=== PATIENT | female | born 1965 | race Caucasian/White ===

== ENCOUNTER → 2022-02-25 | Outpatient (CLI) | payer BC, SELFPAY ==
[2022-02-25 18:02] LABS: Absolute Lymphocyte Count 2.15 X10^3/uL (0.83-4.51); Basophil# 0.04 X10^3/uL; Basophil% 0.6 % (0-1); Eosinophil# 0.18 X10^3/uL; Eosinophils% 2.7 % (0-5); Hematocrit 40.6 % (37-47); Hemoglobin 13.4 g/dL (12.0-15.0); Lymphocyte # 2.15 X10^3/ul (0.83-4.51); Lymphocyte % 31.9 % (19-41); Mean Corpuscular Hgb 32.6 pg (27.0-32.0); Mean Corpuscular Volume 98.8 fL (81-99); Mean Platelet Vol. 9.6 fl (6.2-12.0); Monocyte# 0.36 X10^3/uL; Monocyte% 5.3 % (0-10); NRBC Flagged by Analyzer 0 % (0-5); Neutrophil # 4.01 X10^3/uL (2.7-7.7); Neutrophil % 59.4 % (47-70); Platelet Count 301 K/mm3 (150-450); RBC Distribution Width CV 12.7 % (11.6-14.6); RBC Distribution Width SD 46.3 fl (35.1-43.9); Red Blood Count 4.11 M/mm3 (4.2-5.4); White Blood Count 6.8 K/mm3 (4.4-11.0)
[2022-02-25 18:03] LABS: Erythrocyte Sedimentation Rate 15 mm/hr (0-30)
[2022-02-25 19:37] LABS: ALB/GLOB Ratio 1.1 RATIO (0.9-2.4); AST(SGOT) 22 U/L (15-37); Alanine Aminotransfer ALT/SGPT 37 U/L (13-56); Albumin, Serum 3.9 g/dL (3.2-5.0); Alkaline Phosphatase 90 U/L (45-117); Anion Gap 7 (5-15); BUN 12 mg/dL (7-18); BUN/Creat Ratio 20.1 RATIO (10-20); Calcium,Total 9.1 mg/dL (8.5-10.1); Chloride 105 mmol/L (98-107); Cholesterol 248 mg/dL (200); EST Glomerular Filtration Rate 110 mL/min (>60); Est Glom Filt Rate - Afr Amer 133 mL/min (>60); Globulin 3.4 g/dL (2.2-4.2); Glucose 112 mg/dL (74-106); High Density Lipoprotein 65 mg/dL; Potassium 3.5 mmol/L (3.5-5.1); Protein, Total 7.3 g/dL (6.4-8.2); Sodium Level 137 mmol/L (136-145); Thyroid Stim Hormone (TSH) 3.15 uIU/mL (0.358-3.74); Triglycerides 192 mg/dL; Very Low Density Lipoprotein 38 mg/dL (5-40)
== END | disposition home or self-care (01) ==
LOC: MFPLAB 09:46
PROVIDERS: PCP Family Medicine; Referring Provider Family Medicine; Visit Provider Family Medicine
DX: K76.0 Fatty (change of) liver, not elsewhere classified (principal); R10.9 Unspecified abdominal pain
CPT/HCPCS: 36415; 80053; 80061; 84443; 85025; 85652; 87086

== ENCOUNTER → 2022-02-27 | Outpatient (CLI) | payer BC, SELFPAY ==
--- NOTE | 2022-02-27 15:54 | RAD_ITS ---
STUDY: X-RAY - ABDOMEN/PELVIS REASON FOR EXAM: Female, 57 years old. Right lower quadrant abdominal pain. TECHNIQUE: AP supine and upright views of the abdomen and pelvis. COMPARISON: None. FINDINGS: Normal visualized lung bases. There is an unremarkable bowel gas pattern. There is no demonstrated free abdominal air. The visualized liver, spleen and kidneys are grossly normal in size and morphology. Normal soft tissue structures. There are diffuse degenerative changes of the visualized lumbar spine. RAD/Abd Inc Decub and/or Erect IMPRESSION: No evidence of acute intra-abdominal or pelvic process Electronically Signed: Pete Law DO at 16:09 EDT ,
== END | disposition home or self-care (01) ==
LOC: MTRAD 15:53
PROVIDERS: PCP Family Medicine; Referring Provider Family Medicine; Visit Provider Family Medicine
DX: R10.31 Right lower quadrant pain (principal)
CPT/HCPCS: 74019

== ENCOUNTER → 2022-07-19 | Outpatient (CLI) | payer BC, SELFPAY ==
--- NOTE | 2022-07-19 09:00 | US_ITS ---
STUDY: ABDOMINAL ULTRASOUND - RIGHT UPPER QUADRANT REASON FOR VISIT: Female, 57 years old FATTY LIVER W/ ELASTOGRAPHY TECHNIQUE: Ultrasound evaluation of the right upper quadrant was performed with real-time and static bee-scale imaging. TECHNICAL QUALITY: Adequate. COMPARISON: None. FINDINGS: Liver: The liver is enlarged and measures 19.2 cm. There is increased echogenicity consistent with fatty infiltration. The bile ducts are within normal limits. There is hepatic color flow. The direction of portal flow is hepatopetal. There is no demonstrated mass lesion. Gallbladder: Normal distended gallbladder. The gallbladder wall measures 1.1 mm. There is a negative sonographic Navas''s sign. There is no pericholecystic fluid. There are no gallstones. 3 small gallbladder polyps are seen adherent to the gallbladder wall. The largest polyp measures 5 mm x 5 mm x 20 mm. Common Bile Duct (C.B.D.): The common bile duct measures 6.1 mm. Pancreas: Normal size of the head, body and tail of the pancreas. There is normal echogenicity of the pancreas. There is no demonstrated pancreatic mass or cyst. Right Kidney: Normal size of the right kidney. The right kidney measures 10.3 cm x 6.3 cm x 4.8 cm. Normal renal cortex. The right cortex measures 1.1 cm. There is no demonstrated renal mass or cyst. There is no right hydronephrosis. US/Abdomen Limited IMPRESSION: Hepatomegaly and fatty attrition of the liver. 3. Small gallbladder polyps adherent to the gallbladder wall. Electronically Signed: Babar Cintron MD at 9:00 EDT ,
--- NOTE | 2022-07-19 09:00 | US_ITS ---
STUDY: ABDOMINAL ULTRASOUND - ELASTOGRAPHY REASON FOR VISIT: Female, 57 years old. Fatty infiltration of the liver. TECHNIQUE: Liver stiffness measurements were obtained on a [employer] RS 85 ultrasound machine using a CA 1-7 probe following the SRU guidelines. 3 measurements were obtained using a 2-D-SWE method. TheIQR/M was 22% suggesting a quality data set. TECHNICAL QUALITY: Adequate. COMPARISON: Comparison is made with prior study done earlier in the day. FINDINGS: Liver: There is evidence of fatty infiltration of the liver. Hepatomegaly. Median liver stiffness measured 12.2 kPa. US/Elastography Parenchyma/Organ IMPRESSION: Liver stiffness measures 12.2 kPa compatible with F2-F3 (Mild to moderate liver fibrosis) Metavir score. Electronically Signed: Babar Cintron MD at 9:31 EDT ,
== END | disposition home or self-care (01) ==
PROVIDERS: PCP Family Medicine; Referring Provider Family Medicine; Visit Provider Family Medicine
DX: K76.0 Fatty (change of) liver, not elsewhere classified (principal)
CPT/HCPCS: 76705; 76981

== ENCOUNTER → 2022-07-31 | Outpatient (CLI) | payer BC, SELFPAY ==
[2022-07-31 18:38] LABS: Absolute Lymphocyte Count 1.78 X10^3/uL (0.83-4.51); Absolute Neutrophil Count 3.8 X10^3/uL (2.0-7.7); Basophil# 0.04 X10^3/uL; Basophil% 0.6 % (0-1); Eosinophils% 3.2 % (0-5); Hematocrit 39.7 % (37-47); Hemoglobin 13.2 g/dL (12.0-15.0); Lymphocyte # 1.78 X10^3/ul (0.83-4.51); Lymphocyte % 28.5 % (19-41); Mean Corp Hgb Conc 33.2 g/dL (32-36); Mean Corpuscular Hgb 32.8 pg (27.0-32.0); Mean Corpuscular Volume 98.8 fL (81-99); Mean Platelet Vol. 9.1 fl (6.2-12.0); Monocyte# 0.38 X10^3/uL; Monocyte% 6.1 % (0-10); NRBC Flagged by Analyzer 0 % (0-5); Neutrophil # 3.83 X10^3/uL (2.7-7.7); Neutrophil % 61.4 % (47-70); Platelet Count 280 K/mm3 (150-450); RBC Distribution Width CV 12.5 % (11.6-14.6); RBC Distribution Width SD 45.5 fl (35.1-43.9); Red Blood Count 4.02 M/mm3 (4.2-5.4); White Blood Count 6.2 K/mm3 (4.4-11.0)
[2022-07-31 19:14] LABS: ALB/GLOB Ratio 1.1 RATIO (0.9-2.4); AST(SGOT) 24 U/L (15-37); Alanine Aminotransfer ALT/SGPT 39 U/L (13-56); Albumin, Serum 3.8 g/dL (3.2-5.0); Alkaline Phosphatase 73 U/L (45-117); Anion Gap 6 (5-15); BUN 18 mg/dL (7-18); BUN/Creat Ratio 29.7 RATIO (10-20); Calcium,Total 9.2 mg/dL (8.5-10.1); Chloride 107 mmol/L (98-107); Creatinine, Serum 0.61 mg/dL (0.55-1.02); EST Glomerular Filtration Rate 108 mL/min (>60); Est Glom Filt Rate - Afr Amer 130 mL/min (>60); Ferritin 89 ng/mL (8-252); GGTP 41 U/L (5-55); Globulin 3.5 g/dL (2.2-4.2); Glucose 102 mg/dL (74-106); Iron 62 ug/dL (50-170); Potassium 3.8 mmol/L (3.5-5.1); Protein, Total 7.3 g/dL (6.4-8.2); Sodium Level 138 mmol/L (136-145); Thyroid Stim Hormone (TSH) 2.19 uIU/mL (0.358-3.74)
[2022-08-02 08:10] LABS: HEPATITIS B SURFACE AG Negative (Negative); Hep C Antibodies Non Reactive (Non Reactive); Hepatitis A IgM Antibody Negative (Negative); Hepatitis B Core AB IgM Negative (Negative)
[2022-08-02 09:01] LABS: Thyroid Peroxidase AB 13 IU/mL (0-34)
[2022-08-04 15:08] LABS: ANTINUCLEAR ANTIBODIES DIRECT Positive (Negative); Anti-Centromere B Ab <0.2 AI (0.0-0.9); Anti-Chromatin <0.2 AI (0.0-0.9); Anti-Jo <0.2 AI (0.0-0.9); Anti-Scleroderma-70 AB <0.2 AI (0.0-0.9); RNP Ab 1.3 AI (0.0-0.9); SJOGREN'S Anti-SS-A test < 0.2 AI (0.0-0.9); SJOGREN'S Anti-SS-B test < 0.2 AI (0.0-0.9); Smith Ab <0.2 AI (0.0-0.9)
[2022-08-04 17:43] LABS: Anti-dsDNA Ab 1 IU/mL (0-9)
== END | disposition home or self-care (01) ==
LOC: MFPLAB 16:31
PROVIDERS: PCP Family Medicine; Referring Provider Family Medicine; Visit Provider Family Medicine
DX: K76.0 Fatty (change of) liver, not elsewhere classified (principal)
CPT/HCPCS: 36415; 80053; 80074; 82728; 82977; 83540; 84443; 85025; 86038; 86225; 86235; 86376

== ENCOUNTER → 2022-10-30 | Outpatient (CLI) | payer BC, SELFPAY ==
[2022-10-30 11:58] LABS: Absolute Lymphocyte Count 1.72 X10^3/uL (0.83-4.51); Absolute Neutrophil Count 4.6 X10^3/uL (2.0-7.7); Basophil# 0.03 X10^3/uL; Basophil% 0.4 % (0-1); Eosinophil# 0.16 X10^3/uL; Eosinophils% 2.3 % (0-5); Hematocrit 41.6 % (37-47); Lymphocyte # 1.72 X10^3/ul (0.83-4.51); Lymphocyte % 24.8 % (19-41); Mean Corp Hgb Conc 33.7 g/dL (32-36); Mean Corpuscular Hgb 32.8 pg (27.0-32.0); Mean Corpuscular Volume 97.4 fL (81-99); Mean Platelet Vol. 9.2 fl (6.2-12.0); Monocyte# 0.41 X10^3/uL; Monocyte% 5.9 % (0-10); NRBC Flagged by Analyzer 0 % (0-5); Neutrophil # 4.58 X10^3/uL (2.7-7.7); Neutrophil % 66.2 % (47-70); Platelet Count 287 K/mm3 (150-450); RBC Distribution Width CV 12.8 % (11.6-14.6); RBC Distribution Width SD 45.5 fl (35.1-43.9); Red Blood Count 4.27 M/mm3 (4.2-5.4); White Blood Count 6.9 K/mm3 (4.4-11.0)
[2022-10-30 12:08] LABS: International Normalized Ratio 0.9; Prothrombin Time (Protime)PT. 12.1 SECONDS (11.7-14.9)
[2022-10-30 12:36] LABS: Erythrocyte Sedimentation Rate 26 mm/hr (0-30)
[2022-10-30 12:38] LABS: Hemoglobin A1c 5.4 % (3.8-5.6)
[2022-10-30 12:58] LABS: HIV - WCH Non-Reactive (Nonreactive)
[2022-10-30 19:32] LABS: ALB/GLOB Ratio 1.2 RATIO (0.9-2.4); AST(SGOT) 25 U/L (15-37); Alanine Aminotransfer ALT/SGPT 38 U/L (13-56); Alkaline Phosphatase 85 U/L (45-117); Anion Gap 10 (5-15); BUN 15 mg/dL (7-18); CRP 5.82 mg/L (0.0-3.0); Calcium,Total 9.5 mg/dL (8.5-10.1); Chloride 104 mmol/L (98-107); Creatinine, Serum 0.56 mg/dL (0.55-1.02); EST Glomerular Filtration Rate 119 mL/min (>60); Est Glom Filt Rate - Afr Amer 144 mL/min (>60); Ferritin 110 ng/mL (8-252); Globulin 3.3 g/dL (2.2-4.2); Glucose 110 mg/dL (74-106); LDH 182 U/L (84-246); Potassium 3.9 mmol/L (3.5-5.1); Protein, Total 7.3 g/dL (6.4-8.2); Sodium Level 137 mmol/L (136-145)
[2022-10-31 15:08] LABS: Anti-Centromere B Ab <0.2 AI (0.0-0.9); Anti-Chromatin <0.2 AI (0.0-0.9); Anti-Jo <0.2 AI (0.0-0.9); Anti-Mitochondrial AB <20.0 Units (0.0-20.0); Anti-Scleroderma-70 AB <0.2 AI (0.0-0.9); Anti-dsDNA Ab 2 IU/mL (0-9); RNP Ab 1.5 AI (0.0-0.9); SJOGREN'S Anti-SS-A test < 0.2 AI (0.0-0.9); SJOGREN'S Anti-SS-B test < 0.2 AI (0.0-0.9); Smith Ab <0.2 AI (0.0-0.9)
[2022-11-01 07:08] LABS: AFP, Tumor Marker 2.6 ng/mL (0.0-9.2); Angiotensin Convert Enzyme 35 U/L (14-82); Anti-Smooth Muscle ABS 5 Units (0-19); Ceruloplasmin 28.9 mg/dL (19.0-39.0); Copper, Serum or Plasma 120 ug/dL (80-158); Cytoplasmic Ab (C-ANCA) <1:20 titer (Neg:<1:20); HEPATITIS B SURFACE AG Negative (Negative); Haptoglobin 264 mg/dL (33-346); Hep C Antibodies Non Reactive (Non Reactive); Hepatitis A IgM Antibody Negative (Negative); Hepatitis B Core AB IgM Negative (Negative); Perinuclear Ab (P-ANCA) <1:20 titer (Neg:<1:20)
== END | disposition home or self-care (01) ==
LOC: LAB 11:29
PROVIDERS: PCP Family Medicine; Referring Provider Internal Medicine Gastroenterology; Visit Provider Internal Medicine Gastroenterology
DX: K76.0 Fatty (change of) liver, not elsewhere classified (principal); K83.8 Other specified diseases of biliary tract
CPT/HCPCS: 36415; 80053; 80074; 82105; 82140; 82164; 82390; 82525; 82728; 83010; 83036; 83516; 83615; 85025; 85610; 85652; 86140; 86225; 86235; 86256; 86703

== ENCOUNTER → 2022-11-20 | Outpatient (CLI) | payer BC, SELFPAY ==
--- NOTE | 2022-11-20 15:50 | MRI_ITS ---
INDICATION: cbd dilation, abd pain EXAMINATION: MRI - MR MRCP and Abdomen W/O Contrast TECHNIQUE: Multiplanar and multisequence MR images of the abdomen were obtained with MRCP sequence. Three-dimensional post-processing reconstructions were performed. IV Contrast Dosage and Agent: None. COMPARISON: Abdominal radiograph February 27, 2022 abdominal ultrasound July 19, 2022. FINDINGS: LIVER: Homogeneous parenchyma with hepatomegaly. No evidence of intrahepatic mass. Normal morphology. GALLBLADDER AND BILIARY TREE: Gallbladder well filled. Small dependent stones within the gallbladder without wall thickening or surrounding inflammation. The CBD measures up to 8 mm with distal tapering, abruptly truncated within the pancreatic segment prior to the ampulla on MRCP though appearing to taper all way to the duodenum on axial T2 without suspicious filling defect. No intra- or extrahepatic biliary dilation. No choledochal filling defect. PANCREAS: No mass. No pancreatic duct dilation. Pancreatic duct continues to the ampulla. SPLEEN: Non-enlarged. ADRENAL GLANDS: Ill-defined 8mm left medial adrenal nodule, axial T2 image 8. KIDNEYS: Partially duplicated left renal collecting system, joining low within the abdomen, with mild pelviectasis in the left renal lower pole. Normal right renal collecting system. Normal renal size and position. No hydronephrosis. No mass. LYMPH NODES: No enlarged periportal or retroperitoneal lymph nodes. PERITONEUM: No ascites or fluid collection. VESSELS: Aorta is non-dilated. LOWER CHEST: No pleural effusion. MRI/MRCP Abdomen without Contrast IMPRESSION: Cholelithiasis without surrounding inflammation to suggest cholecystitis. Mild dilatation of the common bile duct at 8 mm with distal tapering. The distal common bile duct appears to taper to the ampulla on axial T2 though appears abruptly truncated on MRCP. Correlate with biliary labs. If there is clinical evidence of biliary obstruction would not exclude distal most common bile duct stone and ERCP may be beneficial. Partially duplicated left renal collecting system 8mm well-defined left adrenal nodule. Follow-up dedicated adrenal protocol CT recommended to further characterize when clinically able. Mild hepatomegaly Electronically Signed: Armaan Mcclain MD at 5:53 EDT ,
[2022-11-26 00:06] LABS: Albumin 4.1 g/dL (2.9-4.4); Alpha-1-Globulins 0.2 g/dL (0.0-0.4); Alpha-2-Globulins 0.9 g/dL (0.4-1.0); Ceruloplasmin 26.5 mg/dL (19.0-39.0); Copper, Serum or Plasma 106 ug/dL (80-158); Gamma Globulin 0.8 g/dL (0.4-1.8); IgG, Quant 825 mg/dL (586-1602); Immunoglobulin A 108 mg/dL (87-352); Immunoglobulin G, Subclass 1 376 mg/dL (248-810); Immunoglobulin G, Subclass 2 346 mg/dL (130-555); Immunoglobulin G, Subclass 3 26 mg/dL (15-102); Immunoglobulin G, Subclass 4 23 mg/dL (2-96); Immunoglobulin M 140 mg/dL (26-217)
== END | disposition home or self-care (01) ==
PROVIDERS: PCP Family Medicine; Referring Provider Internal Medicine Gastroenterology; Visit Provider Internal Medicine Gastroenterology
DX: K76.0 Fatty (change of) liver, not elsewhere classified (principal); K83.8 Other specified diseases of biliary tract
CPT/HCPCS: 36415; 74181; 82390; 82525; 82784; 82787; 84165; 86334

== ENCOUNTER → 2022-12-02 | Outpatient (CLI) | payer BC, SELFPAY ==
[2022-12-04 05:04] LABS: Carbohydrate AG 19-9 6 U/mL (0-35); Carcinoembryonic Antigen 1.5 ng/mL (0.0-4.7)
== END | disposition home or self-care (01) ==
LOC: LAB 15:43
PROVIDERS: PCP Family Medicine; Referring Provider Internal Medicine Gastroenterology; Visit Provider Internal Medicine Gastroenterology
DX: K83.8 Other specified diseases of biliary tract (principal)
CPT/HCPCS: 36415; 82378; 86301

== ENCOUNTER → 2023-01-05 | Outpatient (CLI) | payer BC, SELFPAY ==
--- NOTE | 2023-01-05 07:51 | US_ITS ---
STUDY: ABDOMINAL ULTRASOUND - RIGHT UPPER QUADRANT; ELASTOGRAPHY REASON FOR VISIT: Female, 57 years old. Fatty infiltration of the liver. TECHNIQUE: Ultrasound evaluation of the right upper quadrant was performed with real-time and static bee-scale imaging. Point quantification shear wave elastography was performed ([employer]). TECHNICAL QUALITY: Adequate. COMPARISON: Comparison is made with prior study of July 19, 2022. FINDINGS: Liver: The liver is enlarged and measures 18.5 cm. There is increased echogenicity consistent with fatty infiltration. The bile ducts are within normal limits. There is hepatic color flow. The direction of portal flow is hepatopetal. There is no demonstrated mass lesion. Median liver stiffness measured 7.6 kPa. Gallbladder: Normal distended gallbladder. The gallbladder wall measures 2.1 mm. There is a negative sonographic Navas''s sign. There is no pericholecystic fluid. There are multiple echogenic structures within the gallbladder, consistent with multiple small gallstones. Sludge is seen within the gallbladder lumen. Common Bile Duct (C.B.D.): The common bile duct measures 5.4 mm. Pancreas: There is increased echogenicity of the pancreas. There is no demonstrated pancreatic mass or cyst. Right Kidney: Normal size of the right kidney. The right kidney measures 10.1 cm x 5.5 cm x 4.8 cm. Normal renal cortex. The right cortex measures 1.2 cm. There is no demonstrated renal mass or cyst. There is no right hydronephrosis. US/Abdomen Limited IMPRESSION: 1. Liver stiffness measures 7.6 kPa compatible with F2-F3 (Mild to moderate liver fibrosis) Metavir score. Electronically Signed: Babar Cintron MD at 16:39 EDT ,
== END | disposition home or self-care (01) ==
LOC: US 07:51
PROVIDERS: PCP Family Medicine; Referring Provider Internal Medicine Gastroenterology; Visit Provider Internal Medicine Gastroenterology
DX: K76.0 Fatty (change of) liver, not elsewhere classified (principal); K83.8 Other specified diseases of biliary tract
CPT/HCPCS: 76705; 76981

== ENCOUNTER 2023-01-08 10:41 | Day surgery (SDC) | payer BC, SELFPAY ==
[2023-01-08 11:12] VITALS: BP 140/96; PULSE 82; RESP 16; TEMP 36.2; O2SAT 98; BMI 28.6
[2023-01-08] MEDS: Lactated Ringers 1,000 ML 15 ML IV (11:16)
--- NOTE | 2023-01-08 11:27 | HP.PCM_ITS ---
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 Takes 800mg ibuprofen/day. HLD noted ? Biochemical 07.31.22 CBC, CMP, LFT, GGT, TSH, hepatitis screen without pertinent abnormality. ? 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 ? FIB4 0.8 ? US RUQ and elastography 07.19.22 hepatic measurement 19.2cm with fatty infiltration, stiffness 12.2kPa; 3 small gallbladder polyps, largest [id number]; CBD 6.1mm *BGI established 10.30.22 ibuprofen 800mg is taken once a daily and is not every day but frequently. ROS Const Constitutional: No anorexia, fatigue, fever(s), weight change or sleep problems Eyes Eyes: No change in vision ENT ENT: No abnormal hearing, difficulty swallowing, mouth lesions, tongue swelling or throat swelling Resp Respiratory: No cough or shortness of breath Cardio Cardiology: No chest pain at rest, chest pain with exertion, shortness of breath or dyspnea on exertion Gastro GI: No difficulty swallowing Genitourinary-Female: No difficulty urinating or burning urination Musc Musculoskeletal: No joint pain, joint swelling, muscle weakness or decreased muscle mass Skin Skin: No hair loss in leg, yellowing of the eye, itchy eyes, rash, skin ulcer or skin swelling Neuro Neurology: No abnormal hearing, abnormal movements, confusion, unsteady gait/balance or memory loss Psych Psychiatric: No anxiety, No confusion and No memory loss Endo Endocrine: No fatigue or weight change Aller/Imm Allergy/Immunologic: No itchy eyes, throat swelling or tongue swelling Trevor/Lymp Hematologic/Lymphatic: No easy bleeding, easy bruising or enlarged lymph nodes Quality Reporting Tobacco Screening ([facility] 138) Smoking Status: Current every day smoker Assessment and Plan Assessment and Plan (1) Common bile duct dilatation: Status: Chronic Plan: She is not having any problems regarding pain with eating or right upper quadrant pain. She does have some, duct dilation of the extrahepatic duct in the differential diagnosis from that would be papillary stenosis, ampullary stenosis, chronic choledocholithiasis, type I choledochal cyst. We will get an MRCP for evaluation of her hepatobiliary system (2) Fatty liver: Status: Chronic Plan: She at this time is classified as having stage III managed by a fibrosis score of 12.2 kPa. She is also been identified as having hypercholesterolemia and mild obesity. She is on rosuvastatin. I would like to add Actos I will recheck her hemoglobin A1c at a 50 mg dose per day. She is on 1000 mg of vitamin D a day and I think that should be taken down to 400 international units. There is no benefit to high-dose vitamin E in her patient population with [place]. After she gets biochemical testing and MRI we will have her follow-up for further work-up. Orders: Orders HIV - [facility] Today K76.0 - Fatty (change of) liver, not elsewhere classified, K83.8 - Other specified diseases of biliary tract Comprehensive Metabolic Profil Today K76.0 - Fatty (change of) liver, not elsewhere classified, K83.8 - Other specified diseases of biliary tract CRP Today K76.0 - Fatty (change of) liver, not elsewhere classified, K83.8 - Other specified diseases of biliary tract Ferritin Today K76.0 - Fatty (change of) liver, not elsewhere classified, K83.8 - Other specified diseases of biliary tract LDH Today K76.0 - Fatty (change of) liver, not elsewhere classified, K83.8 - Other specified diseases of biliary tract Hemoglobin A1c Today K76.0 - Fatty (change of) liver, not elsewhere classified, K83.8 - Other specified diseases of biliary tract Prothrombin Time w/INR Today K76.0 - Fatty (change of) liver, not elsewhere classified, K83.8 - Other specified diseases of biliary tract CBC W/Diff, Automated Today K76.0 - Fatty (change of) liver, not elsewhere classified, K83.8 - Other specified diseases of biliary tract Erythrocyte Sed Rate Today K76.0 - Fatty (change of) liver, not elsewhere classified, K83.8 - Other specified diseases of biliary tract Anti-Mitochondrial AB Today K76.0 - Fatty (change of) liver, not elsewhere classified, K83.8 - Other specified diseases of biliary tract AYLA Comprehensive Panel Today K76.0 - Fatty (change of) liver, not elsewhere classified, K83.8 - Other specified diseases of biliary tract MRCP Abdomen without Contrast Today K76.0 - Fatty (change of) liver, not elsewhere classified, K83.8 - Other specified diseases of biliary tract Hepatitis Panel Acute Today K76.0 - Fatty (change of) liver, not elsewhere classified, K83.8 - Other specified diseases of biliary tract Angiotensin Convert Enzyme Today K76.0 - Fatty (change of) liver, not elsewhere classified, K83.8 - Other specified diseases of biliary tract AFP, Tumor Marker Today K76.0 - Fatty (change of) liver, not elsewhere classified, K83.8 - Other specified diseases of biliary tract ANCA Today K76.0 - Fatty (change of) liver, not elsewhere classified, K83.8 - Other specified diseases of biliary tract Anti-Smooth Muscle ABS Today K76.0 - Fatty (change of) liver, not elsewhere classified, K83.8 - Other specified diseases of biliary tract Ceruloplasmin Today K76.0 - Fatty (change of) liver, not elsewhere classified, K83.8 - Other specified diseases of biliary tract Copper, Serum or Plasma Today K76.0 - Fatty (change of) liver, not elsewhere c lassified, K83.8 - Other specified diseases of biliary tract Haptoglobin Today K76.0 - Fatty (change of) liver, not elsewhere classified, K83.8 - Other specified diseases of biliary tract Ammonia Today K76.0 - Fatty (change of) liver, not elsewhere classified, K83.8 - Other specified diseases of biliary tract Abdomen Limited 01/05/23 K76.0 - Fatty (change of) liver, not elsewhere classified, K83.8 - Other specified diseases of biliary tract Elastography Parenchyma/Organ 01/05/23 K76.0 - Fatty (change of) liver, not elsewhere classified, K83.8 - Other specified diseases of biliary tract Medications: New pioglitazone 15 mg PO DAILY 30 tabs 2RF I have examined the patient and the H&P has been reviewed. There are no clinical changes since date of exam.
--- NOTE | 2023-01-08 11:45 | ASPS_PTH ---
PATIENT: MARTINA DANIELS LOC: EN U#:[id number] AGE/SX: 57/F ROOM: RE01/08/[address]: Dr. Jose L Montana DO : 1965 BED: DIS: 01/08/2023 SPEC #: [id number] RECD: 01/08/23 17:13 STATUS: [facility] #: [id number] KARY: 01/08/23 11:[address]: Jose L Montana DEPT: CYTOLOGY RECD BY: Treasure Garcia ENTERED: 01/09/23 08:22 SP TYPE: ASPIRATION OTHR DR: Dr. Nestor Santiago MD Tissues: Bile duct, NOS Procedures: Special Stain Group II Surgery Specimen Level III Cytology Other HEADER OPERATION: ERCP brushings, placement of stents PRE-OP DIAGNOSIS: Fatty liver, common bile duct dilatation TISSUE SUBMITTED: Common bile duct brushings x4 smears DIAGNOSIS CYTOLOGY Common bile duct brushings (smears): Negative for malignant cells. AM:briseida 01/09/2023 CYTOLOGY STUDY Slides are reviewed. CYTOLOGY GROSS Received are four smears labeled with the patient's name and designated per the requisition as common bile duct brushings. Submitted for staining. / briseida 01/08/2023 TC:5 CPT: 62826
[2023-01-08 11:47] LABS: Bedside Glucose 101 mg/dL (74-106)
--- NOTE | 2023-01-08 12:50 | RAD_ITS ---
STUDY: ERCP. REASON FOR EXAM: Female, 57 years old. PAIN FLUOROSCOPY TIME (if supplied): ( 140 seconds. ) minutes/seconds. 26.23 mGy TECHNIQUE: An ERCP was performed by the banquet server on call. Fluoroscopic services was provided. COMPARISON: None. FINDINGS: A biliary stent was placed. RAD/ERCP Biliary Only IMPRESSION: Biliary stent was placed. Electronically Signed: Babar Cintron MD at 14:41 EDT ,
[2023-01-08 14:00] VITALS: BP 137/87; BP 140/96; PULSE 79; RESP 16; TEMP 36.1; O2SAT 98
[2023-01-08 14:15] VITALS: BP 140/96; BP 159/92; PULSE 76; RESP 16; O2SAT 95
[2023-01-08 14:18] VITALS: BP 140/96; BP 158/93; PULSE 74; RESP 16; TEMP 36.3; O2SAT 97
[2023-01-08 14:40] LABS: Bedside Glucose 92 mg/dL (74-106)
--- NOTE | 2023-01-08 14:52 | OP.CCLET_ITS ---
01/08/2023 Dada Santiago [address] [place] [address] Re : ERCP procedure for Elsie Saenzai Dear Dr. Santiago This procedure was performed on December. My impressions and recommendations are as follows: Impressions : - A biliary tract obstruction was found. - A single segmental biliary stricture was found in the lower third of the main bile duct. The stricture was benign appearing. - The entire main bile duct was moderately dilated, acquired. - Choledocholithiasis with a partial obstruction was found. Complete removal was accomplished by biliary sphincterotomy and balloon extraction. - A biliary sphincterotomy was performed. - The biliary tree was swept. - Cells for cytology obtained in the lower third of the main duct. - One temporary stent was placed into the common bile duct. - One stent was placed into the ventral pancreatic duct. Recommendations : My findings are described in the full procedure note, which is enclosed. If I can be of further assistance, please feel free to contact me at . Sincerely, Jose L Montana, 01/08/2023 2:51:55 PM This report has been signed electronically.
--- NOTE | 2023-01-08 14:52 | OP.ERCP_ITS ---
Patient Name: Elsie Patterson Procedure Date: 01/08/2023 12:44 PM Date of : 1965 Age: 57 Procedure: ERCP Indications: Bile duct stone(s), Abnormal abdominal CT, Abnormal MRCP, Elevated liver enzymes Providers: Jose L Montana DO Medicines: Monitored Anesthesia Care Patient Profile: This is a 57 year old female. Refer to note in patient chart for documentation of history and physical. Patient has symptoms of chronic right upper quadrant abdominal pain. This patient has no history of previous ERCP. Complications: No immediate complications. Procedure: Pre-Anesthesia Assessment: - Prior to the procedure, a History and Physical was performed, and patient medications and allergies were reviewed. The patient is competent. The risks and benefits of the procedure and the sedation options and risks were discussed with the patient. All questions were answered and informed consent was obtained. Patient identification and proposed procedure were verified by the physician in the pre-procedure area. Mental Status Examination: alert and oriented. Airway Examination: normal oropharyngeal airway and neck mobility. Respiratory Examination: clear to auscultation. CV Examination: normal. Prophylactic Antibiotics: The patient does not require prophylactic antibiotics. Prior Anticoagulants: The patient has taken no anticoagulant or antiplatelet agents. ASA Grade Assessment: II - A patient with mild systemic disease. After reviewing the risks and benefits, the patient was deemed in satisfactory condition to undergo the procedure. The anesthesia plan was to use general anesthesia. Immediately prior to administration of medications, the patient was re-assessed for adequacy to receive sedatives. The heart rate, respiratory rate, oxygen saturations, blood pressure, adequacy of pulmonary ventilation, and response to care were monitored throughout the procedure. The physical status of the patient was re-assessed after the procedure. After obtaining informed consent, the scope was passed under direct vision. Throughout the procedure, the patient's blood pressure, pulse, and oxygen saturations were monitored continuously. The Duodenoscope was introduced through the mouth, and advanced to the duodenum and used to inject contrast into the bile duct. The ERCP was accomplished with ease. The patient tolerated the procedure well. Scope In: 1:17:22 PM Scope Out: 1:39:07 PM Total Procedure Duration Time 0 hours 21 minutes 45 seconds Findings: The lpta film was normal. The esophagus was successfully intubated under direct vision. The scope was advanced to a normal major papilla in the descending duodenum without detailed examination of the pharynx, larynx and associated structures, and upper GI tract. The upper GI tract was grossly normal. The bile duct was deeply cannulated. Contrast was injected. I personally interpreted the bile duct and pancreatic duct images. There was brisk flow of contrast through the ducts. Image quality was excellent. Contrast extended to the entire biliary tree. The entire biliary tree except for the cystic duct and gallbladder were partially obstructed by a narrowing that did not appear to be a stone or a mass. Opacification of the entire biliary tree except for the cystic duct and gallbladder was successful. The maximum diameter of the ducts was 7 mm. The lower third of the main bile duct contained a single segmental stenosis 6 mm in length. The main bile duct was moderately dilated, acquired. The largest diameter was 9 mm. Placement of a long 0.025 inch Jagwire into the biliary tree was attempted. This passed successfully. A 5 mm biliary sphincterotomy was made with a monofilament traction (standard) sphincterotome using ERBE electrocautery. There was no post-sphincterotomy bleeding. To discover objects, the biliary tree was swept with a 12 mm balloon starting at the bifurcation. Sludge was swept from the duct. All stones were removed. Cells for cytology were obtained by brushing in the lower third of the main bile duct. One 7 Fr by 5 cm temporary stent was placed 5 cm into the common bile duct. Bile flowed through the stent. The stent was in good position. One 4 Fr by 5 cm stent was placed 5 cm into the ventral pancreatic duct. Bile flowed through the stent. The stent was in good position. Impression: - A biliary tract obstruction was found. - A single segmental biliary stricture was found in the lower third of the main bile duct. The stricture was benign appearing. - The entire main bile duct was moderately dilated, acquired. - Choledocholithiasis with a partial obstruction was found. Complete removal was accomplished by biliary sphincterotomy and balloon extraction. - A biliary sphincterotomy was performed. - The biliary tree was swept. - Cells for cytology obtained in the lower third of the main duct. - One temporary stent was placed into the common bile duct. - One stent was placed into the ventral pancreatic duct. Procedure Code(s): --- Professional --- 80451, Endoscopic retrograde cholangiopancreatography (ERCP); with placement of endoscopic stent into biliary or pancreatic duct, including pre- and post-dilation and guide wire passage, when performed, including sphincterotomy, when performed, each stent [id number], 59, Endoscopic retrograde cholangiopancreatography (ERCP); with placement of endoscopic stent into biliary or pancreatic duct, including pre- and post-dilation and guide wire passage, when performed, including sphincterotomy, when performed, each stent [id number], Endoscopic retrograde cholangiopancreatography (ERCP); with removal of calculi/debris from biliary/pancreatic duct(s) 67908, 26, Combined endoscopic catheterization of the biliary and pancreatic ductal systems, radiological supervision and interpretation CPT copyright 2021 [employer]. All rights reserved. The codes documented in this report are preliminary and upon professional fee coder review may be revised to meet current compliance requirements. Jose L Montana DO 01/08/2023 2:51:55 PM This report has been signed electronically. Number of Addenda: 0 Note Initiated On: 01/08/2023 12:44 PM
[2023-01-08 15:39] VITALS: BP 140/96; BP 169/90; PULSE 77; RESP 17; TEMP 36.4; O2SAT 93
== END 2023-01-08 15:54 | disposition home or self-care (01) ==
LOC: EN 10:46 → AC 10:49
PROVIDERS: PCP Family Medicine; Referring Provider Family Medicine; Visit Provider Internal Medicine Gastroenterology
PROC: (CPT 43260; principal; 2023-01-08 11:25)
DX: K80.51 Calculus of bile duct without cholangitis or cholecystitis with obstruction (principal); E11.9 Type 2 diabetes mellitus without complications; F17.200 Nicotine dependence, unspecified, uncomplicated; K83.8 Other specified diseases of biliary tract; Z79.899 Other long term (current) drug therapy
CPT/HCPCS: 43274 ×2; 43264; 74328; 76000; 76705; 76981; 82962; 88161; 88304; 88313; J7120; J2405

== ENCOUNTER 2023-04-28 11:56 | Day surgery (SDC) | payer BC, SELFPAY ==
[2023-04-28] VITALS (7 sets, daily range): BP systolic 90–135; BP diastolic 71–90; PULSE 76–85; RESP 16; TEMP 36–36.7; O2SAT 98–100; BMI 27.9
--- NOTE | 2023-04-28 12:00 | RAD_ITS ---
STUDY: ERCP. REASON FOR EXAM: Female, 58 years old. ERCP FLUOROSCOPY TIME (if supplied): ( 66 seconds ) minutes/seconds. 13.32 mGy TECHNIQUE: An ERCP was performed by the director of employee development. Fluoroscopic services were provided. COMPARISON: None. FINDINGS: Fluoroscopic services provided for ERCP. RAD/ERCP Biliary/Pancreas IMPRESSION: Fluoroscopic services provided for ERCP. Electronically Signed: Babar Cintron MD at 15:08 EST ,
[2023-04-28] MEDS: Lactated Ringers 1,000 ML 15 ML IV (12:29)
--- NOTE | 2023-04-28 13:00 | FLU_PTH ---
PATIENT: MARTINA DANIELS LOC: EN U#:[id number] AGE/SX: 58/F ROOM: RE04/28/[address]: Dr. Jose L Montana DO : 1965 BED: DIS: 04/28/2023 SPEC #: [id number] RECD: 04/29/23 09:29 STATUS: [facility] #: [id number] KARY: 04/28/23 13:[address]: Jose L Montana DEPT: CYTOLOGY RECD BY: Jossy Rivas ENTERED: 04/29/23 09:31 SP TYPE: Fluid OTHR DR: Dr. Nestor Santiago MD Tissues: A - Bile duct, NOS B - Bile duct, NOS C - Bile duct, NOS Procedures: Special Stain Group II Surgery Specimen Level IV Cytospin Fluid Cytology Other HEADER OPERATION: ERCP with stent removal with brushings and balloon sweep PRE-OP DIAGNOSIS: Fatty liver, common bile duct dilation TISSUE SUBMITTED: A - Biliary stent and pancreatic stent fluid, B - Distal common bile duct stricture brushings, C - Common bile duct stricture brush tip DIAGNOSIS CYTOLOGY A. Biliary stent fluid for cytology (cytospin and cell block): Negative for malignant cells. B. Common bile duct brushings (cytospin and cell block): Negative for malignant cells. C. Common bile duct brushings (smears): Negative for malignant cells. AM:briseida 04/30/2023 CYTOLOGY STUDY Slides are reviewed. CYTOLOGY GROSS A - Received is <0.5 ml of yellow thick pasty material labeled with the patient's name and and designated per the requisition as biliary and pancreatic stent. Submitted for cytology preparation including cell block. B - Received is a metallic endoscopic cytobrush with adherent minute fragments of reyez-red tissue brush in 0.5 ml of yellow cloudy fluid and labeled with the patient's name and and designated per the requisition as brushings distal common bile duct stricture. The material is dislodged from the brush and submitted for cytology preparation including cell block. C - Received are four smears labeled with the patient's name and designated per the requisition as brush tip distal common bile duct stricture. Submitted for staining. / briseida 04/29/2023 TC:3 CPT: 52433 x2, 52355 x2, 80819
--- NOTE | 2023-04-28 13:06 | HP.PCM_ITS ---
History and Physical Date of Admission: 04/28/23 58 F who presents to the office today for follow up. 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 Takes 800mg ibuprofen/day. HLD noted Biochemical 07.31.22 CBC, CMP, LFT, GGT, TSH, hepatitis screen without pertinent abnormality. [employer] ab H1.3. FIB4 0.8 US RUQ and elastography 07.19.22 hepatic measurement 19.2cm with fatty infiltration, stiffness 12.2kPa; 3 small gallbladder polyps, largest [id number]; CBD 6.1mm *BGI established 10.30.22 ibuprofen 800mg is taken once a daily and is not every day but frequently. Biochemical CBC, ESR, coag, CMP, LFT, LDH, ceruloplasmin, haptoglobin, ferritin, A1c, PAMELA, copper, AFP GAME, IgG subclasses, LONNIE, ASM, AMA, ANCA, HIV, hepatitis without pertinent abnormality. Ammonia H44, CRP H5.82, [employer] H1.5 FIB4 0.82 MRCP 7 cholelithiasis without inflammation; CBD 8mm with distal tapering without evidence of obstruction; adrenal nodule. Contact 12.03.22 would like to wait on urology referral US and elastography 01.05.23 hepatic measurement 18.5 with fatty infiltration, stiffness 7.6kPa; multiple gallstones ERCP 01.08.23 biliary stricture; entire main bile duct dilated; choledocholithiasis, biliary sphincterotomy/balloon extraction; two temporary stents placed, CBD and ventral pancreatic duct. Pathology WNL. Contact, 01.28.23 with US/elastography and ERCP results. OV 11 Pt reports intermittent abdominal pain. Feels its mostly diet related. BM are normal and consistent. Appeite is okay. No swelling in the arms or legs. There is no significant weight gain for last few years. No leg swelling, abdominal pain, fever, jaundice or Dysuria. She decreased amount and frequency of alcohol intake currently, 1-2 glass of red wine on weekends. 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 ROS Const Constitutional: Positive for fatigue and weight change ENT ENT: No difficulty swallowing Gastro GI: No abdominal pain, belching, bloating, change in bowel habits, change in stool character, coffee ground emesis, constipation, cramping, diarrhea, heartburn, difficulty swallowing, feeling full early, excessive flatus, incontinent of stools, Vomiting blood/hematemesis, Blood in stool, loose stools, Black,tarry stools, nausea/dyspepsia, pain with swallowing, vomiting or other Musc Musculoskeletal: Positive for restless legs; No joint pain Skin Skin: No yellowing of the eye or itchy eyes Neuro Neurology: Positive for restless legs Psych Psychiatric: No anxiety and No depression Endo Endocrine: Positive for fatigue and weight change Aller/Imm Allergy/Immunologic: No itchy eyes Trevor/Lymp Hematologic/Lymphatic: No easy bleeding or easy bruising Exam Const General: cooperative, no acute distress and well developed Nutritional Appearance: average body habitus Orientation: alert, awake and oriented x3 [facility] Head: normocephalic and atraumatic Nose: external nose normal Face and sinus: normal facial exam Mouth: moist mucous membranes Eyes Pupils: PERRL EOM: EOM intact bilaterally Neck Neck: normal visual inspection, no meningeal signs and trachea midline Carotids: no bruits Chest Chest palpation & inspection: normal inspection of the chest Resp Effort & Inspection: normal respiratory effort and symmetric chest movement Auscultation: Bilateral: Clear to Auscultation Cardio Palpation: normal PMI Rate: regular rate Rhythm: regular rhythm Heart Sounds: S1 normal and S2 normal GI Auscultation: normal bowel sounds Percussion: normal to percussion Palpation: soft, no hepatosplenomegaly and no guarding Other: Clinically no palpable ascites with fluid thrill and shifting dullness. General: bimanual renal exam normal bilaterally, bladder normal to inspection and bladder normal to palpation Bimanual Exam- Vagina & Uterus: bladder normal to palpation Musc Musculoskeletal: No joint tenderness, joint redness, joint warmth or decreased range of motion Thoracic/Lumbar Spine: thor and lumb spine abnorm to inspection Skin General: rashes and/or lesions noted, turgor normal and no erythema Wounds: wound noted Neuro General: patient alert, patient awake, patient oriented x3 and no focal motor deficits Speech: speech normal Motor: muscle tone normal throughout Extrem General: normal exam except as noted Psych Appearance: grossly normal Mood: congruent mood Affect: normal affect Attitude: cooperative Quality Reporting Tobacco Screening (CMS 138) Smoking Status: Current every day smoker Assessment and Plan Assessment and Plan (1) Fatty liver: Status: Chronic Plan: NAFLD score -2.49 suggestive of severity F0 to F2 fibrosis. Fib 4 score 0.03, advanced fibrosis noted. Approximate fibrosis stage Cristy 0-1.Most recent liver ultrasound with elastography 01/05/2023 shows median liver stiffness 7.6, decreased from 12.2 kPa from July 2022. Liver enlarged 18.5 cm with fatty infiltration. Bile duct within normal limit. No demonstrated mass lesion. CBD 5.4 mm. No demonstrated pancreatic mass or cyst with increased pancreatic echogenicity. Last fasting profile was from February 2022 which showed increased LDL and total cholesterol therefore increased to 10 mg daily. We will repeat l ab work before next visit. Last A1c 5.4% in October 2022. Blood pressure is controlled. Patient is already on pioglitazone which has beneficial effect on the liver fibrosis. Check vitamin D3. (2) Common bile duct dilatation: Status: Chronic Plan: Currently she does not have abdominal pain. She had ERCP on January 08, 2023 she is not having abdominal pain. She had 1 temporary stent in the CBD and another stent in the ventral pancreatic duct. Cytology is negative for malignant cells. We will schedule ERCP with Dr. Montana in first week of April. I have examined the patient and the H&P has been reviewed. There are no clinical changes since date of exam.
--- NOTE | 2023-04-28 13:22 | EKG12_ITS ---
Test Reason : PRE OP Blood Pressure : / mmHG Vent. Rate : 063 BPM Atrial Rate : 063 BPM P-R Int : 172 ms QRS Dur : 070 ms QT Int : 458 ms P-R-T Axes : 047 016 053 degrees QTc Int : 468 ms Normal sinus rhythm Normal ECG No previous ECGs available Confirmed by LURDES LEONE, SCOTTIE ([id number]), assistant editor DOMINIK NICHOLS ([id number]) on 05/01/2023 5:52:05 AM Referred By: Dada Santiago Confirmed By:SCOTTIE CHATMAN MD
--- NOTE | 2023-04-28 14:23 | OP.CCLET_ITS ---
04/28/2023 Dada Santiago [address] [place] [address] Re : ERCP procedure for Elsie Patterson Dear Dr. Santiago This procedure was performed on Friday, April 28, 2023. My impressions and recommendations are as follows: Impressions : - Erythematous duodenopathy. - The lower third of the main bile duct was dilated, acquired. - Choledocholithiasis was found. Complete removal was accomplished by biliary sphincterotomy and balloon extraction. - A biliary sphincterotomy was performed. - The biliary tree was swept. - One stent was removed from the biliary tree. - The left main hepatic duct was successfully dilated. Recommendations : My findings are described in the full procedure note, which is enclosed. If I can be of further assistance, please feel free to contact me at . Sincerely, Jose L Montana, 04/28/2023 2:23:06 PM This report has been signed electronically.
--- NOTE | 2023-04-28 14:23 | OP.ERCP_ITS ---
Patient Name: Elsie Patterson Procedure Date: 04/28/2023 1:13 PM Date of : 1965 Age: 58 Procedure: ERCP Indications: Bile duct stone(s), Stent removal Providers: Jose L Montana DO Referring MD: Dada Santiago Medicines: Monitored Anesthesia Care Patient Profile: This is a 58 year old female. Refer to note in patient chart for documentation of history and physical. Patient has symptoms of chronic right upper quadrant abdominal pain. Her most recent ERCP for stent and ERCP for stone removal was within the past six months. Complications: No immediate complications. Procedure: Pre-Anesthesia Assessment: - Prior to the procedure, a History and Physical was performed, and patient medications and allergies were reviewed. The patient is competent. The risks and benefits of the procedure and the sedation options and risks were discussed with the patient. All questions were answered and informed consent was obtained. Patient identification and proposed procedure were verified by the physician in the pre-procedure area. Mental Status Examination: alert and oriented. Airway Examination: normal oropharyngeal airway and neck mobility. Respiratory Examination: clear to auscultation. CV Examination: normal. Prophylactic Antibiotics: The patient does not require prophylactic antibiotics. Prior Anticoagulants: The patient has taken no anticoagulant or antiplatelet agents. ASA Grade Assessment: II - A patient with mild systemic disease. After reviewing the risks and benefits, the patient was deemed in satisfactory condition to undergo the procedure. The anesthesia plan was to use monitored anesthesia care (MAC). Immediately prior to administration of medications, the patient was re-assessed for adequacy to receive sedatives. The heart rate, respiratory rate, oxygen saturations, blood pressure, adequacy of pulmonary ventilation, and response to care were monitored throughout the procedure. The physical status of the patient was re-assessed after the procedure. After obtaining informed consent, the scope was passed under direct vision. Throughout the procedure, the patient's blood pressure, pulse, and oxygen saturations were monitored continuously. The Duodenoscope was introduced through the mouth, and advanced to the duodenum and used to inject contrast into the bile duct and ventral pancreatic duct. The ERCP was accomplished without difficulty. The patient tolerated the procedure well. Scope In: 1:57:51 PM Scope Out: 2:11:31 PM Total Procedure Duration Time 0 hours 13 minutes 40 seconds Findings: The automatic edger film was normal. The esophagus was successfully intubated under direct vision. The scope was advanced to a normal major papilla in the descending duodenum without detailed examination of the pharynx, larynx and associated structures, and upper GI tract. The upper GI tract was grossly normal. A straight Roadrunner wire was passed into the biliary tree. The bile duct was then deeply cannulated over the guidewire. Contrast was injected. Opacification of the lower third of the main bile duct was successful. The maximum diameter of the ducts was 7 mm. The entire opacified area and lower third of the main bile duct contained one stone, which was 4 mm in diameter. The lower third of the main bile duct was diffusely dilated, acquired. The largest diameter was 9 mm. A 5 mm biliary sphincterotomy was made with a traction (standard) sphincterotome using ERBE electrocautery. There was no post-sphincterotomy bleeding. The biliary tree was swept with a 15 mm balloon starting at the bifurcation. Sludge was swept from the duct. All stones were removed. One stent was removed from the biliary tree using a snare and sent for cytology. The stent was found to be partially occluded via the water column test. Dilation of the left main hepatic duct with 5-7-8.5 Fr catheter dilator was successful. A standard esophagogastroduodenoscopy scope was used for the examination of the upper gastrointestinal tract. The scope was passed under direct vision through the upper GI tract. Patchy mildly erythematous mucosa without active bleeding and with no stigmata of bleeding was found in the duodenal bulb. Impression: - Erythematous duodenopathy. - The lower third of the main bile duct was dilated, acquired. - Choledocholithiasis was found. Complete removal was accomplished by biliary sphincterotomy and balloon extraction. - A biliary sphincterotomy was performed. - The biliary tree was swept. - One stent was removed from the biliary tree. - The left main hepatic duct was successfully dilated. Procedure Code(s): --- Professional --- 84921, Endoscopic retrograde cholangiopancreatography (ERCP); with removal of foreign body(s) or stent(s) from biliary/pancreatic duct(s) 56266, Endoscopic retrograde cholangiopancreatography (ERCP); with removal of calculi/debris from biliary/pancreatic duct(s) 56490, Endoscopic retrograde cholangiopancreatography (ERCP); with sphincterotomy/papillotomy 11603, Unlisted procedure, biliary tract CPT copyright 2021 [employer]. All rights reserved. The codes documented in this report are preliminary and upon duty engineer review may be revised to meet current compliance requirements. Jose L Montana DO 04/28/2023 2:23:06 PM This report has been signed electronically. Number of Addenda: 0 Note Initiated On: 04/28/2023 1:13 PM
== END 2023-04-28 15:09 | disposition home or self-care (01) ==
LOC: EN 11:58 → AC 11:58
PROVIDERS: PCP Family Medicine; Referring Provider Family Medicine; Visit Provider Internal Medicine Gastroenterology
PROC: (CPT 43260; principal; 2023-04-28 12:40)
DX: K80.50 Calculus of bile duct without cholangitis or cholecystitis without obstruction (principal); E11.9 Type 2 diabetes mellitus without complications; K83.8 Other specified diseases of biliary tract; K76.0 Fatty (change of) liver, not elsewhere classified; K21.9 Gastro-esophageal reflux disease without esophagitis; F41.9 Anxiety disorder, unspecified; F32.A Depression, unspecified; F17.210 Nicotine dependence, cigarettes, uncomplicated; E66.9 Obesity, unspecified; Z78.0 Asymptomatic menopausal state; Z79.899 Other long term (current) drug therapy; Z79.84 Long term (current) use of oral hypoglycemic drugs; Z68.27 Body mass index [BMI] 27.0-27.9, adult
CPT/HCPCS: 43262; 43264; 43275; 74330; 76000; 88108; 88161; 88305; 88313; 93005; J7120

== ENCOUNTER → 2023-06-23 | Outpatient (CLI) | payer BC, SELFPAY ==
[2023-06-23 18:28] LABS: HIV - WCH Non-Reactive (Nonreactive); Hepatitis B Surface Antibody Reactive
--- OUTSIDE RECORDS SUMMARY | 2023-06-23 19:59 | XMS RPT_ITS | CCD ---
Author Name Unknown Address [address] [place] [address] Organization [facility] Care Team Providers Care Application Spec Name Role Phone Unavailable Primary Care Provider UnavailLYN Arroyo Referring Unavailable LYN MEDINA Referring Unavailable BREANNA NG Attending Unavailable LYN MEDINA Referring Unavailable LYN MEDINA Referring Unavailable Medications Current Medications Medication Drug Class(es) Dates Sig (Normalized) Sig (Original) metroNIDAZOLE 500 mg oral tablet (1 source) Nitroimidazole Antimicrobial Start: 06-11-2023 End: 06-18-2023 take 1 tablet by mouth twice daily metroNIDAZOLE (FLAGYL) 500 mg tablet Take 1 tablet by mouth two times a day for 7 days. 14 tablet 0 06/11/2023 06/18/2023 Active Completed/Discontinued Medications Medication Drug Class(es) Dates Sig (Normalized) Sig (Original) Calcium Carbonate (1 source) CALCIUM CARBONAT E ORAL Take 10 mg by mouth. 0 Active Problems Active Problems Problem Classification Problem Date Documented Da te Episodic/Chronic Immunizations and screening for infectious disease (4 sources) Patient encounter status; Translations: [Encounter for screening for human papillomavirus (HPV)] Episodic Past or Other Problems Problem Classification Problem Date Documented Da te Episodic/Chronic Nonmalignant breast conditions (4 sources) Lump in left breast; Translations: [Unspecified lump in the left breast, unspecified quadrant] Onset: 07-09-2022 Episodic Results Test Name Value Interpretation Reference Range Facil ity Vital Signs Date Time Vital Sign Value Performing Clinician Faci lity 06-06-2022 15:16-0500 Body height 170.2 cm Lyn Medina MD Work Phone: [facility] 06-06-2022 15:16-0500 Body weight 86.91 kg Lyn Medina MD Work Phone: [facility] 06-06-2022 15:16-0500 Diastolic blood pressure 82 mm[Hg] Lyn Medina MD Work Phone: [facility] 06-06-2022 15:16-0500 Systolic blood pressure 122 mm[Hg] Lyn Medina MD Work Phone: [facility] Encounters Encounter Date Encounter Type Care Provider Facility Start: 06-12-2023 Telephone encounter Demi amaya LEARN TO SWIM INSTRUCTOR.DONOR RELATIONS OFFICER Work Phone: OB/Gynecology Start: 06-10-2023 End: 06-10-2023 ambulatory [facility] Facility:[facility] Start: 06-06-2023 End: 06-06-2023 ambulatory [facility] Facility:[facility] Start: 08-26-2022 End: 08-26-2022 ambulatory [facility] Facility:[facility] Start: 08-26-2022 End: 08-26-2022 Subsequent hospital visit by physician [facility] Work Phone: Radiology Procedures Date Procedure Procedure Detail Performing Clinician Start: 08-26-2022 Us breast uni real t merari with image limited Lyn Medina MD Work Phone: Start: 08-26-2022 Digital breast tomosynthesis bilateral Lyn Medina MD Work Phone: Plan of Treatment Date Care Activity Detail Author Start: 06-10-2024 Covid-19 Vaccine (2022-24 season) Covid-19 Vaccine ( season) [facility] Immunizations Immunization Date Immunization Notes Care Provider Ion stroud 10-20-2022 hepatitis B vaccine, adult dosage Demi Grantham LEARN TO SWIM INSTRUCTOR.DONOR RELATIONS OFFICER Work Phone: [facility] Work Phone: 08-06-2022 hepatitis A vaccine, pediatric/adolescent dosage, 2 dose schedule Demi Grantham LEARN TO SWIM INSTRUCTOR.DONOR RELATIONS OFFICER Work Phone: [facility] Work Phone: 08-06-2022 hepatitis B vaccine, adult dosage Demi Grantham LEARN TO SWIM INSTRUCTOR.DONOR RELATIONS OFFICER Work Phone: [facility] Work Phone: Payers Date Payer Category Payer Unknown NIRAJ HUGHES PPO [id number] 2021-Present [phone] [address] [place] [address] PPO [id number] 2021 Unknown [id number] Social History Date Type Detail Facility Start: [facility]-06-[facility]22 [facility] Start: 06-06-2022 Tobacco use and exposure Smoke less tobacco non-user [facility] Start: 06-06-2022 End: 06-10-2023 Alcohol intake Current drinker of alcohol (finding) [facility] Start: 06-06-2022 Alcohol Comment [facility] Start: 1965 Sex Assigned At Not on file [facility] Start: 06-06-2022 End: 06-09-2023 History of Social function [facility] Start: 06-06-2022 End: 06-09-2023 Tobacco use panel [facility] National Score (1-10 0), lower number is lower risk 52 [facility] Start: 1965 Sex Assigned At Female C [facility] Clinical Notes 06-06-2022 to 06-12-2023 Telephone Encounter - Demi Lebron APRN.CNP - 06/12/2023 6:48 AM ESTTelephone Encounter - Demi Lebron APRN.CNP - 06/12/2023 6:47 AM Yaneth Le RDMS - 08/26/2022 4:00 PM EDT Note Date & Type Note Facility 06-12-2023 Miscellaneous Notes Formattin g of this note might be different from the original. RX was sent yesterday to [facility] by [facility]. Demi Lebron APRN.DONOR RELATIONS OFFICER ----- Message from Rebecca Lee LPN sent at 06/11/2023 3:43 PM EST ----- Pt given results and would like rx for BV sent to her pharmacy, [facility] . Call only if problems. Rebecca Lee LPN.; documented in this encounter [facility] 06-10-2023 Note HNO ID: [id number] Author: BREANNA NG MD Service: ? Author Type: Physician Type: Progress Notes Filed: 06/10/2023 14:55 Note Text: Print Line Operator offered: Patient declinesKori Zimmerman is a 58 year old who presents for an annual gynecologic exam without complaints. Postmenopausal: yes, has h/o hyst in 2011 HRT use: No. Last Pap: normal HPV: negative History of abnormal pap: No Last mammogram: 2022 diagnostic History of abnormal mammogram: diagnostic Sexually active: Yes OB History T0 L0 SAB0 IAB0 Ectopic0 Multiple0 Live Births0 [employer] History LMP: Hysterectomy Age at Menarche: Age at First : Age at Menopause: [employer] History Comments: Sexual Activity: Yes; No partner data on record Contraception: Surgical PAST MEDICAL HISTORY Diagnosis Date Skin cancer PAST SURGICAL HISTORY Procedure Laterality Date ERCP 01/08/2023 stent taken out 04/28/2023 TOTAL ABDOM HYSTERECTOMY 2011 for fibroids FAMILY HISTORY Problem Relation Age of Onset No Known Problems Mother No Known Problems Father Thyroid Sister No Known Problems Sister No Known Problems Sister No Known Problems Maternal Grandmother No Known Problems Maternal Grandfather No Known Problems Paternal Grandmother No Known Problems Paternal Grandfather SOCIAL HISTORY Social History Tobacco Use Smoking status: Every Day Smokeless tobacco: Never Vaping Use Vaping Use: Former Substance Use Topics Alcohol use: Yes Comment: nightly Drug use: Never REVIEW OF SYSTEMS Abdomen: No abdominal pain, nausea, vomiting, diarrhea, or constipation. No bloating, early satiety, indigestion, or increased flatulence. Bladder: No dysuria, gross hematuria, urinary frequency, urinary urgency, or incontinence Breast: No breast lumps, nipple d/c, overlying skin changes, redness or skin retraction Allergies and current medication updated:Yes EXAM: BP 128/72 Ht 5' 7 (1.70m) Wt 183 lb (83.0kg) BMI 28.66 kg/(m2). GENERAL: pleasant, female in no apparent distress HEENT: Normocephalic, atraumatic, mucus membranes moist, and no lesions NECK: Supple, full range of motion, no adenopathy, and thyroid normal DERMATOLOGY: Normal, without lesions, non-icteric, and non-hirsute BREAST: soft, non-tender, symmetric, no dominant mass, normal nipple-areolar complex, no lymphadenopathy, and no nipple discharge CHEST: Normal inspiratory effort ABDOMEN: soft, non-tender, and no masses PELVIC: external genitalia normal, normal Bartholin's glands, urethra, [place]'s glands, no vulvar lesions, good vaginal support, physiologic discharge present, normal appearing perineal body and perianal region, cervix surgically absent, flattened pale epithelium w/ thin yellow discharge BIMANUAL: no adnexal masses, non-tender, and uterus surgically absent RECTOVAGINAL: deferred. NEURO: alert and oriented x3,exam grossly non-focal EXTREMITIES: normal ASSESSMENT/PLAN: 1) Health maintenance: Pap/HPV screening no longer needed Mammogram ordered Colon cancer screening: cologard ordered per her request vaginal discharge, check labs, if neg consider treatment for atrophic vaginitis 2) Follow up one year or sooner as needed Breanna Ng MD [facility] 06-06-2023 Note HNO ID: [id number] Author: DEMI LEBRON APRN.DONOR RELATIONS OFFICER Service: ? Author Type: Nurse Practitioner Type: Progress Notes Filed: 06/06/2023 08:34 Note Text: This note was created using NoteWriter. Subjective Elsie Patterson is a 58 year old female. HPI pt had a cyst removed from the upper posterior left arm on at the derm office and she has some of the sutures pop. She is concerned about the opening and infection. Review of Systems All other systems reviewed and are negative. Objective BP 122/80 Pulse 72 Temp 36.1 ?C (96.9 ?F) Resp 16 Wt 82.6 kg (182 lb) SpO2 98% BMI 28.51 kg/m? Physical Exam Pulmonary: Effort: Pulmonary effort is normal. Skin: General: Skin is warm. Comments: Wound edges are healing [address] Wound appears to be free of infection. Neurological: Mental Status: She is alert. Assessment and Plan ASSESSMENT/PLAN: 1. Disruption or dehiscence of closure of skin, initial encounter - ICD9: 998.32, ICD10: T81.31XA Wound healing, instructed to keep wound cover and clean Call derm office for follow up Demi Lebron APRN.CNP Medical Decision Making: Problems: Low: Acute, uncomplicated illness or injury Risk: Low: Low risk from testing/treatment Medical Decision Making Level: 3 - Low [facility] 09-04-2022 Note HNO ID: [id number] Author: Jose L Juarez Service: ? Author Type: ? Type: Progress Notes Filed: 09/04/2022 11:10 AM Note Text: 4th attempt to schedule colonscopy. Left VM, no mychart, and sent letter. Cancelled request, please place new order when patient is ready to schedule. Thank you. KAVIN 09/04 [facility] 08-28-2022 Note HNO ID: [id number] Author: Selena Underwood Service: ? Author Type: ? Type: Progress Notes Filed: 08/28/2022 8:41 AM Note Text: -14... 3'rd attempt, left message to return call [facility] 08-26-2022 Note HNO ID: [id number] Author: Yaneth Bond RDMS Service: ? Author Type: Latex Foam Worker Type: Progress Notes Filed: 08/26/2022 4:35 PM Note Text: Radiology Service Progress Note PATIENT NAME: Elsie Patterson DATE OF SERVICE: August 26, 2022 TIME: 4:35 PM PATIENT IDENTITY VERIFICATION COMPLETED USING TWO (2) IDENTIFIERS: Name and Date of confirmed by patient verbally. FALL SCREENING: Has the patient had 2 falls in the last year or 1 fall with injury or currently using an Ambulatory Assistive Device (Walker, Cane, Wheelchair, Crutches, etc.)? No PATIENT GENDER DATA: Female. status: : No status: NO. PATIENT RELEVANT IMPLANT DATA REVIEWED: Not Applicable RADIOLOGY DEPARTMENT: Ultrasound PERIPHERAL IV DATA: Not applicable SIGNED BY: Yaneth Bond RDMS August 26, 2022 4:35 PM [facility] 08-26-2022 Note HNO ID: [id number] Author: RT Natalia(R) Service: ? Author Type: Technologist Type: Progress Notes Filed: 08/26/2022 3:47 PM Note Text: Radiology Service Progress Note PATIENT NAME: Elsie Patterson DATE OF SERVICE: August 26, 2022 TIME: 3:47 PM PATIENT IDENTITY VERIFICATION COMPLETED USING TWO (2) IDENTIFIERS: Name and Date of confirmed by patient verbally. FALL SCREENING: Has the patient had 2 falls in the last year or 1 fall with injury or currently using an Ambulatory Assistive Device (Walker, Cane, Wheelchair, Crutches, etc.)? No PATIENT GENDER DATA: Female. status: : No status: NO. PATIENT RELEVANT IMPLANT DATA REVIEWED: Not Applicable RADIOLOGY DEPARTMENT: Mammography PERIPHERAL IV DATA: Not applicable SIGNED BY: RT Natalia(R) August 26, 2022 3:47 PM [facility] 08-26-2022 History of Presen t illness Narrative Radiology Service Progress Note PATIENT NAME: Elsie Patterson DATE OF SERVICE: August 26, 2022 TIME: 4:35 PM PATIENT IDENTITY VERIFICATION COMPLETED USING TWO (2) IDENTIFIERS: Name and Date of confirmed by patient verbally. FALL SCREENING: Has the patient had 2 falls in the last year or 1 fall with injury or currently using an Ambulatory Assistive Device (Walker, Cane, Wheelchair, Crutches, etc.)? No PATIENT GENDER DATA: Female. status: : No status: NO. PATIENT RELEVANT IMPLANT DATA REVIEWED: Not Applicable RADIOLOGY DEPARTMENT: Ultrasound PERIPHERAL IV DATA: Not applicable SIGNED BY: Yaneth Bond RDMS August 26, 2022 4:35 PM documented in this encounter [facility] 08-26-2022 History of Presen t illness Narrative Radiology Service Progress Note PATIENT NAME: Elsie Patterson DATE OF SERVICE: August 26, 2022 TIME: 3:47 PM PATIENT IDENTITY VERIFICATION COMPLETED USING TWO (2) IDENTIFIERS: Name and Date of confirmed by patient verbally. FALL SCREENING: Has the patient had 2 falls in the last year or 1 fall with injury or currently using an Ambulatory Assistive Device (Walker, Cane, Wheelchair, Crutches, etc.)? No PATIENT GENDER DATA: Female. status: : No status: NO. PATIENT RELEVANT IMPLANT DATA REVIEWED: Not Applicable RADIOLOGY DEPARTMENT: Mammography PERIPHERAL IV DATA: Not applicable SIGNED BY: RT Natalia(R) August 26, 2022 3:47 PM documented in this encounter [facility] 06-20-2022 Note HNO ID: [id number] Author: Hellen Mo RN Service: ? Author Type: ? Type: Progress Notes Filed: 06/20/2022 11:59 AM Note Text: External Mammogram results - Please review Scan on 06/20/2022 11:17 AM by External Provider: Mammography [facility] 06-20-2022 History of Presen t illness Narrative External Mammogram results - Please review Scan on 06/20/2022 11:17 AM by External Provider: Mammography documented in this encounter [facility] 06-17-2022 Note HNO ID: [id number] Author: Selena Underwood Service: ? Author Type: ? Type: Progress Notes Filed: 06/17/2022 2:58 PM Note Text: 2'nd attempt left message to return call to schedule her colonoscopy Selena Underwood [facility] 06-06-2022 History of Presen t illness Narrative TR OPEN ACCESS QUESTIONNAIRE 1. Are you currently having any new or unusual stomach/gastrointestinal issues at this time such as constipation, diarrhea, abdominal pain, rectal bleeding etc?No 2. Do you have any difficulty swallowing? No 3. Do you have any implanted devices such as a defibrillator, pacemaker, cardiac stents or deep brain stimulator? No 4. Do you take any Blood thinners such as Coumadin, Plavix, Xarelto, Eliquis, Brilinta or any other blood thinner? No 5. Do you have any new or past cardiac (heart) or pulmonary (lung) issues? No 6. Do you currently use any oxygen? No 7. Have you been hospitalized in the past 6 weeks? No 8. Have you had difficulty with anesthesia previously re: Difficult intubation? No Other difficulty or allergic reaction to anesthesia other than post op N/V? No 9. Are you on dialysis? No 10. Do you have any bleeding disorders such as hemophilia or Factor 5? No 11. Are you an Insulin Dependent Diabetic? No IF ANY OF THE TOP ELEVEN QUESTIONS ARE ANSWERED YES PLEASE SCHEDULE THE PATIENT FOR A CONSULT. scheduled 12. Is the patient's BMI 40 or greater? No:Body mass index is 30.01 kg/m .. 13. Do you take any narcotics or anti-Anxiety medications? No 14. Do you use any illegal or recreational drugs including marijuana? No 15. Any alcohol use: YES: What type of alcohol, how much and how often do you drink? : 2-3 glasses of wine every night 16. Have you been diagnosed with chronic liver disease such as hepatitis or cirrhosis? No 17. Do you have a seizure disorder? No 18. Do you have ulcerative colitis or Crohn's disease? No 19. Are you or could you be ? No 20. Any other important health information we should be made aware of prior to your colonoscopy? No To be completed by LIP: Did patient have MAC anesthesia with a previous endoscopy procedure? No Patient appropriate for Open Access Colonoscopy: Yes: appropriate for Open Access Procedure Checklist: Prior to closing the encounter: Complete questionnaire: Yes Confirm Prep order has been Ordered/Pended: Yes. Patient's procedure could be delayed if not given the script for the prep. Please ensure the prep is escripted to pharmacy or printed. Instructions for the prep will print upon filing or pending this smartset. Please send all open access questionnaires to [facility] Pool #[id number] Print Line Operator offered: Patient declines. Elsie is a 57 year old No obstetric history on file. who presents for an annual gynecologic exam. She reports a spot on her left breast that is intermittent. It has been there for about 5 years and she thinks stress can trigger it. Denies breast discharge or other breast complaints. Postmenopausal: Yes since 2011 HRT use: No. Last Pap: 2012 - normal in [place] per patient History of abnormal pap: No Last mammogram: 2018 normal History of abnormal mammogram: Yes OB History No obstetric history on file. [employer] History LMP: Hysterectomy Age at Menarche: Age at First : Age at Menopause: [employer] History Comments: Sexual Activity: Not Currently; No partner data on record Contraception: Surgical PAST MEDICAL HISTORY Diagnosis Date Skin cancer PAST SURGICAL HISTORY Procedure Laterality Date TOTAL ABDOM HYSTERECTOMY 2012 FAMILY HISTORY Problem Relation Age of Onset No Known Problems Mother No Known Problems Father Thyroid Sister No Known Problems Sister No Known Problems Sister No Known Problems Maternal Grandmother No Known Problems Maternal Grandfather No Known Problems Paternal Grandmother No Known Problems Paternal Grandfather SOCIAL HISTORY Social History Tobacco Use Smoking status: Every Day Smokeless tobacco: Never Vaping Use Vaping Use: Former Substance Use Topics Alcohol use: Yes Comment: nightly Drug use: Never REVIEW OF SYSTEMS Abdomen: No abdominal pain, nausea, vomiting, diarrhea, or constipation. No bloating, early satiety, indigestion, or increased flatulence. Bladder: No dysuria, gross hematuria, urinary frequency, urinary urgency, or incontinence Breast: see above Allergies and current medication updated:Yes EXAM: BP 122/82 Ht 5' 7 (1.70m) Wt 191 lb 9.6 oz (86.9kg) BMI 30.00 kg/(m^2). GENERAL: pleasant, female in no apparent distress BREAST: soft, non-tender, no lymphadenopathy, and no nipple discharge; right - no dominant mass, normal nipple-areolar complex; left - 8mm mass in areolar region CHEST: Normal inspiratory effort ABDOMEN: soft, non-tender, and no masses PELVIC: external genitalia normal, no vulvar lesions, normal appearing perineal body and perianal region; atrophic vagina BIMANUAL: no adnexal masses, non-tender, and uterus surgically absent RECTOVAGINAL: deferred. NEURO: alert and oriented x3,exam grossly non-focal EXTREMITIES: normal ASSESSMENT/PLAN: 1) Health maintenance: Pap/HPV screening no longer needed Nutrition, exercise and routine health maintenance exams reviewed. Colon cancer screening: GI referral for colonoscopy 2) Follow up one year or sooner as needed 3) Breast lump - diagnostic breast imaging ordered 4) Vaginal atrophy - patient declines treatment Lyn Medina MD documented in this encounter [facility] 06-06-2022 Instructions Christina Parris Bartlett - 06/06/2022 3:41 PM EST Images from the original note were not included. Miralax/Dulcolax Bowel Prep For this bowel preparation, you will need to purchase the following medications at any pharmacy: Over the counter Miralax (generic name is polyethylene glycol) 8.3 oz or 238 grams Four (4) Dulcolax (generic name is Bisacodyl) tablets 3 days prior to your procedure, you need to be on a low fiber diet (Such as popcorn, beans, seeds, nuts, salad and raw vegetables, corn, fresh and dried fruit and multi-grain bread) YOU MUST BE ON CLEAR LIQUIDS FOR 2 FULL DAYS PRIOR TO YOUR COLONOSCOPY Day one which would be two days before your colonoscopy, you will need to be on clear liquids all day. You may have coffee or tea-black only (no cream), clear broths (beef, chicken or vegetable), apple juice, white grape juice, pop, Gatorade, Powerade, lemonade, Jello, popsicles, Khari-aid, and water-But nothing red or dark purple in color and no dairy products, tomato or orange juices. Day two which would be the day before your colonoscopy continue clear liquids all day as above. And follow the instructions below: 8:00 AM - Mix the Miralax with 64 oz of Gatorade or another clear liquid of choice and place in refrigerator. Most people say the drink is better cold. 4:00 PM - Take 2 of the Dulcolax tablets with 8 oz of water. 6:00 PM - Start to drink the Miralax mixture. You must finish it by midnight. 8:00 PM - Take the other 2 Dulcolax tablets with 8 oz of water. You may continue to drink clear liquids while you are taking your prep and after you finish it as long as it is before midnight. Drink lots of fluids so you don t become dehydrated. Nothing to drink after midnight the night before the procedure unless you are instructed differently by the physician or nurses. Please remember to take your normal medications the morning of the procedure with a small sip of water especially your blood pressure medications. If you are diabetic, you need to contact your physician about how to take your diabetic medications and/or insulin during the prepping period and the day of your procedure. Any questions please call: Dr. Kendall or Dr. Rodríguez [phone] Kristan Espinoza [phone] Dr. Cummings [phone] [facility] nurses [phone] documented in this encounter [facility] Diagnosis Mass of left breast, unspecified quadrant [facility] Diagnosis Mass of left breast, unspecified quadrant [facility]ative)* Outpatient Procedure (Routine) - Pending Review Specialty Diagnoses / Procedures Referred By Monica reis Referred To Contact [facility] Diagnoses Special screening for malignant neoplasms, colon Procedures COLONOSCOPY SCREENING COLONOSCOPY FLX DX W/COLLJ SPEC WHEN PFRMD Lyn Medina MD [address] [place] [address] [facility] [place] [address] [place] [address] Referral ID Status Reason Start Date Expiration Date Visits Requested Visits Authorized [id number] Pending Review Auto-Generat ed Referral 06/06/2022 06/06/2023 1 1 * Diagnostic Procedure Only (Routine) - Pending Review Specialty Diagnoses / Procedures Referred By Monica reis Referred To Contact [facility] Diagnoses Mass of left breast, unspecified quadrant Procedures US BREAST LTD LT US BREAST UNI REAL TIME WITH IMAGE LIMITED Lyn Medina MD [address] [place] [address] [facility] [address] [place] [address] Referral ID Status Reason Start Date Expiration Date Visits Requested Visits Authorized [id number] Pending Review Auto-Generat ed Referral 06/06/2022 07/06/2023 1 1 * Diagnostic Procedure Only (Routine) - Authorized Specialty Diagnoses / Procedures [facility] To [facility] Diagnoses Mass of left breast, unspecified quadrant Procedures [facility] DI[facility]NOSTIC BILAT DIAGNOSTIC MAMMOGRAPHY COMPUTER-AIDED DETCJ Lyn Whitehead MD [address] [place] [address] [facility] [address] [place] [address] Referral ID Status Reason Start Date Expiration Date Visits Requested Visits Authorized [id number] Authorized Auto-Generat ed Referral 06/06/2022 07/06/2023 1 1 [facility] for referral (narrative)* Diagnostic Procedure Only (Routine) - Closed Specialty Diagnoses / Procedures [facility] Diagnoses Mass of left breast, unspecified quadrant Procedures US BREAST LTD LT US BREAST UNI REAL TIME WITH IMAGE LIMITED Lyn Medina MD [address] [place] [address] [facility] [address] [place] [address] Referral ID Status Reason Start Date Expiration Date V isits Requested Visits Authorized [id number] Closed Auto-Generate d Referral 06/06/2022 07/06/2023 1 1 [facility] for visit Narrative* Diagnostic Procedure Only (Routine) - Closed Specialty Diagnoses / Procedures Referred By Contac t Referred To Contact [facility] Diagnoses Mass of left breast, unspecified quadrant Procedures SARAH DIAGNOSTIC BILAT DIAGNOSTIC MAMMOGRAPHY COMPUTER-AIDED DETCJ Lyn Whitehead MD [address] [place] [address] [facility] [address] [place] [address] Referral ID Status Reason Start Date Expiration Date V isits Requested Visits Authorized [id number] Closed Auto-Generate d Referral 06/06/2022 07/06/2023 1 1 [facility] Summary Purpose Family History No Family History Records Found Advance Directives No Advanced Directives Records Found Additional Source Comments Source Comments (unrecognize d section and content) In the event this informatio n is protected by the Federal Confidentiality of Alcohol and Drug Abuse Patient Records regulations: The Federal rules restrict any use of the information to criminally investigate or prosecute any alcohol or drug abuse patient.[facility] the event this information is protected by the Federal Confidentiality of Alcohol and Drug Abuse Patient Records regulations: The Federal rules restrict any use of the information to criminally investigate or prosecute any alcohol or drug abuse patient.[facility] the event this information is protected by the Federal Confidentiality of Alcohol and Drug Abuse Patient Records regulations: The Federal rules restrict any use of the information to criminally investigate or prosecute any alcohol or drug abuse patient.[facility] the event this information is protected by the Federal Confidentiality of Alcohol and Drug Abuse Patient Records regulations: The Federal rules restrict any use of the information to criminally investigate or prosecute any alcohol or drug abuse patient.[facility] the event this information is protected by the Federal Confidentiality of Alcohol and Drug Abuse Patient Records regulations: The Federal rules restrict any use of the information to criminally investigate or prosecute any alcohol or drug abuse patient.[facility] the event this information is protected by the Federal Confidentiality of Alcohol and Drug Abuse Patient Records regulations: The Federal rules restrict any use of the information to criminally investigate or prosecute any alcohol or drug abuse patient.[facility] Reason for Visit (unrecogniz ed section and content) Reason Comments External Results - Mammogram Reason Comments Radiology US Specialty Diagnoses / Procedures Referred By Contac t Referred To Contact [facility] Diagnoses Mass of left breast, unspecified quadrant Procedures US BREAST LTD LT US BREAST UNI REAL TIME WITH IMAGE LIMITED Lyn Medina MD [address] [place] [address] [facility] [address] [place] [address] Referral ID Status Reason Start Date Expiration Date V isits Requested Visits Authorized [id number] Closed Auto-Generate d Referral 06/06/2022 07/06/2023 1 1 INFORMATION SOURCE (unrecogn ized section and content) FOR RECORDS PERTAINING TO PATIENTS WHO ARE OR HAVE BEEN ENROLLED IN A CHEMICAL DEPENDENCY/SUBSTANCEABUSE PROGRAM, SOME INFORMATION MAY BE OMITTED. This clinical summary was aggregated from multiple sources. Caution should be exercised in using it in the provision of clinical care. This summary normalizes information from multiple sources, and as a consequence, information in this document may materially change the coding, format and clinical context of patient data. In addition, data may be omitted in some cases. CLINICAL DECISIONS SHOULD BE BASED ON THE PRIMARY CLINICAL RECORDS. [facility] [email or web address] [facility]. provides no warranty or guarantee of the accuracy or completeness of information in this document.
[2023-06-25 18:07] LABS: HCV Quant. RNA PCR HCV Not Detected IU/mL (.); HEPATITIS B SURFACE AG Negative (Negative); Hep C Antibodies Non Reactive (Non Reactive); Hepatitis A AB, Total Positive (Negative); Hepatitis A IgM Antibody Negative (Negative); Hepatitis B Core AB IgM Negative (Negative)
== END | disposition home or self-care (01) ==
PROVIDERS: PCP Family Medicine
DX: Z11.59 Encounter for screening for other viral diseases (principal)
CPT/HCPCS: 36415; 80074; 86703; 86706; 86708; 87522

== ENCOUNTER → 2023-08-22 | Outpatient (CLI) | payer BC, SELFPAY ==
--- NOTE | 2023-08-22 08:52 | US_ITS ---
STUDY: ABDOMINAL ULTRASOUND - RIGHT UPPER QUADRANT; ELASTOGRAPHY REASON FOR VISIT: Female, 58 years old. NAFLD. TECHNIQUE: Ultrasound evaluation of the right upper quadrant was performed with real-time and static bee-scale imaging. Point quantification shear wave elastography was performed ([employer]). TECHNICAL QUALITY: Adequate. COMPARISON: Comparison is made with prior study dated January 05, 2023. FINDINGS: Liver: The liver is mildly enlarged and measures 18.1 cm. There is increased echogenicity consistent with fatty infiltration. The bile ducts are within normal limits. There is hepatic color flow. The direction of portal flow is hepatopetal. There is no demonstrated mass lesion. Median liver stiffness measured 10.26 kPa. Gallbladder: Normal distended gallbladder. The gallbladder wall measures 3 mm. There is a negative sonographic Navas''s sign. There is no pericholecystic fluid. There are no gallstones. No gallstones are seen at this time. Patient has a history of prior common bile duct stent. Common Bile Duct (C.B.D.): The common bile duct measures 8 mm. Pancreas: There is normal echogenicity of the visualized pancreas. There is no demonstrated pancreatic mass or cyst. Right Kidney: Normal size of the right kidney. The right kidney measures 10.8 cm x 5.9 cm x 4.7 cm. Normal renal cortex. The right cortex measures 1.5 cm. There is no demonstrated renal mass or cyst. There is no right hydronephrosis. US/ABD Limited w/ Elastography IMPRESSION: 1. Liver stiffness measures 10.3 kPa compatible with F2-F3 (Mild to moderate liver fibrosis) Metavir score. Electronically Signed: Babar Cintron MD at 10:48 EDT ,
[2023-08-22 09:38] LABS: Absolute Lymphocyte Count 1.92 X10^3/uL (0.83-4.51); Absolute Neutrophil Count 3.8 X10^3/uL (2.0-7.7); Basophil# 0.03 X10^3/uL; Basophil% 0.5 % (0-1); Eosinophil# 0.15 X10^3/uL; Eosinophils% 2.4 % (0-5); Hematocrit 42.6 % (37-47); Hemoglobin 13.6 g/dL (12.0-15.0); Lymphocyte # 1.92 X10^3/ul (0.83-4.51); Lymphocyte % 30.4 % (19-41); Mean Corp Hgb Conc 31.9 g/dL (32-36); Mean Corpuscular Hgb 30.7 pg (27.0-32.0); Mean Corpuscular Volume 96.2 fL (81-99); Mean Platelet Vol. 9.3 fl (6.2-12.0); Monocyte# 0.36 X10^3/uL; Monocyte% 5.7 % (0-10); NRBC Flagged by Analyzer 0 % (0-5); Neutrophil # 3.83 X10^3/uL (2.7-7.7); Neutrophil % 60.7 % (47-70); Platelet Count 283 K/mm3 (150-450); RBC Distribution Width CV 12.6 % (11.6-14.6); RBC Distribution Width SD 44.9 fl (35.1-43.9); Red Blood Count 4.43 M/mm3 (4.2-5.4); White Blood Count 6.3 K/mm3 (4.4-11.0)
[2023-08-22 10:06] LABS: Prothrombin Time (Protime)PT. 12.8 SECONDS (11.7-14.9)
[2023-08-22 10:20] LABS: Hemoglobin A1c 5.7 % (3.8-5.6)
[2023-08-22 10:28] LABS: ALB/GLOB Ratio 1.1 RATIO (0.9-2.4); AST(SGOT) 14 U/L (15-37); Alanine Aminotransfer ALT/SGPT 25 U/L (13-56); Albumin, Serum 3.7 g/dL (3.2-5.0); Alkaline Phosphatase 64 U/L (45-117); Anion Gap 3 (5-15); BUN 14 mg/dL (7-18); BUN/Creat Ratio 23.7 RATIO (10-20); CRP < 2.90 mg/L (0.0-3.0); Calcium,Total 9.1 mg/dL (8.5-10.1); Chloride 109 mmol/L (98-107); Cholesterol 135 mg/dL (200); Creatinine, Serum 0.59 mg/dL (0.55-1.02); EST Glomerular Filtration Rate 111 mL/min (>60); Est Glom Filt Rate - Afr Amer 134 mL/min (>60); Globulin 3.3 g/dL (2.2-4.2); Glucose 99 mg/dL (74-106); High Density Lipoprotein 58 mg/dL; Potassium 4.2 mmol/L (3.5-5.1); Sodium Level 139 mmol/L (136-145); Triglycerides 58 mg/dL; Very Low Density Lipoprotein 12 mg/dL (5-40)
[2023-08-23 08:08] LABS: AFP, Tumor Marker 2.4 ng/mL (0.0-9.2)
[2023-08-24 09:18] LABS: Vitamin D,25 Hydroxy 31.6 ng/mL
== END | disposition home or self-care (01) ==
PROVIDERS: PCP Family Medicine; Referring Provider Internal Medicine; Visit Provider Internal Medicine
DX: K76.0 Fatty (change of) liver, not elsewhere classified (principal); K83.8 Other specified diseases of biliary tract
CPT/HCPCS: 36415; 76705; 76981; 80053; 80061; 82105; 82306; 83036; 85025; 85610; 86140

== ENCOUNTER → 2024-02-10 | Outpatient (CLI) | payer BC, SELFPAY ==
--- NOTE | 2024-02-10 07:25 | US_ITS ---
STUDY: ABDOMINAL ULTRASOUND - RIGHT UPPER QUADRANT; ELASTOGRAPHY REASON FOR VISIT: Female, 58 years old. Liver fibrosis. TECHNIQUE: Ultrasound evaluation of the right upper quadrant was performed with real-time and static bee-scale imaging. Point quantification shear wave elastography was performed ([employer]). TECHNICAL QUALITY: Adequate. COMPARISON: Comparison is made with prior study dated August 22, 2023. FINDINGS: Liver: The liver measures 17.7 cm. There is normal echogenicity of the liver. The bile ducts are within normal limits. There is hepatic color flow. The direction of portal flow is hepatopetal. There is no demonstrated mass lesion. Median liver stiffness measured 7.4 kPa. Gallbladder: Normal distended gallbladder. The gallbladder wall measures 2 mm. There is a negative sonographic Navas''s sign. There is no pericholecystic fluid. There are no gallstones. There is a 4 mm x 4 mm x 2 mm gallbladder polyp. Common Bile Duct (C.B.D.): The common bile duct measures 6 mm. Pancreas: There is normal echogenicity of the visualized pancreas. There is no demonstrated pancreatic mass or cyst. Right Kidney: Normal size of the right kidney. The right kidney measures 10.4 cm x 4.8 cm x 4.3 cm. Normal renal cortex. The right cortex measures 1.2 cm. There is no demonstrated renal mass or cyst. There is no right hydronephrosis. US/ABD Limited w/ Elastography IMPRESSION: 1. Liver stiffness measures 7.4 kPa compatible with F2-F3 (Mild to moderate liver fibrosis) Metavir score. Electronically Signed: Babar iCntron MD at 15:13 EDT ,
== END | disposition home or self-care (01) ==
PROVIDERS: PCP Family Medicine; Referring Provider Internal Medicine; Visit Provider Internal Medicine
DX: K76.0 Fatty (change of) liver, not elsewhere classified (principal); K83.8 Other specified diseases of biliary tract
CPT/HCPCS: 76705; 76981

== ENCOUNTER → 2024-02-24 | Outpatient (CLI) | payer BC, SELFPAY ==
[2024-02-24 16:33] LABS: Absolute Neutrophil Count 3.4 X10^3/uL (2.0-7.7); Basophil# 0.03 X10^3/uL; Basophil% 0.4 % (0-1); Eosinophil# 0.23 X10^3/uL; Eosinophils% 3.4 % (0-5); Hematocrit 37.8 % (37-47); Hemoglobin 12.6 g/dL (12.0-15.0); Lymphocyte % 39.9 % (19-41); Mean Corp Hgb Conc 33.3 g/dL (32-36); Mean Corpuscular Hgb 31.8 pg (27.0-32.0); Mean Corpuscular Volume 95.5 fL (81-99); Mean Platelet Vol. 9.1 fl (6.2-12.0); Monocyte# 0.41 X10^3/uL; Monocyte% 6.1 % (0-10); NRBC Flagged by Analyzer 0 % (0-5); Neutrophil # 3.37 X10^3/uL (2.7-7.7); Neutrophil % 49.9 % (47-70); Platelet Count 266 K/mm3 (150-450); RBC Distribution Width CV 13.1 % (11.6-14.6); RBC Distribution Width SD 46.4 fl (35.1-43.9); Red Blood Count 3.96 M/mm3 (4.2-5.4); White Blood Count 6.8 K/mm3 (4.4-11.0)
[2024-02-24 16:41] LABS: International Normalized Ratio 0.9; Prothrombin Time (Protime)PT. 12.2 SECONDS (11.7-14.9)
[2024-02-24 16:48] LABS: ALB/GLOB Ratio 1.1 RATIO (0.9-2.4); AST(SGOT) 17 U/L (15-37); Alanine Aminotransfer ALT/SGPT 27 U/L (13-56); Albumin, Serum 3.7 g/dL (3.2-5.0); Alkaline Phosphatase 85 U/L (45-117); Anion Gap 7 (5-15); BUN 15 mg/dL (7-18); BUN/Creat Ratio 28.2 RATIO (10-20); CRP < 2.90 mg/L (0.0-3.0); Calcium,Total 9.5 mg/dL (8.5-10.1); Chloride 104 mmol/L (98-107); Cholesterol 153 mg/dL (200); Creatinine, Serum 0.53 mg/dL (0.55-1.02); EST Glomerular Filtration Rate 125 mL/min (>60); Est Glom Filt Rate - Afr Amer 151 mL/min (>60); Globulin 3.4 g/dL (2.2-4.2); Glucose 96 mg/dL (74-106); High Density Lipoprotein 63 mg/dL; Potassium 3.8 mmol/L (3.5-5.1); Protein, Total 7.1 g/dL (6.4-8.2); Sodium Level 136 mmol/L (136-145); Triglycerides 119 mg/dL; Very Low Density Lipoprotein 24 mg/dL (5-40)
[2024-02-24 16:51] LABS: Hemoglobin A1c 5.6 % (3.8-5.6)
== END | disposition home or self-care (01) ==
LOC: LAB 15:44
PROVIDERS: PCP Family Medicine; Referring Provider Internal Medicine; Visit Provider Internal Medicine
DX: K83.8 Other specified diseases of biliary tract (principal); K76.0 Fatty (change of) liver, not elsewhere classified; R73.03 Prediabetes; E78.5 Hyperlipidemia, unspecified
CPT/HCPCS: 36415; 80053; 80061; 83036; 85025; 85610; 86140

== ENCOUNTER 2025-01-13 06:54 | Day surgery (SDC) | payer BC, SELFPAY ==
[2025-01-13] VITALS (8 sets, daily range): BP systolic 116–131; BP diastolic 64–86; PULSE 61–70; RESP 16; TEMP 35.8–36.3; O2SAT 97–100; BMI 30.7
--- OUTSIDE RECORDS SUMMARY | 2025-01-13 06:58 | XMS RPT_ITS | CCD ---
Author Organization [facility] Care Team Providers Care Education Program Specialist Name Role Phone Unavailable Primary Care Provider UnavailDr. Dada lEliott Primary Care Provider Dr. Dada Santiago Referring Provider FriendDr. Domingo Attending Provider Friend, Dr. Domingo Other Provider Dr. Dada Santiago Primary Care Provider Dr. Dada Santiago Referring Provider Dr. Oscar Friedman Attending Provider FriendDr. Domingo Attending Provider Friend, Dr. Domingo Other Provider Dr. Martín Washington Attending Provider FriendDr. Domingo Referring Provider Dr. Nestor Santiago Primary Care Provider Dr. Nestor Santiago Referring Provider Dr. Oscar Friedmna Attending Provider [phone] Unavailable Primary Care Provider UnavailBREANNA Johnson Attending Unavailable BREANNA NG Referring Unavailable BREANNA NG Referring Unavailable Jose L Montana Attending Unavailable Nestor Santiago Referring Unavailable Nestor Santiago Primary Care Unavailable Oscar Friedman Attending Unavailable Nestor Santiago Primary Care Unavailable Nestor Santiago Referring Unavailable Oscar Friedman Attending Unavailable Nestor Santiago Primary Care Unavailable Nestor Santiago Referring Unavailable Oscar Friedman Attending Unavailable Oscar Friedman Referring Unavailable Nestor Santiago Primary Care Unavailable Oscar Friedman Attending Unavailable Oscar Friedman Referring Unavailable Nestor Santiago Primary Care Unavailable Friend, Jose L Attending Unavailable Nestor Santiago Primary Care Unavailable Medications Current Medications Medication Drug Class(es) Dates Sig (Normalized) Sig (Original) Calcium Carbonate (5 sources) CALCIUM CARBONAT E ORAL Take 10 mg by mouth. Active CALCIUM CARBONAT E ORAL Take 10 mg by mouth. 0 Active Comment on above: Take 10 mg by mouth. cephalexin 500 mg oral capsule (2 sources) Cephalosporin Antibacterial Start: 025 take 1 capsule by mouth every twelve hours cephALEXin (KEFLEX) 500 mg capsule Take 1 capsule by mouth every 12 hours. 08/27/2024 Active Flurandrenolide (10 sources) Corticosteroid FLURANDRENOLIDE TOPICAL Apply to affected area. 5 % cream for cancerous spots on face Active FLURANDRENOLIDE TOPICAL Apply to affected area. 5 % cream for cancerous spots on face 0 Active Comment on above: Apply to affected ar ea. 5 % cream for cancerous spots on face methylPREDNISolone (2 sources) Corticosteroid Start : 08-27 methylPREDNISolone (MEDROL DOSE-PACK) 4 mg Dose-Pack TAKE 6 TABLETS ON DAY 1 DIRECTED ON PACKAGE AND DECREASE BY 1 TAB EACH DAY FOR A TOTAL OF 6 DAYS 08/27/2024 Active metroNIDAZOLE 500 mg oral tablet (1 source) Nitroimidazole Antimicrobial Start : 06-11 End: 06-18 take 1 tablet by mouth twice daily metroNIDAZOLE (FLAGYL) 500 mg tablet Take 1 tablet by mouth two times a day for 7 days. 14 tablet 0 06/11/2023 06/18/2023 Active Comment on above: Take 1 tablet by lam th two times a day for 7 days. omeprazole 20 mg delayed release oral capsule (4 sources) Proton Pump Inhibitor Start : 01-06 take 20 mg by mouth once daily Omeprazole Active 20 MG PO DAILY January 06, 2023 12:00am pioglitazone 15 mg oral tablet (19 sources) Peroxisome Proliferator Receptor alpha Agonist, Peroxisome Proliferator Receptor gamma Agonist, Thiazolidinedione Start : 10-30 End: 08-25 take 1 tablet by mouth once daily Pioglitazone Active 0 .ROUTE .COMPLEX 30 90 August 26, 2023 2:18pm TAKE ONE TABLET BY MOUTH EVERY DAY Comment on above: Take 15 mg by mouth once daily. rosuvastatin calcium 10 mg oral tablet (20 sources) HMG-CoA Reductase Inhibitor Start : 03-30 End: 08-25 take 10 mg by mouth at bedtime Rosuvastatin Active 10 MG PO AT BEDTIME 90 90 August 26, 2023 2:19pm Start: 03-16-2023 End: 03-30-2023 take 2 tablets by mouth once daily Rosuvastatin (Crestor) 5 mg tablet Discontinued 10 MG PO DAILY 60 March 16, 2023 4:30pm March 30, 2023 1:22pm Start: 01-06-2023 End: 03-16-2023 rosuvastatin (CRESTOR) 5 mg tablet Take by mouth. 01/06/2023 Active Comment on above: Take by mouth. Completed/Discontinued Medications Medication Drug Class(es) Dates Sig (Normalized) Sig (Original) naproxen 500 mg oral tablet (1 source) Nonsteroidal Anti-inflammatory Drug Start: 02-17-2021 End: 03-03-2021 take 1 tablet by mouth twice daily at mealtime naproxen (NAPROSYN) 500 mg tablet Take 1 tablet by mouth twice daily with meals for 14 days. Take with food. 28 tablet 02/17/2021 03/03/2021 Problems Active Problems Problem Classification Problem Date Documented Date Episodic/Chronic Biliary tract disease (15 sources) Cholangiectasis; Translations: [Other specified diseases of biliary tract] Onset: 08-22-2023 10-30-2022 Chronic Disorders of lipid metabolism (1 source) Hyperlipidemia, unspecified; Translations: [Hyperlipidemia, unspecified] Onset: 01-20-2024 Chronic Immunizations and screening for infectious disease (6 sources) Patient encounter status; Translations: [Encounter for screening for human papillomavirus (HPV)] Episodic Nonmalignant breast conditions (3 sources) Lump in left breast; Translations: [Unspecified lump in the left breast, unspecified quadrant] Episodic Other connective tissue disease (1 source) Pain of left hand; Translations: [Pain in left hand] 02-18-2021 Episodic Other liver diseases (7 sources) Steatosis of liver; Translations: [Fatty (change of) liver, not elsewhere classified] Onset: 08-22-2023 10-30-2022 Chronic Other liver diseases (8 sources) Fatty (change of) liver, not elsewhere classified; Translations: [Other chronic nonalcoholic liver disease] Onset: 03-12-2024 10-30-2022 Chronic Other screening for suspected conditions (not mental disorders or infectious disease) (1 source) Encounter for screening mammogram for malignant neoplasm of breast; Translations: [Encounter for screening mammogram for breast cancer] Onset: 08-31-2024 Episodic Unclassified (3 sources) Patient encounter status 08-31-2024 Past or Other Problems Problem Classification Problem Date Documented Da te Episodic/Chronic Diabetes mellitus without complication (1 source) Prediabetes; Translations: [Prediabetes] Onset: 01-20-2024 Episodic Results Test Name Value Interpretation Reference Range Facility OV 08-31-2024 CNOV Office Visit (OBGYWM ) -------- FRANCESMARTINA Deras ([id number]) 1965 F Date Time Provider Department 08/31/24 8:40 AM BREANNA NG OBGYWM During your visit today, we recorded the following information about you: Blood pressure Weight Height 124/82 87.1 kg 1.702 m Breanna Ng MD 08/31/2024 9:10 AM Signed Martina is a 59 year old who presents for an annual gynecologic exam 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 . Postmenopausal: yes, s/p hyst HRT use: No. Menses: n/a Menstrual flow: N/A Sexually active: Yes Last pap smear: before your hyst History of abnormal pap: Yes, many years ago Colposcopy: uncertain Leep: No. Cone biopsy: No. Bothersome pelvic pain: No Last mammogram: 2023 normal OB History Gravida0 Para0 Term0 Preterm0 AB0 Living0 SAB0 IAB0 Ectopic0 Multiple0 Live Births0 Problem Relation Age of Onset No Known Problems Mother No Known Problems Father Thyroid Sister No Known Problems Sister No Known Problems Sister No Known Problems Maternal Grandmother No Known Problems Maternal Grandfather No Known Problems Paternal Grandmother No Known Problems Paternal Grandfather SOCIAL HISTORY Social History Tobacco Use Smoking status: Every Day Smokeless tobacco: Never Vaping Use Vaping status: Former Substance Use Topics Alcohol use: Yes Comment: nightly Drug use: Never REVIEW OF SYSTEMS Abdomen: No abdominal pain, nausea, vomiting, diarrhea, or constipation. No bloating, early satiety, indigestion, or increased flatulence. Bladder: No dysuria, gross hematuria, urinary frequency, urinary urgency, or incontinence Breast: No breast lumps, nipple d/c, overlying skin changes, redness or skin retraction Allergies and current medication updated:Yes SENSITIVE EXAM: The sensitive examination was discussed with the Patient or Patient's Authorized Health Care Facility Administrator. As applicable, any other physician, advance practice provider, medical student, or other health professional student that will be observing or involved in the sensitive examination for educational or training purposes was discussed with the Patient or Authorized Health Care Facility Administrator. The Patient or Authorized Health Care Facility Administrator has agreed to proceed with the sensitive examination. (Sensitive examination includes inspection and/or palpation of the breasts, pelvis, prostate and anorectal regions). EXAM: BP 124/82 Ht 5' 7 (1.70m) Wt 192 lb (87.1kg) BMI 30.06 kg/(m2). GENERAL: pleasant, female in no apparent [...] external genitalia normal, normal Bartholin's glands, urethra, Captiva's glands, no vulvar lesions, good vaginal support, physiologic discharge present, normal appearing perineal body and perianal region, cervix surgically absent BIMANUAL: no adnexal masses, non-tender, and uterus surgically absent RECTOVAGINAL: deferred. NEURO: alert and oriented x3,exam grossly non-focal EXTREMITIES: normal ASSESSMENT/PLAN: 1) Health maintenance: Pap/HPV screening no longer needed Mammogram ordered Colon cancer screening: per pcp has scheduled 2) Follow up one year or sooner as needed Breanna Ng MD Referring Provider: BREANNA NG [[id number]] Allergies As of Date: 08/31/2024 (No Known Allergies) Date Reviewed: 08/31/2024 Reviewed by: Breanna Ng MD - Fully Assessed Reason for Visit: Yearly Exam [187] Primary Visit Diagnosis:Encounter for gynecological examination (general) (routine) without abnormal findings [Z01.419] Other Visit Diagnosis:Encounter for screening mammogram for breast cancer [Z12.31] Order(s):SARAH SCREENING W AME [[id number]] Order #: [id number] FUTURE SARAH SCREENING W AME [[id number]] Order #: [id number] FUTURE Prescriptions as of 08/31/2024 - methylPREDNISolone (MEDROL DOSE-PACK) 4 mg Dose-Pack TAKE 6 TABLETS ON DAY 1 DIRECTED ON PACKAGE AND DECREASE BY 1 TAB EACH DAY FOR A TOTAL OF 6 DAYS - cephALEXin (KEFLEX) 500 mg capsule Take 1 capsule by mouth every 12 hours. - CALCIUM CARBONATE ORAL Take 10 mg by mouth. - rosuvastatin (CRESTOR) 5 mg tablet Take by mouth. - pioglitazone (ACTOS) 15 mg tablet Take 15 mg by mouth once daily. - FLURANDRENOLIDE TOPICAL Apply to affected area. 5 % cream for cancerous spots on face Problem List As Of Date 08/31/2024 Noted Resolved Steatosis of liver [K76.0] 08/22/2023 Cholangiectasis [K83.8] 08/22/2023 Disposition: Return in 1 year (on 08/31/2025) for Annual Exam (more content not included)... Normal [facility] SARAH SCREENING W TOMOon 08-31 SARAH SCREENING W AME * * *Final Report* * * DATE OF EXAM: Aug 31 2024 12:56PM WRW [id number] - SARAH SCREENING W AME / PROCEDURE REASON: Encounter for screening mammogram for breast cancer * * * * Physician Interpretation * * * * RESULT: [address] [address] [place] [address] #[id number] - SARAH SCREENING W AME HISTORY: 59 year-old patient seen for screening. Patient is asymptomatic in both breasts. Patient states no personal history of breast cancer. COMPARISON STUDIES: The present examination has been compared to prior imaging studies dated 08/26/2022 (mammogram) and 08/28/2023 (mammogram). MAMMOGRAM TECHNIQUE: The study was acquired using full field digital technology and interpreted from soft copy. Digital Breast Tomosynthesis (DBT) images were obtained and used to assist in the interpretation of this examination. MAMMOGRAM FINDINGS: There are scattered areas of fibroglandular density. No suspicious masses, calcifications or other abnormalities are seen in either breast. There are no significant interval changes. IMPRESSION: There is no mammographic evidence of malignancy in either breast. Routine screening mammogram is recommended. Annual mammogram will be due in 1 year. BI-RADS Category 1: Negative RISK: Based on the Tyrer-Cuzick (TC) risk assessment model, this patient has a 8.3% lifetime risk of developing breast cancer, meaning they are at average risk for developing breast cancer. However, this is only an estimate based on available history provided on the patient's questionnaire. We encourage all patients to talk with their providers about these results, further recommendations for managing breast health, and appropriate supplemental screening options if the patient has dense breast tissue. Interpreting Radiologist: Julisa Oropeza M.D. Electronically signed on: 09/01/2024 Secretary To Board Of Commissioners: MARTHA Transcribe Date/Time: Aug 31 2024 11:44A Dictated by: JULISA OROPEZA MD This examination was interpreted and the report reviewed and electronically signed by: JULISA OROPEZA MD on Sep 01 2024 1:30PM EST [id number] Normal [facility] Gastroenterology Visit Repor ton 07-21-2024 Gastroenterology Visit Report [facility] [address] [place] [address] OFFICE VISIT Date of Service: 07/21/24 MR#: [id number] Acct: [id number] Name: MARTINA PATTERSON Rep #: [id number] : 1965 Provider: Dr. Oscar beckwith MD Age/Sex: 59/F Location: [facility] Status: Signed Intake Vital Signs 01/20/24 15:20 07/21/24 08:43 Height 5 ft 7 in 5 ft 7 in Weight: 194 lb 194 lb BMI 30.4 30.4 BP 135/86 H 123/81 H Blood Pressure Location Rt brachial Rt brachial Position Sitting Sitting Respiration 12 Pulse 75 71 Pulse Source Monitor Pulse Oximetry (%) 95 96 Oxygen Delivery Method room air room air Intake Visit Reasons: 6 M FU Food Service Coordinator Required: No Accompanied by: None Is patient in pain?: No Allergies No Known Allergies Allergy (Verified 07/21/24 08:40) Medications ???Medication ???Instructions ???Recorded ???Confirmed ???Type rosuvastatin 10 mg tablet 10 mg PO QHS 90 days #90 tabs 02/0907/21/24 Rx pioglitazone 15 mg tablet See Rx Instructions .Route 5 07/21/24 Rx .COMPLEX 90 days #90 tabs omeprazole 20 mg capsule,delayed 20 mg PO DAILY PRN 07/21/24 History release PFSH Medical History Wears glasses Post-menopausal Depression Anxiety Alcohol use Poor historian Back pain Injury of head and neck Seizures History of IBS Gastric reflux Smoker Obesity Surgical History History of ERCP Hx of dilation and curettage Hx of ovarian cystectomy S/P total abdominal hysterectomy Family History Sister Thyroid disorder Social History Smoking Status: Current every day smoker tobacco type: cigarettes alcohol intake: current alcohol intake frequency: 0-2 drinks per day HPI HPI Details: MARTINA PATTERSON, is a 59 F who presents to the office today for PCP OV 07.30.22 noting fatty liver diagnosed many years prior; 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 Takes 800mg ibuprofen/day. HLD noted Biochemical 07.31.22 CBC, CMP, LFT, GGT, TSH, hepatitis screen without pertinent abnormality. HAND EDGER ab H1.3. FIB4 0.8 US RUQ and elastography 07.19.22 hepatic measurement 19.2cm with fatty infiltration, stiffness 12.2kPa; 3 small gallbladder polyps, largest [id number]; CBD 6.1mm *BGI established 10.30.22 ibuprofen 800mg is taken once a daily and is not every day but frequently. Biochemical CBC, ESR, coag, CMP, LFT, LDH, ceruloplasmin, haptoglobin, ferritin, A1c, USMAN, copper, AFP GAME, IgG subclasses, LONNIE, ASM, AMA, ANCA, HIV, hepatitis without pertinent abnormality. Ammonia H44, CRP H5.82, HAND EDGER H1.5 FIB4 0.82 MRCP 7. cholelithiasis without inflammation; CBD 8mm with distal tapering without evidence of obstruction; adrenal nodule. Contact 12.03.22 would like to wait on urology referral US and elastography 01.05.23 hepatic measurement 18.5 with fatty infiltration, stiffness 7.6kPa; multiple gallstones ERCP 01.08.23 biliary stricture; entire main bile duct dilated; choledocholithiasis, biliary sphincterotomy/balloon extraction; two temporary stents placed, CBD and ventral pancreatic duct. Pathology WNL. Contact, 01.28.23 with US/elastography and ERCP results. OV 11.6.23 Pt reports intermittent abdominal pain. Feels its mostly diet related. BM are normal and consistent. Appeite is okay. No swelling in the arms or legs. There is no significant weight gain for last few years. No leg swelling, abdominal pain, fever, jaundice or Dysuria. She decreased amount and frequency of alcohol intake currently, 1-2 glass of red wine on weekends. 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 Continues to have occasional abdominal pain. On as-needed basis. BM are regular. No diarrhea or constipation. Pt reports swelling in her lower right ankle that comes and goes. Sometimes he noticed after she is standing on the leg and it goes away when she wakes up in the morning. Denies any recent fracture dislocation injury to right lower extremity. She is physically active. OV 9.11.24- Pt well since last visit. Denies abdominal pain, heartburn. BM are normal. No diarrhea or constipation. NAFLD score -2.49 suggestive of severity F0 to F2 fibrosis. Fib 4 score 0.03, advanced fibrosis noted. Approximate fibrosis stage Cristy 0-1. Gained about 8 lbs sin (more content not included)... Normal [facility] CBC W/Diff, Automatedon 02-08 Absolute Lymph 2.70 X10 3/uL Normal 0.83-4.51 [facility] Comment on above: Performed By: #### L 501.6710, L501.9985, L100.0100, L300.3900, L500.4050, L500.4100 #### [facility] [address] [place], [address] Absolute Neut 3.4 X10 3/uL Normal 2.0-7.7 [facility] Comment on above: Performed By: #### L 501.6710, L501.9985, L100.0100, L300.3900, L500.4050, L500.4100 #### [facility] [address] [place], [address] Basophils/100 WBC (Bld) 0.4 % Normal 0-1 [facility] Comment on above: Performed By: #### L 501.6710, L501.9985, L100.0100, L300.3900, L500.4050, L500.4100 #### [facility] [address] [place], [address] Eosinophils/100 WBC (Bld) 3.4 % Normal 0-5 [facility] Comment on above: Performed By: #### L 501.6710, L501.9985, L100.0100, L300.3900, L500.4050, L500.4100 #### [facility] [address] [place], [address] Erythrocyte distribution width (RBC) [Ratio] 13.1 % Normal 11.6-14.6 [facility] Comment on above: Performed By: #### L 501.6710, L501.9985, L100.0100, L300.3900, L500.4050, L500.4100 #### [facility] [address] [facility] [address] Hematocrit (Bld) [Volume fraction] 37.8 % Normal 37-47 [facility] Comment on above: Performed By: #### L 501.6710, L501.9985, L100.0100, L300.3900, L500.4050, L500.4100 #### [facility] [address] [facility]. [place] [address] Hemoglobin (Bld) [Mass/Vol] 12.6 g/dL Normal 12.0-15.0 [facility] Comment on above: Performed By: #### L 501.6710, L501.9985, L100.0100, L300.3900, L500.4050, L500.4100 #### [facility] [address] [place], [address] IG% 0.300 Normal 0.0-0.9 [facility] Comment on above: Result Comment: IG% - Immature Granulocytes (promyelocytes, myelocytes and metamyelocytes) > 1% indicates that a LEFT SHIFT is Present. Performed By: #### L 501.6710, L501.9985, L100.0100, L300.3900, L500.4050, L500.4100 #### [facility] [address] [place] [id number] Lymphocytes/100 WBC (Bld) 39.9 % Normal 19-41 [facility] Comment on above: Performed By: #### L 501.6710, L501.9985, L100.0100, L300.3900, L500.4050, L500.4100 #### [facility] [address] [place], [address] MCH (RBC) [Entitic mass] 31.8 pg Normal 27.0-32.0 [facility] Comment on above: Performed By: #### L 501.6710, L501.9985, L100.0100, L300.3900, L500.4050, L500.4100 #### [facility] [address] [place], [address] MCHC (RBC) [Mass/Vol] 33.3 g/dL Normal 32-36 [facility] Comment on above: Performed By: #### L 501.6710, L501.9985, L100.0100, L300.3900, L500.4050, L500.4100 #### [facility] [address] [place], [address] MCV (RBC) [Entitic vol] 95.5 fL Normal 81-99 [facility] Comment on above: Performed By: #### L 501.6710, L501.9985, L100.0100, L300.3900, L500.4050, L500.4100 #### [facility] [address] [place], [address] Monocytes/100 WBC (Bld) 6.1 % Normal 0-10 [facility] Comment on above: Performed By: #### L 501.6710, L501.9985, L100.0100, L300.3900, L500.4050, L500.4100 #### [facility] [address] [place], [address] Neutrophils/100 WBC (Bld) 49.9 % Normal 47-70 [facility] Comment on above: Performed By: #### L 501.6710, L501.9985, L100.0100, L300.3900, L500.4050, L500.4100 #### [facility] [address] [place], [address] Nucleated RBC (Bld) [#/Vol] 0 10*3/uL Normal 0-5 [facility] Comment on above: Performed By: #### L 501.6710, L501.9985, L100.0100, L300.3900, L500.4050, L500.4100 #### [facility] [address] [place], [address] Platelet mean volume (Bld) [Entitic vol] 9.1 fL Normal 6.2-12.0 [facility] Comment on above: Performed By: #### L 501.6710, L501.9985, L100.0100, L300.3900, L500.4050, L500.4100 #### [facility] [address] [place], [address] Platelets (Bld) [#/Vol] 266 10*3/uL Normal 150-450 [facility] Comment on above: Performed By: #### L 501.6710, L501.9985, L100.0100, L300.3900, L500.4050, L500.4100 #### [facility] [address] [place], [address] RBC (Bld) [#/Vol] 3.96 10*6/uL Low 4.2-5.4 [place] Comment on above: Performed By: #### L 501.6710, L501.9985, L100.0100, L300.3900, L500.4050, L500.4100 #### [facility] [address] [place], [address] RDW SD 46.4 fl High 35.1-43.9 [facility] Comment on above: Performed By: #### L 501.6710, L501.9985, L100.0100, L300.3900, L500.4050, L500.4100 #### [facility] [address] [place], [address] WBC (Bld) [#/Vol] 6.8 10*3/uL Normal 4.4-11.0 [facility] Comment on above: Performed By: #### L 501.6710, L501.9985, L100.0100, L300.3900, L500.4050, L500.4100 #### [facility] [address] [place], [address] CRPon 02-24-2024 C-REACTIVE PROT < 2.90 Normal 0.0-3.0 [facility] Comment on above: Result Comment: C-Re active Protein (CRP) provides useful information for the diagnosis, therapy and monitoring of inflammatory processes and associated diseases. For the evaluation of Relative Risk for Cardiovascular Disease, a High Sensitivity CRP (HSCRP) should be ordered. Performed By: #### L 501.6710, L501.9985, L100.0100, L300.3900, L500.4050, L500.4100 #### [facility] [address] [place], [address] Comprehensive Metabolic Prof ilon 02-24-2024 Albumin [Mass/Vol] 3.7 g/dL Normal 3.2-5.0 [facility] Comment on above: Performed By: #### L 501.6710, L501.9985, L100.0100, L300.3900, L500.4050, L500.4100 #### [facility] [address] [place], [address] Albumin/Globulin [Mass ratio] 1.1 {ratio} Normal 0.9-2.4 [facility] Comment on above: Performed By: #### L 501.6710, L501.9985, L100.0100, L300.3900, L500.4050, L500.4100 #### [facility] [address] [place], [address] ALK P 85 U/L Normal 45-117 [facility] Comment on above: Performed By: #### L 501.6710, L501.9985, L100.0100, L300.3900, L500.4050, L500.4100 #### [facility] [address] [place], [address] ALT [Catalytic activity/Vol] 27 U/L Normal 13-56 [facility] Comment on above: Performed By: #### L 501.6710, L501.9985, L100.0100, L300.3900, L500.4050, L500.4100 #### [facility] [address] [place], [address] AST [Catalytic activity/Vol] 17 U/L Normal 15-37 [facility] Comment on above: Performed By: #### L 501.6710, L501.9985, L100.0100, L300.3900, L500.4050, L500.4100 #### [facility] [address] [place], [address] Bilirubin [Mass/Vol] 0.30 mg/dL Normal 0.20-1.00 [facility] Comment on above: Result Comment: For patients on eltrombopag therapy, use of Dimension [place] TBIL is not recommended. Performed By: #### L 501.6710, L501.9985, L100.0100, L300.3900, L500.4050, L500.4100 #### [facility] [address] [place], [address] BUN/CRE 28.2 RATIO High 10-20 [facility] Comment on above: Performed By: #### L 501.6710, L501.9985, L100.0100, L300.3900, L500.4050, L500.4100 #### [facility] [address] [place], [address] CA,Total 9.5 mg/dL Normal 8.5-10.1 [facility] Comment on above: Performed By: #### L 501.6710, L501.9985, L100.0100, L300.3900, L500.4050, L500.4100 #### [facility] [address] [place], [address] Chloride [Moles/Vol] 104 mmol/L Normal 98-107 [facility] Comment on above: Performed By: #### L 501.6710, L501.9985, L100.0100, L300.3900, L500.4050, L500.4100 #### [facility] [address] [place], [address] CO2 [Moles/Vol] 25.0 mmol/L Normal 21.0-32.0 [facility] Comment on above: Performed By: #### L 501.6710, L501.9985, L100.0100, L300.3900, L500.4050, L500.4100 #### [facility] [address] [place], [address] Creatinine [Mass/Vol] 0.53 mg/dL Low 0.55-1.02 [facility] Comment on above: Result Comment: The validity of the calculated GFR GFRAA in patients over 70 years has not been determined. Clinical correlation is essential. Performed By: #### L 501.6710, L501.9985, L100.0100, L300.3900, L500.4050, L500.4100 #### [facility] [address] [place], [address] EST GFR - AA 151 mL/min Normal >60 [facility] Comment on above: Result Comment: Afri can [place] GFR Calc Performed By: #### L 501.6710, L501.9985, L100.0100, L300.3900, L500.4050, L500.4100 #### [facility] [address] [place], [address] GAP 7 Normal 5-15 [facility] Comment on above: Performed By: #### L 501.6710, L501.9985, L100.0100, L300.3900, L500.4050, L500.4100 #### [facility] [address] [place], [address] GFR/1.73 sq M.predicted among non-blacks MDRD (S/P/Bld) [Vol rate/Area] 125 mL/min/{1.73_m2} Normal >60 [facility] Comment on above: Result Comment: Non- GFR Calc Performed By: #### L 501.6710, L501.9985, L100.0100, L300.3900, L500.4050, L500.4100 #### [facility] [address] [place], [address] Globulin (S) [Mass/Vol] 3.4 g/dL Normal 2.2-4.2 [facility] Comment on above: Performed By: #### L 501.6710, L501.9985, L100.0100, L300.3900, L500.4050, L500.4100 #### [facility] [address] [place], [address] Glucose [Mass/Vol] 96 mg/dL Normal 74-106 [facility] Comment on above: Performed By: #### L 501.6710, L501.9985, L100.0100, L300.3900, L500.4050, L500.4100 #### [facility] [address] [place], [address] Potassium [Moles/Vol] 3.8 mmol/L Normal 3.5-5.1 [facility] Comment on above: Performed By: #### L 501.6710, L501.9985, L100.0100, L300.3900, L500.4050, L500.4100 #### [facility] [address] [place], [address] Sodium [Moles/Vol] 136 mmol/L Normal 136-145 [facility] Comment on above: Performed By: #### L 501.6710, L501.9985, L100.0100, L300.3900, L500.4050, L500.4100 #### [facility] [address] [place], [address] T PROT 7.1 g/dL Normal 6.4-8.2 [facility] Comment on above: Performed By: #### L 501.6710, L501.9985, L100.0100, L300.3900, L500.4050, L500.4100 #### [facility] [address] [place], [address] Urea nitrogen [Mass/Vol] 15 mg/dL Normal 7-18 [facility] Comment on above: Performed By: #### L 501.6710, L501.9985, L100.0100, L300.3900, L500.4050, L500.4100 #### [facility] [address] [place], [address] Hemoglobin A1con 02-24-2024 HbA1c (Bld) [Mass fraction] 5.6 % Normal 3.8-5.6 [facility] Comment on above: Result Comment: Norm al < 5.7 % Prediabetic 5.7 - 6.4 % Diabetic >or= 6.5 % Please note range changes. Performed By: #### L 501.6710, L501.9985, L100.0100, L300.3900, L500.4050, L500.4100 #### [facility] [address] [place], [address] Lipid Profileon 02-24-2024 Cholesterol [Mass/Vol] 153 mg/dL Normal 200 [facility] Comment on above: Result Comment: <200 mg/dL Desirable 200-240 mg/dL Borderline >240 mg/dL High Risk Performed By: #### L 501.6710, L501.9985, L100.0100, L300.3900, L500.4050, L500.4100 #### [facility] [address] [place], [address] Cholesterol in HDL [Mass/Vol] 63 mg/dL Normal [facility] Comment on above: Result Comment: The drugs N-Acetylcysteine and Metamizole may falsely depress this assay. Reference Range HDL <40 mg/dL Low HDL Cholesterol HDL >or= 60 mg/dL High HDL Cholesterol Performed By: #### L 501.6710, L501.9985, L100.0100, L300.3900, L500.4050, L500.4100 #### [facility] [address] [place], [address] Cholesterol in LDL [Mass/Vol] 66 mg/dL Normal 0-130 [facility] Comment on above: Performed By: #### L 501.6710, L501.9985, L100.0100, L300.3900, L500.4050, L500.4100 #### [facility] [address] [place], [address] Cholesterol in VLDL [Mass/Vol] 24 mg/dL Normal 5-40 [facility] Comment on above: Performed By: #### L 501.6710, L501.9985, L100.0100, L300.3900, L500.4050, L500.4100 #### [facility] [address] [place], [address] Triglyceride [Mass/Vol] 119 mg/dL Normal [facility] Comment on above: Result Comment: The drugs N-Acetylcysteine and Metamizole may falsely depress this assay. Serum Triglycerides Reference Interval Normal <150 mg/dL Borderline high 150 - 199 mg/dL High 200 - 499 mg/dL Very High > or = 500 mg/dL Performed By: #### L 501.6710, L501.9985, L100.0100, L300.3900, L500.4050, L500.4100 #### [facility] [address] [place], [address] Prothrombin Time w/INRon INR Coag (PPP) [Relative time] 0.9 {INR} Normal [facility] Comment on above: Performed By: #### L 501.6710, L501.9985, L100.0100, L300.3900, L500.4050, L500.4100 #### [facility] [address] [place], [address] PT Coag (PPP) [Time] 12.2 s Normal 11.7-14.9 [facility] Comment on above: Performed By: #### L 501.6710, L501.9985, L100.0100, L300.3900, L500.4050, L500.4100 #### [facility] [address] [place], [address] ABD Limited w/ Elastographyo n 02-10-2024 ABD Limited w/ Elastography [facility] Services [address] [facility] [place] [address] ABD Limited w/ Elastography MR#: [id number] Acct: [id number] Name: MARTINA PATTERSON Rep #: [id number] : 1965 F 58 From: Babar dyson MD PCP: Dr. Nestor Santiago MD Status: REG CLI Study: ABD Limited w/ Elastography Date of Exam: 07/04 Exam# [id number] Ordering Dr: Oscar Friedman MD [id number] STUDY: ABDOMINAL ULTRASOUND - RIGHT UPPER QUADRANT; ELASTOGRAPHY REASON FOR VISIT: Female, 58 years old. Liver fibrosis. TECHNIQUE: Ultrasound evaluation of the right upper quadrant was performed with real-time and static bee-scale imaging. Point quantification shear wave elastography was performed ([employer]). TECHNICAL QUALITY: Adequate. COMPARISON: Comparison is made with prior study dated August 22, 2023. FINDINGS: Liver: The liver measures 17.7 cm. There is normal echogenicity of the liver. The bile ducts are within normal limits. There is hepatic color flow. The direction of portal flow is hepatopetal. There is no demonstrated mass lesion. Median liver stiffness measured 7.4 kPa. Gallbladder: Normal distended gallbladder. The gallbladder wall measures 2 mm. There is a negative sonographic Navas''s sign. There is no pericholecystic fluid. There are no gallstones. There is a 4 mm x 4 mm x 2 mm gallbladder polyp. Common Bile Duct (C.B.D.): The common bile duct measures 6 mm. Pancreas: There is normal echogenicity of the visualized pancreas. There is no demonstrated pancreatic mass or cyst. Right Kidney: Normal size of the right kidney. The right kidney measures 10.4 cm x 4.8 cm x 4.3 cm. Normal renal cortex. The right cortex measures 1.2 cm. There is no demonstrated renal mass or cyst. There is no right hydronephrosis. US/ABD Limited w/ Elastography IMPRESSION: 1. Liver stiffness measures 7.4 kPa compatible with F2-F3 (Mild to moderate liver fibrosis) Metavir score. Electronically Signed: Babar Cintron MD at 15:13 EDT , CC: Dr. Nestor Santiago MD; Dr. Oscar Friedman MD Secretary To Board Of Commissioners: Signed Normal [facility] Gastroenterology Visit Repor ton 01-20-2024 Gastroenterology Visit Report [facility] [address] [place] [address] OFFICE VISIT Date of Service: 01/20/24 MR#: [id number] Acct: [id number] Name: MARTINA PATTERSON Rep #: [id number] : 1965 Provider: Dr. Oscar beckwith MD Age/Sex: 58/F Location: [facility] Status: Signed Intake Vital Signs 08/26/23 13:37 01/20/24 15:20 Height 5 ft 7 in 5 ft 7 in Weight: 193 lb 194 lb BMI 30.2 30.4 BP 123/78 H 135/86 H Blood Pressure Location Rt brachial Rt brachial Position Sitting Sitting Pulse 96 75 Pulse Oximetry (%) 79 95 Oxygen Delivery Method room air room air Intake Visit Reasons: 6 M FU Allergies No Known Allergies Allergy (Verified 01/20/24 15:19) Medications ???Medication ???Instructions ???Recorded ???Confirmed ???Type omeprazole 20 mg capsule,delayed 20 mg PO DAILY 01/06/23 01/20/24 History release pioglitazone 15 mg tablet See Rx Instructions .Route 12/18/23 01/20/24 Rx .COMPLEX 90 days #30 tabs rosuvastatin 10 mg tablet 10 mg PO QHS 90 days #90 tabs 12/18/23 01/20/24 Rx cholecalciferol (vitamin D3) 1,250 1,250 mcg PO QWEEK 4 weeks #4 tabs 01/20/24 01/20/24 Rx mcg (50,000 unit) tablet PFSH Medical History Wears glasses Post-menopausal Depression Anxiety Alcohol use Poor historian Back pain Injury of head and neck Seizures History of IBS Gastric reflux Smoker Obesity Surgical History History of ERCP Hx of dilation and curettage Hx of ovarian cystectomy S/P total abdominal hysterectomy Family History Sister Thyroid disorder Social History Smoking Status: Current every day smoker tobacco type: cigarettes alcohol intake: current alcohol intake frequency: 0-2 drinks per day HPI HPI Details: MARTINA PATTERSON, is a 58 F who presents to the office today for follow up. 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 Takes 800mg ibuprofen/day. HLD noted Biochemical 07.31.22 CBC, CMP, LFT, GGT, TSH, hepatitis screen without pertinent abnormality. HAND EDGER ab H1.3. FIB4 0.8 US RUQ and elastography 07.19.22 hepatic measurement 19.2cm with fatty infiltration, stiffness 12.2kPa; 3 small gallbladder polyps, largest [id number]; CBD 6.1mm *BGI established 10.30.22 ibuprofen 800mg is taken once a daily and is not every day but frequently. Biochemical CBC, ESR, coag, CMP, LFT, LDH, ceruloplasmin, haptoglobin, ferritin, A1c, USMAN, copper, AFP GAME, IgG subclasses, LONNIE, ASM, AMA, ANCA, HIV, hepatitis without pertinent abnormality. Ammonia H44, CRP H5.82, HAND EDGER H1.5 FIB4 0.82 MRCP 7 cholelithiasis without inflammation; CBD 8mm with distal tapering without evidence of obstruction; adrenal nodule. Contact 12.03.22 would like to wait on urology referral US and elastography 01.05.23 hepatic measurement 18.5 with fatty infiltration, stiffness 7.6kPa; multiple gallstones ERCP 01.08.23 biliary stricture; entire main bile duct dilated; choledocholithiasis, biliary sphincterotomy/balloon extraction; two temporary stents placed, CBD and ventral pancreatic duct. Pathology WNL. Contact, 01.28.23 with US/elastography and ERCP results. OV 03.16.23 Pt reports intermittent abdominal pain. Feels its mostly diet related. BM are normal and consistent. Appeite is okay. No swelling in the arms or legs. There is no significant weight gain for last few years. No leg swelling, abdominal pain, fever, jaundice or Dysuria. She decreased amount and frequency of alcohol intake currently, 1-2 glass of red wine on weekends. 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 Continues to have occasional abdominal pain. On as-needed basis. BM are regular. No diarrhea or constipation. Pt reports swelling in her lower right ankle that comes and goes. Sometimes he noticed after she is standing on the leg and it goes away when she wakes up in the morning. Denies any recent fracture dislocation injury to right lower extremity. She is physically active. OV 9.11.24- Pt well since last visit. Denies abdominal pain, heartburn. BM are normal. No diarrhea or constipation. ROS Const Constitutional: No fatigue, fever(s), weakness or weight change Eyes Eyes: No blurry vision, change in vision or double vision ENT ENT: No di (more content not included)... Normal [facility] Absolute lymphocyte countOrd ered By: Oscar Friedman on 08-22-2023 Lymphocytes Auto (Unsp spec) [#/Vol] 1.92 10*3/uL 0.83-4.51 [facility] Automated lymphocyte count a s percentage of total leukocytesOrdered By: Oscar Friedman on 08-22-2023 Lymphocytes/100 WBC Auto (Unsp spec) 30.4 % 19-41 [facility] Basophil percentageOrdered B y: Oscar Friedman on 08-22-2023 Basophils/100 WBC (Bld) 0.5 % 0-1 [facility] Bilirubin [Mass/Vol] 0.40 mg/dL 0.20-1.00 [facility] Comment on above: For patients on eltr ombopag therapy, use of Dimension [place] TBIL is not recommended. Chloride [Moles/Vol] 109 mmol/L 98-107 [facility] Cholesterol [Mass/Vol] 135 mg/dL <200 [facility] Comment on above: <200 mg/dL Desirable 200-240 mg/dL Borderline >240 mg/dL High Risk Eosinophils/100 WBC (Bld) 2.4 % 0-5 [facility] Glucose [Mass/Vol] 99 mg/dL 74-106 [facility] Hemoglobin (Bld) [Mass/Vol] 13.6 g/dL 12.0-15.0 [facility] Monocytes/100 WBC (Bld) 5.7 % 0-10 [facility] Neutrophils (Bld) [#/Vol] 3.8 10*3/uL 2.0-7.7 [facility] Neutrophils/100 WBC (Bld) 60.7 % 47-70 [facility] Potassium [Moles/Vol] 4.2 mmol/L 3.5-5.1 [facility] Protein [Mass/Vol] 7.0 g/dL 6.4-8.2 [facility] Sodium [Moles/Vol] 139 mmol/L 136-145 [facility] Triglyceride [Mass/Vol] 58 mg/dL <199 [facility] Comment on above: The drugs N-Acetylcy steine and Metamizole may falsely depress this assay.Serum Triglycerides Reference Interval Normal <150 mg/dL Borderline high 150 - 199 mg/dL High 200 - 499 mg/dL Very High > or = 500 mg/dL WBC (Bld) [#/Vol] 6.3 10*3/uL 4.4-11.0 [facility] Determination of erythrocyte mean corpuscular volume (MCV)Ordered By: Oscar Friedman on 08-22-2023 MCV (RBC) [Entitic vol] 96.2 fL 81-99 [facility] Erythrocyte distribution wid th ratioOrdered By: Oscar Friedman on 08-22-2023 Erythrocyte distribution width (RBC) [Ratio] 12.6 % 11.6-14.6 [facility] Erythrocyte distribution wid th standard deviationOrdered By: Oscar Friedman on 08-22-2023 Erythrocyte distribution width (RBC) [Entitic vol] 44.9 fL 35.1-43.9 [facility] Hematocrit Auto (Bld) [Volum e fraction]Ordered By: Oscar Friedman on 08-22-2023 Hematocrit (Bld) [Volume fraction] 42.6 % 37-47 [facility] Immature granulocytes/100 WB C Auto (Bld)Ordered By: Oscar Friedman on 08-22-2023 Immature granulocytes/100 WBC (Bld) 0.300 % 0.0-0.9 [facility] Comment on above: IG% - Immature Granu locytes (promyelocytes, myelocytes and metamyelocytes) > 1% indicates that a LEFT SHIFT is Present. Laboratory - Chemistry and C hemistry - challengeOrdered By: Oscar Friedman on 08-22-2023 Albumin/Globulin [Mass ratio] 1.1 {ratio} 0.9-2.4 [facility] ALP [Catalytic activity/Vol] 64 U/L 45-117 [facility] ALT [Catalytic activity/Vol] 25 U/L 13-56 [facility] Cholesterol in HDL [Mass/Vol] 58 mg/dL >40 [facility] Comment on above: The drugs N-Acetylcy steine and Metamizole may falsely depress this assay. Reference Range HDL <40 mg/dL Low HDL Cholesterol HDL >or= 60 mg/dL High HDL Cholesterol Cholesterol in LDL [Mass/Vol] 65 mg/dL 0-130 [facility] CO2 [Moles/Vol] 27.0 mmol/L 21.0-32.0 [facility] Globulin (S) [Mass/Vol] 3.3 g/dL 2.2-4.2 [facility] Urea nitrogen/Creatinine [Mass ratio] 23.7 mg/mg 10-20 [facility] Laboratory - CoagulationOrde red By: Oscar Friedman on 08-22-2023 INR Coag (Bld) [Relative time] 1.0 {INR} [facility] PT Coag (PPP) [Time] 12.8 s 11.7-14.9 [facility] Laboratory - Hematology and Cell countsOrdered By: Oscar Friedman on 08-22-2023 MCH (RBC) [Entitic mass] 30.7 pg 27.0-32.0 [facility] MCHC (RBC) [Mass/Vol] 31.9 g/dL 32-36 [facility] Nucleated RBC/100 WBC (Bld) [Ratio] 0 % 0-5 [facility] Platelet mean volume (Bld) [Entitic vol] 9.3 fL 6.2-12.0 [facility] Platelets (Bld) [#/Vol] 283 10*3/uL 150-450 [facility] No Panel InformationOrdered By: Oscar Friedman on 08-22-2023 C-Reactive Protein Extended Range < 2.90 mg/L 0.0-3.0 [facility] Comment on above: C-Reactive Protein ( CRP) provides useful information for thediagnosis, therapy and monitoring of inflammatory processesand associated diseases. For the evaluation of Relative Riskfor Cardiovascular Disease, a High Sensitivity CRP (HSCRP)should be ordered. Estimated GFR (MDRD) Amer 134 mL/min >60 [facility] Comment on above: GFR Calc Estimated GFR (MDRD) Non-Af Amer 111 mL/min >60 [facility] Comment on above: Non- GFR Calc Tumor Marker Alpha Fetoprotein 2.4 ng/mL 0.0-9.2 [facility] Comment on above: [facility] El ectrochemiluminescence Immunoassay(ECLIA)Values obtained with different assay methods or kits cannotbe used interchangeably. Results cannot be interpreted asabsolute evidence of the presence or absence of malignantdisease.This test is not interpretable in females.Performed at: [facility] [address] [id number] Director: Jac Osborn PhD, Phone: [phone] Vitamin D 25-Hydroxy 31.6 ng/mL [facility] Comment on above: Vitamin D 25(OH) Sta tus Range Deficiency <20 ng/mL (50nmol/L) Insufficiency 20 - 30 ng/mL (50 - 75 nmol/L) Sufficiency 30 - 100 ng/mL (75 - 250 nmol/L) Toxicity >100 ng/mL (>250 nmol/L) VLDL Cholesterol 12 mg/dL 5-40 [facility] RBC Auto (Bld) [#/Vol]Ordere d By: Oscar Friedman on 08-22-2023 RBC (Bld) [#/Vol] 4.43 10*6/uL 4.2-5.4 [place] Serum or plasma calcium katty urement (mass/volume)Ordered By: Oscar Friedman on 08-22-2023 Calcium [Mass/Vol] 9.1 mg/dL 8.5-10.1 [facility] Serum or plasma creatinine m easurement (mass/volume)Ordered By: Oscar Friedman on 08-22-2023 Creatinine [Mass/Vol] 0.59 mg/dL 0.55-1.02 [facility] Comment on above: The validity of the calculated GFR & GFRAA in patients over 70 years has not been determined. Clinical correlation is essential. Serum or plasma urea nitroge n measurement (mass/volume)Ordered By: Oscar Friedman on 08-22-2023 Urea nitrogen [Mass/Vol] 14 mg/dL 7-18 [facility] Thin prep Papanicolaou smear with manual screeningOrdered By: Oscar Friedman on 08-22-2023 Thin prep Papanicolaou smear with manual screening 3.7 g/dL 3.2-5.0 [facility] Thin prep Papanicolaou smear with manual screening 14 U/L 15-37 [facility] Thin prep Papanicolaou smear with manual screening 3 5-15 [facility] Whole blood hemoglobin A1c/t otal hemoglobin ratio (mass fraction)Ordered By: Oscar Friedman on 08-22-2023 HbA1c (Bld) [Mass fraction] 5.7 % 3.8-5.6 [facility] Comment on above: Normal < 5.7 % Predi abetic 5.7 - 6.4 % Diabetic >or= 6.5 % Please note range changes. Basophil percentageOrdered B y: Alfa Shepherd on 06-23-2023 Basophil percentage TNP [facility] Comment on above: Test not performed HIV 1 and HIV-2 antibody ass ay with HIV-1 p24 antigen detectionOrdered By: Alfa Shepherd on 06-23-2023 HIV 1+2 Ab+HIV1 p24 Ag IA Ql Non-Reactive Nonreactive [facility] No Panel InformationOrdered By: Alfa Shepherd on 06-23-2023 Addendum Document Comment . [facility] Comment on above: The quantitative ran ge of this assay is 15 IU/mL to 100million IU/mL. Hepatitis A Antibody Total Positive Negative [facility] Comment on above: Comment: The HAV tot al antibody assay detects both IgG andIgM but does not differentiate between them. A negativeresult suggests susceptibility to infection. A positiveresult could be due to vaccination, previously resolvedinfection or active infection. Testing for HAV IgM shouldbe performed if active HAV infection is suspected. [facility]ers profiles that will automatically reflex positive HAVtotal antibody results to IgM (e.g., panel #[id number] HAVAntibody w/ Rfx).Performed at: [address] [id number] Director: Jac Osborn PhD, Phone: [phone] at: [address] [id number] Director: Arina Ambrocio MD, Phone: [phone] Hepatitis A IgM Antibody Negative Negative [facility] Hepatitis B Core IgM Antibody Negative Negative [facility] Hepatitis C Antibody (EIA) Non-Reactive Non Reactive [facility] Hepatitis C Antibody Comment Comment . [facility] Comment on above: Not infected with HC V unless early or acute infection issuspected (which may be delayed in an immunocompromisedindividual), or other evidence exists to indicate HCVinfection. Miscellaneous Test See comment [facility] Comment on above: TEST RESULTS LIMITSH BV Real-Time PCR, Quant HBV IU/mL HBV DNA not detected IU/mL log10 HBV IU/mL Unable to calculate result since non-numeric result obtained for component test. Test Information: The reportable range for this assay is 10 IU/mL to 1 billion IU/mL. TESTING PERFORMED AT [facility]. ORIGINAL REPORT ON FILE IN LAB CONTAINS ADDITIONAL TEST SITE INFORMATION. Serum hepatitis B virus surf usman antibody IgG detectionOrdered By: Alfa Shepherd on 06-23-2023 HBV surface IgG Ql (S) Reactive [facility] Comment on above: Non Reactive: Incons istent with immunity less than <10 mIU/mL Reactive: Consistent with immunity greater than or equal to 10 mIU/mL Serum or plasma hepatitis B virus surface antigen detection by immunoassayOrdered By: Alfa Shepherd on 06-23-2023 HBV surface Ag IA Ql Negative Negative [facility] Serum or plasma hepatitis C virus RNA measurement by probe and target amplification mOrdered By: Alfa Shepherd on 06-23-2023 HCV RNA MARCELA+probe Qn Not detected . [facility] Glucose Glucometer (BldC) [M ass/Vol]Ordered By: Jose L Montana on 01-08-2023 Glucose [Mass/Vol] 92 mg/dL 74-106 [facility] Comment on above: MANAGEMENT OF PATIEN T CARE PER NURSING PROTOCOL No Panel InformationOrdered By: Jose L Montana on 12-02-2022 CA 19-9 Antigen 6 U/mL 0-35 [facility] Comment on above: [facility] El ectrochemiluminescence Immunoassay(ECLIA)Values obtained with different assay methods or kits cannotbe used interchangeably. Results cannot be interpreted asabsolute evidence of the presence or absence of malignantdisease.Performed at: [facility] [place] [id number] Director: Jac Osborn PhD, Phone: [phone] Serum or plasma carcinoembry onic antigen measurement (mass/volume)Ordered By: Jose L Montana on 12-02-2022 Carcinoembryonic Ag [Mass/Vol] 1.5 ng/mL 0.0-4.7 [facility] Comment on above: Nonsmokers <3.9 Smok ers <5.6[facility] [employer] Electrochemiluminescence Immunoassay(ECLIA)Values obtained with different assay methods or kitscannot be used interchangeably. Results cannot beinterpreted as absolute evidence of the presence orabsence of malignant disease. Albumin Elph [Mass/Vol]Order ed By: Jose L Montana on 11-20-2022 Albumin [Mass/Vol] 4.1 g/dL 2.9-4.4 [facility] Interpretation of serum or p lasma protein pattern by immunofixation (narrative resultOrdered By: Jose L Montana on 11-20-2022 Protein Fractions Immunofixation Pratik [Interp] See comment [facility] Comment on above: NOT OBSERVED No Panel InformationOrdered By: Jose L Montana on 11-20-2022 Addendum Document Comment . [facility] Comment on above: Protein electrophore sis scan will follow via computer,mail, or quality engineer delivery. Ceruloplasmin 26.5 mg/dL 19.0-39.0 [facility] Immunoglobulin G4 23 mg/dL 2-96 [facility] Miscellaneous Test See comment [place] Comment on above: TEST RESULT LIMITSAl [id number] Phenotyp Lhxat-1-Seawxuoltpm, Serum 132 mg/dL 101-187 Phenotype (PI) MM Phenotype Population A-1-AT Concentration* Incidence % % of MM (Typical Range) MM 86.5% 100% (96 - 189) MS 8.0% 86% (83 - 161) MZ 3.9% 61% (60 - 111) FM 0.4% 100% (93 - 191) SZ 0.3% 41% (42 - 75) SS 0.1% 64% (62 - 119) ZZ 0.05% 19% (16 - 38) FS 0.05% 70% (70 - 128) FZ Unknown 46% (44 - 88) FF Unknown Unknown *A-1-AT concentration in the homozygous MM phenotype is taken as the reference normal. Percent deficiency in each phenotype is reported relative to this reference. Ranges used to confirm phenotype. TESTING PERFORMED AT [facility]. ORIGINAL REPORT ON FILE IN LAB CONTAINS ADDITIONAL TEST SITE INFORMATION. Serum IgG subclass 1 measure ment (mass/volume)Ordered By: Jose L Montana on 11-20-2022 IgG subclass 1 (S) [Mass/Vol] 376 mg/dL 248-810 [facility] Serum IgG subclass 2 measure ment (mass/volume)Ordered By: Jose L Montana on 11-20-2022 IgG subclass 2 (S) [Mass/Vol] 346 mg/dL 130-555 [facility] Serum IgG subclass 3 measure ment (mass/volume)Ordered By: Jose L Montana on 11-20-2022 IgG subclass 3 (S) [Mass/Vol] 26 mg/dL 15-102 [facility] Serum [id number] measu rement by electrophoresisOrdered By: Jose L Montana on 11-20-2022 Alpha 1 globulin Elph [Mass/Vol] 0.2 g/dL 0.0-0.4 [facility] Alpha 1 globulin Elph [Mass/Vol] 0.9 g/dL 0.4-1.0 [facility] Serum globulin measurement ( mass/volume)Ordered By: Jose L Montana on 11-20-2022 Globulin (S) [Mass/Vol] 2.9 g/dL 2.2-3.9 [facility] Serum or plasma IgA measurem ent (mass/volume)Ordered By: Jose L Montana on 11-20-2022 IgA [Mass/Vol] 108 mg/dL 87-352 [facility] Serum or plasma IgG measurem ent (mass/volume)Ordered By: Jose L Montana on 11-20-2022 IgG [Mass/Vol] 825 mg/dL [phone] [facility] IgG [Mass/Vol] Not Reportable [facility] Serum or plasma IgM measurem ent (mass/volume)Ordered By: Jose L Montnaa on 11-20-2022 IgM [Mass/Vol] 140 mg/dL 26-217 [facility] Serum or plasma beta globuli n measurement by electrophoresis (mass/volume)Ordered By: Jose L Montana on 11-20-2022 Beta globulin Elph [Mass/Vol] 1.0 g/dL 0.7-1.3 [facility] Serum or plasma gamma globul in measurement by electrophoresis (mass/volume)Ordered By: Jose L Montana on 11-20-2022 Gamma globulin Elph [Mass/Vol] 0.8 g/dL 0.4-1.8 [facility] Serum or plasma immunoelectr ophoresis interpretation (nominal result)Ordered By: Jose L Montana on 11-20-2022 Interpretation IEP [Interp] Comment . [facility] Comment on above: No monoclonality det ected. Thin prep Papanicolaou smear with manual screeningOrdered By: Jose L Montana on 11-20-2022 Thin prep Papanicolaou smear with manual screening 1.5 0.7-1.7 [facility] Thin prep Papanicolaou smear with manual screening 106 ug/dL 80-158 [facility] Comment on above: Detection Limit = 5P erformed at: - [facility] [id number] [place], [place] [id number] Director: Jac Osborn PhD, Phone: [phone] at: - [facility] [id number] Director: Arina Ambrocio MD, Phone: [phone] Total protein bloodOrdered B y: Jose L Montana on 11-20-2022 Protein [Mass/Vol] 7.0 g/dL 6.0-8.5 [facility] Absolute lymphocyte countOrd ered By: Jsoe L Montana on 10-30-2022 Lymphocytes Auto (Unsp spec) [#/Vol] 1.72 10*3/uL 0.83-4.51 [facility] Atypical perinuclear antineu trophil cytoplasmic antibodies measurementOrdered By: Jose Ljeanette Montana on 10-30-2022 Neutrophil cytoplasmic Ab.perinuclear.atypical IF (S) [Titer] <1:20 titer Neg:<1:20 [facility] Comment on above: Serum is slightly li pemic.The atypical pANCA pattern has been observed in asignificant percentage of patients with ulcerative colitis,primary sclerosing cholangitis and autoimmune hepatitis. Basophil percentageOrdered B y: Jose L Rubén on 10-30-2022 Ammonia (P) [Moles/Vol] 44.0 umol/L 11-32 [facility] Basophil percentage < 0.2 AI 0.0-0.9 [place] Basophils/100 WBC (Bld) 0.4 % 0-1 [facility] Bilirubin [Mass/Vol] 0.40 mg/dL 0.20-1.00 [facility] Comment on above: For patients on eltr ombopag therapy, use of Dimension [place] TBIL is not recommended. Chloride [Moles/Vol] 104 mmol/L 98-107 [facility] Eosinophils/100 WBC (Bld) 2.3 % 0-5 [facility] Glucose [Mass/Vol] 110 mg/dL 74-106 [facility] Comment on above: Fasting Glucose resu lt from 100 to 125 mg/dL suggests IMPAIRED HOMEOSTASIS per A.D.A. criteria. LDH [Catalytic activity/Vol] 182 U/L 84-246 [facility] Neutrophils (Bld) [#/Vol] 4.6 10*3/uL 2.0-7.7 [facility] Neutrophils/100 WBC (Bld) 66.2 % 47-70 [facility] Potassium [Moles/Vol] 3.9 mmol/L 3.5-5.1 [facility] Protein [Mass/Vol] 7.3 g/dL 6.4-8.2 [facility] Sodium [Moles/Vol] 137 mmol/L 136-145 [facility] WBC (Bld) [#/Vol] 6.9 10*3/uL 4.4-11.0 [facility] Blood erythrocytes count (nu mber/volume)Ordered By: Jose L Montana on 10-30-2022 RBC (Bld) [#/Vol] 4.27 10*6/uL 4.2-5.4 [place] Blood hemoglobin measurement (mass/volume)Ordered By: Jose L Montana on 10-30-2022 Hemoglobin (Bld) [Mass/Vol] 14.0 g/dL 12.0-15.0 [facility] Blood lymphocytes/100 leukoc ytesOrdered By: Jose L Montana on 10-30-2022 Lymphocytes/100 WBC (Bld) 24.8 % 19-41 [facility] Blood monocytes/100 leukocyt esOrdered By: Jose L Montana on 10-30-2022 Monocytes/100 WBC (Bld) 5.9 % 0-10 [facility] Blood platelet mean volumeOr dered By: Jose L Montana on 10-30-2022 Platelet mean volume (Bld) [Entitic vol] 9.2 fL 6.2-12.0 [facility] Determination of erythrocyte mean corpuscular volume (MCV)Ordered By: Jose L Montana on 10-30-2022 MCV (RBC) [Entitic vol] 97.4 fL 81-99 [facility] Erythrocyte sedimentation ra teOrdered By: Jose L Montana on 10-30-2022 ESR (Bld) [Velocity] 26 mm/h 0-30 [facility] HIV 1 and HIV-2 antibody ass ay with HIV-1 p24 antigen detectionOrdered By: Jose L Montana on 10-30-2022 HIV 1+2 Ab+HIV1 p24 Ag IA Ql Non-Reactive Nonreactive [facility] Hematocrit Auto (Bld) [Volum e fraction]Ordered By: Jose L Montana on 10-30-2022 Hematocrit (Bld) [Volume fraction] 41.6 % 37-47 [facility] INR in Blood by Coagulation assayOrdered By: Jose L Montana on 10-30-2022 INR Coag (Bld) [Relative time] 0.9 {INR} [facility] Laboratory - Chemistry and C hemistry - challengeOrdered By: Jose L Montana on 10-30-2022 ALP [Catalytic activity/Vol] 85 U/L 45-117 [facility] ALT [Catalytic activity/Vol] 38 U/L 13-56 [facility] CO2 [Moles/Vol] 23.0 mmol/L 21.0-32.0 [facility] Globulin (S) [Mass/Vol] 3.3 g/dL 2.2-4.2 [facility] Urea nitrogen/Creatinine [Mass ratio] 27.0 mg/mg 10-20 [facility] Laboratory - CoagulationOrde red By: Jose L Montana on 10-30-2022 PT Coag (PPP) [Time] 12.1 s 11.7-14.9 [facility] Laboratory - Hematology and Cell countsOrdered By: Jose L Montana on 10-30-2022 Erythrocyte distribution width (RBC) [Entitic vol] 45.5 fL 35.1-43.9 [facility] Erythrocyte distribution width (RBC) [Ratio] 12.8 % 11.6-14.6 [facility] Immature granulocytes/100 WBC (Bld) 0.400 % 0.0-0.9 [facility] Comment on above: IG% - Immature Granu locytes (promyelocytes, myelocytes and metamyelocytes) > 1% indicates that a LEFT SHIFT is Present. MCH (RBC) [Entitic mass] 32.8 pg 27.0-32.0 [facility] Nucleated RBC/100 WBC (Bld) [Ratio] 0 % 0-5 [facility] MCHC Auto (RBC) [Mass/Vol]Or dered By: Jose L Montana on 10-30-2022 MCHC (RBC) [Mass/Vol] 33.7 g/dL 32-36 [facility] No Panel InformationOrdered By: Jose L Montana on 10-30-2022 Centromere B Antibody <0.2 AI 0.0-0.9 [facility] Ceruloplasmin 28.9 mg/dL 19.0-39.0 [facility] Estimated GFR (MDRD) Amer 144 mL/min >60 [facility] Comment on above: GFR Calc Estimated GFR (MDRD) Non-Af Amer 119 mL/min >60 [facility] Comment on above: Non- GFR Calc Haptoglobin 264 mg/dL 33-346 [facility] Comment on above: Performed at: [employer] [address] [id number] Director: Jac Osborn PhD, Phone: [phone] at: [facility] [address] [id number] Director: Arina Ambrocio MD, Phone: [phone] Hepatitis A IgM Antibody Negative Negative [facility] Hepatitis B Core IgM Antibody Negative Negative [facility] Hepatitis C Antibody (EIA) Non-Reactive Non Reactive [facility] Hepatitis C Antibody Comment Comment . [facility] Comment on above: Not infected with HC V unless early or acute infection issuspected (which may be delayed in an immunocompromisedindividual), or other evidence exists to indicate HCVinfection. HAND EDGER Antibody 1.5 AI 0.0-0.9 [facility] Platelets bldOrdered By: Timoteo Montana on 10-30-2022 Platelets (Bld) [#/Vol] 287 10*3/uL 150-450 [facility] Serum DNA double strand anti body assay (units/volume)Ordered By: Jose L Montana on 10-30-2022 DNA double strand Ab Qn (S) 2 [IU]/mL 0-9 [facility] Comment on above: Negative <5 Equivoca l 5 - 9 Positive >9 Serum Evelyn-1 antibody assay (u nits/volume)Ordered By: Jose L Montana on 10-30-2022 Evelyn-1 extractable nuclear Ab Qn (S) <0.2 AI 0.0-0.9 [facility] Serum Scl-70 extractable nuc lear antibody assay (units/volume)Ordered By: Jose L Montana on 10-30-2022 SCL-70 extractable nuclear Ab Qn (S) <0.2 AI 0.0-0.9 [facility] Serum Mendez extractable nucl ear antibody detectionOrdered By: Jose L Montana on 10-30-2022 Mendez extractable nuclear Ab Ql (S) <0.2 AI 0.0-0.9 [facility] Serum classic neutrophil cyt oplasmic antibody assay (units/volume)Ordered By: Jose L Montana on 10-30-2022 Neutrophil cytoplasmic Ab.classic Qn (S) <1:20 titer Neg:<1:20 [facility] Comment on above: Serum is slightly li pemic. Serum mitochondria antibody detectionOrdered By: Jose L Montana on 10-30-2022 Mitochondria Ab Ql (S) <20.0 Units 0.0-20.0 [facility] Comment on above: Negative 0.0 - 20.0 Equivocal 20.1 - 24.9 Positive >24.9Mitochondrial (M2) Antibodies are found in 90-96% ofpatients with primary biliary cirrhosis.Performed at: [address] [id number] Director: Jac Osborn PhD, Phone: [phone] Serum or plasma C reactive p rotein measurement (mass/volume)Ordered By: Jose L Montana on 10-30-2022 CRP [Mass/Vol] 5.82 mg/L 0.0-3.0 [facility] Comment on above: C-Reactive Protein ( CRP) provides useful information for thediagnosis, therapy and monitoring of inflammatory processesand associated diseases. For the evaluation of Relative Riskfor Cardiovascular Disease, a High Sensitivity CRP (HSCRP)should be ordered. Serum or plasma actin IgG an tibody assay (units/volume)Ordered By: Jose L Montana on 10-30-2022 Actin IgG Qn 5 Units 0-19 [facility] Comment on above: Negative 0 - 19 Weak positive 20 - 30 Moderate to strong positive >30 Actin Antibodies are found in 52-85% of patients with autoimmune hepatitis or chronic active hepatitis and in 22% of patients with primary biliary cirrhosis. Serum or plasma albumin katty urement (mass/volume)Ordered By: Jose L Montana on 10-30-2022 Albumin [Mass/Vol] 4.0 g/dL 3.2-5.0 [facility] Serum or plasma albumin/glob ulin mass ratioOrdered By: Jose Llinette Montana on 10-30-2022 Albumin/Globulin [Mass ratio] 1.2 {ratio} 0.9-2.4 [facility] Serum or plasma [id number] protein tumor marker measurement (units/volume)Ordered By: Jose L Montana on 10-30-2022 AFP.tumor marker Qn 2.6 ng/mL 0.0-9.2 [place] Comment on above: [employer] El ectrochemiluminescence Immunoassay(ECLIA)Values obtained with different assay methods or kits cannotbe used interchangeably. Results cannot be interpreted asabsolute evidence of the presence or absence of malignantdisease.This test is not interpretable in females. Serum or plasma angiotensin converting enzyme measurement (enzymatic activity/volume)Ordered By: Jose L Montana on 10-30-2022 Angiotensin converting enzyme [Catalytic activity/Vol] 35 U/L 14-82 [facility] Serum or plasma calcium katty urement (mass/volume)Ordered By: JoseL Montana on 10-30-2022 Calcium [Mass/Vol] 9.5 mg/dL 8.5-10.1 [facility] Serum or plasma creatinine m easurement (mass/volume)Ordered By: Jose L Montana on 10-30-2022 Creatinine [Mass/Vol] 0.56 mg/dL 0.55-1.02 [facility] Comment on above: The validity of the calculated GFR & GFRAA in patients over 70 years has not been determined. Clinical correlation is essential. Serum or plasma ferritin tiesha surement (mass/volume)Ordered By: Jose L Montana on 10-30-2022 Ferritin [Mass/Vol] 110 ng/mL 8-252 [place] Serum or plasma hepatitis B virus surface antigen detection by immunoassayOrdered By: Jose L Montana on 10-30-2022 HBV surface Ag IA Ql Negative Negative [facility] Serum or plasma urea nitroge n measurement (mass/volume)Ordered By: Jose L Montana on 10-30-2022 Urea nitrogen [Mass/Vol] 15 mg/dL 7-18 [facility] Serum perinuclear neutrophil cytoplasmic antibody titer by immunofluorescenceOrdered By: Jose L Montana on 10-30-2022 Neutrophil cytoplasmic Ab.perinuclear IF (S) [Titer] <1:20 titer Neg:<1:20 [facility] Comment on above: Serum is slightly li pemic.The presence of positive fluorescence exhibiting P-ANCA orC-ANCA patterns alone is not specific for the diagnosis ofWegener's Granulomatosis (WG) or microscopic polyangiitis.Decisions about treatment should not be based solely onANCA IFA results. The [employer] ANCA Group Consensusrecommends follow up testing of positive sera with both HI-3 and MPO-ANCA enzyme immunoassays. As many as 5% serumsamples are positive only by EIA. Ref. AM J Clin Iwstdd3320;111:507-513. Thin prep Papanicolaou smear with manual screeningOrdered By: Jose L Montana on 10-30-2022 Thin prep Papanicolaou smear with manual screening 25 U/L 15-37 [facility] Thin prep Papanicolaou smear with manual screening 10 5-15 [facility] Thin prep Papanicolaou smear with manual screening 120 ug/dL 80-158 [facility] Comment on above: Detection Limit = 5 Whole blood hemoglobin A1c/t otal hemoglobin ratio (mass fraction)Ordered By: Jose L Montana on 10-30-2022 HbA1c (Bld) [Mass fraction] 5.4 % 3.8-5.6 [facility] Comment on above: Normal < 5.7 % Predi abetic 5.7 - 6.4 % Diabetic >or= 6.5 % Please note range changes. SARAH PAULINA W AME BILATERALon 08-26-2022 [facility] US BREAST LTD LTon [facility] Absolute lymphocyte countOrd ered By: Dr. Santiago on 07-31-2022 Lymphocytes Auto (Unsp spec) [#/Vol] 1.78 10*3/uL 0.83-4.51 [facility] Basophil percentageOrdered B y: Dr. Santiago on 07-31-2022 Basophil percentage < 0.2 AI 0.0-0.9 [place] Basophils/100 WBC (Bld) 0.6 % 0-1 [facility] Bilirubin [Mass/Vol] 0.30 mg/dL 0.20-1.00 [facility] Comment on above: For patients on eltr ombopag therapy, use of Dimension [place] TBIL is not recommended. Chloride [Moles/Vol] 107 mmol/L 98-107 [facility] Eosinophils/100 WBC (Bld) 3.2 % 0-5 [facility] Glucose [Mass/Vol] 102 mg/dL 74-106 [facility] Comment on above: Fasting Glucose resu lt from 100 to 125 mg/dL suggests IMPAIRED HOMEOSTASIS per A.D.A. criteria. Neutrophils (Bld) [#/Vol] 3.8 10*3/uL 2.0-7.7 [facility] Neutrophils/100 WBC (Bld) 61.4 % 47-70 [facility] Potassium [Moles/Vol] 3.8 mmol/L 3.5-5.1 [facility] Protein [Mass/Vol] 7.3 g/dL 6.4-8.2 [facility] Sodium [Moles/Vol] 138 mmol/L 136-145 [facility] WBC (Bld) [#/Vol] 6.2 10*3/uL 4.4-11.0 [facility] Blood erythrocytes count (nu mber/volume)Ordered By: Dr. Santiago on 07-31-2022 RBC (Bld) [#/Vol] 4.02 10*6/uL 4.2-5.4 [place] Blood hemoglobin measurement (mass/volume)Ordered By: Dr. Santiago on 07-31-2022 Hemoglobin (Bld) [Mass/Vol] 13.2 g/dL 12.0-15.0 [facility] Blood lymphocytes/100 leukoc ytesOrdered By: Dr. Santiago on 03-23-2023 Lymphocytes/100 WBC (Bld) 28.5 % 19-41 [facility] Blood monocytes/100 leukocyt esOrdered By: Dr. Santiago on 07-31-2022 Monocytes/100 WBC (Bld) 6.1 % 0-10 [facility] Blood platelet mean volumeOr dered By: Dr. Santiago on 07-31-2022 Platelet mean volume (Bld) [Entitic vol] 9.1 fL 6.2-12.0 [facility] Determination of erythrocyte mean corpuscular volume (MCV)Ordered By: Dr. Santiago on 07-31-2022 MCV (RBC) [Entitic vol] 98.8 fL 81-99 [facility] Hematocrit Auto (Bld) [Volum e fraction]Ordered By: Dr. Santiago on 07-31-2022 Hematocrit (Bld) [Volume fraction] 39.7 % 37-47 [facility] Iron measurement (mass/mass) Ordered By: Dr. Santiago on 07-31-2022 Iron (Unsp spec) [Mass/Mass] 62 ug/dL 50-170 [facility] Laboratory - Chemistry and C hemistry - challengeOrdered By: Dr. Santiago on 07-31-2022 ALP [Catalytic activity/Vol] 73 U/L 45-117 [facility] ALT [Catalytic activity/Vol] 39 U/L 13-56 [facility] Amylase [Catalytic activity/Vol] 41 U/L 5-55 [facility] CO2 [Moles/Vol] 25.0 mmol/L 21.0-32.0 [facility] Globulin (S) [Mass/Vol] 3.5 g/dL 2.2-4.2 [facility] Urea nitrogen/Creatinine [Mass ratio] 29.7 mg/mg 10-20 [facility] Laboratory - Hematology and Cell countsOrdered By: Dr. Santiago on 07-31-2022 Erythrocyte distribution width (RBC) [Entitic vol] 45.5 fL 35.1-43.9 [facility] Erythrocyte distribution width (RBC) [Ratio] 12.5 % 11.6-14.6 [facility] Immature granulocytes/100 WBC (Bld) 0.200 % 0.0-0.9 [facility] Comment on above: IG% - Immature Granu locytes (promyelocytes, myelocytes and metamyelocytes) > 1% indicates that a LEFT SHIFT is Present. MCH (RBC) [Entitic mass] 32.8 pg 27.0-32.0 [facility] Nucleated RBC/100 WBC (Bld) [Ratio] 0 % 0-5 [facility] MCHC Auto (RBC) [Mass/Vol]Or dered By: Dr. Santiago on 07-31-2022 MCHC (RBC) [Mass/Vol] 33.2 g/dL 32-36 [facility] No Panel InformationOrdered By: Dr. Santiago on 07-31-2022 Anti-Nuclear Antibody Screen Positive Negative [facility] Centromere B Antibody <0.2 AI 0.0-0.9 [facility] Estimated GFR (MDRD) Amer 130 mL/min >60 [facility] Comment on above: GFR Calc Estimated GFR (MDRD) Non-Af Amer 108 mL/min >60 [facility] Comment on above: Non- GFR Calc Hepatitis A IgM Antibody Negative Negative [facility] Hepatitis B Core IgM Antibody Negative Negative [facility] Hepatitis C Antibody (EIA) Non-Reactive Non Reactive [facility] Hepatitis C Antibody Comment Comment . [facility] Comment on above: Not infected with HC V unless early or acute infection issuspected (which may be delayed in an immunocompromisedindividual), or other evidence exists to indicate HCVinfection. HAND EDGER Antibody 1.3 AI 0.0-0.9 [facility] Thyroid Stimulating Hormone (TSH) 2.19 uIU/mL 0.358-3.74 [facility] Platelets bldOrdered By: Dr. Santiago on 07-31-2022 Platelets (Bld) [#/Vol] 280 10*3/uL 150-450 [facility] Serum DNA double strand anti body assay (units/volume)Ordered By: Dr. Santiago on 07-31-2022 DNA double strand Ab Qn (S) 1 [IU]/mL 0-9 [facility] Comment on above: Negative <5 Equivoca l 5 - 9 Positive >9 Serum Evelyn-1 antibody assay (u nits/volume)Ordered By: Dr. Santiago on 07-31-2022 Evelyn-1 extractable nuclear Ab Qn (S) <0.2 AI 0.0-0.9 [facility] Serum Scl-70 extractable nuc lear antibody assay (units/volume)Ordered By: Dr. Santiago on 07-31-2022 SCL-70 extractable nuclear Ab Qn (S) <0.2 AI 0.0-0.9 [facility] Serum Mendez extractable nucl ear antibody detectionOrdered By: Dr. Santiago on 07-31-2022 Mendez extractable nuclear Ab Ql (S) <0.2 AI 0.0-0.9 [facility] Serum or plasma albumin katty urement (mass/volume)Ordered By: Dr. Santiago on 07-31-2022 Albumin [Mass/Vol] 3.8 g/dL 3.2-5.0 [facility] Serum or plasma albumin/glob ulin mass ratioOrdered By: Dr. Santiago on 07-31-2022 Albumin/Globulin [Mass ratio] 1.1 {ratio} 0.9-2.4 [facility] Serum or plasma calcium katty urement (mass/volume)Ordered By: Dr. Santiago on 07-31-2022 Calcium [Mass/Vol] 9.2 mg/dL 8.5-10.1 [facility] Serum or plasma creatinine m easurement (mass/volume)Ordered By: Dr. Santiago on 07-31-2022 Creatinine [Mass/Vol] 0.61 mg/dL 0.55-1.02 [facility] Comment on above: The validity of the calculated GFR & GFRAA in patients over 70 years has not been determined. Clinical correlation is essential. Serum or plasma ferritin tiesha surement (mass/volume)Ordered By: Dr. Santiago on 07-31-2022 Ferritin [Mass/Vol] 89 ng/mL 8-252 [place] Serum or plasma hepatitis B virus surface antigen detection by immunoassayOrdered By: Dr. Santiago on 07-31-2022 HBV surface Ag IA Ql Negative Negative [facility] Serum or plasma thyroperoxid ase antibody assay (units/volume)Ordered By: Dr. Santiago on 07-31-2022 TPO Ab Qn 13 [IU]/mL 0-34 [facility] Comment on above: Performed at: [address] [id number] Director: Jac Osborn PhD, Phone: [phone] Serum or plasma urea nitroge n measurement (mass/volume)Ordered By: Dr. Santiago on 07-31-2022 Urea nitrogen [Mass/Vol] 18 mg/dL 7-18 [facility] Thin prep Papanicolaou smear with manual screeningOrdered By: Dr. Santiago on 07-31-2022 Thin prep Papanicolaou smear with manual screening 24 U/L 15-37 [facility] Thin prep Papanicolaou smear with manual screening 6 5-15 [facility] Absolute lymphocyte counton 02-25-2022 Lymphocytes Auto (Unsp spec) [#/Vol] 2.15 10*3/uL 0.83-4.51 [facility] Work Phone: Basophil percentageon 2021 Basophils/100 WBC (Bld) 0.6 % 0-1 [facility] Work Phone: Bilirubin [Mass/Vol] 0.30 mg/dL 0.20-1.00 [facility] Work Phone: Comment on above: For patients on eltr ombopag therapy, use of Dimension [place] TBIL is not recommended. Chloride [Moles/Vol] 105 mmol/L 98-107 [facility] Work Phone: Cholesterol [Mass/Vol] 248 mg/dL <200 [facility] Work Phone: Comment on above: <200 mg/dL Desirable 200-240 mg/dL Borderline >240 mg/dL High Risk Eosinophils/100 WBC (Bld) 2.7 % 0-5 [facility] Work Phone: Glucose [Mass/Vol] 112 mg/dL 74-106 [facility] Work Phone: Comment on above: Fasting Glucose resu lt from 100 to 125 mg/dL suggests IMPAIRED HOMEOSTASIS per A.D.A. criteria. Neutrophils (Bld) [#/Vol] 4.0 10*3/uL 2.0-7.7 [facility] Work Phone: Neutrophils/100 WBC (Bld) 59.4 % 47-70 [facility] Work Phone: Potassium [Moles/Vol] 3.5 mmol/L 3.5-5.1 [facility] Work Phone: Protein [Mass/Vol] 7.3 g/dL 6.4-8.2 [facility] Work Phone: Sodium [Moles/Vol] 137 mmol/L 136-145 [facility] Work Phone: [phone] Triglyceride [Mass/Vol] 192 mg/dL <199 [facility] Work Phone: [phone] Comment on above: The drugs N-Acetylcy steine and Metamizole may falsely depress this assay.Serum Triglycerides Reference Interval Normal <150 mg/dL Borderline high 150 - 199 mg/dL High 200 - 499 mg/dL Very High > or = 500 mg/dL WBC (Bld) [#/Vol] 6.8 10*3/uL 4.4-11.0 [facility] Work Phone: Blood erythrocytes count (nu mber/volume)on 02-25-2022 RBC (Bld) [#/Vol] 4.11 10*6/uL 4.2-5.4 [place] Work Phone: [phone] Blood hemoglobin measurement (mass/volume)on 02-25-2022 Hemoglobin (Bld) [Mass/Vol] 13.4 g/dL 12.0-15.0 [facility] Work Phone: Blood lymphocytes/100 leukoc yteson 02-25-2022 Lymphocytes/100 WBC (Bld) 31.9 % 19-41 [facility] Work Phone: Blood monocytes/100 leukocyt eson 02-25-2022 Monocytes/100 WBC (Bld) 5.3 % 0-10 [facility] Work Phone: Blood platelet mean volumeon 02-25-2022 Platelet mean volume (Bld) [Entitic vol] 9.6 fL 6.2-12.0 [facility] Work Phone: [phone] Determination of erythrocyte mean corpuscular volume (MCV)on 02-25-2022 MCV (RBC) [Entitic vol] 98.8 fL 81-99 [facility] Work Phone: Erythrocyte sedimentation ra shaunna 02-25-2022 ESR (Bld) [Velocity] 15 mm[facility]h [facility]: Hematocrit Auto (Bld) [Volum e fraction]on 02-25-2022 Hematocrit (Bld) [Volume fraction] 40.6 % 37-47 [facility] Work Phone: [phone] Laboratory - Chemistry and C hemistry - challengeon 02-25-2022 ALP [Catalytic activity/Vol] 90 U/L 45-117 [facility] Work Phone: ALT [Catalytic activity/Vol] 37 U/L 13-56 [facility] Work Phone: CO2 [Moles/Vol] 25.0 mmol/L 21.0-32.0 [facility] Work Phone: [phone] Globulin (S) [Mass/Vol] 3.4 g/dL 2.2-4.2 [facility] Work Phone: [phone] Urea nitrogen/Creatinine [Mass ratio] 20.1 mg/mg 10-20 [facility] Work Phone: Laboratory - Hematology and Cell countson 02-25-2022 Erythrocyte distribution width (RBC) [Entitic vol] 46.3 fL 35.1-43.9 [facility] Work Phone: Erythrocyte distribution width (RBC) [Ratio] 12.7 % 11.6-14.6 [facility] Work Phone: Immature granulocytes/100 WBC (Bld) 0.100 % 0.0-0.9 [facility] Work Phone: [phone] Comment on above: IG% - Immature Granu locytes (promyelocytes, myelocytes and metamyelocytes) > 1% indicates that a LEFT SHIFT is Present. MCH (RBC) [Entitic mass] 32.6 pg 27.0-32.0 [facility] Work Phone: Nucleated RBC/100 WBC (Bld) [Ratio] 0 % 0-5 [facility] Work Phone: MCHC Auto (RBC) [Mass/Vol]on 02-25-2022 MCHC (RBC) [Mass/Vol] 33.0 g/dL 32-36 [facility] Work Phone: No Panel Informationon 02-25 Estimated GFR (MDRD) Amer 133 mL/min >60 [facility] Work Phone: Comment on above: GFR Calc Estimated GFR (MDRD) Non-Af Amer 110 mL/min >60 [facility] Work Phone: Comment on above: Non- GFR Calc Thyroid Stimulating Hormone (TSH) 3.15 uIU/mL 0.358-3.74 [facility] Work Phone: Platelets bldon 02-25-2022 Platelets (Bld) [#/Vol] 301 10*3/uL 150-450 [facility] Work Phone: Serum or plasma albumin katty urement (mass/volume)on 02-25-2022 Albumin [Mass/Vol] 3.9 g/dL 3.2-5.0 [facility] Work Phone: Serum or plasma albumin/glob ulin mass ratioon 02-25-2022 Albumin/Globulin [Mass ratio] 1.1 {ratio} 0.9-2.4 [facility] Work Phone: Serum or plasma calcium katty urement (mass/volume)on 02-25-2022 Calcium [Mass/Vol] 9.1 mg/dL 8.5-10.1 [facility] Work Phone: Serum or plasma cholesterol in HDL measurement (mass/volume)on 02-25-2022 Cholesterol in HDL [Mass/Vol] 65 mg/dL >40 [facility] Work Phone: Comment on above: The drugs N-Acetylcy steine and Metamizole may falsely depress this assay. Reference Range HDL <40 mg/dL Low HDL Cholesterol HDL >or= 60 mg/dL High HDL Cholesterol Serum or plasma cholesterol in VLDL measurement (mass/volume)on 02-25-2022 Cholesterol in VLDL [Mass/Vol] 38 mg/dL 5-40 [facility] Work Phone: Serum or plasma creatinine m easurement (mass/volume)on 02-25-2022 Creatinine [Mass/Vol] 0.60 mg/dL 0.55-1.02 [facility] Work Phone: Comment on above: The validity of the calculated GFR & GFRAA in patients over 70 years has not been determined. Clinical correlation is essential. Serum or plasma low density lipoprotein (LDL) cholesterol measurement (mass/volume)on 02-25-2022 Cholesterol in LDL [Mass/Vol] 145 mg/dL 0-130 [facility] Work Phone: Serum or plasma urea nitroge n measurement (mass/volume)on 02-25-2022 Urea nitrogen [Mass/Vol] 12 mg/dL 7-18 [facility] Work Phone: Thin prep Papanicolaou smear with manual screeningon 02-25-2022 Thin prep Papanicolaou smear with manual screening 22 U/L 15-37 [facility] Work Phone: Thin prep Papanicolaou smear with manual screening 7 5-15 [facility] Work Phone: XR Hand - left PA and Latera l and Obliqueon 02-18-2021 IMPRESSION: No acute osseous abnormality. Mild degenerative changes, as described. Secretary To Board Of Commissioners: PSCB Transcribe Date/Time: Feb 18 2021 3:59P Dictated by : BREN COLON MD This examination was interpreted and the report reviewed and electronically signed by: BREN COLON MD on Feb 18 2021 4:03PM [facility] DIV[facility] RAD[facility] * * *Final Report* * * DATE OF EXAM: Feb 18 2021 3:58PM [id number] - XR HAND 3V PA/LAT/OBL LT / PROCEDURE REASON: Left hand pain * * * * Physician Interpretation * * * * EXAMINATION / TECHNIQUE: XR HAND 3V PA/LAT/OBL LT PATIENT/TECHNOLOGIST PROVIDED HISTORY: pain in thumb and base of thumb for a couple of weeks, not able to bend the thumb no inj CLINICAL INFORMATION ( PROVIDED BY ORDERING CLINICIAN) : Left hand pain COMPARISON: RESULT: No acute fracture or dislocation. Mild degenerative changes involving the DIP joints, thumb carpometacarpal and thumb MCP joints. Focal lucency of the scaphoid, likely intraosseous ganglion. No aggressive features. DIVISION [facility]OLOGY [facility] * * *Final Report* * * DATE OF EXAM: Feb 18 2021 3:58PM WOX [id number] - XR HAND 3V PA/LAT/OBL LT / PROCEDURE REASON: Left hand pain * * * * Physician Interpretation * * * * EXAMINATION / TECHNIQUE: XR HAND 3V PA/LAT/OBL LT PATIENT/TECHNOLOGIST PROVIDED HISTORY: pain in thumb and base of thumb for a couple of weeks, not able to bend the thumb no inj CLINICAL INFORMATION ( PROVIDED BY ORDERING CLINICIAN) : Left hand pain COMPARISON: RESULT: No acute fracture or dislocation. Mild degenerative changes involving the DIP joints, thumb carpometacarpal and thumb MCP joints. Focal lucency of the scaphoid, likely intraosseous ganglion. No aggressive features. IMPRESSION IMPRESSION: No acute osseous abnormality. Mild degenerative changes, as described. Secretary To Board Of Commissioners: PSCB Transcribe Date/Time: Feb 18 2021 3:59P Dictated by : BREN COLON MD This examination was interpreted and the report reviewed and electronically signed by: BREN COLON MD on Feb 18 2021 4:03PM EST [facility] Radiology Study observation (narrative) Peter beckwith [facility] XR Hand - left PA and Latera l and ObliqueOrdered By: [facility] Provider on 02-18-2021 [facility] Culture, urine Bacteria identified Cx Nom (U) Culture exhibits no growth. [facility] Work Phone: Vital Signs Date Time Vital Sign Value Performing Clinician Vivian morales 08-31-2024 08:49-0400 Body height 170.2 cm Breanna Ng MD Work Phone: [facility] 08-31-2024 08:49-0400 Body mass index (BMI) [Ratio] 30.07 kg/m2 Breanna Ng MD Work Phone: [facility] 08-31-2024 08:49-0400 Body weight 87.09 kg Breanna Ng MD Work Phone: [facility] 08-31-2024 08:49-0400 Diastolic blood pressure 82 mm[Hg] Breanna Ng MD Work Phone: [facility] 08-31-2024 08:49-0400 Systolic blood pressure 124 mm[Hg] Breanna Ng MD Work Phone: [facility] 08-26-2023 13:37-0400 Body height 170.[address] Nestor Santiago Work Phone: [facility] 08-26-2023 13:37-0400 Body mass index (BMI) [Ratio] 30.2 kg/m2 Dr. Nestor Santiago Work Phone: [facility] 08-26-2023 13:37-0400 Body weight 87.[address] Nestor Santiago Work Phone: [facility] 08-26-2023 13:37-0400 Diastolic blood pressure 78 mm[Hg] Dr. Nestor Santiago Work Phone: [facility] 08-26-2023 13:37-0400 Heart rate 96 /min Dr. Nestor Santiago Work Phone: [facility] 08-26-2023 13:37-0400 SaO2% (BldA) [Mass fraction] 79 % Dr. Nestor Santiago Work Phone: [facility] 08-26-2023 13:37-0400 Systolic blood pressure 123 mm[Hg] Dr. Nestor Santiago Work Phone: [facility] 04-28-2023 14:42-0500 Body temperature 98.1 [degF] Dr. Dada Santiago Work Phone: [facility] 04-28-2023 14:42-0500 Diastolic blood pressure 83 mm[Hg] Dr. Dada Santiago Work Phone: [facility] 04-28-2023 14:42-0500 Heart rate 76 /min Dr. Dada Santiago Work Phone: [facility] 04-28-2023 14:42-0500 Respiratory rate 16 /min Dr. Dada Santiago Work Phone: [facility] 04-28-2023 14:42-0500 SaO2% (BldA) [Mass fraction] 99 % Dr. Dada Santiago Work Phone: [facility] 04-28-2023 14:42-0500 Systolic blood pressure 135 mm[Hg] Dr. Dada Santiago Work Phone: [facility] 04-28-2023 12:25-0500 Body height 170.[address] Dada Santiago Work Phone: [facility] 04-28-2023 12:25-0500 Body mass index (BMI) [Ratio] 27.9 kg/m2 Dr. Dada Santiago Work Phone: [facility] 04-28-2023 12:25-0500 Body weight [address] Dada Santiago Work Phone: [facility] 03-16-2023 14:28-0500 Body mass index (BMI) [Ratio] 29 kg/m2 Dr. Dada Santiago Work Phone: [facility] 03-16-2023 14:28-0500 Body weight 83.[address] Dada Santiago Work Phone: [facility] 03-16-2023 14:28-0500 Diastolic blood pressure 84 mm[Hg] Dr. Dada Santiago Work Phone: [facility] 03-16-2023 14:28-0500 Heart rate 79 /min Dr. Dada Santiago Work Phone: [facility] 03-16-2023 14:28-0500 SaO2% (BldA) [Mass fraction] 96 % Dr. Dada Santiago Work Phone: [facility] 03-16-2023 14:28-0500 Systolic blood pressure 126 mm[Hg] Dr. Dada Santiago Work Phone: [facility] 01-08-2023 15:39-0400 Body temperature 97.6 [degF] Dr. Dada Santiago Work Phone: [facility] 01-08-2023 15:39-0400 Diastolic blood pressure 90 mm[Hg] Dr. Dada Santiago Work Phone: [facility] 01-08-2023 15:39-0400 Heart rate 77 /min Dr. Dada Santiago Work Phone: [facility] 01-08-2023 15:39-0400 Respiratory rate 17 /min Dr. Dada Santiago Work Phone: [facility] 01-08-2023 15:39-0400 SaO2% (BldA) [Mass fraction] 93 % Dr. Dada Santiago Work Phone: [facility] 01-08-2023 15:39-0400 Systolic blood pressure 169 mm[Hg] Dr. Dada Santiago Work Phone: [facility] 01-08-2023 11:12-0400 Body height 170.[address] Dada Santiago Work Phone: [facility] 01-08-2023 11:12-0400 Body mass index (BMI) [Ratio] 28.6 kg/m2 Dr. Dada Santiago Work Phone: [facility] 01-08-2023 11:12-0400 Body weight 82.[address] Dada Santiago Work Phone: [facility] 06-06-2022 15:16-0500 Body height 170.2 cm Joyce Freitas MD Work Phone: [facility] 06-06-2022 15:16-0500 Body weight 86.91 kg Joyce Freitas MD Work Phone: [facility] 06-06-2022 15:16-0500 Diastolic blood pressure 82 mm[Hg] Joyce Freitas MD Work Phone: [facility] 06-06-2022 15:16-0500 Systolic blood pressure 122 mm[Hg] Joyce Freitas MD Work Phone: [facility] Encounters Encounter Date Encounter Type Care Provider Facility Start: 01-13-2025 [facility] Facility :[facility] Start: 10-07-2024 [facility] Facility :[facility] Start: 09-01-2024 End: 11-01-2024 Follow-up encounter Breanna Ng MD Work Phone: OB/Gynecology Start: 08-31-2024 ambulatory BREANNA Lopez ity:[facility] Start: 08-31-2024 End: 08-31-2024 Patient encounter procedure Breanna Ng MD Work Phone: OB/Gynecology Comment on above: Encounter for gyneco logical examination (general) (routine) without abnormal findings (Primary Dx); Encounter for screening mammogram for breast cancer Start: 08-31-2024 End: 08-31-2024 Patient encounter status Breanna Ng MD Work Phone: [facility] Start: 08-31-2024 End: 08-31-2024 ambulatory BREANNA NG Facility:[facility] Start: 08-31-2024 Encounter for gynecological examination (general) (routine) without abnormal findings BREANNA NG [facility] Start: 07-21-2024 End: 07-21-2024 [facility] Start: 02-24-2024 End: 02-24-2024 ambulatory [facility] Facility:[facility] Start: 02-10-2024 End: 02-10-2024 ambulatory [facility] Facility:[facility] Start: 01-20-2024 End: 01-20-[facility] Start: 08-29-2023 Documentation procedure Mammog matt Coordinator [facility] Department Start: 08-29-2023 Letter encounter Mammography Coordinator [facility] Department Start: 08-28-2023 End: 08-28-2023 Subsequent hospital visit by physician Screen Mammo [facility] Comment on above: Encounter for screen ing mammogram for breast cancer [Z12.31] Start: 08-26-2023 End: 08-26-[address] Nestor Santiago Work Phone: [facility] Work Phone: Start: 08-22-2023 End: 08-22-[address] Nestor Santiago Work Phone: [facility] Work Phone: Start: 08-22-2023 End: 08-22-[address] Nestor Santiago Work Phone: [facility]-Ultrasound, [facility] Work Phone: Start: 06-23-2023 End: 06-23-[address] Dada Santiago Work Phone: [facility] Work Phone: Start: 06-23-2023 End: 06-23-[address] Dada Santiago Work Phone: [facility]-Laboratory,[place] Work Phone: Start: 06-12-2023 Telephone encounter Demi amaya APRN.CNP Work Phone: OB/Gynecology Start: 04-28-2023 End: 04-28-2023 Non-patient / Non-visit Dr. Dada Santiago Work Phone: [facility] Work Phone: Start: 04-28-2023 End: 04-28-2023 Admission to same day surgery center Dr. Dada Santiago Work Phone: [facility]-Endoscopy Work Phone: Start: 03-16-2023 End: 03-16-[address] Dada Santiago Work Phone: [facility] Work Phone: Start: 01-08-2023 Non-patient / Non-visit Dr. Sri Santiago Work Phone: [facility] Start: 01-08-2023 End: 01-08-2023 Admission to same day surgery center Dr. Dada Santiago Work Phone: [facility]-Endoscopy Work Phone: Start: 01-08-2023 End: 01-08-[address] Dada Santiago Work Phone: [facility] Work Phone: Start: 01-05-2023 End: 01-05-[address] Dada Santiago Work Phone: [facility] Work Phone: Start: 01-05-2023 End: 01-05-[address] Dada Santiago Work Phone: [facility] [place], [facility] Work Phone: Start: 12-02-2022 End: 12-02-[address] Dada Santiago Work Phone: [facility] Work Phone: Start: 12-02-2022 End: 12-02-[address] Dada Santiago Work Phone: [facility]-Laboratory Work Phone: Start: 11-20-2022 End: 11-20-[address] Dada Santiago Work Phone: [facility]-MRI - [facility] Work Phone: Start: 10-30-2022 End: 10-30-[address] Dada Santiago Work Phone: [facility] Work Phone: Start: 10-30-2022 End: 10-30-[address] Dada Santiago Work Phone: [facility] Gastroenterology Start: 08-26-2022 End: 08-26-2022 Subsequent hospital visit by physician [facility] Work Phone: Radiology Comment on above: Mass of left breast, unspecified quadrant [N63.20] Start: 07-31-2022 End: 07-31-2022 ambulatory [facility] Work Phone: Start: 07-31-2022 End: 07-31-2022 Patient encounter procedure [facility] Start: 07-19-2022 End: 07-19-2022 ambulatory [facility] Work Phone: Start: 07-19-2022 End: 07-19-2022 Patient encounter procedure [facility]-Ultrasound, [facility] Start: 07-09-2022 End: 07-09-2022 Subsequent hospital visit by physician Diagnostic Mammo [facility] Comment on above: Canceled (CC cx: Equ ipment, Prep, Appropriateness) Start: 06-20-2022 Chart abstracting Joyce Freitas MD Work Phone: OB/Gynecology Comment on above: External Results - M ammogram Start: 06-06-2022 End: 06-06-2022 Patient encounter procedure Joyce Freitas MD Work Phone: OB/Gynecology Comment on above: Encounter for gyneco logical examination (general) (routine) without abnormal findings (Primary Dx); Encounter for screening for human papillomavirus (HPV); Pap smear for cervical cancer screening; Encounter for screening mammogram for breast cancer; Mass of left breast, unspecified quadrant; Special screening for malignant neoplasms, colon Start: 06-06-2022 End: 06-06-2022 Patient encounter status Joyce Freitas MD Work Phone: OB/Gynecology Start: 02-27-2022 End: 02-27-2022 ambulatory [facility] Work Phone: Start: 02-27-2022 End: 02-27-2022 Patient encounter procedure [facility]-Radiology, [place] Start: 02-25-2022 End: 02-25-2022 ambulatory [facility] Work Phone: Start: 02-25-2022 End: 02-25-2022 Patient encounter [facility] Start: 02-18-2021 End: 02-18-2021 Subsequent hospital visit by physician [facility] Work Phone: Radiology Comment on above: Left hand pain [M79. 642] Procedures Date Procedure Procedure Detail Performing Clinician Start: 08-22-[address] Dre Santiago Work Phone: Start: 04-28-[address] Dada Santiago Work Phone: Start: 04-28-[address] Dada Santiago Work Phone: Start: 01-08-[address] Dada Santiago Work Phone: Start: 01-08-[address] Dada Santiago Work Phone: Start: 01-08-[address] Dada Santiago Work Phone: Start: 01-05-[address] Delio Santiago Work Phone: Start: 01-05-[address] Dada Santiago Work Phone: Start: 11-20-[address] Dada Santiago Work Phone: Start: 08-26-2022 Us breast uni real time with image limited Joyce Freitas MD Work Phone: Start: 08-26-2022 Digital breast tomosynthesis bilateral Joyce Freitas MD Work Phone: Start: 03-11-2023 Ultrasonography of abdomen Start: 07-19-2022 Ultrasound elastography Start: 02-27-2022 Diagnostic radiography of abdomen, decubitus and erect Start: 02-18-2021 Radex hand minimum 3 views Nasreen TENORIO RN.HOUSING COORDINATOR Work Phone: Bacteria identified in Urine by Culture Urine culture Plan of Treatment Date Care Activity Detail Author Start: 02-10-2039 RSV Vaccine (1 - 1-dose 75+ series) RSV Vaccine (1 - 1-dose 75+ series) [facility] Start: 06-27-2026 Screening for malignant neoplasm of colon [facility] Start: 09-01-2025 End: 09-01-2025 Patient encounter procedure Mammogram Comment on above: : Encounter for gynecological examinatio n (general) (routine) without abnormal findings [Z01.419]; Encounter for screening mammogram for breast cancer [Z12.31] Annual Start: 08-31-2025 Screening for malignant neoplasm of breast Mammogram Screening [facility] Start: 01-09-2025 Influenza vaccination Influenza Vaccine (Season Ended) [facility] Start: 08-27-2024 Screening for malignant neoplasm of breast Mammogram Screening [facility] Start: 06-15-2024 End: 06-15-2024 Patient encounter procedure 06/15/2024 4:00 PM EST Office Visit OB/Gynecology [address] [place], [place] [id number] Breanna Ng MD [address] [place], [place] [id number] annual OB/Gynecology Comment on above: annual Start: 06-10-2024 Covid-19 Vaccine ( season) Covid-19 Vaccine ( season) [facility] Comment on above: Postponed from 01/09/2023 (Declined at t his time) Start: 01-10-2024 Covid-19 Vaccine ( season) Covid-19 Vaccine ( season) [facility] Start: 01-10-2024 Influenza vaccination [facility] Start: 11-08-2023 Influenza vaccination Influenza Vaccine (#1) [facility] Comment on above: Postponed from 01/09/2023 (Declined at t his time) Start: 08-27-2023 Mammography Mammogram Screening [facility] Start: 08-27-2023 Screening for malignant neoplasm of breast Mammogram Screening [facility] Start: 05-11-2023 Behavioral Health Screening Behavioral Health Screening [facility] Start: 05-11-2023 Depression Assessment Depression Assessment [facility] Start: 04-28-2023 Ercp remove foreign body/stent biliary/panc duct ERCP REMOVE FORGN BODY DUCT [facility] Start: 04-28-2023 Ercp w/sphincterotomy/papill otomy ENDO CHOLANGIOPANCREATOGRAPH [facility] Start: 04-28-2023 Patient discharge [facility] Start: 01-09-2023 Covid-19 Vaccine () Covid-19 Vaccine () [facility] Start: 01-09-2023 Influenza vaccination Influenza Vaccine (#1) [facility] Start: 01-08-2023 Patient discharge [facility] Start: 09-03-2022 Hepatitis B Vaccine (2 of 3 - 19+ 3-dose series) Hepatitis B Vaccine (2 of 3 - 19+ 3-dose series) [facility] Start: 07-19-2022 Ultrasonography of abdomen Abdomen Limited [facility] Start: 07-19-2022 Ultrasound elastography [facility] Start: 07-19-2022 US Abdomen limited [facility] Start: 05-11-2022 DEPRESSION ASSESSMENT DEPRESSION ASSESSMENT [facility] Start: 01-09-2022 Influenza vaccination INFLUENZA (#1) [facility] Start: 06-05-2021 COVID-19 VACCINE (4 - Booster for Pfizer series) COVID-19 VACCINE (4 - Booster for Pfizer series) [facility] Start: 02-10-2014 SHINGRIX VACCINE (1 of 2) SHINGRIX VACCINE (1 of 2) [facility] Start: 02-10-2009 COLOGUARD (FIT-DNA) COLOGUARD (FIT-DNA) [facility] Start: 02-10-2009 Colonoscopy COLONOSCOPY [facility] Start: 02-10-2009 COLORECTAL CANCER SCREENING COLORECTAL CANCER SCREENING [facility] Start: 02-10-[address] COLONOGRAPHY [facility] Start: 02-10-2009 DIABETES SCREEN DIABETES SCREEN [facility] Start: 02-10-2009 Diabetes Screening Diabetes Screening [facility] Start: 02-10-2009 FECAL OCCULT BLOOD FECAL OCCULT BLOOD [facility] Start: 02-10-2009 Lipid 1996 panel - Serum or Plasma Lipid Screening [facility] Start: 02-10-2009 Lipid panel Lipid Screening [facility] Start: 02-10-2009 LIPID SCREEN LIPID SCREEN [facility] Start: 02-10-2009 Screening for malignant neoplasm of colon [facility] Start: 02-10-2009 SIGMOIDOSCOPY SIGMOIDOSCOPY [facility] Start: 2004 Mammography MAMMOGRAM [facility] Start: 02-10-1994 HPV TESTING HPV TESTING [facility] Start: 02-10-1985 PAP TESTING PAP TESTING [facility] Start: 02-10-1983 Pneumococcal Vaccine: 50+ (1 of 2 - PCV) Pneumococcal Vaccine: 50+ (1 of 2 - PCV) [facility] Start: 02-10-1983 Urine microalbumin profile [facility] Start: 02-10-1982 Anxiety Screening Anxiety Screening [facility] Start: 02-10-1982 Depression Screening Depression Screening [facility] Start: 02-10-1982 HEPATITIS C SCREENING HEPATITIS C SCREENING [facility] Start: 02-10-1982 Hepatitis C screening Hepatitis C Screening [facility] Start: 02-10-1982 HIV SCREENING HIV SCREENING [facility] Start: 02-10-1982 HIV screening HIV Screening [facility] Start: 02-10-1970 PNEUMOCOCCAL (1 - PCV) PNEUMOCOCCAL (1 - PCV) [facility] Start: 02-10-1970 Pneumococcal vaccination [facility] Start: 1965 HEPATITIS B (1 of 3 - 3-dose series) HEPATITIS B (1 of 3 - 3-dose series) [facility] [id number]. vasyl or marker [Units/volume] in Serum or Plasma [facility] C reactive protein [Mass/volume] in Serum or Plasma [facility] C reactive protein [Mass/volume] in Serum or Plasma [facility] CBC W Auto Different ial panel - Blood [facility] CBC W Auto Different ial panel - Blood [facility] DBT Breast - bilater al screening SARAH SCREENING W AME Radiology Routine Encounter for screening mammogram for breast cancer 08/28/2023 7:56 AM EDT [facility] Work Phone: End: 09-30-2025 DBT Breast - bilateral screening [facility] Work Phone: Comment on above: 1 Occurrences starting 08/31/2024 until 09/30/2025 DBT Breast - bilater al screening SARAH SCREENING W AME Radiology Routine Encounter for screening mammogram for breast cancer 08/31/2024 12:56 PM EDT [facility] End: 07-06-2023 Diagnostic mammography computer-aided detcj bi SARAH DIAGNOSTIC BILAT Radiology Routine Mass of left breast, unspecified quadrant 1 Occurrences starting 06/06/2022 until 07/06/2023 [facility] Work Phone: Comment on above: 1 Occurrences starting 06/06/2022 until 07/06/2023 Hemoglobin A1c/Hemoglobin.total in Blood [facility] Lipid 1996 panel - Serum or Plasma [facility] Liver stiffness by US.transient elastography [facility] MR Biliary ducts and Pancreatic duct WO contrast [facility] Patient referral [facility] Work Phone: Prothrombin time [facility] End: 06-06-2023 Screening colonoscopy COLONOSCOPY SCREENING Endoscopy Routine Special screening for malignant neoplasms, colon 1 Occurrences starting 06/06/2022 until 06/06/2023 [facility] Work Phone: Comment on above: 1 Occurrences starting 06/06/2022 until 06/06/2023 Ultrasound elastography [facility] US Abdomen limited [facility] End: 07-06-2023 Us breast uni real time with image limited US BREAST LTD LT Radiology Routine Mass of left breast, unspecified quadrant 1 Occurrences starting 06/06/2022 until 07/06/2023 [facility] Work Phone: Comment on above: 1 Occurrences starting 06/06/2022 until 07/06/2023 Vitamin D, 25-hydrox y measurement [facility] Immunizations Immunization Date Immunization Notes Care Provider Ion stroud 10-20-2022 hepatitis B vaccine, adult dosage Demi Lebron APRN.CNP Work Phone: [facility] Work Phone: 03-29-2023 hepatitis A vaccine, pediatric/adolescent dosage, 2 dose schedule Demi [employer] STRE[employer] INSPECTOR.HOUSING COORDINATOR Work Phone: [facility] Work Phone: 08-06-2022 hepatitis B vaccine, adult dosage Demi Bernard[address] STREET INSPECTOR.HOUSING COORDINATOR Work Phone: [facility] Work Phone: Payers Date Payer Category Payer Self-pay 2021 [facility] PPO [id number] 2021 Unknown [id number] 2020 Unknown [id number] Unknown [id number] Unknown [id number] Unknown [id number] Unknown [id number] Unknown [id number] Unknown [id number] Social History Date Type Detail Facility Tobacco smoking status PAIS Unknown if ever smoked [facility] Work Phone: Start: 1965 Sex Assigned At Female [facility] Start: 12-27-2020 End: 06-06-2022 Tobacco smoking status NHIS Smokes tobacco daily [facility] Start: 12-27-2020 End: 06-06-2022 Tobacco use and exposure Smokeless tobacco non-user [facility] Start: 06-06-2022 End: 08-31-2024 Alcohol intake Current drinker of alcohol (finding) [facility] Start: 06-06-2022 Alcohol Comment nightly [facility] Start: 1965 Sex Assigned At Not on file [facility] Start: 10-30-2022 End: 08-26-2023 Tobacco smoking status PAIS Unknown if ever smoked [facility] Start: 06-06-2022 End: 06-09-2023 History of Social function [facility] Start: 06-06-2022 End: 06-09-2023 Tobacco use panel [facility] National Score (1-100), lower number is lower risk 52 [facility] Start: 01-18-2021 End: 02-17-2021 Exposure to SARS-CoV-2 (event) Not sure [facility] NEGATED: Highlighted row [facility] Medical Equipment Procedure Code Equipment Code Equipment Origin al Text Equipment Identifier Dates ERCP (endoscopic retrograde cholangiopancreatog matt) RX DUODENAL STENT/7FR X 5CM FDA Start: 01-08-2023 ERCP (endoscopic retrograde cholangiopancreatog matt) STENT,ADVANX PANC [id number] FDA Start: 01-08-2023 ERCP (endoscopic retrograde cholangiopancreatog matt) RX DUODENAL STENT/7FR X 5CM FDA Start: 01-08-2023 ERCP (endoscopic retrograde cholangiopancreatog matt) STENT,ADVANX PANC [id number] FDA Start: 01-08-2023 ERCP (endoscopic retrograde cholangiopancreatog matt) RX DUODENAL STENT/7FR X 5CM FDA Start: 01-08-2023 ERCP (endoscopic retrograde cholangiopancreatog matt) STENT,ADVANX PANC [id number] FDA Start: 01-08-2023 Goals Date Patient Goal Desired Activity /State Mental Status Date Assessment Result Facility 04-28-2023 Cognitive function Voice/Name [facility] Work Phone: 01-08-2023 Cognitive function Voice/Name [facility] Work Phone: Clinical Notes 02-18-2021 to 08-31-2024 Breanna Ng MD - 08/31/2024 8:44 AM EDTLetter - Coordinator, Mammography - 08/29/2023 5:45 PM EDTLetter - Coordinator, Mammography - 08/29/2023 5:45 PM EDT Note Date & Type Note Facility 08-31-2024 Note HNO ID: [id number] Author: SWETA CORTES Mammo Tech Service: ? Author Type: Technologist Type: Progress Notes Filed: 08/31/2024 12:59 Note Text: Radiology Service Progress Note PATIENT NAME: Martina Patterson DATE OF SERVICE: August 31, 2024 TIME: 12:59 PM PATIENT IDENTITY VERIFICATION COMPLETED USING TWO (2) IDENTIFIERS: Name and Date of confirmed by patient verbally. FALL SCREENING: Has the patient had 2 falls in the last year or 1 fall with injury or currently using an Ambulatory Assistive Device (Walker, Cane, Wheelchair, Crutches, etc.)? No PATIENT GENDER DATA: Assigned female at . status: : No status: NO. PATIENT RELEVANT IMPLANT DATA REVIEWED: Not Applicable PATIENT PRESENTS WITH AN IMPLANTABLE OR ATTACHED PBX TEACHER: No RADIOLOGY DEPARTMENT: Mammography PERIPHERAL IV DATA: Not applicable SIGNED BY: Mel CornejoThe Other Guys Nina August 31, 2024 12:59 PM [facility] 08-31-2024 Note HNO ID: [id number] Author: BREANNA NG MD Service: ? Author Type: Physician Type: Progress Notes Filed: 08/31/2024 09:10 Note Text: Martina is a 59 year old who presents for an annual gynecologic exam 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 . Postmenopausal: yes, s/p hyst HRT use: No. Menses: n/a Menstrual flow: N/A Sexually active: Yes Last pap smear: before your hyst History of abnormal pap: Yes, many years ago Colposcopy: uncertain Leep: No. Cone biopsy: No. Bothersome pelvic pain: No Last mammogram: 2023 normal OB History Gravida0 Para0 Term0 Preterm0 AB0 Living0 SAB0 IAB0 Ectopic0 Multiple0 Live Births0 Problem Relation Age of Onset No Known Problems Mother No Known Problems Father Thyroid Sister No Known Problems Sister No Known Problems Sister No Known Problems Maternal Grandmother No Known Problems Maternal Grandfather No Known Problems Paternal Grandmother No Known Problems Paternal Grandfather SOCIAL HISTORY Social History Tobacco Use Smoking status: Every Day Smokeless tobacco: Never Vaping Use Vaping status: Former Substance Use Topics Alcohol use: Yes Comment: nightly Drug use: Never REVIEW OF SYSTEMS Abdomen: No abdominal pain, nausea, vomiting, diarrhea, or constipation. No bloating, early satiety, indigestion, or increased flatulence. Bladder: No dysuria, gross hematuria, urinary frequency, urinary urgency, or incontinence Breast: No breast lumps, nipple d/c, overlying skin changes, redness or skin retraction Allergies and current medication updated:Yes SENSITIVE EXAM: The sensitive examination was discussed with the Patient or Patient's Authorized Health Care Facility Administrator. As applicable, any other physician, advance practice provider, medical student, or other health professional student that will be observing or involved in the sensitive examination for educational or training purposes was discussed with the Patient or Authorized Health Care Facility Administrator. The Patient or Authorized Health Care Facility Administrator has agreed to proceed with the sensitive examination. (Sensitive examination includes inspection and/or palpation of the breasts, pelvis, prostate and anorectal regions). EXAM: BP 124/82 Ht 5' 7 (1.70m) Wt 192 lb (87.1kg) BMI 30.06 kg/(m2). GENERAL: pleasant, female in no apparent [...] external genitalia normal, normal Bartholin's glands, urethra, Captiva's glands, no vulvar lesions, good vaginal support, physiologic discharge present, normal appearing perineal body and perianal region, cervix surgically absent BIMANUAL: no adnexal masses, non-tender, and uterus surgically absent RECTOVAGINAL: deferred. 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 . Postmenopausal: yes, s/p hyst HRT use: No. Menses: n/a Menstrual flow: N/A Sexually active: Yes Last pap smear: before your hyst History of abnormal pap: Yes, many years ago Colposcopy: uncertain Leep: No. Cone biopsy: No. Bothersome pelvic pain: No Last mammogram: 2023 normal OB History Gravida0 Para0 Term0 Preterm0 AB0 Living0 SAB0 IAB0 Ectopic0 Multiple0 Live Births0 Problem Relation Age of Onset No Known Problems Mother No Known Problems Father Thyroid Sister No Known Problems Sister No Known Problems Sister No Known Problems Maternal Grandmother No Known Problems Maternal Grandfather No Known Problems Paternal Grandmother No Known Problems Paternal Grandfather SOCIAL HISTORY Social History Tobacco Use Smoking status: Every Day Smokeless tobacco: Never Vaping Use Vaping status: Former Substance Use Topics Alcohol use: Yes Comment: nightly Drug use: Never REVIEW OF SYSTEMS Abdomen: No abdominal pain, nausea, vomiting, diarrhea, or constipation. No bloating, early satiety, indigestion, or increased flatulence. Bladder: No dysuria, gross hematuria, urinary frequency, urinary urgency, or incontinence Breast: No breast lumps, nipple d/c, overlying skin changes, redness or skin retraction Allergies and current medication updated:Yes SENSITIVE EXAM: The sensitive examination was discussed with the Patient or Patient's Authorized Health Care Facility Administrator. As applicable, any other physician, advance practice provider, medical student, or other health professional student that will be observing or involved in the sensitive examination for educational or training purposes was discussed with the Patient or Authorized Health Care Facility Administrator. The Patient or Authorized Health Care Facility Administrator has agreed to proceed with the sensitive examination. (Sensitive examination includes inspection and/or palpation of the breasts, pelvis, prostate and anorectal regions). EXAM: BP 124/82 Ht 5' 7 (1.70m) Wt 192 lb (87.1kg) BMI 30.06 kg/(m^2). GENERAL: pleasant, female in no apparent [...] external genitalia normal, normal Bartholin's glands, urethra, Captiva's glands, no vulvar lesions, good vaginal support, physiologic discharge present, normal appearing perineal body and perianal region, cervix surgically absent BIMANUAL: no adnexal masses, non-tender, and uterus surgically absent RECTOVAGINAL: deferred. NEURO: alert and oriented x3,exam grossly non-focal EXTREMITIES: normal ASSESSMENT/PLAN: 1) Health maintenance: Pap/HPV screening no longer needed Mammogram ordered Colon cancer screening: per pcp has scheduled 2) Follow up one year or sooner as needed Breanna Ng MD documented in this encounter [facility] 08-29-2023 Note Formatting of this n ote might be different from the original. August 31, 2023 PID: [id number] Martina Patterson [address] [place] [address] Dear Ms. Patterson, We are pleased to inform you that the results of your recent breast imaging exam on 08/28/2023 are normal. Early detection of cancer is very important. We also understand recommendations regarding breast cancer screening are controversial. Please discuss with your primary care provider which strategy is best for you and whether a mammogram is right for you. Your imaging studies and report will be kept on file at [facility] as part of your permanent medical record and are available for your continuing care. Thank you for allowing us to help in meeting your health care needs. Sincerely, Dr. Abreu Interpreting Radiologist [facility] (Normal over 40) [facility] 08-29-2023 Miscellaneous Notes August 31, 2023 PID: [id number] Martina Patterson [address] [place] [address] Dear Kori Hellerrositina, We are pleased to inform you that the results of your recent breast imaging exam on 08/28/2023 are normal. Early detection of cancer is very important. We also understand recommendations regarding breast cancer screening are controversial. Please discuss with your primary care provider which strategy is best for you and whether a mammogram is right for you. Your imaging studies and report will be kept on file at [facility] as part of your permanent medical record and are available for your continuing care. Thank you for allowing us to help in meeting your health care needs. Sincerely, Dr. Abreu Interpreting Radiologist [facility] (Normal over 40) documented in this encounter [facility] 08-28-2023 History of Presen t illness Narrative Radiology Service Progress Note PATIENT NAME: Martina Patterson DATE OF SERVICE: August 28, 2023 TIME: 7:17 AM PATIENT IDENTITY VERIFICATION COMPLETED USING TWO (2) IDENTIFIERS: Name and Date of confirmed by patient verbally. FALL SCREENING: Has the patient had 2 falls in the last year or 1 fall with injury or currently using an Ambulatory Assistive Device (Walker, Cane, Wheelchair, Crutches, etc.)? No PATIENT GENDER DATA: Female. status: : No status: NO. PATIENT RELEVANT IMPLANT DATA REVIEWED: Not Applicable PATIENT PRESENTS WITH AN IMPLANTABLE OR ATTACHED PBX TEACHER: No RADIOLOGY DEPARTMENT: Mammography PERIPHERAL IV DATA: Not applicable SIGNED BY: RT Raimundo(Maykel) August 28, 2023 7:17 AM documented in this encounter [facility] 06-12-2023 Miscellaneous Notes RX was sent yesterday to [facility] by RR. Demi Lebron APRN.HOUSING COORDINATOR ----- Message from Rebecca Lee LPN sent at 06/11/2023 3:43 PM EST ----- Pt given results and would like rx for BV sent to her pharmacy, [facility] . Call only if problems. Rebecca Lee LPN.; documented in this encounter [facility] 01-08-2023 Procedure note [facility] 01-08-2023 Procedure note [facility] 01-08-2023 History and physi xavier note Note Date/Time January 08, 2023 11:27am [facility] Medical Records Department [address] [place] [address] History & Physical Exam 01/08/23 1127 MR#: [id number] Acct: [id number] Name: MARTINA PATTERSON Rep #:[id number] : 1965 57 From: Jose L Friend DO PCP: Dr. Dada Santiago MD Status: [facility] Location: [place] [address] History and Physical Date of Admission: 01/08/23 MARTINA PATTERSON, is a 57 F who presents to the office today for PCP OV 3.. 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 Takes 800mg ibuprofen/day. HLD noted ? Biochemical 07.31.22 CBC, CMP, LFT, GGT, TSH, hepatitis screen without pertinent abnormality. ? HAND EDGER ab H1.3. ? FIB4 0.8 ? US RUQ and elastography 07.19.22 hepatic measurement 19.2cm with fatty infiltration, stiffness 12.2kPa; 3 small gallbladder polyps, largest [id number]; CBD 6.1mm *BGI established 10.30.22 ibuprofen 800mg is taken once a daily and is not every day but frequently. ROS Const Constitutional: No anorexia, fatigue, fever(s), weight change or sleep problems Eyes Eyes: No change in vision ENT ENT: No abnormal hearing, difficulty swallowing, mouth lesions, tongue swelling or throat swelling Resp Respiratory: No cough or shortness of breath Cardio Cardiology: No chest pain at rest, chest pain with exertion, shortness of breathor dyspnea on exertion Gastro GI: No difficulty swallowing Genitourinary-Female: No difficulty urinating or burning urination Musc Musculoskeletal: No joint pain, joint swelling, muscle weakness or decreased muscle mass Skin Skin: No hair loss in leg, yellowing of the eye, itchy eyes, rash, skin ulcer orskin swelling Neuro Neurology: No abnormal hearing, abnormal movements, confusion, unsteady gait/balance or memory loss Psych Psychiatric: No anxiety, No confusion and No memory loss Endo Endocrine: No fatigue or weight change Aller/Imm Allergy/Immunologic: No itchy eyes, throat swelling or tongue swelling Trevor/Lymp Hematologic/Lymphatic: No easy bleeding, easy bruising or enlarged lymph nodes Quality Reporting Tobacco Screening ([facility] 138) Smoking Status: Current every day smoker Assessment and Plan Assessment and Plan (1) Common bile duct dilatation: Status: Chronic Plan: She is not having any problems regarding pain with eating or right upper quadrant pain. She does have some, duct dilation of the extrahepatic duct in the differential diagnosis from that would be papillary stenosis, ampullary stenosis, chronic choledocholithiasis, type I choledochal cyst. We will get an MRCP for evaluation of her hepatobiliary system (2) Fatty liver: Status: Chronic Plan: She at this time is classified as having stage III managed by a fibrosis score of 12.2 kPa. She is also been identified as having hypercholesterolemia and mild obesity. She is on rosuvastatin. I would like to add Actos I will recheckher hemoglobin A1c at a 50 mg dose per day. She is on 1000 mg of vitamin D a day and I think that should be taken down to 400 international units. There is no benefit to high-dose vitamin E in her patient population with [place]. After she gets biochemical testing and MRI we will have her follow-up for further work-up. Orders: Orders HIV - [facility] Today K76.0 - Fatty (change of) liver, not elsewhere classified, K83.8- Other specified diseases of biliary tract Comprehensive Metabolic Profil Today K76.0 - Fatty (change of) liver, not elsewhere classified, K83.8 - Other specified diseases of biliary tract CRP Today K76.0 - Fatty (change of) liver, not elsewhere classified, K83.8 - Other specified diseases of biliary tract Ferritin Today K76.0 - Fatty (change of) liver, not elsewhere classified, K83.8 - Other specified diseases of biliary tract LDH Today K76.0 - Fatty (change of) liver, not elsewhere classified, K83.8 - Other specified diseases of biliary tract Hemoglobin A1c Today K76.0 - Fatty (change of) liver, not elsewhere classified, K83.8 - Other specified diseases of biliary tract Prothrombin Time w/INR Today K76.0 - Fatty (change of) liver, not elsewhere classified, K83.8 - Other specified diseases of biliary tract CBC W/Diff, Automated Today K76.0 - Fatty (change of) liver, not elsewhere classified, K83.8 - Other specified diseases of biliary tract Erythrocyte Sed Rate Today K76.0 - Fatty (change of) liver, not elsewhere classified, K83.8 - Other specified diseases of biliary tract Anti-Mitochondrial AB Today K76.0 - Fatty (change of) liver, not elsewhere classified, K83.8 - Other specified diseases of biliary tract AYLA Comprehensive Panel Today K76.0 - Fatty (change of) liver, not elsewhere classified, K83.8 - Other specified diseases of biliary tract MRCP Abdomen without Contrast Today K76.0 - Fatty (change of) liver, not elsewhere classified, K83.8 - Other specified diseases of biliary tract Hepatitis Panel Acute Today K76.0 - Fatty (change of) liver, not elsewhere classified, K83.8 - Other specified diseases of biliary tract Angiotensin Convert Enzyme Today K76.0 - Fatty (change of) liver, not elsewhere classified, K83.8 - Other specified diseases of biliary tract AFP, Tumor Marker Today K76.0 - Fatty (change of) liver, not elsewhere classified, K83.8 - Other specified diseases of biliary tract ANCA Today K76.0 - Fatty (change of) liver, not elsewhere classified, K83.8 - Other specified diseases of biliary tract Anti-Smooth Muscle ABS Today K76.0 - Fatty (change of) liver, not elsewhere classified, K83.8 - Other specified diseases of biliary tract Ceruloplasmin Today K76.0 - Fatty (change of) liver, not elsewhere classified, K83.8 - Other specified diseases of biliary tract Copper, Serum or Plasma Today K76.0 - Fatty (change of) liver, not elsewhere classified, K83.8 - Other specified diseases of biliary tract Haptoglobin Today K76.0 - Fatty (change of) liver, not elsewhere classified, K83.8 - Other specified diseases of biliary tract Ammonia Today K76.0 - Fatty (change of) liver, not elsewhere classified, K83.8 -Other specified diseases of biliary tract Abdomen Limited 01/05/23 K76.0 - Fatty (change of) liver, not elsewhere classified, K83.8 - Other specified diseases of biliary tract Elastography Parenchyma/Organ 01/05/23 K76.0 - Fatty (change of) liver, not elsewhere classified, K83.8 - Other specified diseases of biliary tract Medications: New pioglitazone 15 mg PO DAILY 30 tabs 2RF I have examined the patient and the H&P has been reviewed. There are no clinicalchanges since date of exam. 01/08/23 1127 <Electronically signed by Jose L Montana DO> Cosigner Signature (if applicable): CC: Dr. Dada Santiago MD; Jose L Montana DO~ Signed [facility] Work Phone: [phone]) 265-988504-18-2023 History of Present illness Narrative* Yaneth Bond RDMS - 08/26/2022 4:00 PM EDT Radiology Service Progress Note PATIENT NAME: Martina Patterson DATE OF SERVICE: August 26, 2022 TIME: 4:35 PM PATIENT IDENTITY VERIFICATION COMPLETED USING TWO (2) IDENTIFIERS: Name and Date of confirmedby patient verbally. FALL SCREENING: Has the patient [...] 26, 2022 4:35 PM [facility] History of Present illness Narrative* Cathleen Kim RT(R) - 08/26/2022 3:30 PM EDT Radiology Service Progress Note PATIENT NAME: Martina Patterson DATE OF SERVICE: August 26, 2022 TIME: 3:47 PM PATIENT IDENTITY VERIFICATION COMPLETED USING TWO (2) IDENTIFIERS: Name and Date of confirmedby patient verbally. FALL SCREENING: Has the patient [...] 26, 2022 3:47 PM documented in [facility]02-10-2023 History of Present illness Narrative* Hellen Mo RN - 06/20/2022 11:57 AM EST External Mammogram results - Please review Scan on 06/20/2022 11:17 AM by External Provider: Mammography documented in [facility]01-27-2023 History of Present illness Narrative* Christina Nye Ma - 06/06/2022 3:41 PM EST [facility] OPEN ACCESS QUESTIONNAIRE 1. Are you currently having any new or unusual stomach/gastrointestinal issues at this time such asconstipation, diarrhea, abdominal pain, rectal bleeding etc?No 2. Do you have any difficulty swallowing? No 3. Do you have any implanted devices such as a defibrillator, pacemaker, cardiac stents or deep brain stimulator? No 4. Do you take any Blood thinners such as Coumadin, Plavix, Xarelto, Eliquis, Brilinta or any otherblood thinner? No 5. Do you have any [...] prep will print upon filing or pending thissmartset. Please send all open access questionnaires to [facility] Pool #[id number] * Joyce Freitas MD - 06/06/2022 3:08 PM EST News Assignment Editor offered: Patient declines. Martina is a 57 year old No obstetric history on file. who presents for an annual gynecologic exam. She reports a spot on her left breast that is intermittent. It has been there for about 5 years andshe thinks stress can trigger it. Denies breast discharge or other breast complaints. Postmenopausal: Yes since 2011 HRT use: No. 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 Kendall or Dr. Rodrígeuz [phone] Kristan Espinoza [phone] Dr. Cummings [phone] ASC nurses [phone] documented in this encounterUpper [facility] Center10-11-2021 History of Present illness Narrative* Cynthia Her RT(R) - 02/18/2021 3:50 PM EDT Radiology Service Progress Note PATIENT NAME: Martina Patterson DATE OF SERVICE: February 18, 2021 TIME: 3:50 PM PATIENT IDENTITY VERIFICATION COMPLETED USING TWO (2) IDENTIFIERS: Name and Date of confirmedby patient verbally. FALL SCREENING: Has the patient had 2 falls in the last year or 1 fall with injury or currently using an Ambulatory Assistive Device (Walker, Cane, Wheelchair, Crutches, etc.)? No PATIENT GENDER DATA: Female. status: : No status: NO. PATIENT RELEVANT IMPLANT DATA REVIEWED: Not Applicable RADIOLOGY DEPARTMENT: General X-ray: Exam(s) Completed: Upper Extremity X- Ray(s): Hand, left PERIPHERAL IV DATA: Not applicable SIGNED BY: RT Wayne(R) February 18, 2021 3:50 PM [facility] noteNo assessment information availableWMercy [facility] Work Phone: evaluation note* Diagnosis Encounter for gynecological examination (general) (routine) without abnormal findings- Primary Encounter for screening for human papillomavirus (HPV) Special screening examination for human papillomavirus (HPV) Pap smear for cervical cancer screening Screening for malignant neoplasm of the cervix Encounter for screening mammogram for breast cancer Mass of left breast, unspecified quadrant Special screening for malignant neoplasms, colon [facility]* Diagnosis Onset Date Resolution Status Common bile duct dilatation chronic Fatty liver chronic [facility] Work Phone: evaluation note* Diagnosis Mass of left breast, unspecified quadrant [facility]* Diagnosis Mass of left breast, unspecified quadrant documented [facility]* Diagnosis Onset Date Resolution Status Common bile duct dilatation chronic NAFLD (nonalcoholic fatty liver disease) [facility] Work Phone: evaluation note* Diagnosis Encounter for screening mammogram for breast cancer [facility]* Diagnosis Left hand pain Pain in limb documented in [facility] note* Diagnosis Encounter for gynecological examination (general) (routine) without abnormal findings- Primary Encounter for screening mammogram for breast cancer documented in this encounter [facility] for referral (narrative)* Outpatient Procedure (Routine) - Pending Review Specialty Diagnoses / Procedures Referred By Monica t Referred To Contact [facility] Diagnoses Special screening for malignant neoplasms, colon Procedures COLONOSCOPY SCREENING COLONOSCOPY FLX DX W/COLLJ SPEC WHEN PFRMD Joyce Freitas MD [address] [place] [address] [facility] [address] [place] [address] Referral ID Status Reason Start Date Expiration Date Visits Requested Visits Authorized [id number] Pending Review Auto-Generat ed Referral 06/06/2022 06/06/2023 1 1 * Diagnostic Procedure Only (Routine) - Pending Review Specialty Diagnoses / Procedures [facility] Diagnoses Mass of left breast, unspecified quadrant Procedures US BREAST LTD LT US BREAST UNI REAL TIME WITH IMAGE LIMITED Joyce Freitas MD [address] [address] [facility] [address] [place] [address] Referral ID Status Reason Start Date Expiration Date Visits Requested Visits Authorized [id number] Pending Review Auto-Generat ed Referral 06/06/2022 07/06/2023 1 1 * Diagnostic Procedure Only (Routine) - Authorized Specialty Diagnoses / Procedures [facility] Diagnoses Mass of left breast, unspecified quadrant Procedures SARAH DIAGNOSTIC BILAT DIAGNOSTIC MAMMOGRAPHY COMPUTER-AIDED DETCJ BI Joyce Freitas MD [address] [place] [address] [facility] [address] [place] [address] Referral ID Status Reason Start Date Expiration Date Visits Requested Visits Authorized [id number] Authorized Auto-Generat ed Referral 06/06/2022 07/06/[address] [facility] for referral (narrative)* Diagnostic Procedure Only (Routine) - Closed Specialty Diagnoses / Procedures [facility] Diagnoses Mass of left breast, unspecified quadrant Procedures US BREAST LTD LT US BREAST UNI REAL TIME WITH IMAGE LIMITED Joyce Freitas MD [address] [place] [address] [facility] [address] [place] [address] Referral ID Status Reason Start Date Expiration Date V isits Requested Visits Authorized [id number] Closed Auto-Generate d Referral 06/06/2022 07/06/[address] [facility] for referral (narrative)* Diagnostic Procedure Only (Urgent) - Closed Specialty Diagnoses / Procedures Referred By Contac t Referred To Contact [facility] Diagnoses Left hand pain Procedures XR HAND GENERAL 3V PA/LAT/OBL LT X-RAY HAND MINIMUM 3 VIEWS Naseren Rebollar, JONE.HOUSING COORDINATOR [address] [place] [address] [place] [id number] Referral ID Status Reason Start Date Expiration Date V isits Requested Visits Authorized [id number] Closed Auto-Generate d Referral 02/18/2021 05/10/[address] [facility] for visit Narrative* Diagnostic Procedure Only (Routine) - Closed Specialty Diagnoses / Procedures Referred By Contac t Referred To Contact [facility] Diagnoses Mass of left breast, unspecified quadrant Procedures SARAH DIAGNOSTIC BILAT DIAGNOSTIC MAMMOGRAPHY COMPUTER-AIDED DETCJ BI Joyce Freitas MD [address] [place] [address] [facility] [address] [place] [address] Referral ID Status Reason Start Date Expiration Date V isits Requested Visits Authorized [id number] Closed Auto-Generate d Referral 06/06/2022 07/06/[address] [facility] for visit Narrative* Diagnostic Procedure Only (Routine) - Closed Specialty Diagnoses / Procedures Referred By Contac t Referred To Contact [facility] Diagnoses Encounter for screening mammogram for breast cancer Procedures SARAH SCREENING W AME SCREENING DIGITAL BREAST TOMOSYNTHESIS BI SCREENING MAMMOGRAPHY BI 2-VIEW BREAST INC CAD Breanna Ng MD [address] [place] [address] [facility] [address] [place] [address] Referral ID Status Reason Start Date Expiration Date V isits Requested Visits Authorized [id number] Closed Auto-Generate d Referral 06/10/2023 07/09/[address] [facility] for visit Narrative* Diagnostic Procedure Only (Urgent) - Closed Specialty Diagnoses / Procedures Referred By Contac t Referred To Contact XR IMAGING Diagnoses Left hand pain Procedures XR HAND GENERAL 3V PA/LAT/OBL LT X-RAY HAND MINIMUM 3 VIEWS Nasreen Rebollar, STREET INSPECTOR.HOUSING COORDINATOR [address] [place] [address] [place] [id number] Referral ID Status Reason Start Date Expiration Date V isits Requested Visits Authorized [id number] Closed Auto-Generate d Referral 02/18/2021 05/10/2021 1 1 [facility] Chief Complaint and Reason for Visit Chief Complaint abdominal pain Chief Complaint FATTY LIVER Chief Complaint FATTY LIVER Consult E ORDERS Reason for Visit Common bile duct dil atation Fatty liver Chief Complaint Consult E ORDERS CBD DILATION Reason for Visit Common bile duct dil atation Fatty liver Chief Complaint Consult E ORDERS CBD DILATION FATTY LIVER Reason for Visit Common bile duct dil atation Fatty liver Chief Complaint 4 MO FU PREOP Reason for Visit Common bile duct dil atation Fatty liver Chief Complaint Fatty (change of) li marilou, not elsewhere classified FU 30 MIN Reason for Visit Common bile duct dil atation NAFLD (nonalcoholic fatty liver disease) Advance Directives No Advanced Directives Records Found Advance Directive Response Recorded Date/ Time Living Will No January 06 11:56am Power of Welder Explosion No January 06, 023 11:56am Advance Directive Response Recorded Date/ Time Living Will No April 24 023 11:45am Power of Welder Explosion No April 24, 2023 11:45am Advance Directive Response Recorded Date/ Time Living Will No April 24, 2 023 12:45pm Power of Welder Explosion No April 24, 2023 12:45pm Summary Purpose Family History No Family History Records Found Additional Source Comments Goals (unrecognized section and content) Goals may be documented in a n alternate sectionGoals may be documented in an alternate sectionGoals may be documented in an alternate sectionGoals may be documented in an alternate sectionGoals may be documented in an alternate sectionGoals may be documented in an alternate section Source Comments (unrecognize d section and content) In the event this informatio n is protected by the Federal Confidentiality of Alcohol and Drug Abuse Patient Records regulations: The Federal rules restrict any use of the information to criminally investigate or prosecute any alcohol or drug abuse patient.[facility] CenterIn the event this information is protected by the Federal Confidentiality of Alcohol and Drug Abuse Patient Records regulations: The Federal rules restrict any use of the information to criminally investigate or prosecute any alcohol or drug abuse patient.[facility] CenterIn the event this information is protected by the Federal Confidentiality of Alcohol and Drug Abuse Patient Records regulations: The Federal rules restrict any use of the information to criminally investigate or prosecute any alcohol or drug abuse patient.[facility] CenterIn the event this information is protected by the Federal Confidentiality of Alcohol and Drug Abuse Patient Records regulations: The Federal rules restrict any use of the information to criminally investigate or prosecute any alcohol or drug abuse patient.[facility] CenterIn the event this information is protected by the Federal Confidentiality of Alcohol and Drug Abuse Patient Records regulations: The Federal rules restrict any use of the information to criminally investigate or prosecute any alcohol or drug abuse patient.[facility] CenterIn the event this information is protected by the Federal Confidentiality of Alcohol and Drug Abuse Patient Records regulations: The Federal rules restrict any use of the information to criminally investigate or prosecute any alcohol or drug abuse patient.[facility] CenterIn the event this information is protected by the Federal Confidentiality of Alcohol and Drug Abuse Patient Records regulations: The Federal rules restrict any use of the information to criminally investigate or prosecute any alcohol or drug abuse patient.[facility] CenterIn the event this information is protected by the Federal Confidentiality of Alcohol and Drug Abuse Patient Records regulations: The Federal rules restrict any use of the information to criminally investigate or prosecute any alcohol or drug abuse patient.[facility] CenterIn the event this information is protected by the Federal Confidentiality of Alcohol and Drug Abuse Patient Records regulations: The Federal rules restrict any use of the information to criminally investigate or prosecute any alcohol or drug abuse patient.[facility] CenterIn the event this information is protected by the Federal Confidentiality of Alcohol and Drug Abuse Patient Records regulations: The Federal rules restrict any use of the information to criminally investigate or prosecute any alcohol or drug abuse patient.[facility] CenterIn the event this information is protected by the Federal Confidentiality of Alcohol and Drug Abuse Patient Records regulations: The Federal rules restrict any use of the information to criminally investigate or prosecute any alcohol or drug abuse patient.[facility] Reason for Visit (unrecogniz ed section and content) Reason Comments Well Woman Reason Comments External Results - Mammogram Reason Comments Radiology US Specialty Diagnoses / Procedures Referred By Contac t Referred To Contact [facility] Diagnoses Mass of left breast, unspecified quadrant Procedures US BREAST LTD LT US BREAST UNI REAL TIME WITH IMAGE LIMITED Joyce Freitas MD [address] [place] [address] [facility] [address] [place] [address] Referral ID Status Reason Start Date Expiration Date V isits Requested Visits Authorized [id number] Closed Auto-Generate d Referral 06/06/2022 07/06/2023 1 1 Reason Comments Yearly Exam Care Teams (unrecognized sec tion and content) Team Status: Active Member Role Status Dates Dr. Dada Santiago MD Primary Care Provider Activ e Team Status: Inactive Member Role Status Dates Dr. Dada Santiago MD Primary Care Provider, Attending Provider, Referring Provider Active Team Status: Inactive Member Role Status Dates Dr. Dada Santiago MD Primary Care Provider, Refe rring Provider Active Dr. Jose L Montana DO Attending Provider Active Team Status: Inactive Member Role Status Dates Dr. Dada Santiago MD Primary Care Provider Activ e Dr. Jose L Montana DO Attending Provider, Referring Provider Active Team Status: Active Member Role Status Dates Dr. Dada Santiago MD Primary Care Provider, Refe rring Provider Active Dr. Jose L Montana DO Attending Provider, Other Prov ider Active Team Status: Active Member Role Status Dates Dr. Dada Santiago MD Primary Care Provider Activ e Dr. Jose L Montana DO Attending Provider, Referring Provider Active Team Status: Inactive Member Role Status Dates Dr. Dada Santiago MD Primary Care Provider, Refe rring Provider Active Dr. Oscar Friedman MD Attending Provider Active Team Status: Active Member Role Status Dates Dr. Dada Santiago MD Primary Care Provider Activ e Dr. Martín Washington MD Attending Provider Active Dr. Jose L Montana DO Referring Provider Active Team Status: Inactive Member Role Status Dates Dr. Dada Santiago MD Primary Care Provider Activ e Dr. Alfa Shepherd MD Attending Provider Active Team Status: Active Member Role Status Dates Dr. Nestor Santiago MD Primary Care Provider Acti ve Team Status: Inactive Member Role Status Dates Dr. Nestor Santiago MD Primary Care Provider, Ref erring Provider Active Dr. Oscar Friedman MD Attending Provider Active Team Status: Inactive Member Role Status Dates Dr. Nestor Santiago MD Primary Care Provider Acti ve Dr. Oscar Friedman MD Attending Provider, Referring P katja Active Team Status: Inactive Member Role Status Dates Dr. Nestor Santiago MD Primary Care Provider Acti ve Dr. Alfa Shepherd MD Attending Provider Active INFORMATION SOURCE (unrecogn ized section and content) DATE CREATED AUTHOR 09/14/2024 [facility] DATE CREATED AUTHOR AUTHOR'S [place] ATION 01/12/2025 [facility] FOR RECORDS PERTAINING TO PATIENTS WHO ARE [...] BE BASED ON THE PRIMARY CLINICAL RECORDS. [facility]. provides no warranty or guarantee of the accuracy or completeness of information in this document.
[2025-01-13] MEDS: Lactated Ringers 1,000 ML 15 ML IV (07:19)
--- NOTE | 2025-01-13 07:30 | PRE.ANES_ITS ---
ASA Classification* ASA Classification ASA Classification: 2 Assessment & Plan Anesthesia* Anesthesia Assessment Anesthesia Assessment: Discussed sedation and/or anesthesia options, risks, benefits, and alternatives with patient/parents/legal guardian/POA. Questions invited. The patient/parents/legal guardian/POA seems to understand and agrees to proceed with anesthesia plan. Reviewed the physical assessment, medical history, allergy history and patient home medications list prior to surgery/procedure/anesthetic and documented any changes. Performed airway and anesthesia risk assessments. Anesthesia Type Anesthesia Type: MAC History Source History Obtained from:: Patient and Chart Anesthesia Focused Assessment* Temperature: 97.4 F Pulse Rate: 70 Blood Pressure: 122/84 Respiratory Rate: 16 Pulse Ox: 97 Oxygen Delivery Method: Room Air Airway Assessment Mouth opens: >3 cm Mallampati Score: IV Teeth Condition: Caps/Crowns (Patient has a crown. It is tight.) Neck Range of motion (ROM): Limited ROM (Slight Decrease) Labs Anesthesia Preop lab: CBC WBC 6.8 K/mm3 (4.4-11.0) 02/24/24 15:46 02/24/24 RBC 3.96 M/mm3 (4.2-5.4) L 02/24/24 15:46 02/24/24 Hgb 12.6 g/dL (12.0-15.0) 02/24/24 15:46 02/24/24 Hct 37.8 % (37-47) 02/24/24 15:46 02/24/24 Plt Count 266 K/mm3 (150-450) 02/24/24 15:46 02/24/24 CHEMISTRY Potassium 3.8 mmol/L (3.5-5.1) 02/24/24 15:46 02/24/24 Sodium 136 mmol/L (136-145) 02/24/24 15:46 02/24/24 BUN 15 mg/dL (7-18) 02/24/24 15:46 02/24/24 Creatinine 0.53 mg/dL (0.55-1.02) L 02/24/24 15:46 Glucose 96 mg/dL (74-106) 02/24/24 15:46 02/24/24 POC Glucose 92 mg/dL (74-106) 01/08/23 14:22 01/08/23 TSH 2.19 uIU/mL (0.358-3.74) 07/31/22 16:31 COAG PT 12.2 SECONDS (11.7-14.9) 02/24/24 15:46 Pre-Assessment Diagnosis/Proposed Procedure Planned Operative Procedure(s): COLONOSCOPY Anesthesia History Anesthesia History - wet washer machine: Anesthesia History - wet washer machine Hx Hospitalization No 01/12/25 10:45 Any Problems With Anesthesia No 01/12/25 10:45 Cholinesterase deficiency No 01/12/25 10:45 You/Your Family Experience No 01/12/25 10:45 fever (hyperthermia) with Relationship Recent Exposure to Contagious No 01/13/25 07:10 Disease Does patient have nerve No 01/12/25 10:45 stimulator Patient instructed to have device shut off --Does patient have Pacemaker No 01/13/25 07:10 or ICD? When Was Last Pacemaker Check QUESTION #4 FULL TEXT: You/Your Family Experience fever (hyperthermia) with Anesthesia Last Oral Intake Last Oral intake: Last Oral Intake NPO since 04:30 01/13/25 07:10 Meds taken in AM with sips of No 01/13/25 07:10 water? Meds patient instructed to take am of surgery Any additional information?: Yes NPO since: 04:30 (Patient finished her prep at 4:30 AM.) Meds taken in AM with sips of water?: No PONV PONV - wet washer machine: PONV - wet washer machine Female Yes 01/12/25 10:45 HX of Motion Sickness No 01/12/25 10:45 HX of N/V After Surgery No 01/12/25 10:45 Non-Smoker No 01/12/25 10:45 Duration of Surgery greater No 01/12/25 10:45 than 60 minutes Number of Risk Factors 1 01/12/25 10:45 PONV Score Low Risk 01/12/25 10:45 Height & Weight Height & Weight: Anesthesia: Height & Weight Height 5 ft 7 in 01/13/25 07:10 Weight: 89 kg 01/13/25 07:10 Body Mass Index (BMI) 30.7 01/13/25 07:10 Respiratory Assessment Respiratory Assessment - wet washer machine: Respiratory Tract Infection Hx - wet washer machine Hx Respiratory Tract Infection No 01/12/25 10:45 STOP Sleep Apnea STOP Sleep Apnea - wet washer machine: STOP Sleep Apnea - wet washer machine Hx Hypertension No 01/12/25 10:45 Hx Sleep Apnea No 01/12/25 10:45 CPAP BIPAP Do you snore loudly (louder No 01/12/25 10:45 than talking or can be heard Do you often feel tired/ No 01/12/25 10:45 fatigued/ sleepy during daytime? Has anyone observed you stop No 01/12/25 10:45 breathing during sleep? STOP Results Negative 01/12/25 10:45 QUESTION #5 FULL TEXT : Do you snore loudly (louder than talking or can be heard through closed doors)? 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 Specify any problems Hx of Preganancy in last 3 No 01/12/25 10:45 Months Nurse Filling Out Transfusion VCHRISTIN 01/12/25 10:45 & Questions: Date: 01/12/25 01/12/25 10:45 Time: 10:46 01/12/25 10:45 Patient unable to answer at this time (ie. confused, unrespo /Reproduction History /Reproductive History - wet washer machine: /Reproductive Hx- wet washer machine Hx Now No 01/12/25 10:45 Gestational Age (in weeks): EDC: Hx Hx Para Hx Section SAB No 01/12/25 10:45 Active Medications Active Medications: Current Medications Generic Name Dose Route Start Last Admin Trade Name Freq PRN Reason Stop Dose Admin Lactated Ringer's 1,000 mls @ 15 mls/hr 01/13/25 07:00 01/13/25 07:19 IV 15 mls/hr .Q48H CARLYLE Administration PFSH Medical History Wears glasses Post-menopausal Depression Anxiety Alcohol use Poor historian Back pain Injury of head and neck Seizures History of IBS Gastric reflux Smoker Obesity Home Medications ?Medication ?Instructions ?Recorded ?Last Taken ?Type rosuvastatin 10 mg tablet 10 mg PO QHS 90 days #90 tab s 03/02/24 Unknown Rx pioglitazone 15 mg tablet See Rx Instructions .Route 0 07/07/24 Unknown Rx .COMPLEX 90 days #90 tabs omeprazole 20 mg capsule,delayed 20 mg PO DAILY PRN GE RD 07/21/24 Unknown Hi story release Allergy/AdvReac Type Severity Reaction Status Date / Time No Known Allergies Allergy Verified 01/13/25 07:10 Family History Sister Thyroid disorder Surgical History History of ERCP Hx of dilation and curettage Hx of ovarian cystectomy S/P total abdominal hysterectomy Social History Smoking Status: Current every day smoker tobacco type: cigarettes alcohol intake: current alcohol intake frequency: 0-2 drinks per day Review of Systems (Anesthesia) ROS Narrative System reviewed and no additional complaints, except as documented.
--- NOTE | 2025-01-13 07:48 | HP.PCM_ITS ---
[facility] - General General Date of Admission: 01/13/25 Date of Service: 01/13/25 Chief Complaint: Screening colonoscopy [facility] Narrative MARTINA DANIELS, is a 59 F who presents today for screening colonoscopy. She had a colonoscopy in the past that was normal. She does not have any abdominal pain. She past medical history of hypercholesterolemia along with gastroesophageal reflux disease that are all controlled medicines. [facility] Medical History Wears glasses Post-menopausal Depression Anxiety Alcohol use Poor historian Back pain Injury of head and neck Seizures History of IBS Gastric reflux Smoker Obesity Home Medications ?Medication ?Instructions ?Recorded ?Last Taken ?Type rosuvastatin 10 mg tablet 10 mg PO QHS 90 days #90 tab s 03/02/24 Unknown Rx pioglitazone 15 mg tablet See Rx Instructions .Route 0 07/07/24 Unknown Rx .COMPLEX 90 days #90 tabs omeprazole 20 mg capsule,delayed 20 mg PO DAILY PRN GE RD 07/21/24 Unknown History release Allergy/AdvReac Type Severity Reaction Status Date / Time No Known Allergies Allergy Verified 01/13/25 07:10 Family History Sister Thyroid disorder Surgical History History of ERCP Hx of dilation and curettage Hx of ovarian cystectomy S/P total abdominal hysterectomy Social History Smoking Status: Current every day smoker (Patient smoked today.) tobacco type: cigarettes alcohol intake: current alcohol intake frequency: 0-2 drinks per day ROS Constitutional Constitutional: Denies fatigue, fever(s), poor appetite, weight gain or weight loss Gastrointestinal Gastrointestinal: Denies belching, bloating, change in bowel habits, change in stool character, chewing difficulty, coffee ground emesis, constipation, cramping, diarrhea, dyspepsia, dysphagia, early satiety, excessive flatus, fecal incontinence, heartburn, hematemesis, hematochezia, hemorrhoids, loose stools, melena, nausea, odynophagia, rectal bleeding, tenesmus, vomiting or weight changes Vital Signs Vital Signs Vital Signs: 01/13/25 07:10 01/13/25 07:10 01/13/25 07:35 Temperature 97.4 F L 97.4 F L Temperature Source Temporal Pulse Rate 70 70 Respiratory Rate 16 16 Respiratory Pattern Normal Blood Pressure 122/84 H 122/84 H Blood Pressure Mean 96 Blood Pressure Source Monitor Blood Pressure Position Semi-Fowlers Blood Pressure Location Right Arm Pulse Ox 97 97 Oxygen Delivery Method Room Air Room Air Weight Weight: 196 lb 3.382 oz Body Mass Index (BMI) 30.7 Physical Exam Const alert, oriented x3, no apparent distress and healthy appearing General Appearance: cooperative GI normal to inspection, nondistended, normoactive bowel sounds, soft to palpation, non-tender and non-distended Percussion: normal to percussion Rectal Exam: deferred Assessment & Plan Assessment/Plan (1) Encounter for screening colonoscopy: PLAN: She was explained alternatives, risk and benefits include not withstanding bleeding, infection, sepsis, perforation, need for emergent urgent . She will have an ASA of 3.
--- NOTE | 2025-01-13 08:00 | COLBX_PTH ---
PATIENT: MARTINA DANIELS LOC: EN U#:[id number] AGE/SX: 59/F ROOM: RE01/13/[address]: Dr. Jose L Montana DO : 1965 BED: DIS: 01/13/2025 SPEC #: [id number] RECD: 01/13/25 10:43 STATUS: TROY REJohn #: [id number] KARY: 01/13/25 08:[address]: Jose L Montana DEPT: SURGICAL PATHOLOGY RECD BY: Bridger Dick ENTERED: 01/13/25 15:13 SP TYPE: COLON BX OT DR: Dr. Nestor Santiago MD Tissues: A - COLON BIOPSY B - Cecum, NOS C - Sigmoid colon biopsy D - Sigmoid colon biopsy Procedures: Surgery Specimen Level IV HEADER OPERATION: Colonoscopy, polypectomy PRE-OP DIAGNOSIS: Encounter for screening colonoscopy TISSUE SUBMITTED: A- Hepatic flexure polyps x2, B- Cecum polyp, C- Sigmoid polyp #1, D- Sigmoid polyp #2 MICROSCOPIC DIAGNOSIS A. Hepatic flexure, polyp, biopsy: - Tubular adenoma, multiple fragments. - Sessile serrated lesion, multiple fragments. B. Cecum, polyp, biopsy: - Sessile serrated lesion. C. Sigmoid colon, polyp, biopsy: - Hyperplastic polyp, pedunculated, with prolapse changes and misplaced epithelium. D. Sigmoid colon, polyp, biopsy: - Tubular adenoma. MICROSCOPIC DESCRIPTION Slides are reviewed. GROSS DESCRIPTION A. Received in fixative is one container labeled with the patient's name and designated Hepatic flexure polyp. The specimen consists of multiple irregular fragments of light reyez soft tissue that in aggregate measure 2.3 x 0.7 x 0.3 cm. The specimen is totally submitted in one cassette. B. Received in fixative is one container labeled with the patient's name and designated Cecum polyp. The specimen consists of multiple irregular fragments of light reyez soft tissue that in aggregate measure 1 x 0.5 x 0.3 cm. The specimen is totally submitted in one cassette. C. Received in fixative is one container labeled with the patient's name and designated Sigmoid polyp #1. The specimen consists of a 1.8 x 1.4 x 1.1 cm pink to red-purple, irregular and nodular polyp. The resection margin is inked black. The specimen is serially sectioned and entirely submitted in 2 cassettes. D. Received in fixative is one container labeled with the patient's name and designated Sigmoid polyp #2. The specimen consists ofa 0.7 x 0.7 x 0.4 cm red and granular polypoid tissue fragment. The specimen is bisected and entirely submitted in 1 cassette. CA 01/13/2025 CPT:29848s6
--- NOTE | 2025-01-13 08:39 | OP.COLON_ITS ---
Patient Name: Elsie Patterson Procedure Date: 01/13/2025 7:55 AM Date of : 1965 Age: 59 Procedure: Colonoscopy Indications: Screening for colorectal malignant neoplasm Providers: Jose L Montana DO Referring MD: Dada Santiago Medicines: Monitored Anesthesia Care Patient Profile: This is a 59 year old female. Refer to note in patient chart for documentation of history and physical. Last Colonoscopy: none. The patient's first colonoscopy is today. Complications: No immediate complications. Procedure: Pre-Anesthesia Assessment: - Prior to the procedure, a History and Physical was performed, and patient medications and allergies were reviewed. The patient is competent. The risks and benefits of the procedure and the sedation options and risks were discussed with the patient. All questions were answered and informed consent was obtained. Patient identification and proposed procedure were verified by the physician in the pre-procedure area. Mental Status Examination: alert and oriented. Airway Examination: normal oropharyngeal airway and neck mobility. Respiratory Examination: clear to auscultation. CV Examination: normal. Prophylactic Antibiotics: The patient does not require prophylactic antibiotics. Prior Anticoagulants: The patient has taken no anticoagulant or antiplatelet agents. ASA Grade Assessment: II - A patient with mild systemic disease. After reviewing the risks and benefits, the patient was deemed in satisfactory condition to undergo the procedure. The anesthesia plan was to use monitored anesthesia care (MAC). Immediately prior to administration of medications, the patient was re-assessed for adequacy to receive sedatives. The heart rate, respiratory rate, oxygen saturations, blood pressure, adequacy of pulmonary ventilation, and response to care were monitored throughout the procedure. The physical status of the patient was re-assessed after the procedure. After I obtained informed consent, the scope was passed under direct vision. Throughout the procedure, the patient's blood pressure, pulse, and oxygen saturations were monitored continuously. The colonoscope was introduced through the anus and advanced to the cecum, identified by appendiceal orifice and ileocecal valve. The colonoscopy was performed without difficulty. The patient tolerated the procedure well. The quality of the bowel preparation was adequate. The ileocecal valve, appendiceal orifice, and rectum were photographed. Scope In: 8:07:51 AM Scope Withdrawal Time 0 hours 18 minutes 8 seconds Scope Out: 8:32:50 AM Total Procedure Duration Time 0 hours 24 minutes 59 seconds Findings: The perianal and digital rectal examinations were normal. Five sessile polyps were found in the sigmoid colon, hepatic flexure and cecum. The polyps were 1 to 2 mm in size. These polyps were removed with a hot snare. Resection and retrieval were complete. Verification of patient identification for the specimen was done. Area was tattooed with an injection of 1 mL of Kelsi ink. Impression: - Five 1 to 2 mm polyps in the sigmoid colon, at the hepatic flexure and in the cecum, removed with a hot snare. Resected and retrieved. Tattooed. Recommendation: - Repeat colonoscopy in 1 year for surveillance. - Continue present medications. Procedure Code(s): --- Professional --- 25427, Colonoscopy, flexible; with removal of tumor(s), polyp(s), or other lesion(s) by snare technique [id number], Colonoscopy, flexible; with directed submucosal injection(s), any substance CPT copyright 2021 [employer]. All rights reserved. The codes documented in this report are preliminary and upon emt review may be revised to meet current compliance requirements. Jose L Montana DO 01/13/2025 8:39:17 AM This report has been signed electronically. Number of Addenda: 0 Note Initiated On: 01/13/2025 7:55 AM
--- NOTE | 2025-01-13 08:39 | OP.PROVAT_ITS ---
01/13/2025 Dada Santiago [address] [place] [address] Re : Colonoscopy procedure for Elsie Patterson Dear Dr. Santiago This procedure was performed on Monday, January 13, 2025. My impressions and recommendations are as follows: Impressions : - Five 1 to 2 mm polyps in the sigmoid colon, at the hepatic flexure and in the cecum, removed with a hot snare. Resected and retrieved. Tattooed. Recommendations : - Repeat colonoscopy in 1 year for surveillance. - Continue present medications. My findings are described in the full procedure note, which is enclosed. If I can be of further assistance, please feel free to contact me at . Sincerely, Jose L Montana, 01/13/2025 8:39:17 AM This report has been signed electronically.
--- NOTE | 2025-01-13 08:42 | PCM.POST.ANE ---
Anesthesia: Postop Eval I Current Vital Signs Temperature: 96.4 F Pulse Rate: 64 Blood Pressure: 116/86 Respiratory Rate: 16 Pulse Ox: 99 Oxygen Delivery Method: Room Air Assessment Airway patent: Yes Spontaneous unlabored respirations: Yes Mental status: Awake and Calm nausea: No Vomiting: No Anesthesia Complication: No Fluid Hydration Crystalloid volume administer (ml): 600 Total IV fluid infused: 600 Progress Note Anesthesia document: Postop Eval 1 completed: Yes
--- NOTE | 2025-01-13 14:21 | PCM.POSTANE2 ---
Anesthesia Postop Eval I Sum Postop Eval Completion status Anesthesia document: Postop Eval 1 completed: Yes Anesthesia Postop Eval I Summary Anesthesia Postop Eval I Summary: Anesthesia Postop Eval I: Assessment Summary Airway patent Yes 01/13/25 08:43 [email or web address] Spontaneous unlabored Yes 01/13/25 08:43 [email or web address] respirations Mental status Awake,Calm 01/13/25 08:43 [email or web address] nausea No 01/13/25 08:43 [email or web address] Vomiting No 01/13/25 08:43 [email or web address] Anesthesia Postop Eval I: Fluid Summary Crystalloid volume administer 600 01/13/25 08:43 [email or web address] (ml) Colloids volume administered ( ml) Blood Product volume administered (ml) Total IV fluid infused 600 01/13/25 08:43 [email or web address] Anesthesia Postop Eval I: Summary Notes Anesthesia Complication No 01/13/25 08:43 [email or web address] Anesthesia Complication Comment: Post-operative progress note Anesthesia: Postop Eval II Evaluation Mental status: Awake and Calm Pain Level: 0 nausea: No Vomiting: No Complications Anesthesia Complication: No
== END 2025-01-13 09:07 | disposition home or self-care (01) ==
LOC: EN 06:56 → AC 06:57
PROVIDERS: PCP Family Medicine; Referring Provider Family Medicine; Visit Provider Internal Medicine Gastroenterology
PROC: 0DJD8ZZ Inspection of Lower Intestinal Tract, Via Natural or Artificial Opening Endoscopic (ICD-10-PCS; CPT 45378; principal; 2025-01-13 07:55)
DX: Z12.11 Encounter for screening for malignant neoplasm of colon (principal); K63.5 Polyp of colon; K21.9 Gastro-esophageal reflux disease without esophagitis; E78.00 Pure hypercholesterolemia, unspecified; F17.210 Nicotine dependence, cigarettes, uncomplicated; D12.3 Benign neoplasm of transverse colon; D12.0 Benign neoplasm of cecum; D12.5 Benign neoplasm of sigmoid colon
CPT/HCPCS: 45385; 45381; 88305; A4648; J2405

== ENCOUNTER → 2025-02-28 | Outpatient (CLI) | payer BC, SELFPAY ==
--- OUTSIDE RECORDS SUMMARY | 2025-02-28 16:04 | XMS RPT_ITS | CCD ---
Author Organization [facility] Care Team Providers Care Admissions Manager Name Role Phone Unavailable Primary Care Provider Dr. Dada Rahman Primary Care Provider Dr. Dada Santiago Referring Provider Dr. Jose L Montana Attending Provider [phone] Friend, Dr. Domingo Other Provider Dr. Dada Santiago Primary Care Provider [phone] Dr. Dada Santiago Referring Provider Dr. Oscar Friedman Attending Provider Dr. Jose L Montana Attending Provider [phone] Friend, Dr. Domingo Other Provider Dr. Martín Washington Attending Provider Dr. Jose L Montana Referring Provider [phone] Nestor Santiago Primary Care Provider Dr. Nestor Santiago Referring Provider [phone] Dr. Oscar Friedman Attending Provider [phone] Unavailable Primary Care Provider BREANNA Kelly Attending Unavailable BREANNA NG Referring Unavailable BREANNA NG Referring Unavailable Dr. Nestor Santiago MD Primary Care Provider Dr. Nestor Santiago MD Referring Provider Dr. Jose L Montana DO Attending Provider Friend Dr. Jose L MCKEON Other Provider [phone] Jose L Montana Attending Unavailable Nestor Santiago Referring Unavailable Delio Santiagolynsey Primary Care Unavailable Friend, Jose L Consulting Unavailable Friend, Jose L Attending Unavailable [facility]lynsey Primary Care Unavailable Oscar Friedman Attending Unavailable Oscar Friedman Referring Unavailable [facility]lynsey Primary Care Unavailable Oscar Friedman Attending Unavailable Oscar Friedman Referring Unavailable [facility]lynsey Primary Care Unavailable Friend, Jose L Attending [facility] Referring Unavailable [facility] Unavailable Oscar Friedman Attending Unavailable [facility] Un[facility] Referring Unavailable Medications Current Medications Medication Drug [...] spots on face methylPREDNISolone (2 sources) Corticosteroid Sta rt: 5 methylPREDNISolone (MEDROL DOSE-PACK) 4 mg Dose-Pack TAKE 6 TABLETS ON DAY 1 DIRECTED ON PACKAGE AND DECREASE BY 1 TAB EACH DAY FOR A TOTAL OF 6 DAYS 08/27/2024 Active metroNIDAZOLE 500 mg oral tablet (1 source) Nitroimidazole Antimicrobial Sta rt: 4 End : 4 take 1 tablet by mouth twice daily metroNIDAZOLE (FLAGYL) 500 mg tablet Take 1 tablet by mouth two times a day for 7 days. 14 tablet 0 06/11/2023 06/18/2023 Active Comment on above: Take 1 tablet by lam th two times a day for 7 days. omeprazole 20 mg delayed release oral capsule (6 sources) Proton Pump Inhibitor Sta rt: 3 End : 5 take 1 capsule by mouth once daily as needed for gastroesophageal reflux disease Omeprazole 20 mg capsule,delayed release(DR/EC) Active 20 mg PO DAILY as needed for GERD July 21, 2024 8:40am pioglitazone 15 mg oral tablet (20 sources) Peroxisome Proliferator Receptor alpha Agonist, Peroxisome Proliferator Receptor gamma Agonist, Thiazolidinedione Sta rt: 3 End : 5 take 1 tablet by mouth once daily Pioglitazone 15 mg tablet Active 0 .ROUTE .COMPLEX 90 90 2 July 07, 2024 9:17am TAKE ONE TABLET BY MOUTH EVERY DAY Comment on above: Take 15 mg by mouth once daily. rosuvastatin calcium 10 mg oral tablet (20 sources) HMG-CoA Reductase Inhibitor Sta rt: 3 End : 4 take 1 tablet by mouth at bedtime Rosuvastatin 10 mg tablet Active 10 mg PO AT BEDTIME 90 90 3 March 02, 2024 1:29pm Start: 03-16-2023 End: 03-30-2023 take 2 tablets by mouth once daily Rosuvastatin (Crestor) 5 mg tablet Discontinued 10 mg PO DAILY 60 0 March 16, 2023 4:30pm March 30, 2023 1:22pm Start: 01-06-2023 End: 03-16-2023 take 1 tablet by mouth once daily Rosuvastatin (Crestor) 5 mg tablet Discontinued 5 mg PO DAILY January 06, 2023 12:00am March 16, 2023 4:24pm Comment on above: Take by mouth. Completed/Discontinued Medications Medication Drug Class(es) Dates Sig (Normalized) Sig (Original) Cholecalciferol (1 source) Vitamin D Start: 01-20-2024 End: 07-21-2024 take 1 tablet by mouth every week Cholecalciferol (Vitamin D3) 1,250 mcg (50,000 unit) tablet Discontinued 1250 ug PO EVERY WEEK 4 28 2 January 20, 2024 12:00am July 21, 2024 8:40am naproxen 500 mg oral tablet (1 source) Nonsteroidal Anti-inflammatory Drug Start: 02-17-2021 End: 03-03-2021 take 1 tablet by mouth twice daily at mealtime naproxen (NAPROSYN) 500 mg tablet Take 1 tablet by mouth twice daily with meals for 14 days. Take with food. 28 tablet 02/17/2021 03/03/2021 Problems Problem Classification Problem Date Documented Date Episodic/Chronic Biliary tract disease (16 sources) Cholangiectasis; Translations: [Other specified diseases of biliary tract] Onset: 08-22-2023 10-30-2022 Chronic Diabetes mellitus without complication (1 source) Prediabetes; Translations: [Prediabetes] 01-20-2024 Episodic Disorders of lipid metabolism (1 source) Dyslipidemia; Translations: [Hyperlipidemia, unspecified] 01-20-2024 Chronic Immunizations and screening for infectious disease (8 sources) Patient encounter status; Translations: [Encounter for [...] Onset: 08-22-2023 10-30-2022 Chronic Other liver diseases (9 sources) Fatty (change of) liver, not elsewhere classified; Translations: [Other chronic nonalcoholic liver disease] Onset: 03-12-2024 10-30-2022 Chronic Other screening for suspected conditions (not mental disorders or infectious disease) (3 sources) Encounter for screening mammogram for malignant neoplasm of breast; Translations: [Encounter for screening for malignant neoplasm of colon] Onset: 08-31-2024 Episodic Unclassified (3 sources) Patient encounter status 08-31-2024 Results Test Name Value Interpretation Reference Range Facility Colonoscopy Reporton 025 Colonoscopy Report [facility] Medical Records Department [address] [place] [address] Colonoscopy Report MR#: [id number] Acct: [id number] Name: FRANCESMARTINA YENI Rep #: [id number] : 1965 59 From: Jose L Montana DO PCP: Dr. Nestor Santiago MD Status:[facility] Patient Name: Martina Patterson Procedure Date: 01/13/2025 7:55 AM Date of : 1965 Age: 59 Procedure: Colonoscopy Indications: Screening for colorectal malignant neoplasm Providers: Jose L Montana DO Referring MD: Dada Santiago Medicines: Monitored Anesthesia Care Patient Profile: This is a 59 year old female. Refer to note in patient chart for documentation of history and physical. Last Colonoscopy: none. The patient's first colonoscopy is today. Complications: No immediate complications. Procedure: Pre-Anesthesia Assessment: - Prior to the procedure, a History and Physical was performed, and patient medications and allergies were reviewed. The patient is competent. The risks and benefits of the procedure and the sedation options and risks were discussed with the patient. All questions were answered and informed consent was obtained. Patient identification and proposed procedure were verified by the physician in the pre-procedure area. Mental Status Examination: alert and oriented. Airway Examination: normal oropharyngeal airway and neck mobility. Respiratory Examination: clear to auscultation. CV Examination: normal. Prophylactic Antibiotics: The patient does not require prophylactic antibiotics. Prior Anticoagulants: The patient has taken no anticoagulant or antiplatelet agents. ASA Grade Assessment: II - A patient with mild systemic disease. After reviewing the risks and benefits, the patient was deemed in satisfactory condition to undergo the procedure. The anesthesia plan was to use monitored anesthesia care (MAC). Immediately prior to administration of medications, the patient was re-assessed for adequacy to receive sedatives. The heart rate, respiratory rate, oxygen saturations, blood pressure, adequacy of pulmonary ventilation, and response to care were monitored throughout the procedure. The physical status of the patient was re-assessed after the procedure. After I obtained informed consent, the scope was passed under direct vision. Throughout the procedure, the patient's blood pressure, pulse, and oxygen saturations were monitored continuously. The colonoscope was introduced through the anus and advanced to the cecum, identified by appendiceal orifice and ileocecal valve. The colonoscopy was performed without difficulty. The patient tolerated the procedure well. The quality of the bowel preparation was adequate. The ileocecal valve, appendiceal orifice, and rectum were photographed. Scope In: 8:07:51 AM Scope Withdrawal Time 0 hours 18 minutes 8 seconds Scope Out: 8:32:50 AM Total Procedure Duration Time 0 hours 24 minutes 59 seconds Findings: The perianal and digital rectal examinations were normal. Five sessile polyps were found in the sigmoid colon, hepatic flexure and cecum. The polyps were 1 to 2 mm in size. These polyps were removed with a hot snare. Resection and retrieval were complete. Verification of patient identification for the specimen was done. Area was tattooed with an injection of 1 mL of Kelsi ink. Impression: - Five 1 to 2 mm polyps in the sigmoid colon, at the hepatic flexure and in the cecum, removed with a hot snare. Resected and retrieved. Tattooed. Recommendation: - Repeat colonoscopy in 1 year for surveillance. - Continue present medications. Procedure Code(s): --- Professional --- 81117, Colonoscopy, flexible; with removal of tumor(s), polyp(s), or other lesion(s) by snare technique 06938, Colonoscopy, flexible; with directed submucosal injection(s), any substance CPT copyright 2021 [employer]. All rights reserved. The codes documented in this report are preliminary and upon surgical resident review may be revised to meet current compliance requirements. Jose L Montana DO 01/13/2025 8:39:17 AM This report has been signed electronically. Number of Addenda: 0 Note Initiated On: 01/13/2025 7:55 AM 01/13/25 0839 Date Jose L Mastersignlynsey Signature: Date (if indicated) CC: Dr. Nestor Santiago MD; Jose L Montana DO Date Dictated: 01/13/25 0755 Date Transcribed: Emergency Physician: ELGIN Signed [facility] MR/OP.Radha 01-13-2025 MR/OP.[facility] Medical Records Department [address] [place] [address] Provation Physician Letter MR#: [id number] Acct: [id number] Name: MARTINA PATTERSON Rep #: [id number] : 1965 59 From: Jose L Montana DO PCP: Dr. Nestor Santiago MD Status:[facility] 01/13/2025 Dada Santiago [address] [place] [address] Re : Colonoscopy procedure for Martina Patterson Dear Dr. Santiago This procedure was performed on Monday, January 13, 2025. My impressions and recommendations are as follows: Impressions : - Five 1 to 2 mm polyps in the sigmoid colon, at the hepatic flexure and in the cecum, removed with a hot snare. Resected and retrieved. Tattooed. Recommendations : - Repeat colonoscopy in 1 year for surveillance. - Continue present medications. My findings are described in the full procedure note, which is enclosed. If I can be of further assistance, please feel free to contact me at . Sincerely, Jose L Montana DO 01/13/2025 8:39:17 AM This report has been signed electronically. 01/13/2539 Date Jose L Montana DO Cosigner Signature: Date (if indicated) CC: Dr. Nestor Santiago MD; Jose L Montana DO Date Dictated: 01/13/25 0755 Date Transcribed: Emergency Physician: RF Signed [facility] MR/POSTOP.Christen 01-13-2025 MR/POSTOP.[facility] Medical Records Department [address] [place] [address] Anesthesia Postop Eval I 01/13/25 0842 MR#: [id number] Acct: [id number] Name: MARTINA PATTERSON Rep #: [id number] : 1965 59 From: Nathan Mcgrath PCP: Dr. Nestor Santiago MD Status:[facility] Y Race: C Location: [place] [address] Anesthesia: Postop Eval I Current Vital Signs Temperature: 96.4 F Pulse Rate: 64 Blood Pressure: 116/86 Respiratory Rate: 16 Pulse Ox: 99 Oxygen Delivery Method: Room Air Assessment Airway patent: Yes Spontaneous unlabored respirations: Yes Mental status: Awake and Calm nausea: No Vomiting: No Anesthesia Complication: No Fluid Hydration Crystalloid volume administer (ml): 600 Total IV fluid infused: 600 Progress Note Anesthesia document: Postop Eval 1 completed: Yes 01/13/25 0843 Date Nathan Lawtonignlynsey Signature: Date CC: Signed Normal [facility] MR/VIFAIFRF1el 01-13-2025 [facility] Medical Records Department [address] [place] [address] Anesthesia Postop Eval II 01/13/25 1421 MR#: [id number] Acct: [id number] Name: MARTINA PATTERSON Rep #: [id number] : 1965 59 From: Alina Mcneil CRNA PCP: Dr. Nestor Santiago MD [facility] Race: C Location: [place] Anesthesia Postop Eval I Sum Postop Eval Completion status Anesthesia document: Postop Eval 1 completed: Yes Anesthesia Postop Eval I Summary Anesthesia Postop Eval I Summary: Anesthesia Postop Eval I: Assessment Summary Airway patent Yes 01/13/25 08:43 [email or web address] Spontaneous unlabored Yes 01/13/25 08:43 [email or web address] respirations Mental status Awake,Calm 01/13/25 08:43 [email or web address] nausea No 01/13/25 08:43 [email or web address] Vomiting No 01/13/25 08:43 [email or web address] Anesthesia Postop Eval I: Fluid Summary Crystalloid volume administer 600 01/13/25 08:43 [email or web address] (ml) Colloids volume administered ( ml) Blood Product volume administered (ml) Total IV fluid infused 600 01/13/25 08:43 [email or web address] Anesthesia Postop Eval I: Summary Notes Anesthesia Complication No 01/13/25 08:43 [email or web address] Anesthesia Complication Comment: Post-operative progress note Anesthesia: Postop Eval II Evaluation Mental status: Awake and Calm Pain Level: 0 nausea: No Vomiting: No Complications Anesthesia Complication: No 01/13/25 1422 Date Alina Mcneil ALEX Coley Signature: Date CC: Signed Normal [facility] Surgery Specimen Level Temo 01-13-2025 Surgery Specimen Level IV Patient Age/Sex Location Account Attending Physician MARTINA PATTERSON 59/F EN [id number] Jose L Montana DO Specimen: [id number] Received: 01/13/25 Status: TROY Stein Num: [id number] Spec Type: COLON BX Subm Dr: DO LUÍS Riojas OPERATION: Colonoscopy, polypectomy PRE-OP DIAGNOSIS: Encounter for screening colonoscopy TISSUE SUBMITTED: A- Hepatic flexure polyps x2, B- Cecum polyp, C- Sigmoid polyp #1, D- Sigmoid polyp #2 MICROSCOPIC DIAGNOSIS A. Hepatic flexure, polyp, biopsy: - Tubular adenoma, multiple fragments. - Sessile serrated lesion, multiple fragments. B. Cecum, polyp, biopsy: - Sessile serrated lesion. C. Sigmoid colon, polyp, biopsy: - Hyperplastic polyp, pedunculated, with prolapse changes and misplaced epithelium. D. Sigmoid colon, polyp, biopsy: - Tubular adenoma. MICROSCOPIC DESCRIPTION Slides are reviewed. GROSS DESCRIPTION A. Received in fixative is one container labeled with the patient's name and designated Hepatic flexure polyp. The specimen consists of multiple irregular fragments of light reyez soft tissue that in aggregate measure 2.3 x 0.7 x 0.3 cm. The specimen is totally submitted in one cassette. B. Received in fixative is one container labeled with the patient's name and designated "Cecum polyp." The specimen consists of multiple irregular fragments of light reyez soft tissue that in aggregate measure 1 x 0.5 x 0.3 cm. The specimen is totally submitted in one cassette. C. Received in fixative is one container labeled with the patient's name and designated "Sigmoid polyp #1." The specimen consists of a 1.8 x 1.4 x 1.1 cm pink to red-purple, irregular and nodular polyp. The resection margin is inked black. The specimen is serially sectioned and entirely submitted in 2 cassettes. D. Received in fixative is one container labeled with the patient's name and designated "Sigmoid polyp #2." The specimen consists ofa 0.7 x 0.7 x 0.4 cm red and granular polypoid tissue fragment. The specimen is bisected and entirely submitted in 1 cassette. [place] 01/13/2025 [facility]:[id number] Patient Age/Sex Location Account Attending Physician MARTINA PATTERSON 59/F EN [id number] Jose L Montana, DO Signed (signature on file) Dr. Ethel Painting MD 01/17/25 4579 [facility] Comment on above: Performed By: #### P SUIV ####[facility] [address] [place], [address] CNOVon 08-31-2024 CNOV Office Visit (OBGYWM ) -------- TERIROMEOUZMAMARTINA MORTENSEN ([id number]) 1965 F Date Time Provider Department 08/31/24 8:40 AM BREANNA NG OBGYWM During your visit today, we recorded the following information about you: Blood pressure Weight Height 124/82 87.1 kg 1.702 m Breanna Ng MD 08/31/2024 9:10 AM Signed Martina is a 59 year old who presents for an annual gynecologic exam without any mail room c/o. . Postmenopausal: yes, s/p hyst HRT [...] discussed with the Patient or Patient's Authorized Wheel Truer. As applicable, any other physician, advance practice provider, medical student, or other health professional student that will be observing or involved in the sensitive examination for educational or training purposes was discussed with the Patient or Authorized Wheel Truer. The Patient or Authorized Wheel Truer has agreed to proceed with the sensitive examination. (Sensitive examination includes inspection and/or palpation of the breasts, pelvis, prostate and anorectal regions). EXAM: BP 124/82 Ht 5' 7" (1.70m) Wt 192 lb (87.1kg) BMI 30.06 [...] external genitalia normal, normal Bartholin's glands, urethra, [place]'s glands, no vulvar lesions, good vaginal support, [...] Breanna Ng MD Referring Provider: BREANNA NG [[id number]] Allergies As of Date: 08/31/2024 (No Known Allergies) Date Reviewed: 08/31/2024 Reviewed by: Breanna Ng MD - Fully Assessed Reason for Visit: Yearly Exam [187] Primary Visit Diagnosis:Encounter for gynecological examination (general) (routine) without abnormal findings [Z01.419] Other Visit Diagnosis:Encounter for screening mammogram for breast cancer [Z12.31] Order(s):SARAH SCREENING W AME [8573272] Order #: [id number] FUTURE SARAH SCREENING W AME [[id number]] Order #: [id number] FUTURE Prescriptions as of 08/31/2024 - methylPREDNISolone [...] Annual Exam (more content not included)... Normal [facility] SARAH SCREENING W TOMOon 08-31 SARAH SCREENING W AME * * *Final Report* * * DATE OF EXAM: Aug 31 2024 12:56PM [place] 0582 - SARAH SCREENING W AME / PROCEDURE REASON: Encounter for screening mammogram for breast cancer * * * * Physician Interpretation * * * * RESULT: [facility] [place] [id number] #[id number] - SARAH SCREENING W AME HISTORY: 59 [...] Julisa Oropeza M.D. Electronically signed on: 09/01/2024 Emergency Physician: MARTHA Transcribe Date/Time: Aug 31 2024 11:44A Dictated by: JULISA OROPEZA MD This examination was interpreted and the report reviewed and electronically signed by: JULISA OROPEZA MD on Sep 01 2024 1:30PM EST [id number] Normal [facility] Gastroenterology Visit Repor ton 07-21-2024 Gastroenterology Visit Report [facility] Gastroenterology [address] [place] [address] OFFICE VISIT Date of Service: 07/21/24 MR#: [id number] Acct: [id number] Name: MARTINA PATTERSON Rep #: [id number] : 1965 Provider: Dr. 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 Takes 800mg ibuprofen/day. HLD noted Biochemical 3..23 CBC, CMP, LFT, GGT, TSH, hepatitis screen without pertinent abnormality. 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 FIB4 0.8 US RUQ and elastography 3.. hepatic measurement 19.2cm with fatty infiltration, stiffness 12.2kPa; 3 small gallbladder polyps, largest [id number]; CBD 6.1mm *BGI established 6.. ibuprofen 800mg is taken once a daily and is not every day but frequently. Biochemical CBC, ESR, coag, CMP, LFT, LDH, ceruloplasmin, haptoglobin, ferritin, A1c, USMAN, copper, AFP GAME, IgG subclasses, LONNIE, ASM, AMA, ANCA, HIV, hepatitis without pertinent abnormality. 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 OV 11..23 Pt reports intermittent abdominal pain. Feels its [...] lbs sin (more content not included)... Normal [facility] CBC W/Diff, Automatedon 10-1 Absolute Lymph 2.70 X10 3/uL Normal 0.83-4.51 [facility] Comment on above: Performed By: #### L 501.6710, L501.9985, L100.0100, L300.3900, L500.4050, L500.4100 #### [facility] [address] [place], [address] Absolute Neut 3.4 X10 3/uL Normal 2.0-7.7 [facility] Comment on above: Performed By: #### L 501.6710, L501.9985, L100.0100, L300.3900, L500.4050, L500.4100 #### [facility] [address] [place], [address] Basophils/100 WBC (Bld) 0.4 % Normal 0-1 [facility] Comment on above: Performed By: #### L 501.6710, L501.9985, L100.0100, L300.3900, L500.4050, L500.4100 #### [facility] [address] [place], [address] Eosinophils/100 WBC (Bld) 3.4 % Normal 0-5 [facility] Comment on above: Performed By: #### L 501.6710, L501.9985, L100.0100, L300.3900, L500.4050, L500.4100 #### [facility] [address] [place], [address] Erythrocyte distribution width (RBC) [Ratio] 13.1 % Normal 11.6-14.6 [facility] Comment on above: Performed By: #### L 501.6710, L501.9985, L100.0100, L300.3900, L500.4050, L500.4100 #### [facility] [address] [place], [address] Hematocrit (Bld) [Volume fraction] 37.8 % Normal 37-47 [facility] Comment on above: Performed By: #### L 501.6710, L501.9985, L100.0100, L300.3900, L500.4050, L500.4100 #### [facility] [address] [place], [address] Hemoglobin (Bld) [Mass/Vol] 12.6 g/dL Normal 12.0-15.0 [facility] Comment on above: Performed By: #### L 501.6710, L501.9985, L100.0100, L300.3900, L500.4050, L500.4100 #### [facility] [address] [place], [address] IG% 0.300 Normal 0.0-0.9 [facility] Comment on above: Result Comment: IG% - Immature Granulocytes (promyelocytes, myelocytes and metamyelocytes) > 1% indicates that a LEFT SHIFT is Present. Performed By: #### L 501.6710, L501.9985, L100.0100, L300.3900, L500.4050, L500.4100 #### [facility] [address] [place], [address] Lymphocytes/100 WBC (Bld) 39.9 % Normal 19-41 [facility] Comment on above: Performed By: #### L 501.6710, L501.9985, L100.0100, L300.3900, L500.4050, L500.4100 #### [facility] [address] [place], [address] MCH (RBC) [Entitic mass] 31.8 pg Normal 27.0-32.0 [facility] Comment on above: Performed By: #### L 501.6710, L501.9985, L100.0100, L300.3900, L500.4050, L500.4100 #### [facility] [address] [place], [address] MCHC (RBC) [Mass/Vol] 33.3 g/dL Normal 32-36 [facility] Comment on above: Performed By: #### L 501.6710, L501.9985, L100.0100, L300.3900, L500.4050, L500.4100 #### [facility] [address] [place], [address] MCV (RBC) [Entitic vol] 95.5 fL Normal 81-99 [facility] Comment on above: Performed By: #### L 501.6710, L501.9985, L100.0100, L300.3900, L500.4050, L500.4100 #### [facility] [address] [place], [address] Monocytes/100 WBC (Bld) 6.1 % Normal 0-10 [facility] Comment on above: Performed By: #### L 501.6710, L501.9985, L100.0100, L300.3900, L500.4050, L500.4100 #### [facility] [address] [place], [address] Neutrophils/100 WBC (Bld) 49.9 % Normal 47-70 [facility] Comment on above: Performed By: #### L 501.6710, L501.9985, L100.0100, L300.3900, L500.4050, L500.4100 #### [facility] [address] [place], [address] Nucleated RBC (Bld) [#/Vol] 0 10*3/uL Normal 0-5 [facility] Comment on above: Performed By: #### L 501.6710, L501.9985, L100.0100, L300.3900, L500.4050, L500.4100 #### [facility] [address] [place], [address] Platelet mean volume (Bld) [Entitic vol] 9.1 fL Normal 6.2-12.0 [facility] Comment on above: Performed By: #### L 501.6710, L501.9985, L100.0100, L300.3900, L500.4050, L500.4100 #### [facility] [address] [place], [address] Platelets (Bld) [#/Vol] 266 10*3/uL Normal 150-450 [facility] Comment on above: Performed By: #### L 501.6710, L501.9985, L100.0100, L300.3900, L500.4050, L500.4100 #### [facility] [address] [place], [address] RBC (Bld) [#/Vol] 3.96 10*6/uL Low 4.2-5.4 [facility] Comment on above: Performed By: #### L 501.6710, L501.9985, L100.0100, L300.3900, L500.4050, L500.4100 #### [facility] [address] [place], [address] RDW SD 46.4 fl High 35.1-43.9 [facility] Comment on above: Performed By: #### L 501.6710, L501.9985, L100.0100, L300.3900, L500.4050, L500.4100 #### [facility] [address] [place], [address] WBC (Bld) [#/Vol] 6.8 10*3/uL Normal 4.4-11.0 [facility] Comment on above: Performed By: #### L 501.6710, L501.9985, L100.0100, L300.3900, L500.4050, L500.4100 #### [facility] [address] [place], [address] CRPon 02-24-2024 C-REACTIVE PROT < 2.90 Normal 0.0-3.0 [facility] Comment on above: Result Comment: C-Re active Protein (CRP) provides useful information for the diagnosis, therapy and monitoring of inflammatory processes and associated diseases. For the evaluation of Relative Risk for Cardiovascular Disease, a High Sensitivity CRP (HSCRP) should be ordered. Performed By: #### L 501.6710, L501.9985, L100.0100, L300.3900, L500.4050, L500.4100 #### [facility] [address] [place], [address] Comprehensive Metabolic Prof ilon 02-24-2024 Albumin [Mass/Vol] 3.7 g/dL Normal 3.2-5.0 [facility] Comment on above: Performed By: #### L 501.6710, L501.9985, L100.0100, L300.3900, L500.4050, L500.4100 #### [facility] [address] [place], [address] Albumin/Globulin [Mass ratio] 1.1 {ratio} Normal 0.9-2.4 [facility] Comment on above: Performed By: #### L 501.6710, L501.9985, L100.0100, L300.3900, L500.4050, L500.4100 #### [facility] [address] [place], [address] ALK P 85 U/L Normal 45-117 [facility] Comment on above: Performed By: #### L 501.6710, L501.9985, L100.0100, L300.3900, L500.4050, L500.4100 #### [facility] [address] [place], [address] ALT [Catalytic activity/Vol] 27 U/L Normal 13-56 [facility] Comment on above: Performed By: #### L 501.6710, L501.9985, L100.0100, L300.3900, L500.4050, L500.4100 #### [facility] [address] [place], [address] AST [Catalytic activity/Vol] 17 U/L Normal 15-37 [facility] Comment on above: Performed By: #### L 501.6710, L501.9985, L100.0100, L300.3900, L500.4050, L500.4100 #### [facility] [address] [place], [address] Bilirubin [Mass/Vol] 0.30 mg/dL Normal 0.20-1.00 [facility] Comment on above: Result Comment: For patients on eltrombopag therapy, use of Dimension [place] TBIL is not recommended. Performed By: #### L 501.6710, L501.9985, L100.0100, L300.3900, L500.4050, L500.4100 #### [facility] [address] [place], [address] BUN/CRE 28.2 RATIO High 10-20 [facility] Comment on above: Performed By: #### L 501.6710, L501.9985, L100.0100, L300.3900, L500.4050, L500.4100 #### [facility] [address] [place], [address] CA,Total 9.5 mg/dL Normal 8.5-10.1 [facility] Comment on above: Performed By: #### L 501.6710, L501.9985, L100.0100, L300.3900, L500.4050, L500.4100 #### [facility] [address] [place], [address] Chloride [Moles/Vol] 104 mmol/L Normal 98-107 [facility] Comment on above: Performed By: #### L 501.6710, L501.9985, L100.0100, L300.3900, L500.4050, L500.4100 #### [facility] [address] [place], [address] CO2 [Moles/Vol] 25.0 mmol/L Normal 21.0-32.0 [facility] Comment on above: Performed By: #### L 501.6710, L501.9985, L100.0100, L300.3900, L500.4050, L500.4100 #### [facility] [address] [place], [address] Creatinine [Mass/Vol] 0.53 mg/dL Low 0.55-1.02 [facility] Comment on above: Result Comment: The validity of the calculated GFR GFRAA in patients over 70 years has not been determined. Clinical correlation is essential. Performed By: #### L 501.6710, L501.9985, L100.0100, L300.3900, L500.4050, L500.4100 #### [facility] [address] [place], [address] EST GFR - AA 151 mL/min Normal >60 [facility] Comment on above: Result Comment: Afri can [place] GFR Calc Performed By: #### L 501.6710, L501.9985, L100.0100, L300.3900, L500.4050, L500.4100 #### [facility] [address] [place], [address] GAP 7 Normal 5-15 [facility] Comment on above: Performed By: #### L 501.6710, L501.9985, L100.0100, L300.3900, L500.4050, L500.4100 #### [facility] [address] [place], [address] GFR/1.73 sq M.predicted among non-blacks MDRD (S/P/Bld) [Vol rate/Area] 125 mL/min/{1.73_m2} Normal >60 [facility] Comment on above: Result Comment: Non- GFR Calc Performed By: #### L 501.6710, L501.9985, L100.0100, L300.3900, L500.4050, L500.4100 #### [facility] [address] [place], [address] Globulin (S) [Mass/Vol] 3.4 g/dL Normal 2.2-4.2 [facility] Comment on above: Performed By: #### L 501.6710, L501.9985, L100.0100, L300.3900, L500.4050, L500.4100 #### [facility] [address] [place], [address] Glucose [Mass/Vol] 96 mg/dL Normal 74-106 [facility] Comment on above: Performed By: #### L 501.6710, L501.9985, L100.0100, L300.3900, L500.4050, L500.4100 #### [facility] [address] [place], [address] Potassium [Moles/Vol] 3.8 mmol/L Normal 3.5-5.1 [facility] Comment on above: Performed By: #### L 501.6710, L501.9985, L100.0100, L300.3900, L500.4050, L500.4100 #### [facility] [address] [place], [address] Sodium [Moles/Vol] 136 mmol/L Normal 136-145 [facility] Comment on above: Performed By: #### L 501.6710, L501.9985, L100.0100, L300.3900, L500.4050, L500.4100 #### [facility] [address] [place], [address] T PROT 7.1 g/dL Normal 6.4-8.2 [facility] Comment on above: Performed By: #### L 501.6710, L501.9985, L100.0100, L300.3900, L500.4050, L500.4100 #### [facility] [address] [place], [address] Urea nitrogen [Mass/Vol] 15 mg/dL Normal 7-18 [facility] Comment on above: Performed By: #### L 501.6710, L501.9985, L100.0100, L300.3900, L500.4050, L500.4100 #### [facility] [address] [place], [address] Hemoglobin A1con 02-24-2024 HbA1c (Bld) [Mass fraction] 5.6 % Normal 3.8-5.6 [facility] Comment on above: Result Comment: Norm al < 5.7 % Prediabetic 5.7 - 6.4 % Diabetic >or= 6.5 % Please note range changes. Performed By: #### L 501.6710, L501.9985, L100.0100, L300.3900, L500.4050, L500.4100 #### [facility] [address] [place], [address] Lipid Profileon 02-24-2024 Cholesterol [Mass/Vol] 153 mg/dL Normal 200 [facility] Comment on above: Result Comment: <200 mg/dL Desirable 200-240 mg/dL Borderline >240 mg/dL High Risk Performed By: #### L 501.6710, L501.9985, L100.0100, L300.3900, L500.4050, L500.4100 #### [facility] [address] [place], [address] Cholesterol in HDL [Mass/Vol] 63 mg/dL Normal [facility] Comment on above: Result Comment: The drugs N-Acetylcysteine and Metamizole may falsely depress this assay. Reference Range HDL <40 mg/dL Low HDL Cholesterol HDL >or= 60 mg/dL High HDL Cholesterol Performed By: #### L 501.6710, L501.9985, L100.0100, L300.3900, L500.4050, L500.4100 #### [facility] [address] [place], [address] Cholesterol in LDL [Mass/Vol] 66 mg/dL Normal 0-130 [facility] Comment on above: Performed By: #### L 501.6710, L501.9985, L100.0100, L300.3900, L500.4050, L500.4100 #### [facility] [address] [place], [address] Cholesterol in VLDL [Mass/Vol] 24 mg/dL Normal 5-40 [facility] Comment on above: Performed By: #### L 501.6710, L501.9985, L100.0100, L300.3900, L500.4050, L500.4100 #### [facility] [address] [place], [address] Triglyceride [Mass/Vol] 119 mg/dL Normal [facility] Comment on above: Result Comment: The drugs N-Acetylcysteine and Metamizole may falsely depress this assay. Serum Triglycerides Reference Interval Normal <150 mg/dL Borderline high 150 - 199 mg/dL High 200 - 499 mg/dL Very High > or = 500 mg/dL Performed By: #### L 501.6710, L501.9985, L100.0100, L300.3900, L500.4050, L500.4100 #### [facility] [address] [place], [address] Prothrombin Time w/INRon INR Coag (PPP) [Relative time] 0.9 {INR} Normal [facility] Comment on above: Performed By: #### L 501.6710, L501.9985, L100.0100, L300.3900, L500.4050, L500.4100 #### [facility] [address] [place], [address] PT Coag (PPP) [Time] 12.2 s Normal 11.7-14.9 [facility] Comment on above: Performed By: #### L 501.6710, L501.9985, L100.0100, L300.3900, L500.4050, L500.4100 #### [facility] [address] [place], [address] ABD Limited w/ Elastographyo n 02-10-2024 ABD Limited w/ Elastography [facility] Imaging Services [address] [place] [address] ABD Limited w/ Elastography MR#: [id number] Acct: [id number] Name: MARTINA APTTERSON Rep #: [id number] : 1965 F 58 From: Babar dyson MD PCP: Dr. Nestor Santiago MD Status: [facility] Study: ABD Limited w/ Elastography Date of Exam: 07/04 Exam# [id number] Ordering Dr: Oscar Friedman MD [id number] STUDY: ABDOMINAL ULTRASOUND - RIGHT UPPER QUADRANT; ELASTOGRAPHY REASON FOR VISIT: Female, 58 years old. Liver fibrosis. TECHNIQUE: Ultrasound evaluation of the right upper quadrant was performed with real-time and static bee-scale imaging. Point quantification shear wave elastography was performed (Floor64). TECHNICAL QUALITY: Adequate. COMPARISON: Comparison is made [...] Nestor Santiago MD; Dr. Oscar Friedman MD Emergency Physician: Signed Normal [facility] Absolute lymphocyte countOrd ered By: Oscar Friedman on 08-22-2023 Lymphocytes Auto (Unsp spec) [#/Vol] 1.92 10*3/uL 0.83-4.51 [facility] Automated lymphocyte count a s percentage of total leukocytesOrdered By: Oscar Friedman on 08-22-2023 Lymphocytes/100 WBC Auto (Unsp spec) 30.4 % 19-41 [facility] Basophil percentageOrdered B y: Oscar Friedman on 08-22-2023 Basophils/100 WBC (Bld) 0.5 % 0-1 [facility] Bilirubin [Mass/Vol] 0.40 mg/dL 0.20-1.00 [facility] Comment on above: For patients on eltr ombopag therapy, use of Dimension [place] TBIL is not recommended. Chloride [Moles/Vol] 109 mmol/L 98-107 [facility] Cholesterol [Mass/Vol] 135 mg/dL <200 [facility] Comment on above: <200 mg/dL Desirable 200-240 mg/dL Borderline >240 mg/dL High Risk Eosinophils/100 WBC (Bld) 2.4 % 0-5 [facility] Glucose [Mass/Vol] 99 mg/dL 74-106 [facility] Hemoglobin (Bld) [Mass/Vol] 13.6 g/dL 12.0-15.0 [facility] Monocytes/100 WBC (Bld) 5.7 % 0-10 [facility] Neutrophils (Bld) [#/Vol] 3.8 10*3/uL 2.0-7.7 [facility] Neutrophils/100 WBC (Bld) 60.7 % 47-70 [facility] Potassium [Moles/Vol] 4.2 mmol/L 3.5-5.1 [facility] Protein [Mass/Vol] 7.0 g/dL 6.4-8.2 [facility] Sodium [Moles/Vol] 139 mmol/L 136-145 [facility] Triglyceride [Mass/Vol] 58 mg/dL <199 [facility] Comment on above: The drugs N-Acetylcy steine and Metamizole may falsely depress this assay.Serum Triglycerides Reference Interval Normal <150 mg/dL Borderline high 150 - 199 mg/dL High 200 - 499 mg/dL Very High > or = 500 mg/dL WBC (Bld) [#/Vol] 6.3 10*3/uL 4.4-11.0 [facility] Determination of erythrocyte mean corpuscular volume (MCV)Ordered By: Oscar Friedman on 08-22-2023 MCV (RBC) [Entitic vol] 96.2 fL 81-99 [facility] Erythrocyte distribution wid th ratioOrdered By: Oscar Friedman on 08-22-2023 Erythrocyte distribution width (RBC) [Ratio] 12.6 % 11.6-14.6 [facility] Erythrocyte distribution wid th standard deviationOrdered By: Oscar Friedman on 08-22-2023 Erythrocyte distribution width (RBC) [Entitic vol] 44.9 fL 35.1-43.9 [facility] Hematocrit Auto (Bld) [Volum e fraction]Ordered By: Oscar Friedman on 08-22-2023 Hematocrit (Bld) [Volume fraction] 42.6 % 37-47 [facility] Immature granulocytes/100 WB C Auto (Bld)Ordered By: Oscar Friedman on 08-22-2023 Immature granulocytes/100 WBC (Bld) 0.300 % 0.0-0.9 [facility] Comment on above: IG% - Immature Granu locytes (promyelocytes, myelocytes and metamyelocytes) > 1% indicates that a LEFT SHIFT is Present. Laboratory - Chemistry and C hemistry - challengeOrdered By: Oscar Friedman on 08-22-2023 Albumin/Globulin [Mass ratio] 1.1 {ratio} 0.9-2.4 [facility] ALP [Catalytic activity/Vol] 64 U/L 45-117 [facility] ALT [Catalytic activity/Vol] 25 U/L 13-56 [facility] Cholesterol in HDL [Mass/Vol] 58 mg/dL >40 [facility] Comment on above: The drugs N-Acetylcy steine and Metamizole may falsely depress this assay. Reference Range HDL <40 mg/dL Low HDL Cholesterol HDL >or= 60 mg/dL High HDL Cholesterol Cholesterol in LDL [Mass/Vol] 65 mg/dL 0-130 [facility] CO2 [Moles/Vol] 27.0 mmol/L 21.0-32.0 [facility] Globulin (S) [Mass/Vol] 3.3 g/dL 2.2-4.2 [facility] Urea nitrogen/Creatinine [Mass ratio] 23.7 mg/mg 10-20 [facility] - CoagulationOrde red By: Oscar Friedman on 08-22-2023 INR Coag (Bld) [Relative time] 1.0 {INR} [facility] PT Coag (PPP) [Time] 12.8 s 11.7-14.9 [facility] - Hematology and Cell countsOrdered By: Oscar Friedman on 08-22-2023 MCH (RBC) [Entitic mass] 30.7 pg 27.0-32.0 [facility] MCHC (RBC) [Mass/Vol] 31.9 g/dL 32-36 [facility] Nucleated RBC/100 WBC (Bld) [Ratio] 0 % 0-5 [facility] Platelet mean volume (Bld) [Entitic vol] 9.3 fL 6.2-12.0 [facility] Platelets (Bld) [#/Vol] 283 10*3/uL 150-450 [facility] No Panel InformationOrdered By: Oscar Friedman on 08-22-2023 C-Reactive Protein Extended Range < 2.90 mg/L 0.0-3.0 [facility] Comment on above: C-Reactive Protein ( CRP) provides useful information for thediagnosis, therapy and monitoring of inflammatory processesand associated diseases. For the evaluation of Relative Riskfor Cardiovascular Disease, a High Sensitivity CRP (HSCRP)should be ordered. Estimated GFR (MDRD) Amer 134 mL/min >60 [facility] Comment on above: GFR Calc Estimated GFR (MDRD) Non-Af Amer 111 mL/min >60 [facility] Comment on above: Non- GFR Calc Tumor Marker Alpha Fetoprotein 2.4 ng/mL 0.0-9.2 [facility] Comment on above: [facility] El ectrochemiluminescence Immunoassay(ECLIA)Values obtained with different assay methods or kits cannotbe used interchangeably. Results cannot be interpreted asabsolute evidence of the presence or absence of malignantdisease.This test is not interpretable in females.Performed at: [facility] [id number] Director: Jac Osborn PhD, Phone: [phone] Vitamin D 25-Hydroxy 31.6 ng/mL [facility] Comment on above: Vitamin D 25(OH) Sta tus Range Deficiency <20 ng/mL (50nmol/L) Insufficiency 20 - 30 ng/mL (50 - 75 nmol/L) Sufficiency 30 - 100 ng/mL (75 - 250 nmol/L) Toxicity >100 ng/mL (>250 nmol/L) VLDL Cholesterol 12 mg/dL 5-40 [facility] RBC Auto (Bld) [#/Vol]Ordere d By: Oscar Friedman on 08-22-2023 RBC (Bld) [#/Vol] 4.43 10*6/uL 4.2-5.4 [facility] Serum or plasma calcium katty urement (mass/volume)Ordered By: Oscar Friedman on 08-22-2023 Calcium [Mass/Vol] 9.1 mg/dL 8.5-10.1 [facility] Serum or plasma creatinine m easurement (mass/volume)Ordered By: Oscar Friedman on 08-22-2023 Creatinine [Mass/Vol] 0.59 mg/dL 0.55-1.02 [facility] Comment on above: The validity of the calculated GFR & GFRAA in patients over 70 years has not been determined. Clinical correlation is essential. Serum or plasma urea nitroge n measurement (mass/volume)Ordered By: Oscar Friedman on 08-22-2023 Urea nitrogen [Mass/Vol] 14 mg/dL 7-18 [facility] Thin prep Papanicolaou smear with manual screeningOrdered By: Oscar Friedman on 08-22-2023 Thin prep Papanicolaou smear with manual screening 3.7 g/dL 3.2-5.0 [facility] Thin prep Papanicolaou smear with manual screening 14 U/L 15-37 [facility] Thin prep Papanicolaou smear with manual screening 3 5-15 [facility] Whole blood hemoglobin A1c/t otal hemoglobin ratio (mass fraction)Ordered By: Oscar Friedman on 08-22-2023 HbA1c (Bld) [Mass fraction] 5.7 % 3.8-5.6 [facility] Comment on above: Normal < 5.7 % Predi abetic 5.7 - 6.4 % Diabetic >or= 6.5 % Please note range changes. Basophil percentageOrdered B y: Alfa Shepherd on 06-23-2023 Basophil percentage TNP [facility] Comment on above: Test not performed HIV 1 and HIV-2 antibody ass ay with HIV-1 p24 antigen detectionOrdered By: Alfa Shepherd on 06-23-2023 HIV 1+2 Ab+HIV1 p24 Ag IA Ql Non-Reactive Nonreactive [facility] No Panel InformationOrdered By: Alfa Shepherd on 06-23-2023 Addendum Document Comment . [facility] Comment on above: The quantitative ran ge of this assay is 15 IU/mL to 100million IU/mL. Hepatitis A Antibody Total Positive Negative [facility] Comment on above: Comment: The HAV tot [...] HAVtotal antibody results to IgM (e.g., panel #[id number] HAVAntibody w/ Rfx).Performed at: [address] [id number] Director: Jac Osborn PhD, Phone: [phone] at: [address] [id number] Director: Arina Ambrocio MD, Phone: [phone] Hepatitis A IgM Antibody Negative Negative [facility] Hepatitis B Core IgM Antibody Negative Negative [facility] Hepatitis C Antibody (EIA) Non-Reactive Non Reactive [facility] Hepatitis C Antibody Comment Comment . [facility] Comment on above: Not infected with HC V unless early or acute infection issuspected (which may be delayed in an immunocompromisedindividual), or other evidence exists to indicate HCVinfection. Miscellaneous Test See comment [facility] Comment on above: TEST RESULTS LIMITSH BV Real-Time PCR, Quant HBV IU/mL HBV DNA not detected IU/mL log10 HBV IU/mL Unable to calculate result since non-numeric result obtained for component test. Test Information: The reportable range for this assay is 10 IU/mL to 1 billion IU/mL. TESTING PERFORMED AT [facility]. ORIGINAL REPORT ON FILE IN LAB CONTAINS ADDITIONAL TEST SITE INFORMATION. Serum hepatitis B virus surf usman antibody IgG detectionOrdered By: Alfa Shepherd on 06-23-2023 HBV surface IgG Ql (S) Reactive [facility] Comment on above: Non Reactive: Incons istent with immunity less than <10 mIU/mL Reactive: Consistent with immunity greater than or equal to 10 mIU/mL Serum or plasma hepatitis B virus surface antigen detection by immunoassayOrdered By: Alfa Shepherd on 06-23-2023 HBV surface Ag IA Ql Negative Negative [facility] Serum or plasma hepatitis C virus RNA measurement by probe and target amplification mOrdered By: Alfa Shepherd on 06-23-2023 HCV RNA MARCELA+probe Qn Not detected . [facility] Glucose Glucometer (BldC) [M ass/Vol]Ordered By: Jose L Montana on 01-08-2023 Glucose [Mass/Vol] 92 mg/dL 74-106 [facility] Comment on above: MANAGEMENT OF PATIEN T CARE PER NURSING PROTOCOL No Panel InformationOrdered By: Jose L Montana on 12-02-2022 CA 19-9 Antigen 6 U/mL 0-35 [facility] Comment on above: [facility] El ectrochemiluminescence Immunoassay(ECLIA)Values obtained with different assay methods or kits cannotbe used interchangeably. Results cannot be interpreted asabsolute evidence of the presence or absence of malignantdisease.Performed at: [address] [id number] Director: Jac Osborn PhD, Phone: [phone] Serum or plasma carcinoembry onic antigen measurement (mass/volume)Ordered By: Jose L Montana on 12-02-2022 Carcinoembryonic Ag [Mass/Vol] 1.5 ng/mL 0.0-4.7 [facility] Comment on above: Nonsmokers <3.9 Smok ers <5.6[facility] Electrochemiluminescence Immunoassay(ECLIA)Values obtained with different assay methods or kitscannot be used interchangeably. Results cannot beinterpreted as absolute evidence of the presence orabsence of malignant disease. Albumin Elph [Mass/Vol]Order ed By: Jose L Montana on 11-20-2022 Albumin [Mass/Vol] 4.1 g/dL 2.9-4.4 [facility] Interpretation of serum or p lasma protein pattern by immunofixation (narrative resultOrdered By: Jose L Montaan on 11-20-2022 Protein Fractions Immunofixation Pratik [Interp] See comment [facility] Comment on above: NOT OBSERVED No Panel InformationOrdered By: Jose L Montana on 11-20-2022 Addendum Document Comment . [facility] Comment on above: Protein electrophore sis scan will follow via computer,mail, or atv mechanic delivery. Ceruloplasmin 26.5 mg/dL 19.0-39.0 [facility] Immunoglobulin G4 23 mg/dL 2-96 [facility] Miscellaneous Test See comment [facility] Comment on above: TEST RESULT LIMITSAl [id number] Phenotyp [id number], Serum 132 mg/dL 101-187 Phenotype (PI) MM [...] used to confirm phenotype. TESTING PERFORMED AT [facility]. ORIGINAL REPORT ON FILE IN LAB CONTAINS ADDITIONAL TEST SITE INFORMATION. Serum IgG subclass 1 measure ment (mass/volume)Ordered By: Jose L Montana on 11-20-2022 IgG subclass 1 (S) [Mass/Vol] 376 mg/dL 248-810 [facility] Serum IgG subclass 2 measure ment (mass/volume)Ordered By: Jose L Montana on 11-20-2022 IgG subclass 2 (S) [Mass/Vol] 346 mg/dL 130-555 [facility] Serum IgG subclass 3 measure ment (mass/volume)Ordered By: Jose L Montana on 11-20-2022 IgG subclass 3 (S) [Mass/Vol] 26 mg/dL 15-102 [facility] Serum [id number] measu rement by electrophoresisOrdered By: Jose L Montana on 11-20-2022 Alpha 1 globulin Elph [Mass/Vol] 0.2 g/dL 0.0-0.4 [facility] Alpha 1 globulin Elph [Mass/Vol] 0.9 g/dL 0.4-1.0 [facility] Serum globulin measurement ( mass/volume)Ordered By: Jose L Montana on 11-20-2022 Globulin (S) [Mass/Vol] 2.9 g/dL 2.2-3.9 [facility] Serum or plasma IgA measurem ent (mass/volume)Ordered By: Jose L Montana on 11-20-2022 IgA [Mass/Vol] 108 mg/dL 87-352 [facility] Serum or plasma IgG measurem ent (mass/volume)Ordered By: Jose L Montana on 11-20-2022 IgG [Mass/Vol] 825 mg/dL [phone] [facility] IgG [Mass/Vol] Not Reportable [facility] Serum or plasma IgM measurem ent (mass/volume)Ordered By: Jose L Montana on 11-20-2022 IgM [Mass/Vol] 140 mg/dL 26-217 [facility] Serum or plasma beta globuli n measurement by electrophoresis (mass/volume)Ordered By: Jose L Montana on 11-20-2022 Beta globulin Elph [Mass/Vol] 1.0 g/dL 0.7-1.3 [facility] Serum or plasma gamma globul in measurement by electrophoresis (mass/volume)Ordered By: Jose L Montana on 11-20-2022 Gamma globulin Elph [Mass/Vol] 0.8 g/dL 0.4-1.8 [facility] Serum or plasma immunoelectr ophoresis interpretation (nominal result)Ordered By: Jose L Montana on 11-20-2022 Interpretation IEP [Interp] Comment . [facility] Comment on above: No monoclonality det ected. Thin prep Papanicolaou smear with manual screeningOrdered By: Jose L Montana on 11-20-2022 Thin prep Papanicolaou smear with manual screening 1.5 0.7-1.7 [facility] Thin prep Papanicolaou smear with manual screening 106 ug/dL 80-158 [facility] Comment on above: Detection Limit = 5P erformed at: [employer] [address] [id number] Director: Jac Osborn PhD, Phone: [phone] at: [employer] [facility] [address] [id number] Director: Arina Ambrocio MD, Phone: [phone] Total protein bloodOrdered B y: Jose L Montana on 11-20-2022 Protein [Mass/Vol] 7.0 g/dL 6.0-8.5 [facility] Absolute lymphocyte countOrd ered By: Jose L Montana on 10-30-2022 Lymphocytes Auto (Unsp spec) [#/Vol] 1.72 10*3/uL 0.83-4.51 [facility] Atypical perinuclear antineu trophil cytoplasmic antibodies measurementOrdered By: Jose L Montana on 10-30-2022 Neutrophil cytoplasmic Ab.perinuclear.atypical IF (S) [Titer] <1:20 titer Neg:<1:20 [facility] Comment on above: Serum is slightly li pemic.The atypical pANCA pattern has been observed in asignificant percentage of patients with ulcerative colitis,primary sclerosing cholangitis and autoimmune hepatitis. Basophil percentageOrdered B y: Jose L Montana on 10-30-2022 Ammonia (P) [Moles/Vol] 44.0 umol/L 11-32 [facility] Basophil percentage < 0.2 AI 0.0-0.9 [facility] Basophils/100 WBC (Bld) 0.4 % 0-1 [facility] Bilirubin [Mass/Vol] 0.40 mg/dL 0.20-1.00 [facility] Comment on above: For patients on eltr ombopag therapy, use of Dimension [place] TBIL is not recommended. Chloride [Moles/Vol] 104 mmol/L 98-107 [facility] Eosinophils/100 WBC (Bld) 2.3 % 0-5 [facility] Glucose [Mass/Vol] 110 mg/dL 74-106 [facility] Comment on above: Fasting Glucose resu lt from 100 to 125 mg/dL suggests IMPAIRED HOMEOSTASIS per A.D.A. criteria. LDH [Catalytic activity/Vol] 182 U/L 84-246 [facility] Neutrophils (Bld) [#/Vol] 4.6 10*3/uL 2.0-7.7 [facility] Neutrophils/100 WBC (Bld) 66.2 % 47-70 [facility] Potassium [Moles/Vol] 3.9 mmol/L 3.5-5.1 [facility] Protein [Mass/Vol] 7.3 g/dL 6.4-8.2 [facility] Sodium [Moles/Vol] 137 mmol/L 136-145 [facility] WBC (Bld) [#/Vol] 6.9 10*3/uL 4.4-11.0 [facility] Blood erythrocytes count (nu mber/volume)Ordered By: Jose L Montana on 10-30-2022 RBC (Bld) [#/Vol] 4.27 10*6/uL 4.2-5.4 [facility] Blood hemoglobin measurement (mass/volume)Ordered By: Jose L Montana on 10-30-2022 Hemoglobin (Bld) [Mass/Vol] 14.0 g/dL 12.0-15.0 [facility] Blood lymphocytes/100 leukoc ytesOrdered By: Jose L Montana on 10-30-2022 Lymphocytes/100 WBC (Bld) 24.8 % 19-41 [facility] Blood monocytes/100 leukocyt esOrdered By: Jose L Montana on 10-30-2022 Monocytes/100 WBC (Bld) 5.9 % 0-10 [facility] Blood platelet mean volumeOr dered By: Jose L Montana on 10-30-2022 Platelet mean volume (Bld) [Entitic vol] 9.2 fL 6.2-12.0 [facility] Determination of erythrocyte mean corpuscular volume (MCV)Ordered By: Jose L Montana on 10-30-2022 MCV (RBC) [Entitic vol] 97.4 fL 81-99 [facility] Erythrocyte sedimentation ra teOrdered By: Jose L Montana on 10-30-2022 ESR (Bld) [Velocity] 26 mm/h 0-30 [facility] HIV 1 and HIV-2 antibody ass ay with HIV-1 p24 antigen detectionOrdered By: Jose L Montana on 10-30-2022 HIV 1+2 Ab+HIV1 p24 Ag IA Ql Non-Reactive Nonreactive [facility] Hematocrit Auto (Bld) [Volum e fraction]Ordered By: Jose L Montana on 10-30-2022 Hematocrit (Bld) [Volume fraction] 41.6 % 37-47 [facility] INR in Blood by Coagulation assayOrdered By: Jose L Montana on 10-30-2022 INR Coag (Bld) [Relative time] 0.9 {INR} [facility] Laboratory - Chemistry and C hemistry - challengeOrdered By: Jose L Montana on 10-30-2022 ALP [Catalytic activity/Vol] 85 U/L 45-117 [facility] ALT [Catalytic activity/Vol] 38 U/L 13-56 [facility] CO2 [Moles/Vol] 23.0 mmol/L 21.0-32.0 [facility] Globulin (S) [Mass/Vol] 3.3 g/dL 2.2-4.2 [facility] Urea nitrogen/Creatinine [Mass ratio] 27.0 mg/mg 10-20 [facility] Laboratory - CoagulationOrde red By: Jose L Montana on 10-30-2022 PT Coag (PPP) [Time] 12.1 s 11.7-14.9 [facility] Laboratory - Hematology and Cell countsOrdered By: Jose L Montana on 10-30-2022 Erythrocyte distribution width (RBC) [Entitic vol] 45.5 fL 35.1-43.9 [facility] Erythrocyte distribution width (RBC) [Ratio] 12.8 % 11.6-14.6 [facility] Immature granulocytes/100 WBC (Bld) 0.400 % 0.0-0.9 [facility] Comment on above: IG% - Immature Granu locytes (promyelocytes, myelocytes and metamyelocytes) > 1% indicates that a LEFT SHIFT is Present. MCH (RBC) [Entitic mass] 32.8 pg 27.0-32.0 [facility] Nucleated RBC/100 WBC (Bld) [Ratio] 0 % 0-5 [facility] MCHC Auto (RBC) [Mass/Vol]Or dered By: Jose L Montana on 10-30-2022 MCHC (RBC) [Mass/Vol] 33.7 g/dL 32-36 [facility] No Panel InformationOrdered By: Jose L Montana on 10-30-2022 Centromere B Antibody <0.2 AI 0.0-0.9 [facility] Ceruloplasmin 28.9 mg/dL 19.0-39.0 [facility] Estimated GFR (MDRD) Amer 144 mL/min >60 [facility] Comment on above: GFR Calc Estimated GFR (MDRD) Non-Af Amer 119 mL/min >60 [facility] Comment on above: Non- GFR Calc Haptoglobin 264 mg/dL 33-346 [facility] Comment on above: Performed at: [employer] [facility] [address] [id number] Director: Jac Osborn PhD, Phone: [phone] at: [facility] [id number] Director: Arina Ambrocio MD, Phone: [phone] Hepatitis A IgM Antibody Negative Negative [facility] Hepatitis B Core IgM Antibody Negative Negative [facility] Hepatitis C Antibody (EIA) Non-Reactive Non Reactive [facility] Hepatitis C Antibody Comment Comment . [facility] Comment on above: Not infected with HC V unless early or acute infection issuspected (which may be delayed in an immunocompromisedindividual), or other evidence exists to indicate HCVinfection. BRAKE OPERATOR SHEET METAL Antibody 1.5 AI 0.0-0.9 [facility] Platelets bldOrdered By: Timoteo Montana on 10-30-2022 Platelets (Bld) [#/Vol] 287 10*3/uL 150-450 [facility] Serum DNA double strand anti body assay (units/volume)Ordered By: Jose L Montana on 10-30-2022 DNA double strand Ab Qn (S) 2 [IU]/mL 0-9 [facility] Comment on above: Negative <5 Equivoca l 5 - 9 Positive >9 Serum Evelyn-1 antibody assay (u nits/volume)Ordered By: Jose L Montana on 10-30-2022 Evelyn-1 extractable nuclear Ab Qn (S) <0.2 AI 0.0-0.9 [facility] Serum Scl-70 extractable nuc lear antibody assay (units/volume)Ordered By: Jose L Montana on 10-30-2022 SCL-70 extractable nuclear Ab Qn (S) <0.2 AI 0.0-0.9 [facility] Serum Mendez extractable nucl ear antibody detectionOrdered By: Jose L Montana on 10-30-2022 Mendez extractable nuclear Ab Ql (S) <0.2 AI 0.0-0.9 [facility] Serum classic neutrophil cyt oplasmic antibody assay (units/volume)Ordered By: Jose L Montana on 10-30-2022 Neutrophil cytoplasmic Ab.classic Qn (S) <1:20 titer Neg:<1:20 [facility] Comment on above: Serum is slightly li pemic. Serum mitochondria antibody detectionOrdered By: Jose L Montana on 10-30-2022 Mitochondria Ab Ql (S) <20.0 Units 0.0-20.0 [facility] Comment on above: Negative 0.0 - 20.0 Equivocal 20.1 - 24.9 Positive >24.9Mitochondrial (M2) Antibodies are found in 90-96% ofpatients with primary biliary cirrhosis.Performed at: [place] [id number] Director: Jac Osborn PhD, Phone: [phone] Serum or plasma C reactive p rotein measurement (mass/volume)Ordered By: Jose L Montana on 10-30-2022 CRP [Mass/Vol] 5.82 mg/L 0.0-3.0 [facility] Comment on above: C-Reactive Protein ( CRP) provides useful information for thediagnosis, therapy and monitoring of inflammatory processesand associated diseases. For the evaluation of Relative Riskfor Cardiovascular Disease, a High Sensitivity CRP (HSCRP)should be ordered. Serum or plasma actin IgG an tibody assay (units/volume)Ordered By: Jose L Montana on 10-30-2022 Actin IgG Qn 5 Units 0-19 [facility] Comment on above: Negative 0 - 19 Weak positive 20 - 30 Moderate to strong positive >30 Actin Antibodies are found in 52-85% of patients with autoimmune hepatitis or chronic active hepatitis and in 22% of patients with primary biliary cirrhosis. Serum or plasma albumin katty urement (mass/volume)Ordered By: Jose L Montana on 10-30-2022 Albumin [Mass/Vol] 4.0 g/dL 3.2-5.0 [facility] Serum or plasma albumin/glob ulin mass ratioOrdered By: Jose L Montana on 10-30-2022 Albumin/Globulin [Mass ratio] 1.2 {ratio} 0.9-2.4 [facility] Serum or plasma [id number]-[id number] protein tumor marker measurement (units/volume)Ordered By: Jose L Montana on 10-30-2022 AFP.tumor marker Qn 2.6 ng/mL 0.0-9.2 [facility] Comment on above: [employer] El ectrochemiluminescence Immunoassay(ECLIA)Values obtained with different assay methods or kits cannotbe used interchangeably. Results cannot be interpreted asabsolute evidence of the presence or absence of malignantdisease.This test is not interpretable in females. Serum or plasma angiotensin converting enzyme measurement (enzymatic activity/volume)Ordered By: Jose L Montana on 10-30-2022 Angiotensin converting enzyme [Catalytic activity/Vol] 35 U/L 14-82 [facility] Serum or plasma calcium katty urement (mass/volume)Ordered By: Jose L Montana on 10-30-2022 Calcium [Mass/Vol] 9.5 mg/dL 8.5-10.1 [facility] Serum or plasma creatinine m easurement (mass/volume)Ordered By: Jose L Montana on 10-30-2022 Creatinine [Mass/Vol] 0.56 mg/dL 0.55-1.02 [facility] Comment on above: The validity of the calculated GFR & GFRAA in patients over 70 years has not been determined. Clinical correlation is essential. Serum or plasma ferritin tiesha surement (mass/volume)Ordered By: Jose L Montana on 10-30-2022 Ferritin [Mass/Vol] 110 ng/mL 8 [facility] Serum or plasma hepatitis B virus surface antigen detection by immunoassayOrdered By: Jose L Montana on 10-30-2022 HBV surface Ag IA Ql Negative Negative [facility] Serum or plasma urea nitroge n measurement (mass/volume)Ordered By: Jose L Montana on 10-30-2022 Urea nitrogen [Mass/Vol] 15 mg/dL 7-18 [facility] Serum perinuclear neutrophil cytoplasmic antibody titer by immunofluorescenceOrdered By: Jose L Montana on 10-30-2022 Neutrophil cytoplasmic Ab.perinuclear IF (S) [Titer] <1:20 titer Neg:<1:20 [facility] Comment on above: Serum is slightly li pemic.The presence of positive fluorescence exhibiting P-ANCA orC-ANCA patterns alone is not specific for the diagnosis ofWegener's Granulomatosis (WG) or microscopic polyangiitis.Decisions about treatment should not be based solely onANCA IFA results. The International ANCA Group Consensusrecommends follow up testing of positive sera with both IN-3 and MPO-ANCA enzyme immunoassays. As many as 5% serumsamples are positive only by EIA. Ref. AM J Clin Bbmvaj5424;111:507-513. Thin prep Papanicolaou smear with manual screeningOrdered By: Jose L Montana on 10-30-2022 Thin prep Papanicolaou smear with manual screening 25 U/L 15-37 [facility] Thin prep Papanicolaou smear with manual screening 10 5-15 [facility] Thin prep Papanicolaou smear with manual screening 120 ug/dL 80-158 [facility] Comment on above: Detection Limit = 5 Whole blood hemoglobin A1c/t otal hemoglobin ratio (mass fraction)Ordered By: Jose L Montana on 10-30-2022 HbA1c (Bld) [Mass fraction] 5.4 % 3.8-5.6 [facility] Comment on above: Normal < 5.7 % Predi abetic 5.7 - 6.4 % Diabetic >or= 6.5 % Please note range changes. SARAH DIAG W AME BILATERALon 08-26-2022 [facility] US BREAST LTD LTon [facility] Absolute lymphocyte countOrd ered By: Dr. Santiago on 07-31-2022 Lymphocytes Auto (Unsp spec) [#/Vol] 1.78 10*3/uL 0.83-4.51 [facility] Basophil percentageOrdered B y: Dr. Santiago on 07-31-2022 Basophil percentage < 0.2 AI 0.0-0.9 [facility] Basophils/100 WBC (Bld) 0.6 % 0-1 [facility] Bilirubin [Mass/Vol] 0.30 mg/dL 0.20-1.00 [facility] Comment on above: For patients on eltr ombopag therapy, use of Dimension [place] TBIL is not recommended. Chloride [Moles/Vol] 107 mmol/L 98-107 [facility] Eosinophils/100 WBC (Bld) 3.2 % 0-5 [facility] Glucose [Mass/Vol] 102 mg/dL 74-106 [facility] Comment on above: Fasting Glucose resu lt from 100 to 125 mg/dL suggests IMPAIRED HOMEOSTASIS per A.D.A. criteria. Neutrophils (Bld) [#/Vol] 3.8 10*3/uL 2.0-7.7 [facility] Neutrophils/100 WBC (Bld) 61.4 % 47-70 [facility] Potassium [Moles/Vol] 3.8 mmol/L 3.5-5.1 [facility] Protein [Mass/Vol] 7.3 g/dL 6.4-8.2 [facility] Sodium [Moles/Vol] 138 mmol/L 136-145 [facility] WBC (Bld) [#/Vol] 6.2 10*3/uL 4.4-11.0 [facility] Blood erythrocytes count (nu mber/volume)Ordered By: Dr. Santiago on 07-31-2022 RBC (Bld) [#/Vol] 4.02 10*6/uL 4.2-5.4 [facility] Blood hemoglobin measurement (mass/volume)Ordered By: Dr. Santiago on 07-31-2022 Hemoglobin (Bld) [Mass/Vol] 13.2 g/dL 12.0-15.0 [facility] Blood lymphocytes/100 leukoc ytesOrdered By: Dr. Santiago on 07-31-2022 Lymphocytes/100 WBC (Bld) 28.5 % 19-41 [facility] Blood monocytes/100 leukocyt esOrdered By: Dr. Santiago on 07-31-2022 Monocytes/100 WBC (Bld) 6.1 % 0-10 [facility] Blood platelet mean volumeOr dered By: Dr. Santiago on 07-31-2022 Platelet mean volume (Bld) [Entitic vol] 9.1 fL 6.2-12.0 [facility] Determination of erythrocyte mean corpuscular volume (MCV)Ordered By: Dr. Santiago on 07-31-2022 MCV (RBC) [Entitic vol] 98.8 fL 81-99 [facility] Hematocrit Auto (Bld) [Volum e fraction]Ordered By: Dr. Santiago on 07-31-2022 Hematocrit (Bld) [Volume fraction] 39.7 % 37-47 [facility] Iron measurement (mass/mass) Ordered By: Dr. Santiago on 07-31-2022 Iron (Unsp spec) [Mass/Mass] 62 ug/dL 50-170 [facility] Laboratory - Chemistry and C hemistry - challengeOrdered By: Dr. Santiago on 07-31-2022 ALP [Catalytic activity/Vol] 73 U/L 45-117 [facility] ALT [Catalytic activity/Vol] 39 U/L 13-56 [facility] Amylase [Catalytic activity/Vol] 41 U/L 5-55 [facility] CO2 [Moles/Vol] 25.0 mmol/L 21.0-32.0 [facility] Globulin (S) [Mass/Vol] 3.5 g/dL 2.2-4.2 [facility] Urea nitrogen/Creatinine [Mass ratio] 29.7 mg/mg 10-20 [facility] - Hematology and Cell countsOrdered By: Dr. Santiago on 07-31-2022 Erythrocyte distribution width (RBC) [Entitic vol] 45.5 fL 35.1-43.9 [facility] Erythrocyte distribution width (RBC) [Ratio] 12.5 % 11.6-14.6 [facility] Immature granulocytes/100 WBC (Bld) 0.200 % 0.0-0.9 [facility] Comment on above: IG% - Immature Granu locytes (promyelocytes, myelocytes and metamyelocytes) > 1% indicates that a LEFT SHIFT is Present. MCH (RBC) [Entitic mass] 32.8 pg 27.0-32.0 [facility] Nucleated RBC/100 WBC (Bld) [Ratio] 0 % 0-5 [facility] MCHC Auto (RBC) [Mass/Vol]Or dered By: Dr. Santiago on 07-31-2022 MCHC (RBC) [Mass/Vol] 33.2 g/dL 32-36 [facility] No Panel InformationOrdered By: Dr. Santiago on 07-31-2022 Anti-Nuclear Antibody Screen Positive Negative [facility] Centromere B Antibody <0.2 AI 0.0-0.9 [facility] Estimated GFR (MDRD) Amer 130 mL/min >60 [facility] Comment on above: GFR Calc Estimated GFR (MDRD) Non-Af Amer 108 mL/min >60 [facility] Comment on above: Non- GFR Calc Hepatitis A IgM Antibody Negative Negative [facility] Hepatitis B Core IgM Antibody Negative Negative [facility] Hepatitis C Antibody (EIA) Non-Reactive Non Reactive [facility] Hepatitis C Antibody Comment Comment . [facility] Comment on above: Not infected with HC V unless early or acute infection issuspected (which may be delayed in an immunocompromisedindividual), or other evidence exists to indicate HCVinfection. BRAKE OPERATOR SHEET METAL Antibody 1.3 AI 0.0-0.9 [facility] Thyroid Stimulating Hormone (TSH) 2.19 uIU/mL 0.358-3.74 [facility] Platelets bldOrdered By: Dr. Santiago on 07-31-2022 Platelets (Bld) [#/Vol] 280 10*3/uL 150-450 [facility] Serum DNA double strand anti body assay (units/volume)Ordered By: Dr. Santiago on 07-31-2022 DNA double strand Ab Qn (S) 1 [IU]/mL 0-9 [facility] Comment on above: Negative <5 Equivoca l 5 - 9 Positive >9 Serum Evelyn-1 antibody assay (u nits/volume)Ordered By: Dr. Santiago on 07-31-2022 Evelyn-1 extractable nuclear Ab Qn (S) <0.2 AI 0.0-0.9 [facility] Serum Scl-70 extractable nuc lear antibody assay (units/volume)Ordered By: Dr. Santiago on 07-31-2022 SCL-70 extractable nuclear Ab Qn (S) <0.2 AI 0.0-0.9 [facility] Serum Mendez extractable nucl ear antibody detectionOrdered By: Dr. Santiago on 07-31-2022 Mendez extractable nuclear Ab Ql (S) <0.2 AI 0.0-0.9 [facility] Serum or plasma albumin katty urement (mass/volume)Ordered By: Dr. Santiago on 07-31-2022 Albumin [Mass/Vol] 3.8 g/dL 3.2-5.0 [facility] Serum or plasma albumin/glob ulin mass ratioOrdered By: Dr. Santiago on 07-31-2022 Albumin/Globulin [Mass ratio] 1.1 {ratio} 0.9-2.4 [facility] Serum or plasma calcium katty urement (mass/volume)Ordered By: Dr. Santiago on 07-31-2022 Calcium [Mass/Vol] 9.2 mg/dL 8.5-10.1 [facility] Serum or plasma creatinine m easurement (mass/volume)Ordered By: Dr. Santiago on 07-31-2022 Creatinine [Mass/Vol] 0.61 mg/dL 0.55-1.02 [facility] Comment on above: The validity of the calculated GFR & GFRAA in patients over 70 years has not been determined. Clinical correlation is essential. Serum or plasma ferritin tiesha surement (mass/volume)Ordered By: Dr. Santiago on 07-31-2022 Ferritin [Mass/Vol] 89 ng/mL 8-252 [facility] Serum or plasma hepatitis B virus surface antigen detection by immunoassayOrdered By: Dr. Santiago on 07-31-2022 HBV surface Ag IA Ql Negative Negative [facility] Serum or plasma thyroperoxid ase antibody assay (units/volume)Ordered By: Dr. Santiago on 07-31-2022 TPO Ab Qn 13 [IU]/mL 0-34 [facility] Comment on above: Performed at: [employer] [address] [id number] Director: Jac Osborn PhD, Phone: [phone] Serum or plasma urea nitroge n measurement (mass/volume)Ordered By: Dr. Santiago on 07-31-2022 Urea nitrogen [Mass/Vol] 18 mg/dL 7-18 [facility] Thin prep Papanicolaou smear with manual screeningOrdered By: Dr. Santiago on 07-31-2022 Thin prep Papanicolaou smear with manual screening 24 U/L 15-37 [facility] Thin prep Papanicolaou smear with manual screening 6 5-15 [facility] Absolute lymphocyte counton 02-25-2022 Lymphocytes Auto (Unsp spec) [#/Vol] 2.15 10*3/uL 0.83-4.51 [facility] Work Phone: Basophil percentageon 2021 Basophils/100 WBC (Bld) 0.6 % 0-1 [facility] Work Phone: Bilirubin [Mass/Vol] 0.30 mg/dL 0.20-1.00 [facility] Work Phone: Comment on above: For patients on eltr ombopag therapy, use of Dimension [place] TBIL is not recommended. Chloride [Moles/Vol] 105 mmol/L 98-107 [facility] Work Phone: Cholesterol [Mass/Vol] 248 mg/dL <200 [facility] Work Phone: Comment on above: <200 mg/dL Desirable 200-240 mg/dL Borderline >240 mg/dL High Risk Eosinophils/100 WBC (Bld) 2.7 % 0-5 [facility] Work Phone: Glucose [Mass/Vol] 112 mg/dL 74-106 [facility] Work Phone: Comment on above: Fasting Glucose resu lt from 100 to 125 mg/dL suggests IMPAIRED HOMEOSTASIS per A.D.A. criteria. Neutrophils (Bld) [#/Vol] 4.0 10*3/uL 2.0-7.7 [facility] Work Phone: [phone] Neutrophils/100 WBC (Bld) 59.4 % 47-70 [facility] Work Phone: [phone] Potassium [Moles/Vol] 3.5 mmol/L 3.5-5.1 [facility] Work Phone: [phone] Protein [Mass/Vol] 7.3 g/dL 6.4-8.2 [facility] Work Phone: [phone] Sodium [Moles/Vol] 137 mmol/L 136-145 [facility] Work Phone: [phone] Triglyceride [Mass/Vol] 192 mg/dL <199 [facility] Work Phone: Comment on above: The drugs N-Acetylcy steine and Metamizole may falsely depress this assay.Serum Triglycerides Reference Interval Normal <150 mg/dL Borderline high 150 - 199 mg/dL High 200 - 499 mg/dL Very High > or = 500 mg/dL WBC (Bld) [#/Vol] 6.8 10*3/uL 4.4-11.0 [facility] Work Phone: Blood erythrocytes count (nu mber/volume)on 02-25-2022 RBC (Bld) [#/Vol] 4.11 10*6/uL 4.2-5.4 [facility] Work Phone: [phone] Blood hemoglobin measurement (mass/volume)on 02-25-2022 Hemoglobin (Bld) [Mass/Vol] 13.4 g/dL 12.0-15.0 [facility] Work Phone: Blood lymphocytes/100 leukoc yteson 02-25-2022 Lymphocytes/100 WBC (Bld) 31.9 % 19-41 [facility] Work Phone: Blood monocytes/100 leukocyt eson 02-25-2022 Monocytes/100 WBC (Bld) 5.3 % 0-10 [facility] Work Phone: Blood platelet mean volumeon 02-25-2022 Platelet mean volume (Bld) [Entitic vol] 9.6 fL 6.2-12.0 [facility] Work Phone: Determination of erythrocyte mean corpuscular volume (MCV)on 02-25-2022 MCV (RBC) [Entitic vol] 98.8 fL 81-99 [facility] Work Phone: Erythrocyte sedimentation ra shaunna 02-25-2022 ESR (Bld) [Velocity] 15 mm/h 0-[address] [facility] [facility] Work Phone: Hematocrit Auto (Bld) [Volum e fraction]on 02-25-2022 Hematocrit (Bld) [Volume fraction] 40.6 % 37-47 [facility] Work Phone: Laboratory - Chemistry and C hemistry - challengeon 02-25-2022 ALP [Catalytic activity/Vol] 90 U/L 45-117 [facility] Work Phone: ALT [Catalytic activity/Vol] 37 U/L 13-56 [facility] Work Phone: CO2 [Moles/Vol] 25.0 mmol/L 21.0-32.0 [facility] Work Phone: Globulin (S) [Mass/Vol] 3.4 g/dL 2.2-4.2 [facility] Work Phone: Urea nitrogen/Creatinine [Mass ratio] 20.1 mg/mg 10-20 [facility] Work Phone: Laboratory - Hematology and Cell countson 02-25-2022 Erythrocyte distribution width (RBC) [Entitic vol] 46.3 fL 35.1-43.9 [facility] Work Phone: Erythrocyte distribution width (RBC) [Ratio] 12.7 % 11.6-14.6 [facility] Work Phone: Immature granulocytes/100 WBC (Bld) 0.100 % 0.0-0.9 [facility] Work Phone: Comment on above: IG% - Immature Granu locytes (promyelocytes, myelocytes and metamyelocytes) > 1% indicates that a LEFT SHIFT is Present. MCH (RBC) [Entitic mass] 32.6 pg 27.0-32.0 [facility] Work Phone: Nucleated RBC/100 WBC (Bld) [Ratio] 0 % 0-5 [facility] Work Phone: MCHC Auto (RBC) [Mass/Vol]on 02-25-2022 MCHC (RBC) [Mass/Vol] 33.0 g/dL 32-36 [facility] Work Phone: No Panel Informationon 02-25 Estimated GFR (MDRD) Amer 133 mL/min >60 [facility] Work Phone: Comment on above: GFR Calc Estimated GFR (MDRD) Non-Af Amer 110 mL/min >60 [facility] Work Phone: Comment on above: Non- GFR Calc Thyroid Stimulating Hormone (TSH) 3.15 uIU/mL 0.358-3.74 [facility] Work Phone: Platelets bldon 02-25-2022 Platelets (Bld) [#/Vol] 301 10*3/uL 150-450 [facility] Work Phone: Serum or plasma albumin katty urement (mass/volume)on 02-25-2022 Albumin [Mass/Vol] 3.9 g/dL 3.2-5.0 [facility] Work Phone: [phone] Serum or plasma albumin/glob ulin mass ratioon 02-25-2022 Albumin/Globulin [Mass ratio] 1.1 {ratio} 0.9-2.4 [facility] Work Phone: Serum or plasma calcium katty urement (mass/volume)on 02-25-2022 Calcium [Mass/Vol] 9.1 mg/dL 8.5-10.1 [facility] Work Phone: Serum or plasma cholesterol in HDL measurement (mass/volume)on 02-25-2022 Cholesterol in HDL [Mass/Vol] 65 mg/dL >40 [facility] Work Phone: Comment on above: The drugs N-Acetylcy steine and Metamizole may falsely depress this assay. Reference Range HDL <40 mg/dL Low HDL Cholesterol HDL >or= 60 mg/dL High HDL Cholesterol Serum or plasma cholesterol in VLDL measurement (mass/volume)on 02-25-2022 Cholesterol in VLDL [Mass/Vol] 38 mg/dL 5-40 [facility] Work Phone: Serum or plasma creatinine m easurement (mass/volume)on 02-25-2022 Creatinine [Mass/Vol] 0.60 mg/dL 0.55-1.02 [facility] Work Phone: Comment on above: The validity of the calculated GFR & GFRAA in patients over 70 years has not been determined. Clinical correlation is essential. Serum or plasma low density lipoprotein (LDL) cholesterol measurement (mass/volume)on 02-25-2022 Cholesterol in LDL [Mass/Vol] 145 mg/dL 0-130 [facility] Work Phone: Serum or plasma urea nitroge n measurement (mass/volume)on 02-25-2022 Urea nitrogen [Mass/Vol] 12 mg/dL 11-25 [facility] Work Phone: Thin prep Papanicolaou smear with manual screeningon 02-25-2022 Thin prep Papanicolaou smear with manual screening 22 U/L 15-37 [facility] Work Phone: Thin prep Papanicolaou smear with manual screening 7 5-15 [facility] Work Phone: XR Hand - left PA and Latera l and Obliqueon 02-18-2021 IMPRESSION: No acute osseous abnormality. Mild degenerative changes, as described. Emergency Physician: LUIS M Transcribe Date/Time: Feb 18 2021 3:59P Dictated by : BREN COLON MD This examination was interpreted and the report reviewed and electronically signed by: BREN COLON MD on Feb 18 2021 4:03PM [facility] DIVISION OF RADIOLOGY * * *Final Report* [...] No aggressive features. DIVISION OF RADIOLOGY [facility] * * *Final Report* * [...] osseous abnormality. Mild degenerative changes, as described. Emergency Physician: LUIS M Transcribe Date/Time: Feb 18 2021 3:59P Dictated by : BREN COLON MD This examination was interpreted and the report reviewed and electronically signed by: BREN COLON MD on Feb 18 2021 4:03PM [facility] Radiology Study observation (narrative) [facility] XR Hand - left PA and Latera l and ObliqueOrdered By: [facility] Provider on 02-18-2021 [facility] Culture, urine Bacteria identified Cx Nom (U) Culture exhibits no growth. [facility] Work Phone: Vital Signs Date Time Vital Sign Value Performing Clinician Jonathani carmen 01-13-2025 08:54-0400 Body temperature 97 [degF] Dr. Nestor Santiago MD Work Phone: [facility] 01-13-2025 08:54-0400 Diastolic blood pressure 81 mm[Hg] Dr. Nestor Santiago MD Work Phone: [facility] 01-13-2025 08:54-0400 Heart rate 62 /min Dr. Nestor Santiago MD Work Phone: [facility] 01-13-2025 08:54-0400 Respiratory rate 16 /min Dr. Nestor Santiago MD Work Phone: [facility] 01-13-2025 08:54-0400 SaO2% (BldA) [Mass fraction] 100 % Dr. Nestor Santiago MD Work Phone: [facility] 01-13-2025 08:54-0400 Systolic blood pressure 131 mm[Hg] Dr. Nestor Santiago MD Work Phone: [facility] 01-13-2025 07:10-0400 Body height 170.[address] Nestor Santiago MD Work Phone: [facility] 01-13-2025 07:10-0400 Body mass index (BMI) [Ratio] 30.7 kg/m2 Dr. Nestor Santiago MD Work Phone: [facility] 01-13-2025 07:10-0400 Body weight [address] Nestor Santiago MD Work Phone: [facility] 08-31-2024 08:49-0400 Body height 170.2 cm Breanna Ng MD Work Phone: [facility] 08-31-2024 08:49-0400 Body mass index (BMI) [Ratio] 30.07 kg/m2 Breanna Ng MD Work Phone: [facility] 08-31-2024 08:49-0400 Body weight 87.09 kg Breanna Ng MD Work Phone: [facility] 08-31-2024 08:49-0400 Diastolic blood pressure 82 mm[Hg] Breanna Ng MD Work Phone: [facility] 08-31-2024 08:49-0400 Systolic blood pressure 124 mm[Hg] Breanna Ng MD Work Phone: [facility] 08-26-2023 13:37-0400 Body height 170.[address] Nestor Santiago Work Phone: [facility] 08-26-2023 13:37-0400 Body mass index (BMI) [Ratio] 30.2 kg/m2 Dr. Nestor Santiago Work Phone: [facility] 08-26-2023 13:37-0400 Body weight 87.[address] Nestor Santiago Work Phone: [facility] 08-26-2023 13:37-0400 Diastolic blood pressure 78 mm[Hg] Dr. Nestor Santiago Work Phone: [facility] 08-26-2023 13:37-0400 Heart rate 96 /min Dr. Nestor Santiago Work Phone: [facility] 08-26-2023 13:37-0400 SaO2% (BldA) [Mass fraction] 79 % Dr. Nestor Santiago Work Phone: [facility] 08-26-2023 13:37-0400 Systolic blood pressure 123 mm[Hg] Dr. Nestor Santiago Work Phone: [facility] 04-28-2023 14:42-0500 Body temperature 98.1 [degF] Dr. Dada Santiago Work Phone: 5(851)[phone] [place] [address] 04-28-2023 14:42-0500 Diastolic blood pressure 83 mm[Hg] Dr. Dada Santiago Work Phone: [facility] 04-28-2023 14:42-0500 Heart rate 76 /min Dr. Dada Santiago Work Phone: [facility] 04-28-2023 14:42-0500 Respiratory rate 16 /min Dr. Dada Santiago Work Phone: [facility] 04-28-2023 14:42-0500 SaO2% (BldA) [Mass fraction] 99 % Dr. Dada Santiago Work Phone: [facility] 04-28-2023 14:42-0500 Systolic blood pressure 135 mm[Hg] Dr. Dada Santiago Work Phone: [facility] 04-28-2023 12:25-0500 Body height 170.[address] Dada Santiago Work Phone: [facility] 04-28-2023 12:25-0500 Body mass index (BMI) [Ratio] 27.9 kg/m2 Dr. Dada Santiago Work Phone: [facility] 04-28-2023 12:25-0500 Body weight [address] Dada Santiago Work Phone: [facility] 03-16-2023 14:28-0500 Body mass index (BMI) [Ratio] 29 kg/m2 Dr. Dada Santiago Work Phone: [facility] 03-16-2023 14:28-0500 Body weight 83.[address] Dada Santiago Work Phone: [facility] 03-16-2023 14:28-0500 Diastolic blood pressure 84 mm[Hg] Dr. Dada Santiago Work Phone: [facility] 03-16-2023 14:28-0500 Heart rate 79 /min Dr. Dada Santiago Work Phone: [facility] 03-16-2023 14:28-0500 SaO2% (BldA) [Mass fraction] 96 % Dr. Dada Santiago Work Phone: [facility] 03-16-2023 14:28-0500 Systolic blood pressure 126 mm[Hg] Dr. Dada Santiago Work Phone: 5(838)[phone] [address] 01-08-2023 15:39-0400 Body temperature 97.6 [degF] Dr. Dada Santiago Work Phone: 5(932)[phone] [address] 01-08-2023 15:39-0400 Diastolic blood pressure 90 mm[Hg] Dr. Dada Santiago Work Phone: 4(051)[phone] [address] 01-08-2023 15:39-0400 Heart rate 77 /min Dr. Dada Santiago Work Phone: 2(359)[phone] [address] 01-08-2023 15:39-0400 Respiratory rate 17 /min Dr. Dada Santiago Work Phone: [facility] 01-08-2023 15:39-0400 SaO2% (BldA) [Mass fraction] 93 % Dr. Dada Santiago Work Phone: [facility] 01-08-2023 15:39-0400 Systolic blood pressure 169 mm[Hg] Dr. Dada Santiago Work Phone: 3(191)[phone] [place] [address] 01-08-2023 11:12-0400 Body height 170.[address] Dada Santiago Work Phone: [facility] 01-08-2023 11:12-0400 Body mass index (BMI) [Ratio] 28.6 kg/m2 Dr. Dada Santiago Work Phone: [facility] 01-08-2023 11:12-0400 Body weight 82.[address] Dada Santiaog Work Phone: [facility] 06-06-2022 15:16-0500 Body height 170.2 cm Joyce Freitas MD Work Phone: [facility] 06-06-2022 15:16-0500 Body weight 86.91 kg Joyce Freitas MD Work Phone: [facility] 06-06-2022 15:16-0500 Diastolic blood pressure 82 mm[Hg] Joyce Freitas MD Work Phone: [facility] 06-06-2022 15:16-0500 Systolic blood pressure 122 mm[Hg] Joyce Freitas MD Work Phone: [facility] Encounters Encounter Date Encounter Type Care Provider Facility Start: 01-13-2025 Non-patient / Non-visit Jose L Leisa sc DO -[facility] Start: 01-13-2025 End: 01-13-2025 Admission to same day surgery center Jose L [place] DO -Endoscopy Work Phone: Start: 01-13-2025 End: 01-13-[address] Nestor Santiago MD Work Phone: -Endoscopy Start: 10-07-2024 ambulatory [facility] Facility :[facility] Start: 09-01-2024 End: 11-01-2024 Follow-up encounter Breanna Ng MD Work Phone: OB/Gynecology Start: 08-31-2024 ambulatory BREANNA Lopez ity:[facility] Start: 08-31-2024 End: 08-31-2024 Patient encounter procedure Breanna Ng MD Work Phone: OB/Gynecology Comment on above: Encounter for gyneco logical examination (general) (routine) without abnormal findings (Primary Dx); Encounter for screening mammogram for breast cancer Start: 08-31-2024 End: 08-31-2024 Patient encounter status Breanna Ng MD Work Phone: [facility] Start: 08-31-2024 End: 08-31-2024 ambulatory BREANNA NG Facility:[facility] Start: 08-31-2024 Encounter for gynecological examination (general) (routine) without abnormal findings BREANNA NG [facility] Start: 07-21-2024 End: 07-21-2024 ambulatory [facility] Facility:[facility] Start: 02-24-2024 End: 02-24-2024 ambulatory [facility] Facility:[facility] Start: 02-10-2024 End: 02-10-2024 ambulatory [facility] Facility:[facility] Start: 08-29-2023 Documentation procedure Mammog matt Coordinator [facility] Department Start: 08-29-2023 Letter encounter Mammography Coordinator [facility] Department Start: 08-28-2023 End: 08-28-2023 Subsequent hospital visit by physician Screen Mammo [facility] W[facility] Mammogram Comment on above: Encounter for screen ing mammogram for breast cancer [Z12.31] Start: 08-26-2023 End: 08-26-[address] Nestor Santiago Work Phone: [facility] Gastroenterology Work Phone: Start: 08-22-2023 End: 08-22-[address] Nestor Santiago Work Phone: [facility] Work Phone: Start: 08-22-2023 End: 08-22-[address] Nestor Santiago Work Phone: [facility]-Ultrasound, [facility] Work Phone: Start: 06-23-2023 End: 06-23-[address] Dada Santiago Work Phone: [facility] Work Phone: Start: 06-23-2023 End: 06-23-[address] Dada Santiago Work Phone: [facility]-Laboratory,[facility] Work Phone: Start: 06-12-2023 Telephone encounter Demi amaya APRN.CNP Work Phone: OB/Gynecology Start: 04-28-2023 End: 04-28-2023 Non-patient / Non-visit Dr. Dada Santiago Work Phone: [facility] Work Phone: Start: 04-28-2023 End: 04-28-2023 Admission to same day surgery center Dr. Dada Santiago Work Phone: [facility]-Endoscopy Work Phone: Start: 03-16-2023 End: 03-16-[address] Dada Santiago Work Phone: [facility] Gastroenterology Work Phone: Start: 01-08-2023 Non-patient / Non-visit Dr. Sri Santiago Work Phone: [facility] Start: 01-08-2023 End: 01-08-2023 Admission to same day surgery center Dr. Dada Santiago Work Phone: [facility]-Endoscopy Work Phone: Start: 01-08-2023 End: 01-08-[address] Dada Santiago Work Phone: [facility] Work Phone: Start: 01-05-2023 End: 01-05-[address] Dada Santiago Work Phone: [facility] Work Phone: Start: 01-05-2023 End: 01-05-[address] Dada Santiago Work Phone: [facility] [place], [facility] Work Phone: Start: 12-02-2022 End: 12-02-[address] Dada Santiago Work Phone: [facility] Work Phone: Start: 12-02-2022 End: 12-02-[address] Dada Santiago Work Phone: [facility]-Laboratory Work Phone: Start: 11-20-2022 End: 11-20-[address] Dada Santiago Work Phone: [facility]-MRI - [facility] Work Phone: Start: 10-30-2022 End: 10-30-[address] Dada Santiago Work Phone: [facility] Work Phone: Start: 10-30-2022 End: 10-30-[address] Dada Santiago Work Phone: [facility] Gastroenterology Start: 08-26-2022 End: 08-26-2022 Subsequent hospital visit by physician Us [facility] W[facility] Mob 1 Work Phone: Radiology Comment on above: Mass of left breast, unspecified quadrant [N63.20] Start: 07-31-2022 End: 07-31-2022 ambulatory [facility] Work Phone: Start: 07-31-2022 End: 07-31-2022 Patient encounter procedure [facility]-Laboratory, [facility] Start: 07-19-2022 End: 07-19-2022 ambulatory [facility] Work Phone: Start: 07-19-2022 End: 07-19-2022 Patient encounter procedure [facility]-Ultrasound, [facility] Start: 07-09-2022 End: 07-09-2022 Subsequent hospital visit by physician Diagnostic Mammo [facility] W[facility] Mammogram Comment on above: Canceled (CC [...] Phone: OB/Gynecology Start: 02-27-2022 End: 02-27-2022 ambulatory [facility] Work Phone: Start: 02-27-2022 End: 02-27-2022 Patient encounter procedure [facility]-Radiology, [place] Start: 02-25-2022 End: 02-25-2022 ambulatory [facility] Work Phone: Start: 02-25-2022 End: 02-25-2022 Patient encounter procedure [facility]Laboratory, [facility] Start: 02-18-2021 End: 02-18-2021 Subsequent hospital visit by physician [facility] Work Phone: Radiology Comment on above: Left hand pain [M79. 642] Procedures Date Procedure Procedure Detail Performing Clinician Start: 01-13-[address] Nestor Santiago MD Work Phone: Start: 08-22-[address] [...] bilateral Joyce Freitas MD Work Phone: Start: 07-19-2022 Ultrasonography of abdomen Start: 07-19-2022 Ultrasound elastography Start: 02-27-2022 Diagnostic radiography of abdomen, decubitus and erect Start: 02-18-2021 Radex hand minimum 3 views Nasreen TENORIO RN.CAREER DEVELOPMENT DIRECTOR Work Phone: Bacteria identified in Urine by Culture Urine culture Plan of Treatment Date Care Activity Detail Author Start: 02-10-2039 RSV Vaccine (1 - 1-dose 75+ series) RSV Vaccine (1 - 1-dose 75+ series) [facility] Start: 06-27-2026 Screening for malignant neoplasm of colon [facility] Start: 09-01-2025 End: 09-01-2025 Patient encounter procedure Mammogram Comment on above: : Encounter for gynecological examinatio n (general) (routine) without abnormal findings [Z01.419]; Encounter for screening mammogram for breast cancer [Z12.31] Annual Start: 08-31-2025 Screening for malignant neoplasm of breast Mammogram Screening [facility] Start: 01-13-2025 Patient discharge [facility] Start: 01-09-2025 Influenza vaccination Influenza Vaccine (Season Ended) [facility] Start: 08-27-2024 Screening for malignant neoplasm of breast Mammogram Screening [facility] Start: 06-15-2024 End: 06-15-2024 Patient encounter procedure 06/15/2024 4:00 PM EST Office Visit OB/Gynecology [address] [place] [address] Breanna Ng MD [address] [place] [address] annual OB/Gynecology Comment on above: annual Start: 06-10-2024 Covid-19 Vaccine ( season) Covid-19 Vaccine ( season) [facility] Comment on above: Postponed from 01/09/2023 (Declined at t his time) Start: 01-10-2024 Covid-19 Vaccine ( season) Covid-19 Vaccine () [facility] Start: 01-10-2024 Influenza vaccination [facility] Start: 11-08-2023 Influenza vaccination Influenza Vaccine (#1) [facility] Comment on above: Postponed from 01/09/2023 (Declined at t his time) Start: 08-27-2023 Mammography Mammogram Screening [facility] Start: 08-27-2023 Screening for malignant neoplasm of breast Mammogram Screening [facility] Start: 05-11-2023 Behavioral Health Screening Behavioral Health Screening [facility] Start: 05-11-2023 Depression Assessment Depression Assessment [facility] Start: 04-28-2023 Ercp remove foreign body/stent biliary/panc duct ERCP REMOVE FORGN BODY DUCT [facility] Start: 04-28-2023 Ercp w/sphincterotomy/papill otomy ENDO CHOLANGIOPANCREATOGRAPH [facility] Start: 04-28-2023 Patient discharge [facility] Start: 01-09-2023 Covid-19 Vaccine ( season) Covid-19 Vaccine ( season) [facility] Start: 01-09-2023 Influenza vaccination Influenza Vaccine (#1) [facility] Start: 01-08-2023 Patient discharge [facility] Start: 09-03-2022 Hepatitis B Vaccine (2 of 3 - 19+ 3-dose series) Hepatitis B Vaccine (2 of 3 - 19+ 3-dose series) [facility] Start: 07-19-2022 Ultrasonography of abdomen Abdomen Limited [facility] Start: 07-19-2022 Ultrasound elastography [facility] Start: 07-19-2022 US Abdomen limited [facility] Start: 05-11-2022 DEPRESSION ASSESSMENT DEPRESSION ASSESSMENT [facility] Start: 01-09-2022 Influenza vaccination INFLUENZA (#1) [facility] Start: 06-05-2021 COVID-19 VACCINE (4 - Booster for Pfizer series) COVID-19 VACCINE (4 - Booster for Pfizer series) [facility] Start: 02-10-2014 SHINGRIX VACCINE (1 of 2) SHINGRIX VACCINE (1 of 2) [facility] Start: 02-10-2009 COLOGUARD (FIT-DNA) COLOGUARD (FIT-DNA) [facility] Start: 02-10-2009 Colonoscopy COLONOSCOPY [facility] Start: 02-10-2009 COLORECTAL CANCER SCREENING COLORECTAL CANCER SCREENING [facility] Start: 02-10-[address] COLONOGRAPHY [facility] Start: 02-10-2009 DIABETES SCREEN DIABETES SCREEN [facility] Start: 02-10-2009 Diabetes Screening Diabetes Screening [facility] Start: 02-10-2009 FECAL OCCULT BLOOD FECAL OCCULT BLOOD [facility] Start: 02-10-2009 Lipid 1996 panel - Serum or Plasma Lipid Screening [facility] Start: 02-10-2009 Lipid panel Lipid Screening [facility] Start: 02-10-2009 LIPID SCREEN LIPID SCREEN [facility] Start: 02-10-2009 Screening for malignant neoplasm of colon [facility] Start: 02-10-2009 SIGMOIDOSCOPY SIGMOIDOSCOPY [facility] Start: 2004 Mammography MAMMOGRAM [facility] Start: 02-10-1994 HPV TESTING HPV TESTING [facility] Start: 02-10-1985 PAP TESTING PAP TESTING [facility] Start: 02-10-1983 Pneumococcal Vaccine: 50+ (1 of 2 - PCV) Pneumococcal Vaccine: 50+ (1 of 2 - PCV) [facility] Start: 02-10-1983 Urine microalbumin profile [facility] Start: 02-10-1982 Anxiety Screening Anxiety Screening [facility] Start: 02-10-1982 Depression Screening Depression Screening [facility] Start: 02-10-1982 HEPATITIS C SCREENING HEPATITIS C SCREENING [facility] Start: 02-10-1982 Hepatitis C screening Hepatitis C Screening [facility] Start: 02-10-1982 HIV SCREENING HIV SCREENING [facility] Start: 02-10-1982 HIV screening HIV Screening [facility] Start: 02-10-1970 PNEUMOCOCCAL (1 - PCV) PNEUMOCOCCAL (1 - PCV) [facility] Start: 02-10-1970 Pneumococcal vaccination [facility] Start: 1964 HEPATITIS B (1 of 3 - 3-dose series) HEPATITIS B (1 of 3 - 3-dose series) [facility] [id number]. vasyl or marker [Units/volume] in Serum or Plasma [facility] C reactive protein [Mass/volume] in Serum or Plasma [facility] C reactive protein [Mass/volume] in Serum or Plasma [facility] CBC W Auto Different ial panel - Blood [facility] CBC W Auto Different ial panel - Blood [facility] DBT Breast - bilater al screening SARAH SCREENING W [facility] Radiology Routine Encounter for screening mammogram for breast cancer 08/28/2023 7:56 AM EDT [facility] Work Phone: End: 09-30-2025 DBT Breast - bilateral screening [facility] [facility] Work Phone: Comment on above: 1 Occurrences starting 08/31/2024 until 09/30/2025 DBT Breast - bilater al screening SARAH SCREENING W AME Radiology Routine Encounter for screening mammogram for breast cancer 08/31/2024 12:56 PM EDT [facility] End: 07-06-2023 Diagnostic mammography computer-aided detcj bi SARAH DIAGNOSTIC BILAT Radiology Routine Mass of left breast, unspecified quadrant 1 Occurrences starting 06/06/2022 until 07/06/2023 [facility] Work Phone: Comment on above: 1 Occurrences starting 06/06/2022 until 07/06/2023 Hemoglobin A1c/Hemoglobin.total in Blood [facility] Lipid 1996 panel - Serum or Plasma [facility] Liver stiffness by US.transient elastography [facility] MR Biliary ducts and Pancreatic duct WO contrast [facility] Patient referral [facility] Work Phone: Prothrombin time [facility] End: 06-06-2023 Screening colonoscopy COLONOSCOPY SCREENING Endoscopy Routine Special screening for malignant neoplasms, colon 1 Occurrences starting 06/06/2022 until 06/06/2023 [facility] Work Phone: Comment on above: 1 Occurrences starting 06/06/2022 until 06/06/[address] [facility] US Abdomen limited [place] End: 07-06-2023 Us breast uni real time with image limited US BREAST LTD LT Radiology Routine Mass of left breast, unspecified quadrant 1 Occurrences starting 06/06/2022 until 07/06/2023 [facility] Work Phone: Comment on above: 1 Occurrences starting 06/06/2022 until 07/06/2023 Vitamin D, 25-hydrox y measurement [facility] [place] [facility] Immunizations Immunization Date Immunization Notes Care Provider Ion stroud 10-20-2022 hepatitis B vaccine, adult dosage Demi [place] MEDICAL CODING INSTRUCTOR.CAREER DEVELOPMENT DIRECTOR Work Phone: [facility] Work Phone: 08-06-2022 hepatitis A vaccine, pediatric/adolescent dosage, 2 dose schedule Demi [place] MEDICAL CODING INSTRUCTOR.CAREER DEVELOPMENT DIRECTOR Work Phone: [facility] Work Phone: 08-06-2022 hepatitis B vaccine, adult dosage Demi Bernardino MEDICAL CODING INSTRUCTOR.CAREER DEVELOPMENT DIRECTOR Work Phone: [facility] Work Phone: Payers Date Payer Category Payer Self-pay 2021 [facility] PPO [id number] 2021 Unknown [id number] 2020 Unknown [id number] Unknown [id number] Unknown [id number] Unknown [id number] Unknown [id number] Unknown [id number] Unknown [id number] Social History Date Type Detail Facility Tobacco smoking status NHIS Unknown if ever smoked [facility] Work Phone: Start: 1965 Sex Assigned At Female [facility] Start: 06-06-2022 End: 01-13-2025 Tobacco smoking status NHIS Smokes tobacco daily [facility] Start: 12-27-2020 End: 06-06-2022 Tobacco use and exposure Smokeless tobacco non-user [facility] Start: 06-06-2022 End: 08-31-2024 Alcohol intake Current drinker of alcohol (finding) [facility] Start: 06-06-2022 [facility] Start: 1965 Sex Assigned At Not on file [facility] Start: 10-30-2022 End: 08-26-2023 Tobacco smoking status RIIS Unknown if ever smoked [facility] Start: 06-06-2022 End: 06-09-2023 History of Social function [facility] Start: 06-06-2022 End: 06-09-2023 Tobacco use panel [facility] National Score (1-100), lower number is lower risk 52 [facility] Start: 01-18-2021 End: 02-17-2021 Exposure to SARS-CoV-2 (event) Not sure [facility] NEGATED: Highlighted row [facility] Medical Equipment Procedure Code Equipment Code Equipment Origin al Text Equipment Identifier Dates ERCP (endoscopic retrograde cholangiopancreatog matt) RX DUODENAL STENT/7FR X 5CM FDA Start: 01-08-2023 ERCP (endoscopic retrograde cholangiopancreatog matt) STENT,ADVANX PANC [id number] FDA Start: 01-08-2023 ERCP (endoscopic retrograde cholangiopancreatog matt) RX DUODENAL STENT/7FR X 5CM FDA Start: 01-08-2023 ERCP (endoscopic retrograde cholangiopancreatog matt) STENT,ADVANX PANC [id number] FDA Start: 01-08-2023 ERCP (endoscopic retrograde cholangiopancreatog matt) RX DUODENAL STENT/7FR X 5CM FDA Start: 01-08-2023 ERCP (endoscopic retrograde cholangiopancreatog matt) STENT,ADVANX PANC [id number] FDA Start: 01-08-2023 ERCP (endoscopic retrograde cholangiopancreatog matt) RX DUODENAL STENT/7FR X 5CM FDA Start: 01-08-2023 ERCP (endoscopic retrograde cholangiopancreatog matt) STENT,ADVANX PANC [id number] FDA Start: 01-08-2023 Goals Date Patient Goal Desired Activity /State Mental Status Date Assessment Result Facility 01-13-2025 Cognitive function Voice/Name [place] Work Phone: 04-28-2023 Cognitive function Voice/Name [place] Work Phone: 01-08-2023 Cognitive function Voice/Name [place] Work Phone: Clinical Notes 02-18-2021 to 01-13-2025 Note Date & Type Note Facility 01-13-2025 Evaluation note Diagnosis Onset Date Resolution Encounter for screening colonoscopy acute January 13, 025 6:54am [facility] Work Phone: 1(469) 892-476009-05-2025 Consult note [facility] Medical Records Department [address] [place] [address] Anesthesia Postop Eval I 01/13/25 0842 MR#: [id number] Acct: [id number] Name: MARTINA PATTERSON Rep #:[id number] : 1965 59 From: Nathan Mcgrath PCP: Dr. Nestor Santiago MD Status :REG SDC Y Race: C Location: [place] [address] Anesthesia: Postop Eval I Current Vital Signs Temperature: 96.4 F Pulse Rate: 64 Blood Pressure: 116/86 Respiratory Rate: 16 Pulse Ox: 99 Oxygen Delivery Method: Room Air Assessment Airway patent: Yes Spontaneous unlabored respirations: Yes Mental status: Awake and Calm nausea: No Vomiting: No Anesthesia Complication: No Fluid Hydration Crystalloid volume administer (ml): 600 Total IV fluid infused: 600 Progress Note Anesthesia document: Postop Eval 1 completed: Yes 01/13/25 0843 > Date _ Nathan Coley Signature: Date CC: ~ Signed [facility]09-05-2025 Procedure note [facility] Medical Records Department [address] [place] [address] Colonoscopy Report MR#: [id number] Acct: [id number] Name: MARTINA PATTERSON Rep #:[id number] : 1965 59 From: Jose L Montana DO PCP: Dr. Nestor Santiago MD Status :[facility] Patient Name: Martina Patterson Procedure Date: 01/13/2025 7:55 AM Date of : 1965 Age: 59 Procedure: Colonoscopy Indications: Screening for colorectal malignant neoplasm Providers: Jose L Montana DO Referring MD: Dada Santiago Medicines: Monitored Anesthesia Care Patient Profile: This is a 59 year old female. Refer to note in patient chart for documentation of history and physical. Last Colonoscopy: none. The patient's first colonoscopy is today. Complications: No immediate complications. Procedure: Pre-Anesthesia Assessment: - Prior to the procedure, a History and Physical was performed, and patient medications and allergies were reviewed. The patient is competent. The risks and benefits of the procedure and the sedation options and risks were discussed with the patient. All questions were answered and informed consent was obtained. Patient identification and proposed procedure were verified by the physician in the pre-procedure area. Mental Status Examination: alert and oriented. Airway Examination: normal oropharyngeal airway and neck mobility. Respiratory Examination: clear to auscultation. CV Examination: normal. Prophylactic Antibiotics: The patient does not require prophylactic antibiotics. Prior Anticoagulants: The patient has taken no anticoagulant or antiplatelet agents. ASA Grade Assessment: II - A patient with mild systemic disease. After reviewing the risks and benefits, the patient was deemed in satisfactory condition to undergo the procedure. The anesthesia plan was to use monitored anesthesia care (MAC). Immediately prior to administration of medications, the patient was re-assessed for adequacy to receive sedatives. The heart rate, respiratory rate, oxygen saturations, blood pressure, adequacy of pulmonary ventilation, and response to care were monitored throughout the procedure. The physical status of the patient was re-assessed after the procedure. After I obtained informed consent, the scope was passed under direct vision. Throughout the procedure, the patient's blood pressure, pulse, and oxygen saturations were monitored continuously. The colonoscope was introduced through the anus and advanced to the cecum, identified by appendiceal orifice and ileocecal valve. The colonoscopy was performed without difficulty. The patient tolerated the procedure well. The quality of the bowel preparation was adequate. The ileocecal valve, appendiceal orifice, and rectum were photographed. Scope In: 8:07:51 AM Scope Withdrawal Time 0 hours 18 minutes 8 seconds Scope Out: 8:32:50 AM Total Procedure Duration Time 0 hours 24 minutes 59 seconds Findings: The perianal and digital rectal examinations were normal. Five sessile polyps were found in the sigmoid colon, hepatic flexure and cecum. The polyps were 1 to 2 mm in size. These polyps were removed with a hot snare. Resection and retrieval were complete. Verification of patient identification for the specimen was done. Area was tattooed with an injection of 1 mL of Kelsi ink. Impression: - Five 1 to 2 mm polyps in the sigmoid colon, at the hepatic flexure and in the cecum, removed with a hot snare. Resected and retrieved. Tattooed. Recommendation: - Repeat colonoscopy in 1 year for surveillance. - Continue present medications. Procedure Code(s): --- Professional --- 93522, Colonoscopy, flexible; with removal of tumor(s), polyp(s), or other lesion(s) by snare technique 89717, Colonoscopy, flexible; with directed submucosal injection(s), any substance CPT copyright 2021 [employer]. All rights reserved. The codes documented in this report are preliminary and upon surgical resident review may be revised to meet current compliance requirements. Jose L Montana DO 01/13/2025 8:39:17 AM This report has been signed electronically. Number of Addenda: 0 Note Initiated On: 01/13/2025 7:55 AM 01/13/25 0839 Date _ Jose L Montana DO Cosigner Signature: Date (if indicated) CC: Dr. Nestor Santiago MD; Jose L Montana DO ~ Date Dictated: 01/13/25 0755 Date Transcribed: Emergency Physician: RF Signed [facility]09-05-2025 Procedure note [facility] Medical Records Department [address] [place] [address] Provation Physician Letter MR#: [id number] Acct: [id number] Name: MARTINA PATTERSON Rep #:[id number] : 1965 59 From: Jose L Montana DO PCP: Dr. Nestor Santiago MD Status :REG [facility] 01/13/2025 Dada Santiago [address] [place] [address] Re : Colonoscopy procedure for Martina Patterson Dear Dr. Santiago This procedure was performed on Monday, January 13, 2025. My impressions and recommendations are as follows: Impressions : - Five 1 to 2 mm polyps in the sigmoid colon, at the hepatic flexure and in the cecum, removed with a hot snare. Resected and retrieved. Tattooed. Recommendations : - Repeat colonoscopy in 1 year for surveillance. - Continue present medications. My findings are described in the full procedure note, which is enclosed. If I can be of further assistance, please feel free to contact me at . Sincerely, Jose L Montana DO 01/13/2025 8:39:17 AM This report has been signed electronically. 01/13/25 0839 Date _ Jose L Powers Signature: Date (if indicated) CC: Dr. Nestor Santiago MD; Jose L Montana DO ~ Date Dictated: 01/13/255 Date Transcribed: Emergency Physician: RF Signed [facility]09-05-2025 History and physical note [facility] Medical Records Department [address] [place] [address] History & Physical Exam 01/13/25 0748 MR#: [id number] Acct: [id number] Name: MARTINA PATTERSON Rep #:[id number] : 1965 59 From: Jose L Montana DO PCP: Dr. Nestor Santiago MD Status :[facility] Location: [place] [address] HPI - General General Date of Admission: 01/13/25 Date of Service: 01/13/25 Chief Complaint: Screening colonoscopy HPI Narrative MARTINA PATTERSON, is a 59 F who presents today for screening colonoscopy. She had a colonoscopy inthe past that was normal. She does not have any abdominal pain. She past medical history of hypercholesterolemia along with gastroesophageal reflux disease that are all controlled medicines. [facility] Medical History Wears glasses Post-menopausal Depression Anxiety Alcohol use Poor historian Back pain Injury of head and neck Seizures History of IBS Gastric reflux Smoker Obesity Home Medications ?Medication ?Instructions ?Recorded ?Last Taken ?Type rosuvastatin 10 mg tablet 10 mg PO QHS 90 days #90 tab s 03/02/24 Unknown Rx pioglitazone 15 mg tablet See Rx Instructions .Route 0 07/07/24 Unknown Rx .COMPLEX 90 days #90 tabs omeprazole 20 mg capsule,delayed 20 mg PO DAILY PRN GE RD 07/21/24 Unknown History release Allergy/AdvReac Type Severity Reaction Status Date / Time No Known Allergies Allergy Verified 01/13/25 07:10 Family History Sister Thyroid disorder Surgical History History of ERCP Hx of dilation and curettage Hx of ovarian cystectomy S/P total abdominal hysterectomy Social History Smoking Status: Current every day smoker (Patient smoked today.) tobacco type: cigarettes alcohol intake: current alcohol intake frequency: 0-2 drinks per day ROS Constitutional Constitutional: Denies fatigue, fever(s), poor appetite, weight gain or weight loss Gastrointestinal Gastrointestinal: Denies belching, bloating, change in bowel habits, change in stool character, chewing difficulty, coffee ground emesis, constipation, cramping, diarrhea, dyspepsia, dysphagia, earlysatiety, excessive flatus, fecalincontinence, heartburn, hematemesis, hematochezia, hemorrhoids, loose stools, melena, nausea, odynophagia, rectal bleeding, tenesmus, vomiting or weight changes Vital Signs Vital Signs Vital Signs: 01/13/25 07:10 01/13/25 07:10 01/13/25 07:35 Temperature 97.4 F L 97.4 F L Temperature Source Temporal Pulse Rate 70 70 Respiratory Rate 16 16 Respiratory Pattern Normal Blood Pressure 122/84 H 122/84 H Blood Pressure Mean 96 Blood Pressure Source Monitor Blood Pressure Position Semi-Fowlers Blood Pressure Location Right Arm Pulse Ox 97 97 Oxygen Delivery Method Room Air Room Air Weight Weight: 196 lb 3.382 oz Body Mass Index (BMI) 30.7 Physical Exam Const alert, oriented x3, no apparent distress and healthy appearing General Appearance: cooperative GI normal to inspection, nondistended, normoactive bowel sounds, soft to palpation,non-tender and non-distended Percussion: normal to percussion Rectal Exam: deferred Assessment & Plan Assessment/Plan (1) Encounter for screening colonoscopy: PLAN: She was explained alternatives, risk and benefits include not withstandingbleeding, infection, sepsis, perforation, need for emergent urgent . She will have an ASA of 3. 01/13/25 0749 Cosigner Signature (if applicable): CC: Dr. Nestor Santiago MD; Jose L Montana DO~ Signed [facility]09-05-2025 [facility] Medical Records Department [address] [place] [address] History Physical Exam 01/13/25 0748 MR#: [id number] Acct: [id number] Name: MARTINA PATTERSON Rep #: [id number] : 1965 59 From: Jose L Montana DO PCP: Dr. Nestor Santiago MD Status:REG [facility] Location: [place] [address] HPI - General General Date of Admission: 01/13/25 Date of Service: 01/13/25 Chief Complaint: Screening colonoscopy HPI Narrative MARTINA PATTERSON, is a 59 F who presents today for screening colonoscopy. She had a colonoscopy in the past that was normal. She does not have any abdominal pain. She past medical history of hypercholesterolemia along with gastroesophageal reflux disease that are all controlled medicines. [facility] Medical History Wears glasses Post-menopausal Depression Anxiety Alcohol use Poor historian Back pain Injury of head and neck Seizures History of IBS Gastric reflux Smoker Obesity Home Medications ???Medication ???Instructions ???Recorded ???Last Taken ???Type rosuvastatin 10 mg tablet 10 mg PO QHS 90 days #90 tabs 02/09 08/01 Unknown Rx pioglitazone 15 mg tablet See Rx Instructions .Route 5 Unknown Rx .COMPLEX 90 days #90 tabs omeprazole 20 mg capsule,delayed 20 mg PO DAILY PRN GERD 07/21/24 U nknown History release Allergy/AdvReac Type Severity Reaction Status Date / Time No Known Allergies Allergy Verified 01/13/25 07:10 Family History Sister Thyroid disorder Surgical History History of ERCP Hx of dilation and curettage Hx of ovarian cystectomy S/P total abdominal hysterectomy Social History Smoking Status: Current every day smoker (Patient smoked today.) tobacco type: cigarettes alcohol intake: current alcohol intake frequency: 0-2 drinks per day ROS Constitutional Constitutional: Denies fatigue, fever(s), poor appetite, weight gain or weight loss Gastrointestinal Gastrointestinal: Denies belching, bloating, change in bowel habits, change in stool character, chewing difficulty, coffee ground emesis, constipation, cramping, diarrhea, dyspepsia, dysphagia, early satiety, excessive flatus, fecal incontinence, heartburn, hematemesis, hematochezia, hemorrhoids, loose stools, melena, nausea, odynophagia, rectal bleeding, tenesmus, vomiting or weight changes Vital Signs Vital Signs Vital Signs: 01/13/25 07:10 01/13/25 07:10 01/13/25 07:35 Temperature 97.4 F L 97.4 F L Temperature Source Temporal Pulse Rate 70 70 Respiratory Rate 16 16 Respiratory Pattern Normal Blood Pressure 122/84 H 122/84 H Blood Pressure Mean 96 Blood Pressure Source Monitor Blood Pressure Position Semi-Fowlers Blood Pressure Location Right Arm Pulse Ox 97 97 Oxygen Delivery Method Room Air Room Air Weight Weight: 196 lb 3.382 oz Body Mass Index (BMI) 30.7 Physical Exam Const alert, oriented x3, no apparent distress and healthy appearing General Appearance: cooperative GI normal to inspection, nondistended, normoactive bowel sounds, soft to palpation, non-tender and non- distended Percussion: normal to percussion Rectal Exam: deferred Assessment Plan Assessment/Plan (1) Encounter for screening colonoscopy: PLAN: She was explained alternatives, risk and benefits include not withstanding bleeding, infection, sepsis, perforation, need for emergent urgent . She will have an ASA of 3. 01/13/25 0749 Cosigner Signature (if applicable): CC: Dr. Nestor Santiago MD; Jose L Montana DO [facility] Consult note [facility] Medical Records Department [address] [place] [address] Pre-Anesthesia Evaluation 01/13/25 0730 MR#: [id number] Acct: [id number] Name: MARTINA PATTERSON Rep #:[id number] : 1965 59 From: Simone Alaniz MD PCP: Dr. Nestor Santiago MD Status :REG SDC Y Race: C Location: [place] [address]- ASA Classification* ASA Classification ASA Classification: 2 Assessment & Plan Anesthesia* Anesthesia Assessment Anesthesia Assessment: Discussed sedation and/or anesthesia options, risks, benefits, and alternatives with patient/parents/legal guardian/POA. Questions invited. The patient/parents/legal guardian/POA seems to understand and agrees to proceedwith anesthesia plan. Reviewed the physical assessment, medical history, allergy history and patient home medications list prior to surgery/procedure/anesthetic and documented any changes. Performed airway and anesthesia risk assessments. Anesthesia Type Anesthesia Type: MAC History Source History Obtained from:: Patient and Chart Anesthesia Focused Assessment* Temperature: 97.4 F Pulse Rate: 70 Blood Pressure: 122/84 Respiratory Rate: 16 Pulse Ox: 97 Oxygen Delivery Method: Room Air Airway Assessment Mouth opens: >3 cm Mallampati Score: IV Teeth Condition: Caps/Crowns (Patient has a crown. It is tight.) Neck Range of motion (ROM): Limited ROM (Slight Decrease) Labs Anesthesia Preop lab: CBC WBC 6.8 K/mm3 (4.4-11.0) 02/24/24 15:46 02/24/24 RBC 3.96 M/mm3 (4.2-5.4) L 02/24/24 15:46 02/24/24 Hgb 12.6 g/dL (12.0-15.0) 02/24/24 15:46 02/24/24 Hct 37.8 % (37-47) 02/24/24 15:46 02/24/24 Plt Count 266 K/mm3 (150-450) 02/24/24 15:46 02/24/24 CHEMISTRY Potassium 3.8 mmol/L (3.5-5.1) 02/24/24 15:46 02/24/24 Sodium 136 mmol/L (136-145) 02/24/24 15:46 02/24/24 BUN 15 mg/dL (7-18) 02/24/24 15:46 02/24/24 Creatinine 0.53 mg/dL (0.55-1.02) L 02/24/24 15:46 Glucose 96 mg/dL (74-106) 02/24/24 15:46 02/24/24 POC Glucose 92 mg/dL (74-106) 01/08/23 14:22 01/08/23 TSH 2.19 uIU/mL (0.358-3.74) 07/31/22 16:31 COAG PT 12.2 SECONDS (11.7-14.9) 02/24/24 15:46 Pre-Assessment Diagnosis/Proposed Procedure Planned Operative Procedure(s): COLONOSCOPY Anesthesia History 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 When Was Last Pacemaker Check QUESTION #4 FULL TEXT: You/Your Family Experience fever (hyperthermia) with Anesthesia Last Oral Intake Last Oral intake: Last Oral Intake NPO since 04:30 01/13/25 07:10 Meds taken in AM with sips of No 01/13/25 07:10 water? 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 operator Female Yes 01/12/25 10:45 HX of Motion Sickness No 01/12/25 10:45 HX of N/V After Surgery No 01/12/25 10:45 Non-Smoker No 01/12/25 10:45 Duration of Surgery greater No 01/12/25 10:45 than 60 minutes Number of Risk Factors 1 01/12/25 10:45 PONV Score Low Risk 01/12/25 10:45 Height & Weight Height & Weight: Anesthesia: Height & Weight Height 5 ft 7 in 01/13/25 07:10 Weight: 89 kg 01/13/25 07:10 Body Mass Index (BMI) 30.7 01/13/25 07:10 Respiratory Assessment Respiratory Assessment - mounting machine operator: Respiratory Tract 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 Has anyone observed you stop No 01/12/25 10:45 breathing during sleep? STOP Results Negative 01/12/25 10:45 QUESTION #5 FULL TEXT : Do you snore loudly (louder than talking or can be heard through closeddoors)? 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 Specify any problems Hx of Preganancy in last 3 No 01/12/25 10:45 Months Nurse Filling Out Transfusion VCHRISTIN 01/12/25 10:45 & Questions: Date: 01/12/25 01/12/25 10:45 Time: 10:46 01/12/25 10:45 Patient unable to answer at this time (ie. confused, unrespo /Reproduction History /Reproductive History - mounting machine operator: /Reproductive Hx- mounting machine operator Hx Now No 01/12/25 10:45 Gestational Age (in weeks): EDC: Hx Hx Para Hx Section SAB No 01/12/25 10:45 Active Medications Active Medications: Current Medications Generic Name Dose Route Start Last Admin Trade Name Freq PRN Reason Stop Dose Admin Lactated Ringer's 1,000 mls @ 15 mls/hr 01/13/25 07:00 01/13/25 07:19 IV 15 mls/hr .Q48H CARLYLE Administration PFSH Medical History Wears glasses Post-menopausal Depression Anxiety Alcohol use Poor historian Back pain Injury of head and neck Seizures History of IBS Gastric reflux Smoker Obesity Home Medications ?Medication ?Instructions ?Recorded ?Last Taken ?Type rosuvastatin 10 mg tablet 10 mg PO QHS 90 days #90 tab s 03/02/24 Unknown Rx pioglitazone 15 mg tablet See Rx Instructions .Route 0 07/07/24 Unknown Rx .COMPLEX 90 days #90 tabs omeprazole 20 mg capsule,delayed 20 mg PO DAILY PRN GE RD 07/21/24 Unknown History release Allergy/AdvReac Type Severity Reaction Status Date / Time No Known Allergies Allergy Verified 01/13/25 07:10 Family History Sister Thyroid disorder Surgical History History of ERCP Hx of dilation and curettage Hx of ovarian cystectomy S/P total abdominal hysterectomy Social History Smoking Status: Current every day smoker tobacco type: cigarettes alcohol intake: current alcohol intake frequency: 0-2 drinks per day Review of Systems (Anesthesia) ROS Narrative System reviewed and no additional complaints, except as documented. 01/13/25 0735 eduardo LEONE> Date _ Simone Alaniz MD Cosigner Signature: Date CC: ~ Signed [facility]04-23-2025 NoteHNO ID: [id number] Author: SWETA CORTES Mammo Tech Service: ? [...] PATIENT PRESENTS WITH AN IMPLANTABLE OR ATTACHED ENGLISH LANGUAGE ARTS TEACHER: No RADIOLOGY DEPARTMENT: Mammography PERIPHERAL IV DATA: Not applicable SIGNED BY: Mel CornejoBonafide Nina August 31, 2024 12:59 [facility]04-23-2025 NoteHNO ID: [id number] Author: BREANNA NG MD Service: ? Author Type: Physician Type: Progress Notes Filed: 08/31/2024 09:10 Note Text: Martina is a 59 year old who presents for an annual gynecologic exam without any mail room c/o. . Postmenopausal: yes, s/p hyst HRT [...] discussed with the Patient or Patient's Authorized Wheel Truer. As applicable, any other physician, advance practice provider, medical student, or other health professional student that will be observing or involved in the sensitive examination for educational or training purposes was discussed with the Patient or Authorized Wheel Truer. The Patient or Authorized Wheel Truer has agreed to proceed with the sensitive examination. (Sensitive examination includes inspection and/or palpation of the breasts, pelvis, prostate and anorectal regions). EXAM: BP 124/82 Ht 5' 7" (1.70m) Wt 192 lb (87.1kg) BMI 30.06 [...] external genitalia normal, normal Bartholin's glands, urethra, [place]'s glands, no vulvar lesions, good vaginal support, [...] one year or sooner as needed Breanna Ng, [facility]04-23-2025 History of Present illness Narrative* Breanna Ng MD - 08/31/2024 8:44 AM EDT Martina is a 59 year old who presents for an annual gynecologic exam without any mail room c/o. . Postmenopausal: yes, s/p hyst HRT [...] discussed with the Patient or Patient's Authorized Wheel Truer. As applicable, any other physician, advance practice provider, medical student, or other health professional student that will be observing or involved in the sensitive examination for educational or training purposes was discussed with the Patient or Authorized Wheel Truer. The Patient or Authorized Wheel Truer has agreed to proceed with the sensitive examination. (Sensitive examination includes inspection and/or palpation of the breasts, pelvis, prostate and anorectal regions). EXAM: BP 124/82 Ht 5' 7" (1.70m) Wt 192 lb (87.1kg) BMI 30.06 [...] external genitalia normal, normal Bartholin's glands, urethra, [place]'s glands, no vulvar lesions, good vaginal support, [...] needed Breanna Ng MD [facility] Note* Letter - Coordinator, Mammography - 08/29/2023 5:45 PM EDT August 31, 2023 PID: [id number] Martina Patterson [address] [place] [address] Dear Ms. Patterson, We are pleased to [...] report will be kept [facility] as part of your permanent medical record and are available for your continuing care. Thank you for allowing us to help in meeting your health care needs. Sincerely, Dr. Abreu Interpreting Radiologist [facility] (Normal over 40) [facility]04-20-2024 Miscellaneous Notes* Letter - Coordinator, Mammography - 08/29/2023 5:45 PM EDT August 31, 2023 PID: [id number] Martina Patterson [address] [place] [address] Dear Ms. Patterson, We are pleased to [...] report will be kept [facility] at [facility] as part of your permanent medical record and are available for your continuing care. Thank you for allowing us to help in meeting your health care needs. Sincerely, Dr. Abreu Interpreting Radiologist [facility] (Normal over 40) documented in this encounterOhio[facility]04-19-2024 History of Present illness Narrative* Lois Garrett RT(R) - 08/28/2023 7:30 AM EDT Radiology Service Progress Note PATIENT NAME: [...] PATIENT PRESENTS WITH AN IMPLANTABLE OR ATTACHED ENGLISH LANGUAGE ARTS TEACHER: No RADIOLOGY DEPARTMENT: Mammography PERIPHERAL IV DATA: Not applicable SIGNED BY: RT Raimundo(R) August 28, 2023 7:17 AM documented in this encounterOhio[facility]02-02-2024 Miscellaneous Notes* Telephone Encounter - [place], Demi, MEDICAL CODING INSTRUCTOR.CAREER DEVELOPMENT DIRECTOR - 06/12/2023 6:48 AM EST RX was sent yesterday to [facility] by RR. Demi Lebron APRN.CNP * Telephone Encounter - Demi Lebron APRN.CNP - 06/12/2023 6:47 AM EST ----- Message from Rebecca Lee LPN sent at 06/11/2023 3:43 PM EST ----- Pt given results and would like rx for BV sent to her pharmacy, [facility] . Call only if problems. Rebecca Lee LPN.; documented in this encounterOhio[facility]08-31-2023 Procedure [facility]08-31-2023 Procedure [facility]08-31-2023 History and physical note Author Jose L Montana [facility] January 08, 2023 11:27am Note Date/Time January 08, 2023 11 :27am [facility] Medical Records Department [address] [place] [address] History & Physical Exam 01/08/23 1127 MR#: [id number] Acct: [id number] Name: MARTINA PATTERSON Rep #:[id number] : 1965 57 From: Jose L Montana DO PCP: Dr. 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 Takes 800mg ibuprofen/day. HLD noted ? Biochemical 07.31.22 CBC, CMP, LFT, GGT, TSH, hepatitis screen without pertinent abnormality. ? 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 ? FIB4 0.8 ? US RUQ and elastography 07.19.22 hepatic measurement 19.2cm with fatty infiltration, stiffness 12.2kPa; 3 small gallbladder polyps, largest 9u3b62gm; CBD 6.1mm *BGI established 10.30.22 ibuprofen 800mg [...] enlarged lymph nodes Quality Reporting Tobacco Screening ([facility] 138) Smoking Status: Current every day smoker [...] - Other specified diseases of biliary tract Abdomen Limited [...] Santiago MD; Jose L Montana DO~ Signed [facility] Work Phone: [phone]) 566-433904-18-2023 History of Present illness Narrative* Yaneth Bond [...] 26, 2022 4:35 PM documented in this encounterOhio[facility]04-18-2023 History of Present illness Narrative* Cathleen Kim [...] PERIPHERAL IV DATA: Not applicable SIGNED BY: TAYLOR Fisher) August 26, 2022 3:47 PM documented in this encounterOhio[facility]02-10-2023 History of Present illness Narrative* Hellen Mo RN - 06/20/2022 11:57 AM EST External Mammogram results - Please review Scan on 06/20/2022 11:17 AM by External Provider: Mammography documented in this encounterOhiohealth [facility]01-27-2023 History of Present illness Narrative* Christina Nye Ma - 06/06/2022 3:41 PM EST [facility] OPEN ACCESS QUESTIONNAIRE 1. Are you currently [...] Please send all open access questionnaires to [facility] Pool #[id number] * Joyce Freitas MD - 06/06/2022 3:08 PM EST [employer] offered: Patient declines. Martina is a 57 [...] OB History No obstetric history on file. Air Intercept Controller History LMP: Hysterectomy Age at Menarche: Age at First : Age at Menopause: Air Intercept Controller History Comments: Sexual Activity: Not Currently; No [...] medication updated:Yes EXAM: BP 122/82 Ht 5' 7" (1.70m) Wt 191 lb 9.6 oz (86.9kg) [...] treatment Joyce Freitas MD documented in this encounterOhio[facility]01-27-2023 Instructions* Patient Instructions* Christina Nye Ma - [...] please call: Dr. Kendall or Dr. Rodríguez [phone] Kristan Espinoza [phone] Dr. Cummings [phone] [facility] nurses [phone] documented in this encounterOhio[facility] Hospital10-11-2021 History of Present illness Narrative* Cynthia Her, RT(R) - 02/18/2021 3:50 PM EDT Radiology [...] 18, 2021 3:50 PM [facility] Author Simone Alaniz [facility] Note Date/Time January 13, 2025 7:35am [facility] Medical Records Department [address] [place] [address] Pre-Anesthesia Evaluation 01/13/25 0730 MR#: [id number] Acct: [id number] Name: MARTINA PATTERSON Rep #:[id number] : 1965 59 From: Simone Alaniz MD PCP: Dr. Nestor Santiago MD Status :REG SD Y Race: C Location: [place] [address] ASA Classification* ASA Classification ASA Classification: 2 Assessment & Plan Anesthesia* Anesthesia Assessment Anesthesia Assessment: Discussed sedation and/or anesthesia options, risks, benefits, and alternatives with patient/parents/legal guardian/POA. Questions invited. The patient/parents/legal guardian/POA seems to understand and agrees to proceedwith anesthesia plan. Reviewed the physical assessment, medical history, allergy history and patient home medications list prior to surgery/procedure/anesthetic and documented any changes. Performed airway and anesthesia risk assessments. Anesthesia Type Anesthesia Type: MAC History Source History Obtained from:: Patient and Chart Anesthesia Focused Assessment* Temperature: 97.4 F Pulse Rate: 70 Blood Pressure: 122/84 Respiratory Rate: 16 Pulse Ox: 97 Oxygen Delivery Method: Room Air Airway Assessment Mouth opens: >3 cm Mallampati Score: IV Teeth Condition: Caps/Crowns (Patient has a crown. It is tight.) Neck Range of motion (ROM): Limited ROM (Slight Decrease) Labs Anesthesia Preop lab: CBC WBC 6.8 K/mm3 (4.4-11.0) 02/24/24 15:46 02/24/24 RBC 3.96 M/mm3 (4.2-5.4) L 02/24/24 15:46 02/24/24 Hgb 12.6 g/dL (12.0-15.0) 02/24/24 15:46 02/24/24 Hct 37.8 % (37-47) 02/24/24 15:46 02/24/24 Plt Count 266 K/mm3 (150-450) 02/24/24 15:46 02/24/24 CHEMISTRY Potassium 3.8 mmol/L (3.5-5.1) 02/24/24 15:46 02/24/24 Sodium 136 mmol/L (136-145) 02/24/24 15:46 02/24/24 BUN 15 mg/dL (7-18) 02/24/24 15:46 02/24/24 Creatinine 0.53 mg/dL (0.55-1.02) L 02/24/24 15:46 Glucose 96 mg/dL (74-106) 02/24/24 15:46 02/24/24 POC Glucose 92 mg/dL (74-106) 01/08/23 14:22 01/08/23 TSH 2.19 uIU/mL (0.358-3.74) 07/31/22 16:31 COAG PT 12.2 SECONDS (11.7-14.9) 02/24/24 15:46 Pre-Assessment Diagnosis/Proposed Procedure Planned Operative Procedure(s): COLONOSCOPY Anesthesia History 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 When Was Last Pacemaker Check QUESTION #4 FULL TEXT: You/Your Family Experience fever (hyperthermia) with Anesthesia Last Oral Intake Last Oral intake: Last Oral Intake NPO since 04:30 01/13/25 07:10 Meds taken in AM with sips of No 01/13/25 07:10 water? 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 operator Female Yes 01/12/25 10:45 HX of Motion Sickness No 01/12/25 10:45 HX of N/V After Surgery No 01/12/25 10:45 Non-Smoker No 01/12/25 10:45 Duration of Surgery greater No 01/12/25 10:45 than 60 minutes Number of Risk Factors 1 01/12/25 10:45 PONV Score Low Risk 01/12/25 10:45 Height & Weight Height & Weight: Anesthesia: Height & Weight Height 5 ft 7 in 01/13/25 07:10 Weight: 89 kg 01/13/25 07:10 Body Mass Index (BMI) 30.7 01/13/25 07:10 Respiratory Assessment Respiratory Assessment - mounting machine operator: Respiratory Tract 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 Has anyone observed you stop No 01/12/25 10:45 breathing during sleep? STOP Results Negative 01/12/25 10:45 QUESTION #5 FULL TEXT : Do you snore loudly (louder than talking or can be heard through closed doors)? 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 Specify any problems Hx of Preganancy in last 3 No 01/12/25 10:45 Months Nurse Filling Out Transfusion VCHRISTIN 01/12/25 10:45 & Questions: Date: 01/12/25 01/12/25 10:45 Time: 10:46 01/12/25 10:45 Patient unable to answer at this time (ie. confused, unrespo /Reproduction History /Reproductive History - mounting machine operator: /Reproductive Hx- mounting machine operator Hx Now No 01/12/25 10:45 Gestational Age (in weeks): EDC: Hx Hx Para Hx Section SAB No 01/12/25 10:45 Active Medications Active Medications: Current Medications Generic Name Dose Route Start Last Admin Trade Name Freq PRN Reason Stop Dose Admin Lactated Ringer's 1,000 mls @ 15 mls/hr 01/13/25 07:00 01/13/25 07:19 IV 15 mls/hr .Q48H CARLYLE Administration PFSH Medical History Wears glasses Post-menopausal Depression Anxiety Alcohol use Poor historian Back pain Injury of head and neck Seizures History of IBS Gastric reflux Smoker Obesity Home Medications ?Medication ?Instructions ?Recorded ?Last Taken ?Type rosuvastatin 10 mg tablet 10 mg PO QHS 90 days #90 tab s 03/02/24 Unknown Rx pioglitazone 15 mg tablet See Rx Instructions .Route 0 07/07/24 Unknown Rx .COMPLEX 90 days #90 tabs omeprazole 20 mg capsule,delayed 20 mg PO DAILY PRN GE RD 07/21/24 Unknown History release Allergy/AdvReac Type Severity Reaction Status Date / Time No Known Allergies Allergy Verified 01/13/25 07:10 Family History Sister Thyroid disorder Surgical History History of ERCP Hx of dilation and curettage Hx of ovarian cystectomy S/P total abdominal hysterectomy Social History Smoking Status: Current every day smoker tobacco type: cigarettes alcohol intake: current alcohol intake frequency: 0-2 drinks per day Review of Systems (Anesthesia) ROS Narrative System reviewed and no additional complaints, except as documented. 01/13/25 0735 <Electronically signed by Simone clark MD> Date _ Simone Alaniz MD Cosigner Signature: Date CC: ~ Signed [facility] Work Phone: Consult note Author [facility] Note Date/Time January 13, 2025 8:43am [facility] Medical Records Department [address] [place] [address] Anesthesia Postop Eval I 01/13/25841 MR#: [id number] Acct: [id number] Name: MARTINA PATTERSON Rep #:[id number] : 1965 59 From: Nathan Mcgrath PCP: Dr. Nestor Santiago MD Status :REG SDC Y Race: C Location: [place] [address] Anesthesia: Postop Eval I Current Vital Signs Temperature: 96.4 F Pulse Rate: 64 Blood Pressure: 116/86 Respiratory Rate: 16 Pulse Ox: 99 Oxygen Delivery Method: Room Air Assessment Airway patent: Yes Spontaneous unlabored respirations: Yes Mental status: Awake and Calm nausea: No Vomiting: No Anesthesia Complication: No Fluid Hydration Crystalloid volume administer (ml): 600 Total IV fluid infused: 600 Progress Note Anesthesia document: Postop Eval 1 completed: Yes 01/13/25 0843 <Electronically signed by Nathan Mcgrath > Date _ Nathan Coley Signature: Date CC: ~ Signed [facility] Work Phone: evaluation noteNo assessment information available [facility] Work Phone: evaluation note* Diagnosis Encounter [...] malignant neoplasms, colon [facility]* Diagnosis Onset Date Resolution Status Common bile duct dilatation chronic Fatty liver chronic [facility] Work Phone: evaluation note* Diagnosis Mass of left breast, unspecified quadrant [facility]* Diagnosis Mass of left breast, unspecified quadrant [facility]* Diagnosis Onset Date Resolution Status Common bile duct dilatation chronic NAFLD (nonalcoholic fatty liver disease) chronic [facility] Work Phone: evaluation note* Diagnosis Encounter for screening mammogram for breast cancer [facility]* Diagnosis Left hand pain Pain in limb documented [facility] this [facility]* Diagnosis Encounter for gynecological examination (general) (routine) without abnormal findings- Primary Encounter for screening mammogram for breast cancer [facility] Author Jose L Montana [facility] Note Date/Time January 13, 2025 7:[address] [facility] Medical Records Department [address] [place] [address] History & Physical Exam 01/13/25 0748 MR#: [id number] Acct: [id number] Name: MARTINA PATTERSON Rep #:[id number] : 1965 59 From: Jose L Montana DO PCP: Dr. Nestor Santiago MD Status :[facility] Location: [place] [address] HPI - General General Date of Admission: 01/13/25 Date of Service: 01/13/25 Chief Complaint: Screening colonoscopy HPI Narrative MARTINA PATTERSON, is a 59 F who presents today for screening colonoscopy. She had a colonoscopy in the past that was normal. She does not have any abdominal pain. She past medical history of hypercholesterolemia along with gastroesophageal reflux disease that are all controlled medicines. [facility] Medical History Wears glasses Post-menopausal Depression Anxiety Alcohol use Poor historian Back pain Injury of head and neck Seizures History of IBS Gastric reflux Smoker Obesity Home Medications ?Medication ?Instructions ?Recorded ?Last Taken ?Type rosuvastatin 10 mg tablet 10 mg PO QHS 90 days #90 tab s 03/02/24 Unknown Rx pioglitazone 15 mg tablet See Rx Instructions .Route 0 07/07/24 Unknown Rx .COMPLEX 90 days #90 tabs omeprazole 20 mg capsule,delayed 20 mg PO DAILY PRN GE RD 07/21/24 Unknown History release Allergy/AdvReac Type Severity Reaction Status Date / Time No Known Allergies Allergy Verified 01/13/25 07:10 Family History Sister Thyroid disorder Surgical History History of ERCP Hx of dilation and curettage Hx of ovarian cystectomy S/P total abdominal hysterectomy Social History Smoking Status: Current every day smoker (Patient smoked today.) tobacco type: cigarettes alcohol intake: current alcohol intake frequency: 0-2 drinks per day ROS Constitutional Constitutional: Denies fatigue, fever(s), poor appetite, weight gain or weight loss Gastrointestinal Gastrointestinal: Denies belching, bloating, change in bowel habits, change in stool character, chewing difficulty, coffee ground emesis, constipation, cramping, diarrhea, dyspepsia, dysphagia, early satiety, excessive flatus, fecalincontinence, heartburn, hematemesis, hematochezia, hemorrhoids, loose stools, melena, nausea, odynophagia, rectal bleeding, tenesmus, vomiting or weight changes Vital Signs Vital Signs Vital Signs: 01/13/25 07:10 01/13/25 07:10 01/13/25 07:35 Temperature 97.4 F L 97.4 F L Temperature Source Temporal Pulse Rate 70 70 Respiratory Rate 16 16 Respiratory Pattern Normal Blood Pressure 122/84 H 122/84 H Blood Pressure Mean 96 Blood Pressure Source Monitor Blood Pressure Position Semi-Fowlers Blood Pressure Location Right Arm Pulse Ox 97 97 Oxygen Delivery Method Room Air Room Air Weight Weight: 196 lb 3.382 oz Body Mass Index (BMI) 30.7 Physical Exam Const alert, oriented x3, no apparent distress and healthy appearing General Appearance: cooperative GI normal to inspection, nondistended, normoactive bowel sounds, soft to palpation,non-tender and non-distended Percussion: normal to percussion Rectal Exam: deferred Assessment & Plan Assessment/Plan (1) Encounter for screening colonoscopy: PLAN: She was explained alternatives, risk and benefits include not withstandingbleeding, infection, sepsis, perforation, need for emergent urgent . She will have an ASA of 3. 01/13/25 0749 <Electronically signed by Jose L Montana DO> Cosigner Signature (if applicable): CC: Dr. Nestor Santiago MD; Jose L Montana DO~ Signed [facility] Work Phone: Reason for referral (narrative)* Outpatient Procedure (Routine) - Pending Review Specialty Diagnoses / Procedures Referred By Monica reis Referred To Contact [facility] Diagnoses Special screening for malignant neoplasms, colon Procedures COLONOSCOPY SCREENING COLONOSCOPY FLX DX W/COLLJ SPEC WHEN PFRMD Joyce Freitas MD [facility] [place] [address] [facility] [address] [place] [id number] Referral ID Status Reason Start Date Expiration Date Visits Requested Visits Authorized [id number] Pending Review Auto-Generat ed Referral 06/06/2022 06/06/2023 1 1 * Diagnostic Procedure Only (Routine) - Pending Review Specialty Diagnoses / Procedures Referred By Monica reis Referred To Contact [facility] Diagnoses Mass of left breast, unspecified quadrant Procedures US BREAST LTD US BREAST UNI REAL TIME WITH IMAGE LIMITED Joyce Freitas MD [address] [place] [address] [facility] [address] [place] [address] Referral ID Status Reason Start Date Expiration Date Visits Requested Visits Authorized [id number] Pending Review Auto-Generat ed Referral 06/06/2022 07/06/2023 1 1 * Diagnostic Procedure Only (Routine) - Authorized Specialty Diagnoses / [facility] Diagnoses Mass of left breast, unspecified quadrant Procedures SARAH DIAGNOSTIC BILAT DIAGNOSTIC MAMMOGRAPHY COMPUTER-AIDED DETCJ BI Joyce Freitas MD [address] [place] [address] [facility] [address] [place] [address] Referral ID Status Reason Start Date Expiration Date Visits Requested Visits Authorized [id number] Authorized Auto-Generat ed Referral 06/06/2022 07/06/2023 1 1 [facility] for referral (narrative)* Diagnostic Procedure Only (Routine) - Closed Specialty Diagnoses / Procedures [facility] To [facility] Diagnoses Mass of left breast, unspecified quadrant Procedures US BREAST LTD LT US BREAST UNI REAL TIME WITH IMAGE LIMITED Joyce Freitas MD [address] [place] [address] [facility] [address] [place] [address] Referral ID Status Reason Start Date Expiration Date V isits Requested Visits Authorized [id number] Closed Auto-Generate d Referral 06/06/2022 07/06/2023 1 1 [facility] for referral (narrative)* Diagnostic Procedure Only (Urgent) - Closed Specialty Diagnoses / Procedures [facility] To Contact XR IMAGING Diagnoses Left hand pain Procedures XR HAND GENERAL 3V PA/LAT/OBL LT X-RAY HAND MINIMUM 3 VIEWS Nasreen Rebollar APRN.CAREER DEVELOPMENT DIRECTOR [address] [place] [address] [place] [address] Referral ID Status Reason Start Date Expiration Date V isits Requested Visits Authorized [id number] Closed Auto-Generate d Referral 02/18/2021 05/10/2021 1 1 [facility] for referral (narrative)No reason for referral information [facility] Work Phone: Reason for visit Narrative* Diagnostic Procedure Only (Routine) - Closed Specialty Diagnoses / Procedures Referred By Contac t Referred To Contact BR IMAGING Diagnoses Mass of left breast, unspecified quadrant Procedures SARAH DIAGNOSTIC BILAT DIAGNOSTIC MAMMOGRAPHY COMPUTER-AIDED DETCJ BI Joyce Freitas MD [address] [place] [address] [facility] [address] [place] [address] Referral ID Status Reason Start Date Expiration Date V isits Requested Visits Authorized [id number] Closed Auto-Generate d Referral 06/06/2022 07/06/2023 1 1 [facility] for visit Narrative* Diagnostic Procedure Only (Routine) - Closed Specialty Diagnoses / Procedures Referred By Cont[facility] t Referred To Contact BR IMAGING Diagnoses Encounter for screening mammogram for breast cancer Procedures SARAH SCREENING W AME SCREENING DIGITAL BREAST TOMOSYNTHESIS BI SCREENING MAMMOGRAPHY BI 2-VIEW BREAST INC CAD Breanna Ng MD [address] [place] [address] [facility] [address] [place] [address] Referral ID Status Reason Start Date Expiration Date V isits Requested Visits Authorized [id number] Closed Auto-Generate d Referral 06/10/2023 07/09/2024 1 1 [facility] for visit Narrative* Diagnostic Procedure Only (Urgent) - Closed Specialty Diagnoses / Procedures Referred By Contac t Referred To Contact XR IMAGING Diagnoses Left hand pain Procedures XR HAND GENERAL 3V PA/LAT/OBL LT X-RAY HAND MINIMUM 3 VIEWS Nasreen Rebollar, MEDICAL CODING INSTRUCTOR.CAREER DEVELOPMENT DIRECTOR [address] [place] [address] [place] [address] Referral ID Status Reason Start Date Expiration Date V isits Requested Visits Authorized [id number] Closed Auto-Generate d Referral 02/18/2021 05/10/2021 1 1 [facility] Chief Complaint and Reason for Visit Chief [...] dil atation NAFLD (nonalcoholic fatty liver disease) Reason for Visit Admit Date Encounter for screening colonoscopy Jan 6:54am Advance Directives No Advanced Directives Records Found Advance Directive Response Recorded Date/ Time Living Will No January 06 11:56am Power of Certified Pathology Assistant No January 06 11:56am Advance Directive Response Recorded Date/ Time Living Will No April 24 11:45am Power of Certified Pathology Assistant No April 24, 2023 11:45am Advance Directive Response Recorded Date/ Time Living Will No April 24, 023 12:45pm Power of Certified Pathology Assistant No April 24, 2023 12:45pm Advance Directive Response Recorded Date/ Time Do you have a Healthcare Power of Certified Pathology Assistant? No January 12, 2025 10:45am Summary Purpose Family History No Family History [...] or prosecute any alcohol or drug abuse patient.[facility] the event this information is protected by the Federal Confidentiality of Alcohol and Drug Abuse Patient Records regulations: The Federal rules restrict any use of the information to criminally investigate or prosecute any alcohol or drug abuse patient.[facility] the event this information is protected by the Federal Confidentiality of Alcohol and Drug Abuse Patient Records regulations: The Federal rules restrict any use of the information to criminally investigate or prosecute any alcohol or drug abuse patient.[facility] the event this information is protected by the Federal Confidentiality of Alcohol and Drug Abuse Patient Records regulations: The Federal rules restrict any use of the information to criminally investigate or prosecute any alcohol or drug abuse patient.[facility] the event this information is protected by the Federal Confidentiality of Alcohol and Drug Abuse Patient Records regulations: The Federal rules restrict any use of the information to criminally investigate or prosecute any alcohol or drug abuse patient.[facility] the event this information is protected by the Federal Confidentiality of Alcohol and Drug Abuse Patient Records regulations: The Federal rules restrict any use of the information to criminally investigate or prosecute any alcohol or drug abuse patient.[facility] the event this information is protected by the Federal Confidentiality of Alcohol and Drug Abuse Patient Records regulations: The Federal rules restrict any use of the information to criminally investigate or prosecute any alcohol or drug abuse patient.[facility] the event this information is protected by the Federal Confidentiality of Alcohol and Drug Abuse Patient Records regulations: The Federal rules restrict any use of the information to criminally investigate or prosecute any alcohol or drug abuse patient.[facility] the event this information is protected by the Federal Confidentiality of Alcohol and Drug Abuse Patient Records regulations: The Federal rules restrict any use of the information to criminally investigate or prosecute any alcohol or drug abuse patient.[facility] the event this information is protected by the Federal Confidentiality of Alcohol and Drug Abuse Patient Records regulations: The Federal rules restrict any use of the information to criminally investigate or prosecute any alcohol or drug abuse patient.[facility] the event this information is protected by the Federal Confidentiality of Alcohol and Drug Abuse Patient Records regulations: The Federal rules restrict any use of the information to criminally investigate or prosecute any alcohol or drug abuse patient.[facility] Reason for Visit (unrecogniz ed section and content) Reason Comments Well Woman Reason Comments External Results - Mammogram Reason Comments Radiology US Specialty Diagnoses / Procedures Referred By Contac t Referred To Contact BR IMAGING Diagnoses Mass of left breast, unspecified quadrant Procedures US BREAST LTD LT US BREAST UNI REAL TIME WITH IMAGE LIMITED Joyce Freitas MD [address] [place] [address] [facility] [address] [place] [address] Referral ID Status Reason Start Date Expiration Date V isits Requested Visits Authorized [id number] Closed Auto-Generate d Referral 06/06/2022 07/06/2023 1 [...] Attending Provider Active Team Status: Active Member Role/Relationship Status Dates Dr. Nestor Santiago MD Primary Care Provider Acti ve Team Status: Inactive Member Role/Relationship Status Dates Dr. Nestor Santiago MD Primary Care Provider Acti ve Start: January 13, 2025 End: January 13, 2025 Dr. Nestor Santiago MD Referring Provider Active Start: January 13, 2025 End: January 13, 2025 Dr. Jose L Montana DO Attending Provider Active Start: January 13, 2025 End: January 13, 2025 Team Status: Active Member Role/Relationship Status Dates Dr. Nestor Santiago MD Primary Care Provider Acti ve Start: January 13, 2025 Dr. Nestor Santiago MD Referring Provider Active Start: January 13, 2025 Dr. Jose L Montana DO Attending Provider Active Start: January 13, 2025 Dr. Jose L Montana DO Other Provider Active St art: January 13, 2025 INFORMATION SOURCE (unrecogn ized section and content) DATE CREATED AUTHOR 09/14/2024 [facility] DATE CREATED AUTHOR AUTHOR'S ORGANIZ ATION 02/02/2025 [facility] FOR RECORDS PERTAINING TO PATIENTS WHO ARE [...] BE BASED ON THE PRIMARY CLINICAL RECORDS. [employer] provides no warranty or guarantee of the accuracy or completeness of information in this document.
[2025-02-28 17:03] LABS: Hematocrit 38.5 % (37-47); Hemoglobin 12.8 g/dL (12.0-15.0); Immature Granulocytes Count 0.010 X10^3/uL (0.0-0.0); Mean Corp Hgb Conc 33.2 g/dL (32-36); Mean Corpuscular Volume 93.9 fL (81-99); Mean Platelet Vol. 9.2 fl (6.2-12.0); NRBC Flagged by Analyzer 0 % (0-5); Platelet Count 288 K/mm3 (150-450); RBC Distribution Width CV 12.4 % (11.6-14.6); RBC Distribution Width SD 43.2 fl (35.1-43.9); Red Blood Count 4.10 M/mm3 (4.2-5.4); White Blood Count 7.3 K/mm3 (4.4-11.0)
[2025-02-28 17:24] LABS: AST(SGOT) 22 U/L (<=31); Alanine Aminotransfer ALT/SGPT 20 U/L (<=34); Albumin, Serum 4.3 g/dL (3.4-4.8); Alkaline Phosphatase 79 U/L (35-104); Anion Gap 12 (5-15); BUN 15 mg/dL (4-19); BUN/Creat Ratio 23.6 RATIO (10-20); CRP < 3.00 mg/L (0.0-3.0); Calcium,Total 9.5 mg/dL (7.6-11.0); Carbon Dioxide 23.9 mmol/L (21.0-32.0); Chloride 100 mmol/L (98-108); Globulin 2.8 g/dL (2.2-4.2); Glucose 92 mg/dL (70-99); Potassium 4.1 mmol/L (3.3-5.1)
== END | disposition home or self-care (01) ==
LOC: LAB 15:44
PROVIDERS: PCP Family Medicine; Referring Provider Internal Medicine; Visit Provider Internal Medicine
DX: K76.0 Fatty (change of) liver, not elsewhere classified (principal); K83.8 Other specified diseases of biliary tract; R73.03 Prediabetes; E78.5 Hyperlipidemia, unspecified
CPT/HCPCS: 36415; 80053; 85025; 86140

== ENCOUNTER → 2025-03-21 | Outpatient (CLI) | payer BC, SELFPAY ==
[2025-03-21 07:32] LABS: Ferritin 116 ng/mL (22-378); Iron 89 ug/dL (50-170); Iron Binding Capacity,Total 299 ug/dL (250-450); Iron Binding Capacity,Unsat 210 ug/dL (228-428)
[2025-03-21 08:07] LABS: Cholesterol 181 mg/dL (<=200); Low Density Lipoprotein Calc. 102 mg/dL; Triglycerides 127 mg/dL; Very Low Density Lipoprotein 25 mg/dL (5-40); cholesterol:hdl ratio screen 3.18
== END | disposition home or self-care (01) ==
LOC: LAB 06:02
PROVIDERS: PCP Family Medicine; Referring Provider Internal Medicine; Visit Provider Internal Medicine
DX: K76.0 Fatty (change of) liver, not elsewhere classified (principal); E78.5 Hyperlipidemia, unspecified; R73.03 Prediabetes; K83.8 Other specified diseases of biliary tract
CPT/HCPCS: 36415; 80061; 82728; 83036; 83540; 83550

== ENCOUNTER → 2025-04-13 | Outpatient (CLI) | payer BC, SELFPAY ==
--- NOTE | 2025-04-13 07:22 | US_ITS ---
PROCEDURE: ABD LIMITED W/ ELASTOGRAPHY, 04/13/2025 REASON FOR EXAM: LIVER FIBROSIS COMPARISON: 02/10/2024 TECHNIQUE: Grayscale and color Doppler imaging of the right upper quadrant was performed. Elastography was performed for non-invasive assessment of liver tissue stiffness utilizing a [employer] S-shear wave imaging unit. FINDINGS: Liver: Unremarkable. 17.8 cm in length. Gallbladder: Suspected polyp measuring 5 x 4 x 4 mm without detected vascularity. No visualized stones, wall thickening or pericholecystic fluid. Reportedly, sonographic Navas's was negative. Biliary tree: Unremarkable. CBD measures 6 mm. Pancreas: Partially obscured by shadowing bowel gas, grossly unremarkable as visualized. Right kidney: Unremarkable. 10.0 cm in length. Other: No visualized free fluid. Hepatic elastography: Number of measurements: 6. US probe: CA1-7A. EQI median: 4.2 kPa EQI median velocity: 1.17 m/s IQR/Med: 25.0% (kPa) and 12.1% (m/s). If the IQR/Med is IQR/median >30% (for kPa) or >15% in m/s, the variance in the measurements is a large and the accuracy of the measurement may be in question. US/ABD Limited w/ Elastography IMPRESSION: 1. Unremarkable hepatic echotexture. 2. Liver stiffness is 4.2 kPa. Per the below 2020 SRU criteria, this indicates a high probability of being normal. 3. Similar 5 mm gallbladder polyp. 4. Additional description as above. Assessment is per the Update to the SRU Liver Elastography Consensus Statement (2020) Note that the above assessment of liver fibrosis is vendor-neutral and intended for use in fibrosis related to viral etiologies and non-alcoholic fatty-liver disease (NAFLD); in causes other than viral hepat itis and NAFLD, the cutoff values are currently not well established. In some patients with NAFLD, the cutoff values for cACLD may be lower (7-9 kPa). Note also that in the setting of elevated LFTs, nonfasting or vascular congestion, the stage of lifer fibrosis may be overestimated. Previous SRU reference values: <1.37 m/s (5.7kPa): No to mild fibrosis 1.37 m/s - 2.2 m/s: Moderate to severe fibrosis >2.2 m/s (15kPa): Significant fibrosis / cirrhosis Reading Location: [id number]
--- OUTSIDE RECORDS SUMMARY | 2025-04-13 07:23 | XMS RPT_ITS | CCD ---
Author Organization [facility] CliniSyde Care Team Providers Care Support Service Tech Name Role Phone Unavailable Primary Care Provider Dr. Dada Rahman Primary Care Provider Dr. Dada Santiago Referring Provider Dr. Jose L Montana Attending Provider [phone] Friend, Dr. Domingo Other Provider Dr. Dada Santiago Primary Care Provider [phone] Dr. Dada Santiago Referring Provider Dr. Oscar Friedman Attending Provider [phone] FriendDr[address] Domingo Attending Provider [phone] FriendDr[address] Domingo Other Provider [phone] Martín Washington Attending Provider FriendDr. Domingo Referring Provider [phone] Nestor Santiago Primary Care Provider [phone] Dr. Nestor Santiago Referring Provider Dr. Oscar Friedman Attending Provider Unavailable Primary Care Provider BREANNA Kelly Attending Unavailable BREANNA NG Referring Unavailable BREANNA NG Referring Unavailable Dr. Nestor Santiago MD Primary Care Provider Dr. Nestor Santiago MD Referring Provider [phone] Jose L MCKEON Attending Provider Friend Dr. Jose L MCKEON Other Provider [phone] Oscar Friedman Referring Unavailable Ranney, Christopher Primary Care Unavailable Oscar Friedman Attending Unavailable Oscar Friedman Referring Unavailable [place] Unavailable Oscar Friedman Attending Unavailable [place] Unavailable Oscar Friedman Attending Unavailable [place], Delioer Referring Unavailable [place], Christopher Referring Unavailable Friend, Jose L Attending Unavailable [place] Unavailable [place], [facility] Unavailable Friend, Jose L Attending Unavailable [facility], [facility] Referring Unavailable [facility], [place] Primary Care Unavailable Friend, Jose L Consulting Unavailable Friend, Jose L Attending Unavailable Jack, Delioer Referring Unavailable [place], [facility] Unavailable Oscar Friedman Attending Unavailable Oscar Friedman Referring Unavailable Oscar Friedman Attending [facility]available [facility] Unavailable Medications Current Medications Medication [...] on above: Take 1 tablet by lam two times a day for 7 days. [...] 08-22-2023 10-30-2022 Chronic Diabetes mellitus without complication (2 sources) Prediabetes; Translations: [Prediabetes] Onset: 03-20-2025 01-20-2024 Episodic Disorders of lipid metabolism (2 sources) Dyslipidemia; Translations: [Hyperlipidemia, unspecified] Onset: 03-20-2025 01-20-2024 Chronic Immunizations and screening for infectious [...] Onset: 08-22-2023 10-30-2022 Chronic Other liver diseases (10 sources) Fatty (change of) liver, not elsewhere classified; Translations: [Other chronic nonalcoholic liver disease] Onset: 03-20-2025 10-30-2022 Chronic Other screening for suspected conditions (not mental disorders or infectious disease) (3 sources) Encounter for screening mammogram for malignant neoplasm of breast; Translations: [Encounter for screening for malignant neoplasm of colon] Onset: 08-31-2024 Episodic Unclassified (3 sources) Patient encounter status 08-31-2024 Results Test Name Value Interpretation Reference Range Facility Ferritinon 03-21-2025 Ferritin [Mass/Vol] 116 ng/mL Normal 22-378 [facility] Comment on above: Performed By: #### L 500.2230, L503.6030, L503.6550, L501.9985 #### [facility] [address] [place], [address] Hemoglobin A1con 03-21-2025 HbA1c (Bld) [Mass fraction] 5.7 % Normal <=5.6 [facility] Comment on above: Result Comment: Norm al < 5.7 % Prediabetic 5.7 - 6.4 % Diabetic >or= 6.5 % Please note range changes. Performed By: #### L 500.4100, L503.6030, L503.6550, L501.9985 #### [facility] [address] [place], [address] Iron+Iron Binding Capacityon 03-21-2025 Iron [Mass/Vol] 89 ug/dL Normal 50-170 [facility] Comment on above: Performed By: #### L 500.4100, L503.6030, L503.6550, L501.9985 #### [facility] [address] [place], [address] IRON SATURATION 29.7 Normal 13-59 [facility] Comment on above: Performed By: #### L 500.4100, L503.6030, L503.6550, L501.9985 #### [facility] [address] [place], [address] TIBC 299 ug/dL Normal 250-450 [facility] Comment on above: Performed By: #### L 500.4100, L503.6030, L503.6550, L501.9985 #### [facility] [address] [place], [address] UIBC 210 ug/dL Low 228-428 [facility] Comment on above: Performed By: #### L 500.4100, L503.6030, L503.6550, L501.9985 #### [facility] [address] [place], [address] Lipid Profileon 03-21-2025 CHOL:HDL 3.18 Normal [facility] Comment on above: Performed By: #### L 500.4100, L503.6030, L503.6550, L501.9985 #### [facility] [address] [place], [address] Cholesterol [Mass/Vol] 181 mg/dL Normal <=200 [facility] Comment on above: Result Comment: Chol esterol level, Desirable <200 mg/dL Borderline high cholesterol 200-239 mg/dL High cholesterol >=240 mg/dL Recommendations of the NCEP Adult Treatment Panel for the following risk-cutoff thresholds for the [place] population. Performed By: #### L 500.4100, L503.6030, L503.6550, L501.9985 #### [facility] [address] [place], [address] Cholesterol in HDL [Mass/Vol] 57 mg/dL Normal [facility] Comment on above: Result Comment: [place] onal Cholesterol Education Program (NCEP) guidelines: <40 mg/dL: Low HDL-cholesterol (major risk factor for CHD) >= 60 mg/dL: High HDL-cholesterol (negative risk factor for CHD) HDL-cholesterol is affected by a number of factors, e.g. smoking, exercise, hormones, sex and age. Performed By: #### L 500.4100, L503.6030, L503.6550, L501.9985 #### [facility] [address] [place], [address] Cholesterol in LDL [Mass/Vol] 102 mg/dL Normal [facility] Comment on above: Result Comment: Bord ohnwbo=274-692 mg/dL Higher Dhvj=694 mg/dL or greater Beyer Equation 2020 for LDL-C Performed By: #### L 500.4100, L503.6030, L503.6550, L501.9985 #### [facility] [address] [place], [address] Cholesterol in VLDL [Mass/Vol] 25 mg/dL Normal 5-40 [facility] Comment on above: Performed By: #### L 500.4100, L503.6030, L503.6550, L501.9985 #### [facility] [address] [place], [address] Triglyceride [Mass/Vol] 127 mg/dL Normal [facility] Comment on above: Result Comment: The drugs N-Acetylcysteine and Metamizole may falsely depress this assay. Normal range: <150 mg/dL Borderline High: 150-199 mg/dL High: 200-499 mg/dL Very High: >500 mg/dL Performed By: #### L 500.4100, L503.6030, L503.6550, L501.9985 #### [facility] [address] [place], [address] Gastroenterology Visit Repor ton 03-14-2025 Gastroenterology Visit Report [facility] Gastroenterology [address] [place] [address] OFFICE VISIT Date of Service: 03/14/25 MR#: [id number] Acct: [id number] Name: MARTINA PATTERSON Rep #: [id number] : 1965 Provider: Dr. Oscar beckwith MD Age/Sex: 60/F Location: [facility] [place] Status: Signed Intake Vital Signs 01/13/25 07:10 03/14/25 08:02 Height 5 ft 7 in 5 ft 7 in Weight: 204 lb BMI 31.9 BP 139/87 H Blood Pressure Location Rt brachial Position Sitting Pulse 70 Pulse Oximetry (%) 96 Oxygen Delivery Method room air Intake Visit Reasons: 8 M FU Allergies No Known Allergies Allergy (Verified 03/14/25 08:01) Medications ???Medication ???Instructions ???Recorded ???Confirmed ???Type rosuvastatin 10 mg tablet 10 mg PO QHS 90 days #90 tabs 02/0903/14/25 Rx pioglitazone 15 mg tablet See Rx Instructions .Route 5 03/14/25 Rx .COMPLEX 90 days #90 tabs omeprazole 20 mg capsule,delayed 20 mg PO DAILY PRN GERD 07/21/24 1 05/14/24 History release naltrexone 8 mg-bupropion 90 mg See Rx Instructions PO BID #70 tab s 03/14/25 03/14/25 Rx tablet,extended release (Contrave) [facility] Medical History Wears glasses Post-menopausal Depression Anxiety [...] HPI HPI Details: MARTINA PATTERSON, is a 60 F who presents to the office today for follow up. *BGI established 6..23 ibuprofen 800mg is taken once a daily and is not every day but frequently. Biochemical CBC, ESR, coag, CMP, LFT, LDH, ceruloplasmin, haptoglobin, ferritin, A1c, USMAN, copper, AFP GAME, IgG subclasses, LONNIE, ASM, AMA, ANCA, HIV, hepatitis without pertinent abnormality. Ammonia H44, CRP H5.82, QA LEAD H1.5 FIB4 0.82 MRCP 7.14.23 cholelithiasis without inflammation; CBD 8mm with distal tapering without evidence of obstruction; adrenal nodule. US and elastography 8. hepatic measurement 18.5 with fatty infiltration, stiffness 7.6kPa; multiple gallstones ERCP 831.23 biliary stricture; entire main bile duct dilated; choledocholithiasis, biliary sphincterotomy/balloon extraction; two temporary stents placed, CBD and ventral pancreatic duct. Pathology WNL. OV 11.10.31 Pt reports intermittent abdominal pain. Feels its [...] stricture and mental pancreatic duct stricture ERCP 04.28.- Choledocholithiasis in lower third main bile duct, one stent removed from biliary tree, left main hepatic duct dilated US abd/ elastography ..24- Liver measures 18.1cm, Stiffness 10.3 kPa OV [...] stage Cristy 0-1. Gained about 8 lbs since last visit. Patient agreed to take Resmitrom Acid when patient will be on Resmitrom, will discontinue pioglitazone but she cannot take it. Prescription for vitamin D3 given. 1.6 Continue taking rosuvastatin 10 mg daily. Maximum dose permitted with Resmitrom is 20 mg daily because of her drug drug interaction ABD LTD w/Elast. 10..24- Liver measures 17.7 cm. Stiffness 7.4 Kpa Metavir F2-F3 Labs 10.16.24- Creatinine 0.53. BUN 28.2 Bili 0.30. Sod 136. MELD-6 Contact 03.01.24- Insurance is denying Rezdiffra. Requires her to have a specific liver bio (more content not included)... Normal [facility] CBC W/Diff, Automatedon 10- Absolute Lymph 2.47 X10 3/uL Normal 0.83-4.51 [facility] Comment on above: Performed By: #### L 501.6757, L100.0100, L500.4050 #### [facility] [address] [place], [address] Absolute Neut 4.2 X10 3/uL Normal 2.0-7.7 [facility] Comment on above: Performed By: #### L 501.6710, L100.0100, L500.4050 #### [facility] [address] [place], [address] Basophils/100 WBC (Bld) 0.4 % Normal 0-[address] [facility] Comment on above: Performed By: #### L 501.6710, L100.0100, L500.4050 #### [facility] [address] [place], [address] Eosinophils/100 WBC (Bld) 2.2 % Normal 0-5 [facility] Comment on above: Performed By: #### L 501.6710, L100.0100, L500.4050 #### [facility] [address] [place], [address] Erythrocyte distribution width (RBC) [Ratio] 12.4 % Normal 11.6-14.6 [facility] Comment on above: Performed By: #### L 501.6710, L100.0100, L500.4050 #### [facility] [address] [place], [address] Hematocrit (Bld) [Volume fraction] 38.5 % Normal 37-47 [facility] Comment on above: Performed By: #### L 501.6710, L100.0100, L500.4050 #### [facility] [address] [place], [address] Hemoglobin (Bld) [Mass/Vol] 12.8 g/dL Normal 12.0-15.0 [facility] Comment on above: Performed By: #### L 501.6710, L100.0100, L500.4050 #### [facility] [address] [place], [address] IG% 0.100 Normal 0.0-0.9 [facility] Comment on above: Result Comment: IG% - Immature Granulocytes (promyelocytes, myelocytes and metamyelocytes) > 1% indicates that a LEFT SHIFT is Present. Performed By: #### L 501.6710, L100.0100, L500.4050 #### [facility] [address] [place], [address] Lymphocytes/100 WBC (Bld) 34.0 % Normal 19-41 [facility] Comment on above: Performed By: #### L 501.6710, L100.0100, L500.4050 #### [facility] [address] [place], [address] MCH (RBC) [Entitic mass] 31.2 pg Normal 27.0-32.0 [facility] Comment on above: Performed By: #### L 501.6710, L100.0100, L500.4050 #### [facility] [address] [place], [address] MCHC (RBC) [Mass/Vol] 33.2 g/dL Normal 32-36 [facility] Comment on above: Performed By: #### L 501.6710, L100.0100, L500.4050 #### [facility] [address] [place], [address] MCV (RBC) [Entitic vol] 93.9 fL Normal 81-99 [facility] Comment on above: Performed By: #### L 501.6710, L100.0100, L500.4050 #### [facility] [address] [place], [address] Monocytes/100 WBC (Bld) 5.6 % Normal 0-[address] [facility] Comment on above: Performed By: #### L 501.6710, L100.0100, L500.4050 #### [facility] [address] [place], [address] Neutrophils/100 WBC (Bld) 57.7 % Normal 47-70 [facility] Comment on above: Performed By: #### L 501.6710, L100.0100, L500.4050 #### [facility] [address] [place], [address] Nucleated RBC (Bld) [#/Vol] 0 10*3/uL Normal 0-5 [facility] Comment on above: Performed By: #### L 501.6710, L100.0100, L500.4050 #### [facility] [address] [place] [place], [address] Platelet mean volume (Bld) [Entitic vol] 9.2 fL Normal 6.2-12.0 [facility] Comment on above: Performed By: #### L 501.6710, L100.0100, L500.4050 #### [facility] [address] [place], [address] Platelets (Bld) [#/Vol] 288 10*3/uL Normal 150-450 [facility] Comment on above: Performed By: #### L 501.6710, L100.0100, L500.4050 #### [facility] [address] [place], [address] RBC (Bld) [#/Vol] 4.10 10*6/uL Low 4.2-5.4 [facility] Comment on above: Performed By: #### L 501.6710, L100.0100, L500.4050 #### [facility] [address] [place], [address] RDW SD 43.2 fl Normal 35.1-43.9 [facility] Comment on above: Performed By: #### L 501.6710, L100.0100, L500.4050 #### [facility] [address] [place], [address] WBC (Bld) [#/Vol] 7.3 10*3/uL Normal 4.4-11.0 [facility] Comment on above: Performed By: #### L 501.6710, L100.0100, L500.4050 #### [facility] [address] [place], [address] CRPon 02-28-2025 C-REACTIVE PROT < 3.00 Normal 0.0-3.0 [facility] Comment on above: Performed By: #### L 501.6710, L100.0100, L500.4050 #### [facility] [address] [place], [address] Comprehensive Metabolic Prof ilon 02-28-2025 Albumin [Mass/Vol] 4.3 g/dL Normal 3.4-4.8 [facility] Comment on above: Performed By: #### L 501.6710, L100.0100, L500.4050 #### [facility] [address] [place], [address] Albumin/Globulin [Mass ratio] 1.6 {ratio} Normal 0.9-2.4 [facility] Comment on above: Performed By: #### L 501.6710, L100.0100, L500.4050 #### [facility] [address] [place], [address] ALK PHOS 79 U/L Normal 35-104 [facility] Comment on above: Performed By: #### L 501.6710, L100.0100, L500.4050 #### [facility] [address] [place], [address] ALT [Catalytic activity/Vol] 20 U/L Normal <=34 [facility] Comment on above: Performed By: #### L 501.6710, L100.0100, L500.4050 #### [facility] [address] [place], [address] AST [Catalytic activity/Vol] 22 U/L Normal <=31 [facility] Comment on above: Result Comment: Hemo lysis present, Results??could be affected. ?? Performed By: #### L 501.6710, L100.0100, L500.4050 #### [facility] [address] [place], [address] Bilirubin [Mass/Vol] 0.25 mg/dL Normal 0.00-1.30 [facility] Comment on above: Performed By: #### L 501.6710, L100.0100, L500.4050 #### [facility] [address] [place], [address] BUN/CRE 23.6 RATIO High 10-20 [facility] Comment on above: Performed By: #### L 501.6710, L100.0100, L500.4050 #### [facility] [address] [place], [address] Calcium [Mass/Vol] 9.5 mg/dL Normal 7.6-11.0 [facility] Comment on above: Performed By: #### L 501.6710, L100.0100, L500.4050 #### [facility] [address] [place], [address] Chloride [Moles/Vol] 100 mmol/L Normal 98-108 [facility] Comment on above: Performed By: #### L 501.6710, L100.0100, L500.4050 #### [facility] [address] [place], [address] CO2 [Moles/Vol] 23.9 mmol/L Normal 21.0-32.0 [facility] Comment on above: Performed By: #### L 501.6710, L100.0100, L500.4050 #### [facility] [address] [place], [address] Creatinine [Mass/Vol] 0.63 mg/dL Low 0.70-1.20 [facility] Comment on above: Performed By: #### L 501.6710, L100.0100, L500.4050 #### [facility] [address] [place], [address] GAP 12 Normal 5-15 [facility] Comment on above: Performed By: #### L 501.6710, L100.0100, L500.4050 #### [facility] [address] [place], [address] GFR/1.73 sq M.predicted among non-blacks MDRD (S/P/Bld) [Vol rate/Area] 101 mL/min/{1.73_m2} Normal >60 [facility] Comment on above: Result Comment: mL/m in/1.73m2 CKD-EPI Creatinine Equation (2020) Performed By: #### L 501.6710, L100.0100, L500.4050 #### [facility] [address] [place], [address] Globulin (S) [Mass/Vol] 2.8 g/dL Normal 2.2-4.2 [facility] Comment on above: Performed By: #### L 501.6710, L100.0100, L500.4050 #### [facility] [address] [place], [address] Glucose [Mass/Vol] 92 mg/dL Normal 70-99 [facility] Comment on above: Performed By: #### L 501.6710, L100.0100, L500.4050 #### [facility] [address] [place], [address] Potassium [Moles/Vol] 4.1 mmol/L Normal 3.3-5.1 [facility] Comment on above: Result Comment: Hemo lysis present, Results??could be affected. ?? Performed By: #### L 501.6710, L100.0100, L500.4050 #### [facility] [address] [place], [address] Sodium [Moles/Vol] 135 mmol/L Normal 133-145 [facility] Comment on above: Performed By: #### L 501.6710, L100.0100, L500.4050 #### [facility] [address] [place], [address] T PROT 7.1 g/dL Normal 5.9-8.4 [facility] Comment on above: Performed By: #### L 501.6710, L100.0100, L500.4050 #### [facility] [address] [place], [address] Urea nitrogen [Mass/Vol] 15 mg/dL Normal 4-19 [facility] Comment on above: Performed By: #### L 501.6710, L100.0100, L500.4050 #### [facility] [address] [place], [address] Colonoscopy Reporton 025 Colonoscopy Report [facility] Medical Records Department [address] [place] [address] Colonoscopy Report MR#: [id number] Acct: [id number] Name: MARTINA PATTERSON Rep #: [id number] : 1965 59 From: Jose L Montana DO PCP: Dr. Nestor Santiago MD Status:[facility] Patient Name: Martina Patterson Procedure Date: 01/13/2025 [...] present medications. Procedure Code(s): --- Professional --- 93088, Colonoscopy, flexible; with removal of tumor(s), polyp(s), or other lesion(s) by snare technique 61035, Colonoscopy, flexible; with directed submucosal injection(s), any substance CPT copyright 2021 [employer]. All rights reserved. The codes documented in this report are preliminary and upon operations executive review may be revised to meet current compliance requirements. Jose L Montana DO 01/13/2025 8:39:17 AM This report has been signed electronically. Number of Addenda: 0 Note Initiated On: 01/13/2025 7:55 AM 01/13/25 0839 Date Jose L Montana DO Cosignlynsey Signature: Date (if indicated) CC: Dr. Nestor Santiago MD; Jose L Montana DO Date Dictated: 01/13/25 0755 Date Transcribed: Probation Supervisor: RF Signed [facility] MR/OP.Radha 01-13-2025 MR/OP.[facility] Medical Records Department [address] [place] [address] Provation Physician Letter MR#: [id number] Acct: [id number] Name: MARTINA PATTERSON Rep #: [id number] : 1965 59 From: Jose L Montana DO PCP: Dr. Nestor Santiago MD Status:REG [facility] 01/13/2025 Dada Santiago [address] [place] [address] Re : Colonoscopy procedure for Martina Frances Dear Dr. Santiago This procedure was performed [...] AM This report has been signed electronically. 01/13/25838 Date Jose L Montana DO Cosigner Signature: Date (if indicated) CC: Dr. Nestor Santiago MD; Jose L Montana DO Date Dictated: 01/13/25754 Date Transcribed: Probation Supervisor: ELGIN Signed [facility] MR/POSTOP.[facility] 01-13-2025 MR/POSTOP.[facility] Medical Records Department [address] [place] [address] Anesthesia Postop Eval I 01/13/2542 MR#: [id number] Acct: [id number] Name: MARTINA PATTERSON Rep #: [id number] : 1965 59 From: Nathan Mcgrath PCP: Dr. Nestor Santiago MD Status:REG SDC Y Race: C Location: [place] [address] Anesthesia: Postop Eval I Current Vital Signs [...] 1 completed: Yes 01/13/25 0843 Date Nathan Coley Signature: Date CC: Signed Normal [facility] MR/[id number] 01-13-2025 [facility] Medical Records Department [address] [place] [address] Anesthesia Postop Eval II 01/13/25 1421 MR#: [id number] Acct: [id number] Name: MARTINA PATTERSON Rep #: [id number] : 1965 59 From: Alina Mcneil CERTIFIED ORTHOTIST PCP: Dr. Nestor Santiago MD Status:[facility] Y Race: C Location: EN Anesthesia Postop [...] ALEX Coley Signature: Date CC: Signed Normal [facility] Surgery Specimen Level Temo 01-13-2025 Surgery Specimen Level IV Patient Age/Sex Location Account Attending Physician MARTINA PATTERSON/F EN [id number] Jose L Montana, DO Specimen: [id number] Received: 01/13/25 Status: TROY Stein Num: [id number] Spec Type: COLON BX Subm Dr: Jose L Montana DO HEADER OPERATION: Colonoscopy, polypectomy PRE-OP DIAGNOSIS: Encounter for [...] labeled with the patient's name and designated Cecum polyp. The specimen consists of multiple irregular fragments of light reyez soft tissue that in aggregate measure 1 x 0.5 x 0.3 cm. The specimen is totally submitted in one cassette. C. Received in fixative is one container labeled with the patient's name and designated Sigmoid polyp #1. The specimen consists of a 1.8 x 1.4 x 1.1 cm pink to red-purple, irregular and nodular polyp. The resection margin is inked black. The specimen is serially sectioned and entirely submitted in 2 cassettes. D. Received in fixative is one container labeled with the patient's name and designated Sigmoid polyp #2. The specimen consists ofa 0.7 x 0.7 x 0.4 cm red and granular polypoid tissue fragment. The specimen is bisected and entirely submitted in 1 cassette. PR 01/13/2025 CPT:56086p1 Patient Age/Sex Location Account Attending Physician MARTINA PATTERSON 59/F EN [id number] Jose L Montana DO Signed (signature on file) Dr. Ethel Painting MD 01/17/25 5089 Normal [facility] Comment on above: Performed By: #### P OLIVIA ####[facility] [id number] [place] [place], [place], [id number] CNOVamelia 08-31-2024 CNOV Office Visit (OBGYWM ) -------- FRANCESMARTINA ([id number]) 1965 F Date Time Provider Department 08/31/24 8:40 AM BREANNA NG OBGYWM During your visit today, we recorded the following information about you: Blood pressure Weight Height 124/82 87.1 kg 1.702 m Breanna Ng MD 08/31/2024 9:10 AM Signed Martina is a 59 year old who presents for an annual gynecologic exam without any urogynaecologist c/o. . Postmenopausal: yes, s/p hyst HRT [...] discussed with the Patient or Patient's Authorized Clinical Application Manager. As applicable, any other physician, advance practice provider, medical student, or other health professional student that will be observing or involved in the sensitive examination for educational or training purposes was discussed with the Patient or Authorized Clinical Application Manager. The Patient or Authorized Clinical Application Manager has agreed to proceed with the sensitive [...] external genitalia normal, normal Bartholin's glands, urethra, Eden's glands, no vulvar lesions, good vaginal support, [...] Breanna Ng MD Referring Provider: BREANNA NG [[id number]] Allergies As of Date: 08/31/2024 (No Known Allergies) Date Reviewed: 08/31/2024 Reviewed by: Breanna Ng MD - Fully Assessed Reason for Visit: Yearly Exam [187] Primary Visit Diagnosis:Encounter for gynecological examination (general) (routine) without abnormal findings [Z01.419] Other Visit Diagnosis:Encounter for screening mammogram for breast cancer [Z12.31] Order(s):SARAH SCREENING W AME [8052662] Order #: [id number] FUTURE SARAH SCREENING W AME [[id number]] Order #: [id number] FUTURE Prescriptions as of 08/31/2024 - methylPREDNISolone [...] Annual Exam (more content not included)... Normal [facility] SARAH SCREENING W TOMOon 08-31 SARAH SCREENING W AME * * *Final Report* * * DATE OF EXAM: Aug 31 2024 12:56PM [facility] 0582 - SARAH SCREENING W AME / PROCEDURE REASON: Encounter for screening mammogram for breast cancer * * * * Physician Interpretation * * * * RESULT: [place] [address] #[id number] - SARAH SCREENING W AME HISTORY: 59 [...] Julisa Oropeza M.D. Electronically signed on: 09/01/2024 Probation Supervisor: MARTHA Transcribe Date/Time: Aug 31 2024 11:44A Dictated by: JULISA OROPEZA MD This examination was interpreted and the report reviewed and electronically signed by: JULISA OROPEZA MD on Sep 01 2024 1:30PM EST [id number] Normal [facility] Gastroenterology Visit Repor ton 07-21-2024 Gastroenterology Visit Report [facility] Gastroenterology [address] [place] [address] OFFICE VISIT Date of Service: 07/21/24 MR#: [id number] Acct: [id number] Name: MARTINA PATTERSON Rep #: [id number] : 1965 Provider: Dr. 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 Takes 800mg ibuprofen/day. HLD noted Biochemical 07.31.22 CBC, CMP, LFT, GGT, TSH, hepatitis screen without pertinent abnormality. QA LEAD ab H1.3. FIB4 0.8 US RUQ and elastography 07.19.22 hepatic measurement 19.2cm with fatty infiltration, stiffness 12.2kPa; 3 small gallbladder polyps, largest [id number]; CBD 6.1mm *BGI established 10.30.22 ibuprofen 800mg is taken once a daily and is not every day but frequently. Biochemical CBC, ESR, coag, CMP, LFT, LDH, ceruloplasmin, haptoglobin, ferritin, A1c, USMAN, copper, AFP GAME, IgG subclasses, LONNIE, ASM, AMA, ANCA, HIV, hepatitis without pertinent abnormality. Ammonia H44, CRP H5.82, QA LEAD H1.5 FIB4 0.82 MRCP 7 cholelithiasis without [...] and ventral pancreatic duct. Pathology WNL. Contact, VM 01.28.23 with US/elastography and ERCP results. OV [...] lbs sin (more content not included)... Normal [facility] Absolute lymphocyte countOrd ered By: Oscar Friedman on 08-22-2023 Lymphocytes Auto (Unsp spec) [#/Vol] 1.92 10*3/uL 0.83-4.51 [facility] Automated lymphocyte count a s percentage of total leukocytesOrdered By: Oscar Friedman on 04-13-2024 Lymphocytes/100 WBC Auto (Unsp spec) 30.4 % 19-41 [facility] Basophil percentageOrdered B y: Oscar Friedman on 08-22-2023 Basophils/100 WBC (Bld) 0.5 % 0-[address] [facility] Bilirubin [Mass/Vol] 0.40 mg/dL 0.20-1.00 [facility] Comment on above: For patients on eltr ombopag therapy, use of Dimension Henderson TBIL is not recommended. Chloride [Moles/Vol] 109 mmol/L 98-107 [facility] Cholesterol [Mass/Vol] 135 mg/dL <200 [facility] Comment on above: <200 mg/dL Desirable 200-240 mg/dL Borderline >240 mg/dL High Risk Eosinophils/100 WBC (Bld) 2.4 % 0-5 [facility] Glucose [Mass/Vol] 99 mg/dL 74-106 [facility] Hemoglobin (Bld) [Mass/Vol] 13.6 g/dL 12.0-15.0 [facility] Monocytes/100 WBC (Bld) 5.7 % 0-[address] [facility] Neutrophils (Bld) [#/Vol] 3.8 10*3/uL 2.0-7.7 [facility] Neutrophils/100 WBC (Bld) 60.7 % 47-70 [facility] Potassium [Moles/Vol] 4.2 mmol/L 3.5-5.1 [facility] Protein [Mass/Vol] 7.0 g/dL 6.4-8.2 [facility] Sodium [Moles/Vol] 139 mmol/L 136-145 [facility] Triglyceride [Mass/Vol] 58 mg/dL <[address] [facility] Comment on above: The drugs N-Acetylcy steine and Metamizole may falsely depress this assay.Serum Triglycerides Reference Interval Normal <150 mg/dL Borderline high 150 - 199 mg/dL High 200 - 499 mg/dL Very High > or = 500 mg/dL WBC (Bld) [#/Vol] 6.3 10*3/uL 4.4-11.0 [facility] Determination of erythrocyte mean corpuscular volume (MCV)Ordered By: Oscar Friedman on 08-22-2023 MCV (RBC) [Entitic vol] 96.2 fL 81-[address] [facility] Erythrocyte distribution wid th ratioOrdered By: Oscar Friedman on 08-22-2023 Erythrocyte distribution width (RBC) [Ratio] 12.6 % 11.6-14.6 [facility] Erythrocyte distribution wid th standard deviationOrdered By: Oscar Friedman on 08-22-2023 Erythrocyte distribution width (RBC) [Entitic vol] 44.9 fL 35.1-43.9 [facility] Hematocrit Auto (Bld) [Volum e fraction]Ordered By: Oscar Friedman on 08-22-2023 Hematocrit (Bld) [Volume fraction] 42.6 % 37-47 [facility] Immature granulocytes/100 WB C Auto (Bld)Ordered By: Oscar Friedman on 08-22-2023 Immature granulocytes/100 WBC (Bld) 0.300 % 0.0-0.9 [facility] Comment on above: IG% - Immature Granu locytes (promyelocytes, myelocytes and metamyelocytes) > 1% indicates that a LEFT SHIFT is Present. Laboratory - Chemistry and C hemistry - challengeOrdered By: Oscar Friedman on 08-22-2023 Albumin/Globulin [Mass ratio] 1.1 {ratio} 0.9-2.4 [facility] ALP [Catalytic activity/Vol] 64 U/L 45-117 [facility] ALT [Catalytic activity/Vol] 25 U/L 13-56 [facility] Cholesterol in HDL [Mass/Vol] 58 mg/dL >40 [facility] Comment on above: The drugs N-Acetylcy steine and Metamizole may falsely depress this assay. Reference Range HDL <40 mg/dL Low HDL Cholesterol HDL >or= 60 mg/dL High HDL Cholesterol Cholesterol in LDL [Mass/Vol] 65 mg/dL 0-130 [facility] CO2 [Moles/Vol] 27.0 mmol/L 21.0-32.0 [facility] Globulin (S) [Mass/Vol] 3.3 g/dL 2.2-4.[address] [facility] Urea nitrogen/Creatinine [Mass ratio] 23.7 mg/mg 10-20 [facility] Laboratory - CoagulationOrde red By: Oscar Friedman on 08-22-2023 INR Coag (Bld) [Relative time] 1.0 {INR} [facility] PT Coag (PPP) [Time] 12.8 s 11.7-14.9 [facility] Laboratory - Hematology and Cell countsOrdered By: Oscar Friedman on 08-22-2023 MCH (RBC) [Entitic mass] 30.7 pg 27.0-32.0 [facility] MCHC (RBC) [Mass/Vol] 31.9 g/dL 32-36 [facility] Nucleated RBC/100 WBC (Bld) [Ratio] 0 % 0-5 [facility] Platelet mean volume (Bld) [Entitic vol] 9.3 fL 6.2-12.0 [facility] Platelets (Bld) [#/Vol] 283 10*3/uL 150-450 [facility] No Panel InformationOrdered By: Oscar Friedman on 08-22-2023 C-Reactive Protein Extended Range < 2.90 mg/L 0.0-3.0 [facility] Comment on above: C-Reactive Protein ( CRP) provides useful information for thediagnosis, therapy and monitoring of inflammatory processesand associated diseases. For the evaluation of Relative Riskfor Cardiovascular Disease, a High Sensitivity CRP (HSCRP)should be ordered. Estimated GFR (MDRD) Amer 134 mL/min >60 [facility] Comment on above: GFR Calc Estimated GFR (MDRD) Non-Af Amer 111 mL/min >60 [facility] Comment on above: Non- GFR Calc Tumor Marker Alpha Fetoprotein 2.4 ng/mL 0.0-9.2 [facility] Comment on above: [employer] El ectrochemiluminescence Immunoassay(ECLIA)Values obtained with different assay methods or kits cannotbe used interchangeably. Results cannot be interpreted asabsolute evidence of the presence or absence of malignantdisease.This test is not interpretable in females.Performed at: [facility] [id number] Director: Jac Osborn PhD, Phone: [phone] Vitamin D 25-Hydroxy 31.6 ng/mL [facility] Comment on above: Vitamin D 25(OH) Sta tus Range Deficiency <20 ng/mL (50nmol/L) Insufficiency 20 - 30 ng/mL (50 - 75 nmol/L) Sufficiency 30 - 100 ng/mL (75 - 250 nmol/L) Toxicity >100 ng/mL (>250 nmol/L) VLDL Cholesterol 12 mg/dL 5-40 [facility] RBC Auto (Bld) [#/Vol]Ordere d By: Oscar Friedman on 08-22-2023 RBC (Bld) [#/Vol] 4.43 10*6/uL 4.2-5.4 [facility] Serum or plasma calcium katty urement (mass/volume)Ordered By: Oscar Friedman on 08-22-2023 Calcium [Mass/Vol] 9.1 mg/dL 8.5-10.1 [facility] Serum or plasma creatinine m easurement (mass/volume)Ordered By: Oscar Friedman on 08-22-2023 Creatinine [Mass/Vol] 0.59 mg/dL 0.55-1.02 [facility] Comment on above: The validity of the calculated GFR & GFRAA in patients over 70 years has not been determined. Clinical correlation is essential. Serum or plasma urea nitroge n measurement (mass/volume)Ordered By: Oscar Friedman on 08-22-2023 Urea nitrogen [Mass/Vol] 14 mg/dL 7-18 [facility] Thin prep Papanicolaou smear with manual screeningOrdered By: Oscar Friedman on 08-22-2023 Thin prep Papanicolaou smear with manual screening 3.7 g/dL 3.2-5.0 [facility] Thin prep Papanicolaou smear with manual screening 14 U/L 15-37 [facility] Thin prep Papanicolaou smear with manual screening 3 5-15 [facility] Whole blood hemoglobin A1c/t otal hemoglobin ratio (mass fraction)Ordered By: Oscar Friedman on 08-22-2023 HbA1c (Bld) [Mass fraction] 5.7 % 3.8-5.6 [facility] Comment on above: Normal < 5.7 % Predi abetic 5.7 - 6.4 % Diabetic >or= 6.5 % Please note range changes. Basophil percentageOrdered B y: Alfa Shepherd on 06-23-2023 Basophil percentage TNP [facility] Comment on above: Test not performed HIV 1 and HIV-2 antibody ass ay with HIV-1 p24 antigen detectionOrdered By: Alfa Shepherd on 06-23-2023 HIV 1+2 Ab+HIV1 p24 Ag IA Ql Non-Reactive Nonreactive [facility] No Panel InformationOrdered By: Alfa Shephedr on 06-23-2023 Addendum Document Comment . [facility] Comment on above: The quantitative ran ge of this assay is 15 IU/mL to 100million IU/mL. Hepatitis A Antibody Total Positive Negative [facility] Comment on above: Comment: The [...] HAVtotal antibody results to IgM (e.g., panel #[id number] HAVAntibody w/ Rfx).Performed at: [facility] [id number] Director: Jac Osborn PhD, Phone: [phone] at: [facility] [id number] Director: Arina Ambrocio MD, Phone: [phone] Hepatitis A IgM Antibody Negative Negative [facility] Hepatitis B Core IgM Antibody Negative Negative [facility] Hepatitis C Antibody (EIA) Non-Reactive Non Reactive [facility] Hepatitis C Antibody Comment Comment . [facility] Comment on above: Not infected with HC V unless early or acute infection issuspected (which may be delayed in an immunocompromisedindividual), or other evidence exists to indicate HCVinfection. Miscellaneous Test See comment [facility] Comment on above: TEST RESULTS LIMITSH BV Real-Time PCR, Quant HBV IU/mL HBV DNA not detected IU/mL log10 HBV IU/mL Unable to calculate result since non-numeric result obtained for component test. Test Information: The reportable range for this assay is 10 IU/mL to 1 billion IU/mL. TESTING PERFORMED AT [facility]. ORIGINAL REPORT ON FILE IN LAB CONTAINS ADDITIONAL TEST SITE INFORMATION. Serum hepatitis B virus surf usman antibody IgG detectionOrdered By: Alfa Shepherd on 06-23-2023 HBV surface IgG Ql (S) Reactive [facility] Comment on above: Non Reactive: Incons istent with immunity less than <10 mIU/mL Reactive: Consistent with immunity greater than or equal to 10 mIU/mL Serum or plasma hepatitis B virus surface antigen detection by immunoassayOrdered By: Alfa Shepherd on 06-23-2023 HBV surface Ag IA Ql Negative Negative [facility] Serum or plasma hepatitis C virus RNA measurement by probe and target amplification mOrdered By: Alfa Shepherd on 06-23-2023 HCV RNA MARCELA+probe Qn Not detected . [facility] Glucose Glucometer (BldC) [M ass/Vol]Ordered By: Jose L Montana on 01-08-2023 Glucose [Mass/Vol] 92 mg/dL 74-106 [facility] Comment on above: MANAGEMENT OF PATIEN T CARE PER NURSING PROTOCOL No Panel InformationOrdered By: Jose L Montana on 12-02-2022 CA 19-9 Antigen 6 U/mL 0-35 [facility] Comment on above: [employer] El ectrochemiluminescence Immunoassay(ECLIA)Values obtained with different assay methods or kits cannotbe used interchangeably. Results cannot be interpreted asabsolute evidence of the presence or absence of malignantdisease.Performed at: [address] [id number] Director: Jac Osborn PhD, Phone: [phone] Serum or plasma carcinoembry onic antigen measurement (mass/volume)Ordered By: Jose L Montana on 12-02-2022 Carcinoembryonic Ag [Mass/Vol] 1.5 ng/mL 0.0-4.7 [facility] Comment on above: Nonsmokers <3.9 Smok ers <5.6[facility] Electrochemiluminescence Immunoassay(ECLIA)Values obtained with different assay methods or kitscannot be used interchangeably. Results cannot beinterpreted as absolute evidence of the presence orabsence of malignant disease. Albumin Elph [Mass/Vol]Order ed By: Jose L Montana on 11-20-2022 Albumin [Mass/Vol] 4.1 g/dL 2.9-4.4 [facility] Interpretation of serum or p lasma protein pattern by immunofixation (narrative resultOrdered By: Jose L Montana on 11-20-2022 Protein Fractions Immunofixation Pratik [Interp] See comment [facility] Comment on above: NOT OBSERVED No Panel InformationOrdered By: Jose L Montana on 11-20-2022 Addendum Document Comment . [facility] Comment on above: Protein electrophore sis scan will follow via computer,mail, or race relations adviser delivery. Ceruloplasmin 26.5 mg/dL 19.0-39.0 [facility] Immunoglobulin G4 23 mg/dL 2-96 [facility] Miscellaneous Test See comment [facility] Comment on above: TEST RESULT LIMITSAl mso-0-Etejvevsglq Phenotyp Btqiq-4-Vcylyhfaunr, Serum 132 mg/dL 101-187 Phenotype (PI) MM [...] used to confirm phenotype. TESTING PERFORMED AT [facility]. ORIGINAL REPORT ON FILE IN LAB CONTAINS ADDITIONAL TEST SITE INFORMATION. Serum IgG subclass 1 measure ment (mass/volume)Ordered By: Jose L Montana on 11-20-2022 IgG subclass 1 (S) [Mass/Vol] 376 mg/dL 248-810 [facility] Serum IgG subclass 2 measure ment (mass/volume)Ordered By: Jose L Montana on 11-20-2022 IgG subclass 2 (S) [Mass/Vol] 346 mg/dL 130-555 [facility] Serum IgG subclass 3 measure ment (mass/volume)Ordered By: Jose L Montana on 11-20-2022 IgG subclass 3 (S) [Mass/Vol] 26 mg/dL 15-102 [facility] Serum koxzy-1-zrafeedf measu rement by electrophoresisOrdered By: Jose L Montana on 11-20-2022 Alpha 1 globulin Elph [Mass/Vol] 0.2 g/dL 0.0-0.4 [facility] Alpha 1 globulin Elph [Mass/Vol] 0.9 g/dL 0.4-1.0 [facility] Serum globulin measurement ( mass/volume)Ordered By: Jose L Montana on 11-20-2022 Globulin (S) [Mass/Vol] 2.9 g/dL 2.2-3.[address] [facility] Serum or plasma IgA measurem ent (mass/volume)Ordered By: Jose L Montana on 11-20-2022 IgA [Mass/Vol] 108 mg/dL 87-352 [facility] Serum or plasma IgG measurem ent (mass/volume)Ordered By: Jose L Montana on 11-20-2022 IgG [Mass/Vol] 825 mg/dL [phone] [facility] IgG [Mass/Vol] Not Reportable [facility] Serum or plasma IgM measurem ent (mass/volume)Ordered By: Jose L Montana on 11-20-2022 IgM [Mass/Vol] 140 mg/dL 26-217 [facility] Serum or plasma beta globuli n measurement by electrophoresis (mass/volume)Ordered By: Jose L Montana on 11-20-2022 Beta globulin Elph [Mass/Vol] 1.0 g/dL 0.7-1.3 [facility] Serum or plasma gamma globul in measurement by electrophoresis (mass/volume)Ordered By: Jose L Montana on 11-20-2022 Gamma globulin Elph [Mass/Vol] 0.8 g/dL 0.4-1.8 [facility] Serum or plasma immunoelectr ophoresis interpretation (nominal result)Ordered By: Jose L Montana on 11-20-2022 Interpretation IEP [Interp] Comment . [facility] Comment on above: No monoclonality det ected. Thin prep Papanicolaou smear with manual screeningOrdered By: Jose L Montana on 11-20-2022 Thin prep Papanicolaou smear with manual screening 1.5 0.7-1.7 [facility] Thin prep Papanicolaou smear with manual screening 106 ug/dL 80-158 [facility] Comment on above: Detection Limit = 5P erformed at: [facility] [address] [id number] Director: Jac Osborn PhD, Phone: [phone] at: [facility] [address] [id number] Director: Arina Ambrocio MD, Phone: [phone] Total protein bloodOrdered B y: Jose L Montana on 11-20-2022 Protein [Mass/Vol] 7.0 g/dL 6.0-8.5 [facility] Absolute lymphocyte countOrd ered By: Jose L Montana on 10-30-2022 Lymphocytes Auto (Unsp spec) [#/Vol] 1.72 10*3/uL 0.83-4.51 [facility] Atypical perinuclear antineu trophil cytoplasmic antibodies measurementOrdered By: Jose L Montana on 10-30-2022 Neutrophil cytoplasmic Ab.perinuclear.atypical IF (S) [Titer] <1:20 titer Neg:<1:20 [facility] Comment on above: Serum is slightly li pemic.The atypical pANCA pattern has been observed in asignificant percentage of patients with ulcerative colitis,primary sclerosing cholangitis and autoimmune hepatitis. Basophil percentageOrdered B y: Jose L Montana on 10-30-2022 Ammonia (P) [Moles/Vol] 44.0 umol/L 11-32 [facility] Basophil percentage < 0.2 AI 0.0-0.9 [facility] Basophils/100 WBC (Bld) 0.4 % 0-[address] [facility] Bilirubin [Mass/Vol] 0.40 mg/dL 0.20-1.00 [facility] Comment on above: For patients on eltr ombopag therapy, use of Dimension Henderson TBIL is not recommended. Chloride [Moles/Vol] 104 mmol/L 98-107 [facility] Eosinophils/100 WBC (Bld) 2.3 % 0-5 [facility] Glucose [Mass/Vol] 110 mg/dL 74-106 [facility] Comment on above: Fasting Glucose resu lt from 100 to 125 mg/dL suggests IMPAIRED HOMEOSTASIS per A.D.A. criteria. LDH [Catalytic activity/Vol] 182 U/L 84-246 [facility] Neutrophils (Bld) [#/Vol] 4.6 10*3/uL 2.0-7.7 [facility] Neutrophils/100 WBC (Bld) 66.2 % 47-70 [facility] Potassium [Moles/Vol] 3.9 mmol/L 3.5-5.1 [facility] Protein [Mass/Vol] 7.3 g/dL 6.4-8.2 [facility] Sodium [Moles/Vol] 137 mmol/L 136-145 [facility] WBC (Bld) [#/Vol] 6.9 10*3/uL 4.4-11.0 [facility] Blood erythrocytes count (nu mber/volume)Ordered By: Jose L Montana on 10-30-2022 RBC (Bld) [#/Vol] 4.27 10*6/uL 4.2-5.4 [facility] Blood hemoglobin measurement (mass/volume)Ordered By: Jose L Montana on 10-30-2022 Hemoglobin (Bld) [Mass/Vol] 14.0 g/dL 12.0-15.0 [facility] Blood lymphocytes/100 leukoc ytesOrdered By: Jose L Montana on 10-30-2022 Lymphocytes/100 WBC (Bld) 24.8 % 19-41 [facility] Blood monocytes/100 leukocyt esOrdered By: Jose L Montana on 10-30-2022 Monocytes/100 WBC (Bld) 5.9 % 0-[address] [facility] Blood platelet mean volumeOr dered By: Jose L Montana on 10-30-2022 Platelet mean volume (Bld) [Entitic vol] 9.2 fL 6.2-12.0 [facility] Determination of erythrocyte mean corpuscular volume (MCV)Ordered By: Jose L Montana on 10-30-2022 MCV (RBC) [Entitic vol] 97.4 fL 81-99 [facility] Erythrocyte sedimentation ra teOrdered By: Jose L Montana on 10-30-2022 ESR (Bld) [Velocity] 26 mm/h 0-30 [facility] HIV 1 and HIV-2 antibody ass ay with HIV-1 p24 antigen detectionOrdered By: Jose L Montana on 10-30-2022 HIV 1+2 Ab+HIV1 p24 Ag IA Ql Non-Reactive Nonreactive [facility] Hematocrit Auto (Bld) [Volum e fraction]Ordered By: Jose L Montana on 10-30-2022 Hematocrit (Bld) [Volume fraction] 41.6 % 37-47 [facility] INR in Blood by Coagulation assayOrdered By: Jose L Montana on 10-30-2022 INR Coag (Bld) [Relative time] 0.9 {INR} [facility] Laboratory - Chemistry and C hemistry - challengeOrdered By: Jose L Montana on 10-30-2022 ALP [Catalytic activity/Vol] 85 U/L 45-117 [facility] ALT [Catalytic activity/Vol] 38 U/L 13-56 [facility] CO2 [Moles/Vol] 23.0 mmol/L 21.0-32.0 [facility] Globulin (S) [Mass/Vol] 3.3 g/dL 2.2-4.2 [facility] Urea nitrogen/Creatinine [Mass ratio] 27.0 mg/mg 10-20 [facility] Laboratory - CoagulationOrde red By: Jose L Montana on 10-30-2022 PT Coag (PPP) [Time] 12.1 s 11.7-14.9 [facility] Laboratory - Hematology and Cell countsOrdered By: Jose L Montana on 10-30-2022 Erythrocyte distribution width (RBC) [Entitic vol] 45.5 fL 35.1-43.9 [facility] Erythrocyte distribution width (RBC) [Ratio] 12.8 % 11.6-14.6 [facility] Immature granulocytes/100 WBC (Bld) 0.400 % 0.0-0.9 [facility] Comment on above: IG% - Immature Granu locytes (promyelocytes, myelocytes and metamyelocytes) > 1% indicates that a LEFT SHIFT is Present. MCH (RBC) [Entitic mass] 32.8 pg 27.0-32.0 [facility] Nucleated RBC/100 WBC (Bld) [Ratio] 0 % 0-5 [facility] MCHC Auto (RBC) [Mass/Vol]Or dered By: Jose L Montana on 10-30-2022 MCHC (RBC) [Mass/Vol] 33.7 g/dL 32-36 [facility] No Panel InformationOrdered By: Jose L Montana on 10-30-2022 Centromere B Antibody <0.2 AI 0.0-0.9 [facility] Ceruloplasmin 28.9 mg/dL 19.0-39.0 [facility] Estimated GFR (MDRD) Amer 144 mL/min >60 [facility] Comment on above: GFR Calc Estimated GFR (MDRD) Non-Af Amer 119 mL/min >60 [facility] Comment on above: Non- GFR Calc Haptoglobin 264 mg/dL 33-346 [facility] Comment on above: Performed at: [facility] [place] [address] [id number] Director: Jac Osborn PhD, Phone: [phone] at: - [facility] [id number] Director: Arina Ambrocio MD, Phone: [phone] Hepatitis A IgM Antibody Negative Negative [facility] Hepatitis B Core IgM Antibody Negative Negative [facility] Hepatitis C Antibody (EIA) Non-Reactive Non Reactive [facility] Hepatitis C Antibody Comment Comment . [facility] Comment on above: Not infected with HC V unless early or acute infection issuspected (which may be delayed in an immunocompromisedindividual), or other evidence exists to indicate HCVinfection. QA LEAD Antibody 1.5 AI 0.0-0.9 [facility] Platelets bldOrdered By: Timoteo Montana on 10-30-2022 Platelets (Bld) [#/Vol] 287 10*3/uL 150-450 [facility] Serum DNA double strand anti body assay (units/volume)Ordered By: Jose L Montana on 10-30-2022 DNA double strand Ab Qn (S) 2 [IU]/mL 0-9 [facility] Comment on above: Negative <5 Equivoca l 5 - 9 Positive >9 Serum Evelyn-1 antibody assay (u nits/volume)Ordered By: Jose L Montana on 10-30-2022 Evelyn-1 extractable nuclear Ab Qn (S) <0.2 AI 0.0-0.9 [facility] Serum Scl-70 extractable nuc lear antibody assay (units/volume)Ordered By: Jose L Montana on 10-30-2022 SCL-70 extractable nuclear Ab Qn (S) <0.2 AI 0.0-0.9 [facility] Serum Mendez extractable nucl ear antibody detectionOrdered By: Jose L Montana on 10-30-2022 Mendez extractable nuclear Ab Ql (S) <0.2 AI 0.0-0.9 [facility] Serum classic neutrophil cyt oplasmic antibody assay (units/volume)Ordered By: Jose L Montana on 10-30-2022 Neutrophil cytoplasmic Ab.classic Qn (S) <1:20 titer Neg:<1:20 [facility] Comment on above: Serum is slightly li pemic. Serum mitochondria antibody detectionOrdered By: Jose L Montana on 10-30-2022 Mitochondria Ab Ql (S) <20.0 Units 0.0-20.[address] [facility] Comment on above: Negative 0.0 - 20.0 Equivocal 20.1 - 24.9 Positive >24.9Mitochondrial (M2) Antibodies are found in 90-96% ofpatients with primary biliary cirrhosis.Performed at: [facility] [id number] Director: Jac Osborn PhD, Phone: [phone] Serum or plasma C reactive p rotein measurement (mass/volume)Ordered By: Jose L Montana on 10-30-2022 CRP [Mass/Vol] 5.82 mg/L 0.0-3.0 [facility] Comment on above: C-Reactive Protein ( CRP) provides useful information for thediagnosis, therapy and monitoring of inflammatory processesand associated diseases. For the evaluation of Relative Riskfor Cardiovascular Disease, a High Sensitivity CRP (HSCRP)should be ordered. Serum or plasma actin IgG an tibody assay (units/volume)Ordered By: Jose L Montana on 10-30-2022 Actin IgG Qn 5 Units 0-19 [facility] Comment on above: Negative 0 - 19 Weak positive 20 - 30 Moderate to strong positive >30 Actin Antibodies are found in 52-85% of patients with autoimmune hepatitis or chronic active hepatitis and in 22% of patients with primary biliary cirrhosis. Serum or plasma albumin katty urement (mass/volume)Ordered By: Jose L Montana on 10-30-2022 Albumin [Mass/Vol] 4.0 g/dL 3.2-5.0 [facility] Serum or plasma albumin/glob ulin mass ratioOrdered By: Jose L Montana on 10-30-2022 Albumin/Globulin [Mass ratio] 1.2 {ratio} 0.9-2.4 [facility] Serum or plasma weynw-7-utsl protein tumor marker measurement (units/volume)Ordered By: Jose L Montana on 10-30-2022 AFP.tumor marker Qn 2.6 ng/mL 0.0-9.2 [facility] Comment on above: [employer] El ectrochemiluminescence Immunoassay(ECLIA)Values obtained with different assay methods or kits cannotbe used interchangeably. Results cannot be interpreted asabsolute evidence of the presence or absence of malignantdisease.This test is not interpretable in females. Serum or plasma angiotensin converting enzyme measurement (enzymatic activity/volume)Ordered By: Jose L Montana on 10-30-2022 Angiotensin converting enzyme [Catalytic activity/Vol] 35 U/L 14-82 [facility] Serum or plasma calcium katty urement (mass/volume)Ordered By: Jose L Montana on 10-30-2022 Calcium [Mass/Vol] 9.5 mg/dL 8.5-10.1 [facility] Serum or plasma creatinine m easurement (mass/volume)Ordered By: Jose L Montana on 10-30-2022 Creatinine [Mass/Vol] 0.56 mg/dL 0.55-1.02 [facility] Comment on above: The validity of the calculated GFR & GFRAA in patients over 70 years has not been determined. Clinical correlation is essential. Serum or plasma ferritin tiesha surement (mass/volume)Ordered By: Jose L Montana on 10-30-2022 Ferritin [Mass/Vol] 110 ng/mL 8 [facility] Serum or plasma hepatitis B virus surface antigen detection by immunoassayOrdered By: Jose L Montana on 10-30-2022 HBV surface Ag IA Ql Negative Negative [facility] Serum or plasma urea nitroge n measurement (mass/volume)Ordered By: Jose L Montana on 10-30-2022 Urea nitrogen [Mass/Vol] 15 mg/dL 7-18 [facility] Serum perinuclear neutrophil cytoplasmic antibody titer by immunofluorescenceOrdered By: Jose L Montana on 10-30-2022 Neutrophil cytoplasmic Ab.perinuclear IF (S) [Titer] <1:20 titer Neg:<1:20 [facility] Comment on above: Serum is slightly li pemic.The presence of positive fluorescence exhibiting P-ANCA orC-ANCA patterns alone is not specific for the diagnosis ofWegener's Granulomatosis (WG) or microscopic polyangiitis.Decisions about treatment should not be based solely onANCA IFA results. The [employer] ANCA [employer] Consensusrecommends follow up testing of positive sera with both WI-3 and MPO-ANCA enzyme immunoassays. As many as 5% serumsamples are positive only by EIA. Ref. AM J Clin Dluvkk2305;111:507-513. Thin prep Papanicolaou smear with manual screeningOrdered By: Jose L Montana on 10-30-2022 Thin prep Papanicolaou smear with manual screening 25 U/L 15-37 [facility] Thin prep Papanicolaou smear with manual screening 10 5-15 [facility] Thin prep Papanicolaou smear with manual screening 120 ug/dL 80-158 [facility] Comment on above: Detection Limit = 5 Whole blood hemoglobin A1c/t otal hemoglobin ratio (mass fraction)Ordered By: Jose L Montana on 10-30-2022 HbA1c (Bld) [Mass fraction] 5.4 % 3.8-5.6 [facility] Comment on above: Normal < 5.7 % Predi abetic 5.7 - 6.4 % Diabetic >or= 6.5 % Please note range changes. SARAH DIAG W AME BILATERALon 08-26-2022 [facility] US BREAST LTD LTon [facility] Absolute lymphocyte countOrd ered By: Dr. Santiago on 07-31-2022 Lymphocytes Auto (Unsp spec) [#/Vol] 1.78 10*3/uL 0.83-4.51 [facility] Basophil percentageOrdered B y: Dr. Santiago on 07-31-2022 Basophil percentage < 0.2 AI 0.0-0.9 [facility] Basophils/100 WBC (Bld) 0.6 % 0-1 [facility] Bilirubin [Mass/Vol] 0.30 mg/dL 0.20-1.00 [facility] Comment on above: For patients on eltr ombopag therapy, use of Dimension Henderson TBIL is not recommended. Chloride [Moles/Vol] 107 mmol/L 98-107 [facility] Eosinophils/100 WBC (Bld) 3.2 % 0-5 [facility] Glucose [Mass/Vol] 102 mg/dL 74-106 [facility] Comment on above: Fasting Glucose resu lt from 100 to 125 mg/dL suggests IMPAIRED HOMEOSTASIS per A.D.A. criteria. Neutrophils (Bld) [#/Vol] 3.8 10*3/uL 2.0-7.7 [facility] Neutrophils/100 WBC (Bld) 61.4 % 47-70 [facility] Potassium [Moles/Vol] 3.8 mmol/L 3.5-5.1 [facility] Protein [Mass/Vol] 7.3 g/dL 6.4-8.2 [facility] Sodium [Moles/Vol] 138 mmol/L 136-145 [facility] WBC (Bld) [#/Vol] 6.2 10*3/uL 4.4-11.0 [facility] Blood erythrocytes count (nu mber/volume)Ordered By: Dr. Santiago on 07-31-2022 RBC (Bld) [#/Vol] 4.02 10*6/uL 4.2-5.4 [facility] Blood hemoglobin measurement (mass/volume)Ordered By: Dr. Santiago on 07-31-2022 Hemoglobin (Bld) [Mass/Vol] 13.2 g/dL 12.0-15.0 [facility] Blood lymphocytes/100 leukoc ytesOrdered By: Dr. Santiago on 07-31-2022 Lymphocytes/100 WBC (Bld) 28.5 % 19-41 [facility] Blood monocytes/100 leukocyt esOrdered By: Dr. Santiago on 07-31-2022 Monocytes/100 WBC (Bld) 6.1 % 0-[address] [facility] Blood platelet mean volumeOr dered By: Dr. Santiago on 07-31-2022 Platelet mean volume (Bld) [Entitic vol] 9.1 fL 6.2-12.0 [facility] Determination of erythrocyte mean corpuscular volume (MCV)Ordered By: Dr. Santiago on 07-31-2022 MCV (RBC) [Entitic vol] 98.8 fL 81-[address] [facility] Hematocrit Auto (Bld) [Volum e fraction]Ordered By: Dr. Santiago on 07-31-2022 Hematocrit (Bld) [Volume fraction] 39.7 % 37-47 [facility] Iron measurement (mass/mass) Ordered By: Dr. Santiago on 07-31-2022 Iron (Unsp spec) [Mass/Mass] 62 ug/dL 50-170 [facility] Laboratory - Chemistry and C hemistry - challengeOrdered By: Dr. Santiago on 07-31-2022 ALP [Catalytic activity/Vol] 73 U/L 45-117 [facility] ALT [Catalytic activity/Vol] 39 U/L 13-56 [facility] Amylase [Catalytic activity/Vol] 41 U/L 5-55 [facility] CO2 [Moles/Vol] 25.0 mmol/L 21.0-32.0 [facility] Globulin (S) [Mass/Vol] 3.5 g/dL 2.2-4.[address] [facility] Urea nitrogen/Creatinine [Mass ratio] 29.7 mg/mg 10-20 [facility] Laboratory - Hematology and Cell countsOrdered By: Dr. Santiago on 07-31-2022 Erythrocyte distribution width (RBC) [Entitic vol] 45.5 fL 35.1-43.9 [facility] Erythrocyte distribution width (RBC) [Ratio] 12.5 % 11.6-14.6 [facility] Immature granulocytes/100 WBC (Bld) 0.200 % 0.0-0.9 [facility] Comment on above: IG% - Immature Granu locytes (promyelocytes, myelocytes and metamyelocytes) > 1% indicates that a LEFT SHIFT is Present. MCH (RBC) [Entitic mass] 32.8 pg 27.0-32.0 [facility] Nucleated RBC/100 WBC (Bld) [Ratio] 0 % 0-5 [facility] MCHC Auto (RBC) [Mass/Vol]Or dered By: Dr. Santiago on 07-31-2022 MCHC (RBC) [Mass/Vol] 33.2 g/dL 32-36 [facility] No Panel InformationOrdered By: Dr. Santiago on 07-31-2022 Anti-Nuclear Antibody Screen Positive Negative [facility] Centromere B Antibody <0.2 AI 0.0-0.9 [facility] Estimated GFR (MDRD) Amer 130 mL/min >60 [facility] Comment on above: GFR Calc Estimated GFR (MDRD) Non-Af Amer 108 mL/min >60 [facility] Comment on above: Non- GFR Calc Hepatitis A IgM Antibody Negative Negative [facility] Hepatitis B Core IgM Antibody Negative Negative [facility] Hepatitis C Antibody (EIA) Non-Reactive Non Reactive [facility] Hepatitis C Antibody Comment Comment . [facility] Comment on above: Not infected with HC V unless early or acute infection issuspected (which may be delayed in an immunocompromisedindividual), or other evidence exists to indicate HCVinfection. QA LEAD Antibody 1.3 AI 0.0-0.9 [facility] Thyroid Stimulating Hormone (TSH) 2.19 uIU/mL 0.358-3.74 [facility] Platelets bldOrdered By: Dr. Santiago on 07-31-2022 Platelets (Bld) [#/Vol] 280 10*3/uL 150-450 [facility] Serum DNA double strand anti body assay (units/volume)Ordered By: Dr. Santiago on 07-31-2022 DNA double strand Ab Qn (S) 1 [IU]/mL 0-9 [facility] Comment on above: Negative <5 Equivoca l 5 - 9 Positive >9 Serum Evelyn-1 antibody assay (u nits/volume)Ordered By: Dr. Santiago on 07-31-2022 Evelyn-1 extractable nuclear Ab Qn (S) <0.2 AI 0.0-0.9 [facility] Serum Scl-70 extractable nuc lear antibody assay (units/volume)Ordered By: Dr. Santiago on 07-31-2022 SCL-70 extractable nuclear Ab Qn (S) <0.2 AI 0.0-0.9 [facility] Serum Mendez extractable nucl ear antibody detectionOrdered By: Dr. Santiago on 07-31-2022 Mendez extractable nuclear Ab Ql (S) <0.2 AI 0.0-0.9 [facility] Serum or plasma albumin katty urement (mass/volume)Ordered By: Dr. Santiago on 07-31-2022 Albumin [Mass/Vol] 3.8 g/dL 3.2-5.0 [facility] Serum or plasma albumin/glob ulin mass ratioOrdered By: Dr. Santiago on 07-31-2022 Albumin/Globulin [Mass ratio] 1.1 {ratio} 0.9-2.4 [facility] Serum or plasma calcium katty urement (mass/volume)Ordered By: Dr. Santiago on 07-31-2022 Calcium [Mass/Vol] 9.2 mg/dL 8.5-10.1 [facility] Serum or plasma creatinine m easurement (mass/volume)Ordered By: Dr. Santiago on 07-31-2022 Creatinine [Mass/Vol] 0.61 mg/dL 0.55-1.02 [facility] Comment on above: The validity of the calculated GFR & GFRAA in patients over 70 years has not been determined. Clinical correlation is essential. Serum or plasma ferritin tiesha surement (mass/volume)Ordered By: Dr. Santiago on 07-31-2022 Ferritin [Mass/Vol] 89 ng/mL 8-252 [facility] Serum or plasma hepatitis B virus surface antigen detection by immunoassayOrdered By: Dr. Santiago on 07-31-2022 HBV surface Ag IA Ql Negative Negative [facility] Serum or plasma thyroperoxid ase antibody assay (units/volume)Ordered By: Dr. Santiago on 07-31-2022 TPO Ab Qn 13 [IU]/mL 0-34 [facility] Comment on above: Performed at: [place] [id number] Director: Jac Osborn PhD, Phone: [phone] Serum or plasma urea nitroge n measurement (mass/volume)Ordered By: Dr. Santiago on 07-31-2022 Urea nitrogen [Mass/Vol] 18 mg/dL 7-18 [facility] Thin prep Papanicolaou smear with manual screeningOrdered By: Dr. Santiago on 07-31-2022 Thin prep Papanicolaou smear with manual screening 24 U/L 15-37 [facility] Thin prep Papanicolaou smear with manual screening 6 5-15 [facility] Absolute lymphocyte counton 02-25-2022 Lymphocytes Auto (Unsp spec) [#/Vol] 2.15 10*3/uL 0.83-4.51 [facility] Work Phone: Basophil percentageon 2021 Basophils/100 WBC (Bld) 0.6 % 0-[address] [facility] Work Phone: Bilirubin [Mass/Vol] 0.30 mg/dL 0.20-1.00 [facility] Work Phone: Comment on above: For patients on eltr ombopag therapy, use of Dimension Henderson TBIL is not recommended. Chloride [Moles/Vol] 105 mmol/L 98-107 [facility] Work Phone: Cholesterol [Mass/Vol] 248 mg/dL <200 [facility] Work Phone: Comment on above: <200 mg/dL Desirable 200-240 mg/dL Borderline >240 mg/dL High Risk Eosinophils/100 WBC (Bld) 2.7 % 0-5 [facility] Work Phone: Glucose [Mass/Vol] 112 mg/dL 74-106 [facility] Work Phone: Comment on above: Fasting Glucose resu lt from 100 to 125 mg/dL suggests IMPAIRED HOMEOSTASIS per A.D.A. criteria. Neutrophils (Bld) [#/Vol] 4.0 10*3/uL 2.0-7.7 [facility] Work Phone: Neutrophils/100 WBC (Bld) 59.4 % 47-70 [facility] Work Phone: [phone] Potassium [Moles/Vol] 3.5 mmol/L 3.5-5.1 [facility] Work Phone: Protein [Mass/Vol] 7.3 g/dL 6.4-8.2 [facility] Work Phone: [phone] Sodium [Moles/Vol] 137 mmol/L 136-145 [facility] Work Phone: Triglyceride [Mass/Vol] 192 mg/dL <[address] [facility] Work Phone: Comment on above: The drugs N-Acetylcy steine and Metamizole may falsely depress this assay.Serum Triglycerides Reference Interval Normal <150 mg/dL Borderline high 150 - 199 mg/dL High 200 - 499 mg/dL Very High > or = 500 mg/dL WBC (Bld) [#/Vol] 6.8 10*3/uL 4.4-11.0 [facility] Work Phone: Blood erythrocytes count (nu mber/volume)on 02-25-2022 RBC (Bld) [#/Vol] 4.11 10*6/uL 4.2-5.4 [facility] Work Phone: [phone] Blood hemoglobin measurement (mass/volume)on 02-25-2022 Hemoglobin (Bld) [Mass/Vol] 13.4 g/dL 12.0-15.0 [facility] Work Phone: Blood lymphocytes/100 leukoc yteson 02-25-2022 Lymphocytes/100 WBC (Bld) 31.9 % 19-41 [facility] Work Phone: Blood monocytes/100 leukocyt eson 02-25-2022 Monocytes/100 WBC (Bld) 5.3 % 0-[address] [facility] Work Phone: Blood platelet mean volumeon 02-25-2022 Platelet mean volume (Bld) [Entitic vol] 9.6 fL 6.2-12.0 [facility] Work Phone: [phone] Determination of erythrocyte mean corpuscular volume (MCV)on 02-25-2022 MCV (RBC) [Entitic vol] 98.8 fL 81-[address] [facility] Work Phone: [phone] Erythrocyte sedimentation ra shaunna 02-25-2022 ESR (Bld) [Velocity] 15 mm/h 0-30 [facility] Work Phone: [phone] Hematocrit Auto (Bld) [Volum e fraction]on 02-25-2022 Hematocrit (Bld) [Volume fraction] 40.6 % 37-47 [facility] Work Phone: [phone] Laboratory - Chemistry and C hemistry - challengeon 02-25-2022 ALP [Catalytic activity/Vol] 90 U/L 45-117 [facility] Work Phone: ALT [Catalytic activity/Vol] 37 U/L 13-56 [facility] Work Phone: CO2 [Moles/Vol] 25.0 mmol/L 21.0-32.0 [facility] Work Phone: [phone] Globulin (S) [Mass/Vol] 3.4 g/dL 2.2-4.[address] [facility] Work Phone: [phone] Urea nitrogen/Creatinine [Mass ratio] 20.1 mg/mg 10-20 [facility] Work Phone: Laboratory - Hematology and Cell countson 02-25-2022 Erythrocyte distribution width (RBC) [Entitic vol] 46.3 fL 35.1-43.9 [facility] Work Phone: Erythrocyte distribution width (RBC) [Ratio] 12.7 % 11.6-14.6 [facility] Work Phone: Immature granulocytes/100 WBC (Bld) 0.100 % 0.0-0.9 [facility] Work Phone: Comment on above: IG% - Immature Granu locytes (promyelocytes, myelocytes and metamyelocytes) > 1% indicates that a LEFT SHIFT is Present. MCH (RBC) [Entitic mass] 32.6 pg 27.0-32.0 [facility] Work Phone: Nucleated RBC/100 WBC (Bld) [Ratio] 0 % 0-5 [facility] Work Phone: MCHC Auto (RBC) [Mass/Vol]on 02-25-2022 MCHC (RBC) [Mass/Vol] 33.0 g/dL 32-36 [facility] Work Phone: No Panel Informationon 02-25 Estimated GFR (MDRD) Amer 133 mL/min >60 [facility] Work Phone: Comment on above: GFR Calc Estimated GFR (MDRD) Non-Af Amer 110 mL/min >60 [facility] Work Phone: Comment on above: Non- GFR Calc Thyroid Stimulating Hormone (TSH) 3.15 uIU/mL 0.358-3.74 [facility] Work Phone: Platelets bldon 02-25-2022 Platelets (Bld) [#/Vol] 301 10*3/uL 150-450 [facility] Work Phone: Serum or plasma albumin katty urement (mass/volume)on 02-25-2022 Albumin [Mass/Vol] 3.9 g/dL 3.2-5.0 [facility] Work Phone: Serum or plasma albumin/glob ulin mass ratioon 02-25-2022 Albumin/Globulin [Mass ratio] 1.1 {ratio} 0.9-2.4 [facility] Work Phone: Serum or plasma calcium katty urement (mass/volume)on 02-25-2022 Calcium [Mass/Vol] 9.1 mg/dL 8.5-10.1 [facility] Work Phone: Serum or plasma cholesterol in HDL measurement (mass/volume)on 02-25-2022 Cholesterol in HDL [Mass/Vol] 65 mg/dL >40 [facility] Work Phone: Comment on above: The drugs N-Acetylcy steine and Metamizole may falsely depress this assay. Reference Range HDL <40 mg/dL Low HDL Cholesterol HDL >or= 60 mg/dL High HDL Cholesterol Serum or plasma cholesterol in VLDL measurement (mass/volume)on 02-25-2022 Cholesterol in VLDL [Mass/Vol] 38 mg/dL 5-40 [facility] Work Phone: Serum or plasma creatinine m easurement (mass/volume)on 02-25-2022 Creatinine [Mass/Vol] 0.60 mg/dL 0.55-1.02 [facility] Work Phone: Comment on above: The validity of the calculated GFR & GFRAA in patients over 70 years has not been determined. Clinical correlation is essential. Serum or plasma low density lipoprotein (LDL) cholesterol measurement (mass/volume)on 02-25-2022 Cholesterol in LDL [Mass/Vol] 145 mg/dL 0-130 [facility] Work Phone: Serum or plasma urea nitroge n measurement (mass/volume)on 02-25-2022 Urea nitrogen [Mass/Vol] 12 mg/dL -18 [facility] Work Phone: Thin prep Papanicolaou smear with manual screeningon 02-25-2022 Thin prep Papanicolaou smear with manual screening 22 U/L 15-37 [facility] Work Phone: Thin prep Papanicolaou smear with manual screening 7 5-15 [facility] Work Phone: XR Hand - left PA and Latera l and Obliqueon 02-18-2021 IMPRESSION: No acute osseous abnormality. Mild degenerative changes, as described. Probation Supervisor: LUIS M Transcribe Date/Time: Feb 18 2021 3:59P Dictated by : BREN COLON MD This examination was interpreted and the report reviewed and electronically signed by: BREN COLON MD on Feb 18 2021 4:03PM [facility] DIVISION OF RADIOLOGY * * *Final [...] No aggressive features. DIVISION OF RADIOLOGY Provider, [facility] - 02/18/2021 * * *Final [...] osseous abnormality. Mild degenerative changes, as described. Probation Supervisor: BALDOMEROExogenesis Transcribe Date/Time: Feb 18 2021 3:59P Dictated by : BREN COLON MD This examination was interpreted and the report reviewed and electronically signed by: BREN COLON MD on Feb 18 2021 4:03PM EST [facility] Radiology Study observation (narrative) Peter Toledo XR Hand - left PA and Latera l and ObliqueOrdered By: Ccf Provider on 02-18-2021 [facility] Culture, urine Bacteria identified Cx Nom (U) Culture exhibits no growth. [facility] Work Phone: Vital Signs Date Time Vital Sign Value Performing Clinician Faci lity 01-13-2025 08:54-0400 Body temperature 97 [degF] Dr. Nestor Santiago MD Work Phone: [facility] 01-13-2025 08:54-0400 Diastolic blood pressure 81 mm[Hg] Dr. Nestor Santiago MD Work Phone: [facility] 01-13-2025 08:54-0400 Heart rate 62 /min Dr. Nestor Santiago MD Work Phone: [facility] 01-13-2025 08:54-0400 Respiratory rate 16 /min Dr. Nestor Santiago MD Work Phone: [facility] 01-13-2025 08:54-0400 SaO2% (BldA) [Mass fraction] 100 % Dr. Nestor Santiago MD Work Phone: [facility] 01-13-2025 08:54-0400 Systolic blood pressure 131 mm[Hg] Dr. Nestor Santiago MD Work Phone: [facility] 01-13-2025 07:10-0400 Body height 170.[address] Nestor Santiago MD Work Phone: [facility] 01-13-2025 07:10-0400 Body mass index (BMI) [Ratio] 30.7 kg/m2 Dr. Nestor Santiago MD Work Phone: [facility] 01-13-2025 07:10-0400 Body weight [address] Nestor Santiago MD Work Phone: [facility] 08-31-2024 08:49-0400 Body height 170.2 cm Breanna Ng MD Work Phone: [facility] 08-31-2024 08:49-0400 Body mass index (BMI) [Ratio] 30.07 kg/m2 Breanna Ng MD Work Phone: [facility] 08-31-2024 08:49-0400 Body weight 87.09 kg Breanna Ng MD Work Phone: [facility] 08-31-2024 08:49-0400 Diastolic blood pressure 82 mm[Hg] Breanna Ng MD Work Phone: [facility] 08-31-2024 08:49-0400 Systolic blood pressure 124 mm[Hg] Breanna Ng MD Work Phone: [facility] 08-26-2023 13:37-0400 Body height 170.[address] Nestor Santiago Work Phone: [facility] 08-26-2023 13:37-0400 Body mass index (BMI) [Ratio] 30.2 kg/m2 Dr. Nestor Santiago Work Phone: [facility] 08-26-2023 13:37-0400 Body weight 87.[address] Nestor Santiago Work Phone: [facility] 08-26-2023 13:37-0400 Diastolic blood pressure 78 mm[Hg] Dr. Nestor Santiago Work Phone: [facility] 08-26-2023 13:37-0400 Heart rate 96 /min Dr. Nestor Santiago Work Phone: [facility] 08-26-2023 13:37-0400 SaO2% (BldA) [Mass fraction] 79 % Dr. Nestor Santiago Work Phone: [facility] 08-26-2023 13:37-0400 Systolic blood pressure 123 mm[Hg] Dr. Nestor Santiago Work Phone: [facility] 04-28-2023 14:42-0500 Body temperature 98.1 [degF] Dr. Dada Santiago Work Phone: [facility] 04-28-2023 14:42-0500 Diastolic blood pressure 83 mm[Hg] Dr. Dada Santiago Work Phone: [facility] 04-28-2023 14:42-0500 Heart rate 76 /min Dr. Dada Santiago Work Phone: [facility] 04-28-2023 14:42-0500 Respiratory rate 16 /min Dr. Dada Santiago Work Phone: [facility] 04-28-2023 14:42-0500 SaO2% (BldA) [Mass fraction] 99 % Dr. Dada Santiago Work Phone: [facility] 04-28-2023 14:42-0500 Systolic blood pressure 135 mm[Hg] Dr. Dada Santiago Work Phone: [facility] 04-28-2023 12:25-0500 Body height 170.[address] Dada Santiago Work Phone: [facility] 04-28-2023 12:25-0500 Body mass index (BMI) [Ratio] 27.9 kg/m2 Dr. Dada Santiago Work Phone: [facility] 04-28-2023 12:25-0500 Body weight [address] Dada Santiago Work Phone: [facility] 03-16-2023 14:28-0500 Body mass index (BMI) [Ratio] 29 kg/m2 Dr. Dada Santiago Work Phone: [facility] 03-16-2023 14:28-0500 Body weight 83.[address] Dada Santiago Work Phone: [facility] 03-16-2023 14:28-0500 Diastolic blood pressure 84 mm[Hg] Dr. Dada Santiago Work Phone: [facility] 03-16-2023 14:28-0500 Heart rate 79 /min Dr. Dada Santiago Work Phone: [facility] 03-16-2023 14:28-0500 SaO2% (BldA) [Mass fraction] 96 % Dr. Dada Santiago Work Phone: [facility] 03-16-2023 14:28-0500 Systolic blood pressure 126 mm[Hg] Dr. Dada Santiago Work Phone: [facility] 01-08-2023 15:39-0400 Body temperature 97.6 [degF] Dr. Dada Santiago Work Phone: 1(594)[phone] [address] 01-08-2023 15:39-0400 Diastolic blood pressure 90 mm[Hg] Dr. Dada Santiago Work Phone: 1(336)[phone] [address] 01-08-2023 15:39-0400 Heart rate 77 /min Dr. Dada Santiago Work Phone: 1(294)[phone] [place] [address] 01-08-2023 15:39-0400 Respiratory rate 17 /min Dr. Dada Santiago Work Phone: 0(830)[phone] [place] [address] 01-08-2023 15:39-0400 SaO2% (BldA) [Mass fraction] 93 % Dr. Dada Santiago Work Phone: [facility] 01-08-2023 15:39-0400 Systolic blood pressure 169 mm[Hg] Dr. Dada Santiago Work Phone: [facility] 01-08-2023 11:12-0400 Body height 170.[address] Dada Santiago Work Phone: [facility] 01-08-2023 11:12-0400 Body mass index (BMI) [Ratio] 28.6 kg/m2 Dr. Dada Santiago Work Phone: [facility] 01-08-2023 11:12-0400 Body weight 82.[address] Dada Santiago Work Phone: [facility] 06-06-2022 15:16-0500 Body height 170.2 cm Joyce Freitas MD Work Phone: [facility] 06-06-2022 15:16-0500 Body weight 86.91 kg Joyce Freitas MD Work Phone: [facility] 06-06-2022 15:16-0500 Diastolic blood pressure 82 mm[Hg] Joyce Freitas MD Work Phone: [facility] 06-06-2022 15:16-0500 Systolic blood pressure 122 mm[Hg] Joyce rFeitas MD Work Phone: [facility] Encounters Encounter Date Encounter Type Care Provider Facility Start: 03-21-2025 End: 03-21-2025 ambulatory [facility] Facility:[facility] Start: 03-14-2025 End: 03-14-2025 ambulatory Nestor Santiago Facility:[facility] Start: 02-28-2025 End: 02-28-2025 ambulatory [facility] Facility:[facility] Start: 01-13-2025 Non-patient / Non-visit Jose L De La Fuente nd DO -[facility] Start: 01-13-2025 End: 01-13-2025 Admission to same day surgery center Jose L Montana DO -Endoscopy Work Phone: Start: 01-13-2025 End: 01-13-[address] Nestor Santiago MD Work Phone: -Endoscopy Start: 10-07-2024 ambulatory Nestor Santiago Faci lity:[facility] Start: 09-01-2024 End: 11-01-2024 Follow-up encounter Breanna Ng MD Work Phone: OB/Gynecology Start: 08-31-2024 ambulatory BREANNA Lopez ity:[facility] Start: 08-31-2024 End: 08-31-2024 Patient encounter procedure Breanna Ng MD Work Phone: OB/Gynecology Comment on above: Encounter for gyneco logical examination (general) (routine) without abnormal findings (Primary Dx); Encounter for screening mammogram for breast cancer Start: 08-31-2024 End: 08-31-2024 Patient encounter status Breanna Ng MD Work Phone: [facility] Start: 08-31-2024 End: 08-31-2024 ambulatory BREANNA NG Facility:[facility] Start: 08-31-2024 Encounter for gynecological examination (general) (routine) without abnormal findings BREANNA NG [facility] Start: 07-21-2024 End: 07-21-2024 ambulatory Nestor Santiago Facility:[facility] Start: 08-29-2023 Documentation procedure Mammog matt Coordinator [facility] Department Start: 08-29-2023 Letter encounter Mammography Coordinator [facility] Department Start: 08-28-2023 End: 08-28-2023 Subsequent hospital visit by physician Screen Mammo [facility] Mammogram Comment on above: Encounter for screen ing mammogram for breast cancer [Z12.31] Start: 08-26-2023 End: 08-26-[address] Nestor Santiago Work Phone: [facility] Work Phone: Start: 08-22-2023 End: 08-22-[address] Nestor Santiago Work Phone: [facility] Work Phone: Start: 08-22-2023 End: 08-22-[address] Nestor Santiago Work Phone: [facility]-Ultrasound, [facility] Work Phone: Start: 06-23-2023 End: 06-23-[address] Dada Santiago Work Phone: [facility] Work Phone: Start: 06-23-2023 End: 06-23-[address] Dada Santiago Work Phone: [facility]-Laboratory,Futu re Work Phone: Start: 06-12-2023 Telephone encounter Demi Metc mcfp MANAGER CULINARY.IN PROCESSING INSTRUCTOR Work Phone: OB/Gynecology Start: 04-28-2023 End: 04-28-2023 Non-patient / Non-visit Dr. Dada Santiago Work Phone: [facility] Work Phone: Start: 04-28-2023 End: 04-28-2023 Admission to same day surgery center Dr. Dada Santiago Work Phone: [facility]-Endoscopy Work Phone: Start: 03-16-2023 End: 03-16-[address] Dada Santiago Work Phone: [facility] Work Phone: Start: 01-08-2023 Non-patient / Non-visit Dr. Sri Santiago Work Phone: [facility] Start: 01-08-2023 End: 01-08-2023 Admission to same day surgery center Dr. Dada Santiago Work Phone: [facility]-Endoscopy Work Phone: Start: 01-08-2023 End: 01-08-[address] Dada Santiago Work Phone: [facility] Work Phone: Start: 01-05-2023 End: 01-05-[address] Dada Santiago Work Phone: [facility] Work Phone: Start: 01-05-2023 End: 01-05-[address] Dada Santiago Work Phone: [facility]-Ultrasound, [facility] Work Phone: Start: 12-02-2022 End: 12-02-[address] Dada Santiago Work Phone: [facility] Work Phone: Start: 12-02-2022 End: 12-02-[address] Dada Santiago Work Phone: [facility]-Laboratory Work Phone: Start: 11-20-2022 End: 11-20-[address] Dada Santiago Work Phone: [facility]-MRI - [facility] Work Phone: Start: 10-30-2022 End: 10-30-[address] Dada Santiago Work Phone: [facility] Work Phone: Start: 10-30-2022 End: 10-30-[address] Dada Santiago Work Phone: [facility] Start: 08-26-2022 End: 08-26-2022 [facility] Work Phone: Radiology Comment on above: Mass of left breast, unspecified quadrant [N63.20] Start: 07-31-2022 End: 07-31-2022 ambulatory [facility] Work Phone: Start: 07-31-2022 End: 07-31-2022 Patient encounter procedure [facility]-Laboratory, [facility] Start: 07-19-2022 End: 07-19-2022 ambulatory [facility] Work Phone: Start: 07-19-2022 End: 07-19-2022 Patient encounter procedure [facility]-Ultrasound, [facility] Start: 07-09-2022 End: 07-09-2022 Subsequent hospital visit by physician Diagnostic Mammo [facility] Mammogram Comment on above: Canceled (CC [...] Phone: OB/Gynecology Start: 02-27-2022 End: 02-27-2022 ambulatory [facility] Work Phone: Start: 02-27-2022 End: 02-27-2022 Patient encounter procedure [facility] Start: 02-25-2022 End: 02-25-2022 ambulatory [facility] Work Phone: Start: 02-25-2022 End: 02-25-2022 Patient encounter procedure [facility], [facility] Start: 02-18-2021 End: 02-18-2021 Subsequent hospital visit by physician [facility] Work Phone: Radiology Comment on above: [...] Radex hand minimum 3 views Nasreen TENORIO RN.IN PROCESSING INSTRUCTOR Work Phone: Bacteria identified in Urine by Culture Urine culture Plan of Treatment Date Care Activity Detail Author Start: 02-10-2039 RSV Vaccine (1 - 1-dose 75+ series) RSV Vaccine (1 - 1-dose 75+ series) [facility] Start: 06-27-2026 Screening for malignant neoplasm of colon [facility] Start: 09-01-2025 End: 09-01-2025 Patient encounter procedure Mammogram Comment on above: : Encounter for gynecological examinatio n (general) (routine) without abnormal findings [Z01.419]; Encounter for screening mammogram for breast cancer [Z12.31] Annual Start: 08-31-2025 Screening for malignant neoplasm of breast Mammogram Screening [facility] Start: 04-13-2025 ambulatory Ambulatory Facility:[facility] Start: 01-13-2025 Patient discharge [facility] Start: 01-09-2025 Influenza vaccination Influenza Vaccine (Season Ended) [facility] Start: 08-27-2024 Screening for malignant neoplasm of breast Mammogram Screening [facility] Start: 06-15-2024 End: 06-15-2024 Patient encounter procedure 06/15/2024 4:00 PM EST Office Visit OB/Gynecology [address] [place] [address] Breanna Ng MD [address] [place] [address] annual OB/Gynecology Comment on above: annual Start: 06-10-2024 Covid-19 Vaccine () Covid-19 Vaccine () [facility] Comment on above: Postponed from 01/09/2023 (Declined at t his time) Start: 01-10-2024 Covid-19 Vaccine () Covid-19 Vaccine () [facility] Start: 01-10-2024 Influenza vaccination [facility] Start: 11-08-2023 Influenza vaccination Influenza Vaccine (#1) [facility] Comment on above: Postponed from 01/09/2023 (Declined at t his time) Start: 08-27-2023 Mammography Mammogram Screening [facility] Start: 08-27-2023 Screening for malignant neoplasm of breast Mammogram Screening [facility] Start: 05-11-2023 Behavioral Health Screening Behavioral Health Screening [facility] Start: 05-11-2023 Depression Assessment Depression Assessment [facility] Start: 04-28-2023 Ercp remove foreign body/stent biliary/panc duct ERCP REMOVE FORGN BODY DUCT [facility] Start: 04-28-2023 Ercp w/sphincterotomy/papill otomy ENDO CHOLANGIOPANCREATOGRAPH [facility] Start: 04-28-2023 Patient discharge [facility] Start: 01-09-2023 Covid-19 Vaccine () Covid-19 Vaccine () [facility] Start: 01-09-2023 Influenza vaccination Influenza Vaccine (#1) [facility] Start: 01-08-2023 Patient discharge [facility] Start: 09-03-2022 Hepatitis B Vaccine (2 of 3 - 19+ 3-dose series) Hepatitis B Vaccine (2 of 3 - 19+ 3-dose series) [facility] Start: 07-19-2022 Ultrasonography of abdomen Abdomen Limited [facility] Start: 07-19-2022 Ultrasound elastography [facility] Start: 07-19-2022 US Abdomen limited [facility] Start: 05-11-2022 DEPRESSION ASSESSMENT DEPRESSION ASSESSMENT [facility] Start: 01-09-2022 Influenza vaccination INFLUENZA (#1) [facility] Start: 06-05-2021 COVID-19 VACCINE (4 - Booster for Pfizer series) COVID-19 VACCINE (4 - Booster for Pfizer series) [facility] Start: 02-10-2014 SHINGRIX VACCINE (1 of 2) SHINGRIX VACCINE (1 of 2) [facility] Start: 02-10-2009 COLOGUARD (FIT-DNA) COLOGUARD (FIT-DNA) [facility] Start: 02-10-2009 Colonoscopy COLONOSCOPY [facility] Start: 02-10-2009 COLORECTAL CANCER SCREENING COLORECTAL CANCER SCREENING [facility] Start: 02-10-[address] COLONOGRAPHY [facility] Start: 02-10-2009 DIABETES SCREEN DIABETES SCREEN [facility] Start: 02-10-2009 Diabetes Screening Diabetes Screening [facility] Start: 02-10-2009 FECAL OCCULT BLOOD FECAL OCCULT BLOOD [facility] Start: 02-10-2009 Lipid 1996 panel - Serum or Plasma Lipid Screening [facility] Start: 02-10-2009 Lipid panel Lipid Screening [facility] Start: 02-10-2009 LIPID SCREEN LIPID SCREEN [facility] Start: 02-10-2009 Screening for malignant neoplasm of colon [facility] Start: 02-10-2009 SIGMOIDOSCOPY SIGMOIDOSCOPY [facility] Start: 2004 Mammography MAMMOGRAM [facility] Start: 02-10-1994 HPV TESTING HPV TESTING [facility] Start: 02-10-1985 PAP TESTING PAP TESTING [facility] Start: 02-10-1983 Pneumococcal Vaccine: 50+ (1 of 2 - PCV) Pneumococcal Vaccine: 50+ (1 of 2 - PCV) [facility] Start: 02-10-1983 Urine microalbumin profile [facility] Start: 02-10-1982 Anxiety Screening Anxiety Screening [facility] Start: 02-10-1982 Depression Screening Depression Screening [facility] Start: 02-10-1982 HEPATITIS C SCREENING HEPATITIS C SCREENING [facility] Start: 02-10-1982 Hepatitis C screening Hepatitis C Screening [facility] Start: 02-10-1982 HIV SCREENING HIV SCREENING [facility] Start: 02-10-1982 HIV screening HIV Screening [facility] Start: 02-10-1970 PNEUMOCOCCAL (1 - PCV) PNEUMOCOCCAL (1 - PCV) [facility] Start: 02-10-1970 Pneumococcal vaccination [facility] Start: 1964 HEPATITIS B (1 of 3 - 3-dose series) HEPATITIS B (1 of 3 - 3-dose series) [facility] [id number]. vasyl or marker [Units/volume] in Serum or Plasma [facility] C reactive protein [Mass/volume] in Serum or Plasma [facility] C reactive protein [Mass/volume] in Serum or Plasma [facility] CBC W Auto Different ial panel - Blood [facility] CBC W Auto Different ial panel - Blood [facility] DBT Breast - bilater al screening SARAH SCREENING W AME Radiology Routine Encounter for screening mammogram for breast cancer 08/28/2023 7:56 AM EDT [facility] Work Phone: End: 09-30-2025 DBT Breast - bilateral screening [facility] Work Phone: Comment on above: 1 Occurrences starting 08/31/2024 until 09/30/2025 DBT Breast - bilater al screening SARAH SCREENING W AME Radiology Routine Encounter for screening mammogram for breast cancer 08/31/2024 12:56 PM EDT [facility] End: 07-06-2023 Diagnostic mammography computer-aided detcj bi SARAH DIAGNOSTIC BILAT Radiology Routine Mass of left breast, unspecified quadrant 1 Occurrences starting 06/06/2022 until 07/06/2023 [facility] Work Phone: Comment on above: 1 Occurrences starting 06/06/2022 until 07/06/2023 Hemoglobin A1c/Hemoglobin.total in Blood [facility] Lipid 1996 panel - Serum or Plasma [facility] Liver stiffness by US.transient elastography [facility] MR Biliary ducts and Pancreatic duct WO contrast [facility] Patient referral [facility] Work Phone: Prothrombin time [facility] End: 06-06-2023 Screening colonoscopy COLONOSCOPY SCREENING Endoscopy Routine Special screening for malignant neoplasms, colon 1 Occurrences starting 06/06/2022 until 06/06/2023 [facility] Work Phone: Comment on above: 1 Occurrences starting 06/06/2022 until 06/06/2023 Ultrasound elastography [facility] US Abdomen limited [facility] End: 07-06-2023 Us breast uni real time with image limited US BREAST LTD LT Radiology Routine Mass of left breast, unspecified quadrant 1 Occurrences starting 06/06/2022 until 07/06/2023 [facility] Work Phone: Comment on above: 1 Occurrences starting 06/06/2022 until 07/06/2023 Vitamin D, 25-hydrox y measurement [facility] Immunizations Immunization Date Immunization Notes Care Provider Ion stroud 10-20-2022 hepatitis B vaccine, adult dosage Demi Bernardino MANAGER CULINARY.IN PROCESSING INSTRUCTOR Work Phone: [facility] Work Phone: 08-06-2022 hepatitis A vaccine, pediatric/adolescent dosage, 2 dose schedule Demi Bernardino MANAGER CULINARY.IN PROCESSING INSTRUCTOR Work Phone: [facility] Work Phone: 08-06-2022 hepatitis B vaccine, adult dosage Demi [place] MANAGER CULINARY.IN PROCESSING INSTRUCTOR Work Phone: [facility] Work Phone: Payers Date Payer Category Payer Self-pay 2021 [facility] PPO [id number] 2021 Unknown [id number] 2020 Unknown [id number] Unknown [id number] Unknown [id number] Unknown [id number] Unknown [id number] Unknown [id number] Unknown [id number] Unknown [id number] Unknown [id number] Social History Date Type Detail Facility Tobacco smoking status NHIS Unknown if ever smoked [facility] Work Phone: Start: 1965 Sex Assigned At Female [facility] Start: 06-06-2022 End: 01-13-2025 Tobacco smoking status NHIS Smokes tobacco daily [facility] Start: 12-27-2020 End: 06-06-2022 Tobacco use and exposure Smokeless tobacco non-user [facility] Start: 06-06-2022 End: 08-31-2024 Alcohol intake Current drinker of alcohol (finding) [facility] Start: 06-06-2022 [facility] Start: 1965 Sex Assigned At Not on file [facility] Start: 10-30-2022 End: 08-26-2023 Tobacco smoking status NEIS Unknown if ever smoked [facility] Start: 06-06-2022 End: 06-09-2023 History of Social function [facility] Start: 06-06-2022 End: 06-09-2023 Tobacco use panel [facility] National Score (1-100), lower number is lower risk 52 [facility] Start: 01-18-2021 End: 02-17-2021 Exposure to SARS-CoV-2 (event) Not sure [facility] NEGATED: Highlighted row [facility] Medical Equipment Procedure Code Equipment Code Equipment Origin al Text Equipment Identifier Dates ERCP (endoscopic retrograde cholangiopancreatog matt) RX DUODENAL STENT/7FR X 5CM FDA Start: 01-08-2023 ERCP (endoscopic retrograde cholangiopancreatog matt) STENT,ADVANX PANC [id number] FDA Start: 01-08-2023 ERCP (endoscopic retrograde cholangiopancreatog matt) RX DUODENAL STENT/7FR X 5CM FDA Start: 01-08-2023 ERCP (endoscopic retrograde cholangiopancreatog matt) STENT,ADVANX PANC [id number] FDA Start: 01-08-2023 ERCP (endoscopic retrograde cholangiopancreatog matt) RX DUODENAL STENT/7FR X 5CM FDA Start: 01-08-2023 ERCP (endoscopic retrograde cholangiopancreatog matt) STENT,ADVANX PANC [id number] FDA Start: 01-08-2023 ERCP (endoscopic retrograde cholangiopancreatog matt) RX DUODENAL STENT/7FR X 5CM FDA Start: 01-08-2023 ERCP (endoscopic retrograde cholangiopancreatog matt) STENT,ADVANX PANC [id number] FDA Start: 01-08-2023 Goals Date Patient Goal Desired Activity /State Mental Status Date Assessment Result Facility 01-13-2025 Cognitive function Voice/Name [facility] Work Phone: 04-28-2023 Cognitive function Voice/Name [facility] Work Phone: 01-08-2023 Cognitive function Voice/Name [facility] Work Phone: Clinical Notes 02-18-2021 to 01-13-2025 Note Date & Type Note Facility 01-13-2025 Evaluation note Diagnosis Onset Date Resolution Encounter for screening colonoscopy acute January 13, 2 025 6:54am [facility] Work Phone: 1(173) 948-842809-05-2025 Consult note [facility] Medical Records Department [address] [place] [address] Anesthesia Postop Eval I 01/13/25 0842 MR#: [id number] Acct: [id number] Name: MARTINA PATTERSON Rep #:[id number] : 1965 59 From: Nathan Mcgrath PCP: Dr. Nestor Santiago MD Status :[facility] [place] Race: C Location: [place] [address] Anesthesia: Postop Eval I Current Vital Signs [...] Nathan Coley Signature: Date CC: ~ Signed [facility]09-05-2025 Procedure note [facility] Medical Records Department [address] [place] [address] Colonoscopy Report MR#: [id number] Acct: [id number] Name: MARTINA PATTERSON Rep #:[id number] : 1965 59 From: Jose L Montana DO PCP: Dr. Nestor Santiago MD Status :[facility] Patient Name: Martina Patterson Procedure Date: 01/13/2025 [...] present medications. Procedure Code(s): --- Professional --- 98904, Colonoscopy, flexible; with removal of tumor(s), polyp(s), or other lesion(s) by snare technique 16713, Colonoscopy, flexible; with directed submucosal injection(s), any substance CPT copyright 2021 [employer]. All rights reserved. The codes documented in this report are preliminary and upon operations executive review may be revised to meet current compliance requirements. Jose L Montana DO 01/13/2025 8:39:17 AM This report has been signed electronically. Number of Addenda: 0 Note Initiated On: 01/13/2025 7:55 AM 01/13/25 0839 Date _ Jose L Montana DO Cosigner Signature: Date (if indicated) CC: Dr. Nestor Santiago MD; Jose L Montana DO ~ Date Dictated: 01/13/25 0755 Date Transcribed: Probation Supervisor: RF Signed [facility]09-05-2025 Procedure note [facility] Medical Records Department [address] [place] [address] Provation Physician Letter MR#: [id number] Acct: [id number] Name: MARTINA PATTERSON Rep #:[id number] : 1965 59 From: Jose L Montana DO PCP: Dr. Nestor Santiago MD Status :[facility] 01/13/2025 Dada Santiago [address] [place] [address] Re : Colonoscopy procedure for Martina Patterson [...] electronically. 01/13/25 0839 Date _ Jose L Montana DO Cosigner Signature: Date (if indicated) CC: Dr. Nestor Santiago MD; Jose L Montana DO ~ Date Dictated: 01/13/25 0755 Date Transcribed: Probation Supervisor: RF Signed [facility]09-05-2025 History and physical note [facility] Medical Records Department [address] [place] [address] History & Physical Exam 01/13/25 0748 MR#: [id number] Acct: [id number] Name: MARTINA PATTERSON Rep #:[id number] : 1965 59 From: Jose L Montana DO PCP: Dr. Nestor Santiago MD Status :[facility] Location: [place] [address] HPI - General General Date of Admission: 01/13/25 Date of Service: 01/13/25 Chief Complaint: Screening colonoscopy HPI Narrative MARTINA PATTERSON, is a 59 F who presents today for screening colonoscopy. She had a colonoscopy inthe past that was normal. She does not have any abdominal pain. She past medical history of hypercholesterolemia along with gastroesophageal reflux disease that are all controlled medicines. [facility] Medical History Wears glasses Post-menopausal Depression Anxiety [...] Santiago MD; Jose L Montana DO~ Signed [facility]09-05-2025 [facility] Medical Records Department [address] [place] [address] History Physical Exam 01/13/25 0748 MR#: [id number] Acct: [id number] Name: MARTINA PATTERSON Rep #: [id number] : 1965 59 From: Jose L Montana DO PCP: Dr. Netsor Santiago MD Status:[facility] Location: [place] [address] HPI - General General Date of Admission: 01/13/25 Date of Service: 01/13/25 Chief Complaint: Screening colonoscopy HPI Narrative MARTINA PATTERSON, is a 59 F who presents today for screening colonoscopy. She had a colonoscopy in the past that was normal. She does not have any abdominal pain. She past medical history of hypercholesterolemia along with gastroesophageal reflux disease that are all controlled medicines. [facility] Medical History Wears glasses Post-menopausal Depression Anxiety [...] She will have an ASA of 3. 01/13/2549 Cosigner Signature (if applicable): CC: Dr. Nestor Santiago MD; Jose L Friend, [facility] Consult note [facility] Medical Records Department [address] [place] [address] Pre-Anesthesia Evaluation 01/13/25729 MR#: [id number] Acct: [id number] Name: MARTINA PATTERSON Rep #:[id number] : 1965 59 From: Simone Alaniz MD PCP: Dr. Nestor Santiago MD Status :[facility] Race: C Location: [place] [address] ASA Classification* ASA Classification ASA Classification: 2 [...] Procedure(s): COLONOSCOPY Anesthesia History Anesthesia History - 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: Anesthesia History - 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 Hx Hospitalization No 01/12/25 10:45 Any Problems [...] surgery Any additional information?: Yes NPO since: 04: (Patient finished her prep at 4:30 AM.) Meds taken in AM with sips of water?: No PONV PONV - 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: PONV - 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 Female Yes 01/12/25 10:45 HX of Motion [...] 01/13/25 07:10 Respiratory Assessment Respiratory Assessment - 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: Respiratory Tract Infection Hx - 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 Hx Respiratory Tract Infection No 01/12/25 10:45 STOP Sleep Apnea STOP Sleep Apnea - 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: STOP Sleep Apnea - 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 Hx Hypertension No 01/12/25 10:45 Hx Sleep [...] Tobacco Use History Tobacco Use History - 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: Tobacco Use History - 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 Tobacco Use Smoking Status Current every day smoker 01/12/25 10:45 Hx Tobacco Use Yes 01/12/25 10:45 Years Smoking Packs Smoked per Day Smoking Cessation Date was within the last 15 years Hx Smoking Cessation Date Hx Smoking Cessation Counseling Any additional information?: Yes Smoking Status: Current every day smoker (Patient smoked today.) Hematologic Medial History Hematologic Hx - 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: 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 Hx of Blood Transfusion No 01/12/25 10:45 [...] confused, unrespo /Reproduction History /Reproductive History - 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: /Reproductive Hx- 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 Hx Now No 01/12/25 10:45 Gestational Age [...] MD Cosigner Signature: Date CC: ~ Signed [facility]04-23-2025 NoteHNO ID: [id number] Author: SWETA CORTES Mammo Tech Service: ? [...] PATIENT PRESENTS WITH AN IMPLANTABLE OR ATTACHED EQUESTRIAN TRAINER: No RADIOLOGY DEPARTMENT: Mammography PERIPHERAL IV DATA: Not applicable SIGNED BY: Mel Cornejoo Nina August 31, 2024 12:59 [facility]04-23-2025 NoteHNO ID: [id number] Author: BREANNA NG MD Service: ? Author Type: Physician Type: Progress Notes Filed: 08/31/2024 09:10 Note Text: Martina is a 59 year old who presents for an annual gynecologic exam without any urogynaecologist c/o. . Postmenopausal: yes, s/p hyst HRT [...] discussed with the Patient or Patient's Authorized Clinical Application Manager. As applicable, any other physician, advance practice provider, medical student, or other health professional student that will be observing or involved in the sensitive examination for educational or training purposes was discussed with the Patient or Authorized Clinical Application Manager. The Patient or Authorized Clinical Application Manager has agreed to proceed with the sensitive [...] external genitalia normal, normal Bartholin's glands, urethra, Eden's glands, no vulvar lesions, good vaginal support, [...] year or sooner as needed Breanna Ng [facility]04-23-2025 History of Present illness Narrative* Breanna Ng MD - 08/31/2024 8:44 AM EDT Martina is a 59 year old who presents for an annual gynecologic exam without any urogynaecologist c/o. . Postmenopausal: yes, s/p hyst HRT [...] discussed with the Patient or Patient's Authorized Clinical Application Manager. As applicable, any other physician, advance practice provider, medical student, or other health professional student that will be observing or involved in the sensitive examination for educational or training purposes was discussed with the Patient or Authorized Clinical Application Manager. The Patient or Authorized Clinical Application Manager has agreed to proceed with the sensitive [...] external genitalia normal, normal Bartholin's glands, urethra, Eden's glands, no vulvar lesions, good vaginal support, [...] needed Breanna Ng MD documented in this encounterUniversity Hospitals [facility]04-20-2024 Note* Letter - Coordinator, Mammography - 08/29/2023 5:45 PM EDT August 31, 2023 PID: [id number] Martina Patterson [address] [place] [address] Dear Ms. Patterson, We are pleased to [...] report will be kept on file at [facility] as part of your permanent medical record and are available for your continuing care. Thank you for allowing us to help in meeting your health care needs. Sincerely, Dr. Abreu Interpreting Radiologist [facility] (Normal over 40) [facility]04-20-2024 Miscellaneous Notes* Letter - Coordinator, Mammography - 08/29/2023 5:45 PM EDT August 31, 2023 PID: [id number] Martina Patterson [address] [place] [address] Dear Ms. Patterson, We are pleased to [...] report will be kept on file at [facility] as part of your permanent medical record and are available for your continuing care. Thank you for allowing us to help in meeting your health care needs. Sincerely, Dr. Abreu Interpreting Radiologist [facility] (Normal over 40) documented in this encounterUniversity Hospitals Ahuja [facility] Center04-19-2024 History of Present illness Narrative* Lois Garrett, RT(R) - 08/28/2023 7:30 AM EDT Radiology [...] PATIENT PRESENTS WITH AN IMPLANTABLE OR ATTACHED EQUESTRIAN TRAINER: No RADIOLOGY DEPARTMENT: Mammography PERIPHERAL IV DATA: Not applicable SIGNED BY: RT Raimundo(R) August 28, 2023 7:17 AM documented in this encounterUniversity Hospitals Ahu[facility] Center02-02-2024 Miscellaneous Notes* Telephone Encounter - Demi Lebron APRN.CNP - 06/12/2023 6:48 AM EST RX was sent yesterday to [facility] by RR. Demi Lebron APRN.IN PROCESSING INSTRUCTOR * Telephone Encounter - Demi Lebron APRN.CNP - 06/12/2023 6:47 AM EST ----- Message from Rebecca Lee LPN sent at 06/11/2023 3:43 PM EST ----- Pt given results and would like rx for BV sent to her pharmacy, [facility] . Call only if problems. Rebecca Lee LPN.; documented in this encounterUniversity Hospitals Ahuja Medical Center08-31-2023 Procedure [facility]08-31-2023 Procedure [facility]08-31-2023 History and physical note Author Jose L Montana [facility] January 08, 2023 11:27am Note Date/Time January 08, 2023 11 :27am [facility] Medical Records Department [address] [place] [address] History & Physical Exam 01/08/23 1127 MR#: [id number] Acct: [id number] Name: MARTINA PATTERSON Rep #:[id number] : 1965 57 From: Jose L Friend DO PCP: Dr. 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 Takes 800mg ibuprofen/day. HLD noted ? Biochemical 07.31.22 CBC, CMP, LFT, GGT, TSH, hepatitis screen without pertinent abnormality. ? QA LEAD ab H1.3. ? FIB4 0.8 ? US RUQ and elastography 07.19.22 hepatic measurement 19.2cm with fatty infiltration, stiffness 12.2kPa; 3 small gallbladder polyps, largest 2s9q68mb; CBD 6.1mm *BGI established 10.30.22 ibuprofen 800mg [...] enlarged lymph nodes Quality Reporting Tobacco Screening ([facility] 138) Smoking Status: Current every day smoker [...] 01/08/23 1127 <Electronically signed by Jose L Friend DO> Cosigner Signature (if applicable): CC: Dr. Dada Santiago MD; Jose L Friend, DO~ Signed [facility] Work Phone: 1(811) 917-388504-18-2023 History of Present illness Narrative* Yaneth Bond [...] 26, 2022 4:35 PM documented in this encounterUniversity Hospitals Ahuja [facility] Center04-18-2023 History of Present illness Narrative* Cathleen Kim RT(Maykel) - 08/26/2022 3:30 PM EDT Radiology Service [...] IV DATA: Not applicable SIGNED BY: RT Natalia(Maykel) August 26, 2022 3:47 PM documented in this encounterUniversity Hospitals Ahuja [facility] Center02-10-2023 History of Present illness Narrative* Hellen Mo RN - 06/20/2022 11:57 AM EST External Mammogram results - Please review Scan on 06/20/2022 11:17 AM by External Provider: Mammography documented in this encounterUniversity Hospitals Ahuja Medical Center01-27-2023 History of Present illness Narrative* Christina Nye Ma - 06/06/2022 3:41 PM EST TR OPEN ACCESS QUESTIONNAIRE 1. Are you [...] Please send all open access questionnaires to [facility] Pool #[id number] * Joyce Freitas MD - 06/06/2022 3:08 PM EST And Drying Supervisor Cooking Casing offered: Patient declines. Martina is a 57 [...] OB History No obstetric history on file. Advertising Internship History LMP: Hysterectomy Age at Menarche: Age at First : Age at Menopause: Advertising Internship History Comments: Sexual Activity: Not Currently; No [...] treatment Joyce Freitas MD documented in this encounterUniversity Hospitals Ahuja Medical Center01-27-2023 Instructions* Patient Instructions* Christina Nye [...] please call: Dr. Kendall or Dr. Rodríguez [phone] Kristan Espinoza [phone] Dr. Cummings [phone] [facility] nurses [phone] documented in this encounterUniversity Hospitals Ahuja Medical Center10-11-2021 History of Present illness Narrative* Cynthia Her, [...] 18, 2021 3:50 PM documented [facility] encounterOhio[facility] note Author Simone Alaniz [facility] Note Date/Time January 13, 2025 7:35am [facility] Medical Records Department [address] [place] [address] Pre-Anesthesia Evaluation 01/13/25 0730 MR#: [id number] Acct: [id number] Name: MARTINA PATTERSON Rep #:[id number] : 1965 59 From: Simone Alaniz MD PCP: Dr. Nestor Santiago MD Status :[facility] [place] Race: C Location: [place] [address] ASA Classification* ASA Classification ASA Classification: 2 [...] Procedure(s): COLONOSCOPY Anesthesia History Anesthesia History - 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: Anesthesia History - 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 Hx Hospitalization No 01/12/25 10:45 Any Problems [...] Oral intake: Last Oral Intake NPO since 04:01/13/25 07:10 Meds taken in AM with sips of No 01/13/25 07:10 water? 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 Hx Hypertension No 01/12/25 10:45 Hx Sleep [...] Tobacco Use History Tobacco Use History - 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: Tobacco Use History - 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 Tobacco Use Smoking Status Current every day smoker 01/12/25 10:45 Hx Tobacco Use Yes 01/12/25 10:45 Years Smoking Packs Smoked per Day Smoking Cessation Date was within the last 15 years Hx Smoking Cessation Date Hx Smoking Cessation Counseling Any additional information?: Yes Smoking Status: Current every day smoker (Patient smoked today.) Hematologic Medial History Hematologic Hx - 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: 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 Hx of Blood Transfusion No 01/12/25 10:45 [...] confused, unrespo /Reproduction History /Reproductive History - 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: /Reproductive Hx- 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 Hx Now No 01/12/25 10:45 Gestational Age [...] MD Cosigner Signature: Date CC: ~ Signed [facility] Work Phone: Consult note Author Nathan Mcgrath [facility] Note Date/Time January 13, 2025 8:43am [facility] Medical Records Department [address] [place] [address] Anesthesia Postop Eval I 01/13/25 0842 MR#: [id number] Acct: [id number] Name: MARTINA PATTERSON Rep #:[id number] : 1965 59 From: Nathan Mcgrath PCP: Dr. Nestor Santiago MD Status :REG [facility] Y Race: C Location: [place] [address] Anesthesia: Postop Eval I Current Vital Signs [...] by Nathan Mcgrath > Date _ Nathan Lawtonignlynsey Signature: Date CC: ~ Signed [facility] Work Phone: evHappy Daysation noteNo assessment information available [facility] Work Phone: evaluation note* Diagnosis Encounter for [...] malignant neoplasms, colon documented in this encounter [facility] CenterEvaluation [facility]* Diagnosis Onset Date Resolution Status Common bile duct dilatation chronic Fatty liver chronic [facility] Work Phone: evaluation note* Diagnosis Mass of left breast, unspecified quadrant documented in this encounter [facility]* Diagnosis Mass of left breast, unspecified quadrant documented in this encounter [facility]* Diagnosis Onset Date Resolution Status Common bile duct dilatation chronic NAFLD (nonalcoholic fatty liver disease) chronic [facility] Work Phone: evaluation note* Diagnosis Encounter for screening mammogram for breast cancer documented in this encounter [facility]* Diagnosis Left hand pain Pain in limb documented in this encounter [facility]* Diagnosis Encounter for gynecological examination (general) (routine) without abnormal findings- Primary Encounter for screening mammogram for breast cancer documented [facility] Author Jose L Montana [facility] Note Date/Time January 13, 2025 7:49am [facility] Medical Records Department [address] [place] [address] History & Physical Exam 01/13/25 0748 MR#: [id number] Acct: [id number] Name: MARTINA PATTERSON Rep #:[id number] : 1965 59 From: Jose L Montana DO PCP: Dr. Nestor Santiago MD Status :[facility] Location: [place] [address] HPI - General General Date of Admission: 01/13/25 Date of Service: 01/13/25 Chief Complaint: Screening colonoscopy HPI Narrative MARTINA PATTERSON, is a 59 F who presents today for screening colonoscopy. She had a colonoscopy in the past that was normal. She does not have any abdominal pain. She past medical history of hypercholesterolemia along with gastroesophageal reflux disease that are all controlled medicines. [facility] Medical History Wears glasses Post-menopausal Depression Anxiety [...] Santiago MD; Jose L Montana DO~ Signed [facility] Work Phone: Reason for referral (narrative)* Outpatient Procedure (Routine) - Pending Review Specialty Diagnoses / Procedures Referred By Monica t Referred To Contact [facility] Diagnoses Special screening for malignant neoplasms, colon Procedures COLONOSCOPY SCREENING COLONOSCOPY FLX DX W/COLLJ SPEC WHEN PFJoyce Coreas MD [address] [place] [address] [facility] [address] [place] [address] Referral ID Status Reason Start Date Expiration Date Visits Requested Visits Authorized [id number] Pending Review Auto-Generat ed Referral 06/06/2022 06/06/2023 1 1 * Diagnostic Procedure Only (Routine) - Pending Review Specialty Diagnoses / Procedures Referred By Jeniac t Referred To Contact [facility] Diagnoses Mass of left breast, unspecified quadrant Procedures US BREAST LTD LT US BREAST UNI REAL TIME WITH IMAGE LIMITED Joyce Freitas MD [address] [place] [address] [facility] [address] [place] [address] Referral ID Status Reason Start Date Expiration Date Visits Requested Visits Authorized [id number] Pending Review Auto-Generat ed Referral 06/06/2022 07/06/2023 1 1 * Diagnostic Procedure Only (Routine) - Authorized Specialty Diagnoses / Procedures Referred By Monica reis Referred To Contact [facility] Diagnoses Mass of left breast, unspecified quadrant Procedures SARAH DIAGNOSTIC BILAT DIAGNOSTIC MAMMOGRAPHY COMPUTER-AIDED DETCJ BI Joyce Freitas MD [address] [place] [address] [facility] [address] [place] [address] Referral ID Status Reason Start Date Expiration Date Visits Requested Visits Authorized [id number] Authorized Auto-Generat ed Referral 06/06/2022 07/06/2023 1 1 [facility] for referral (narrative)* Diagnostic Procedure Only (Routine) - Closed Specialty Diagnoses / Procedures Referred By Monica reis Referred To Contact [facility] Diagnoses Mass of left breast, unspecified quadrant Procedures US BREAST LTD LT US BREAST UNI REAL TIME WITH IMAGE LIMITED Joyce Freitas MD [address] [place] [address] [facility] [address] [place] [address] Referral ID Status Reason Start Date Expiration Date V isits Requested Visits Authorized [id number] Closed Auto-Generate d Referral 06/06/2022 07/06/2023 1 1 [facility] for referral (narrative)* Diagnostic Procedure Only (Urgent) - Closed Specialty Diagnoses / Procedures Referred By Contac t Referred To Contact [facility] Diagnoses Left hand pain Procedures XR HAND GENERAL 3V PA/LAT/OBL LT X-RAY HAND MINIMUM 3 VIEWS Nasreen Rebollar, JONE.IN PROCESSING INSTRUCTOR [address] [place] [address] [place] [address] Referral ID Status Reason Start Date Expiration Date V isits Requested Visits Authorized [id number] Closed Auto-Generate d Referral 02/18/2021 05/10/2021 1 1 [facility] for referral (narrative)No reason for referral information availableWMercy [facility] Work Phone: Reason for visit Narrative* Diagnostic Procedure Only (Routine) - Closed Specialty Diagnoses / Procedures [facility] Diagnoses Mass of left breast, unspecified quadrant Procedures SARAH DIAGNOSTIC BILAT DIAGNOSTIC MAMMOGRAPHY COMPUTER-AIDED DETCJ BI Joyce Freitas MD [address] [place] [address] [facility] [address] [place] [address] Referral ID Status Reason Start Date Expiration Date V isits Requested Visits Authorized [id number] Closed Auto-Generate d Referral 06/06/2022 07/06/2023 1 1 [facility] for visit Narrative* Diagnostic Procedure Only (Routine) - Closed Specialty Diagnoses / Procedures [facility] Diagnoses Encounter for screening mammogram for breast cancer Procedures SARAH SCREENING W AME SCREENING DIGITAL BREAST TOMOSYNTHESIS BI SCREENING MAMMOGRAPHY BI 2-VIEW BREAST INC CAD Breanna Ng MD [address] [place] [address] [facility] [address] [place] [address] Referral ID Status Reason Start Date Expiration Date V isits Requested Visits Authorized [id number] Closed Auto-Generate d Referral 06/10/2023 07/09/2024 1 1 [facility]* Diagnostic Procedure Only (Urgent) - Closed Specialty Diagnoses / Procedures Referred By Contac t Referred To Contact [facility] Diagnoses Left hand pain Procedures XR HAND GENERAL 3V PA/LAT/OBL LT X-RAY HAND MINIMUM 3 VIEWS Nasreen Rebollar, MANAGER CULINARY.IN PROCESSING INSTRUCTOR [address] [place] [address] [place] [address] Referral ID Status Reason Start Date Expiration Date V isits Requested Visits Authorized [id number] Closed Auto-Generate d Referral 02/18/2021 05/10/2021 1 1 [facility] Chief Complaint and Reason for [...] Will No January 06 11:56am Power of City Planning Aide No January 06 11:56am Advance Directive Response Recorded Date/ Time Living Will No April 24 11:45am Power of City Planning Aide No April 24, 2023 11:45am Advance Directive Response Recorded Date/ Time Living Will No April 24 12:45pm Power of City Planning Aide No April 24, 2023 12:45pm Advance Directive Response Recorded Date/ Time Do you have a Healthcare Power of City Planning Aide? No January 12, 2025 10:45am Summary Purpose [...] or prosecute any alcohol or drug abuse patient.[facility] the event this information is protected by the Federal Confidentiality of Alcohol and Drug Abuse Patient Records regulations: The Federal rules restrict any use of the information to criminally investigate or prosecute any alcohol or drug abuse patient.[facility] the event this information is protected by the Federal Confidentiality of Alcohol and Drug Abuse Patient Records regulations: The Federal rules restrict any use of the information to criminally investigate or prosecute any alcohol or drug abuse patient.[facility] the event this information is protected by the Federal Confidentiality of Alcohol and Drug Abuse Patient Records regulations: The Federal rules restrict any use of the information to criminally investigate or prosecute any alcohol or drug abuse patient.[facility] the event this information is protected by the Federal Confidentiality of Alcohol and Drug Abuse Patient Records regulations: The Federal rules restrict any use of the information to criminally investigate or prosecute any alcohol or drug abuse patient.[facility] the event this information is protected by the Federal Confidentiality of Alcohol and Drug Abuse Patient Records regulations: The Federal rules restrict any use of the information to criminally investigate or prosecute any alcohol or drug abuse patient.[facility] Center[facility] the event this information is protected by the Federal Confidentiality of Alcohol and Drug Abuse Patient Records regulations: The Federal rules restrict any use of the information to criminally investigate or prosecute any alcohol or drug abuse patient.[facility] Center[facility] the event this information is protected by the Federal Confidentiality of Alcohol and Drug Abuse Patient Records regulations: The Federal rules restrict any use of the information to criminally investigate or prosecute any alcohol or drug abuse patient.[facility] Center[facility] the event this information is protected by the Federal Confidentiality of Alcohol and Drug Abuse Patient Records regulations: The Federal rules restrict any use of the information to criminally investigate or prosecute any alcohol or drug abuse patient.[facility] Center[facility] the event this information is protected by the Federal Confidentiality of Alcohol and Drug Abuse Patient Records regulations: The Federal rules restrict any use of the information to criminally investigate or prosecute any alcohol or drug abuse patient.[facility] Center[facility] the event this information is protected by the Federal Confidentiality of Alcohol and Drug Abuse Patient Records regulations: The Federal rules restrict any use of the information to criminally investigate or prosecute any alcohol or drug abuse patient.[facility] Reason for Visit (unrecogniz ed section and content) Reason Comments [facility] Reason Comments External Results - Mammogram Reason Comments Radiology US Specialty Diagnoses / Procedures Referred By Contac t Referred To Contact [facility] Diagnoses Mass of left breast, unspecified quadrant Procedures US BREAST LTD LT US BREAST UNI REAL TIME WITH IMAGE LIMITED Joyce Freitas MD [address] [place] [address] [facility] [address] [place] [address] Referral ID Status Reason Start Date Expiration Date V isits Requested Visits Authorized [id number] Closed Auto-Generate d Referral 06/06/2022 07/06/2023 1 [...] Oscar Friedman MD Attending Provider, Referring P rovider Active Team Status: Inactive Member Role Status [...] section and content) DATE CREATED AUTHOR 09/14/2024 [facility] DATE CREATED AUTHOR AUTHOR'S ORGANIZ ATION 03/22/2025 [facility] FOR RECORDS PERTAINING TO PATIENTS [...] BE BASED ON THE PRIMARY CLINICAL RECORDS. [facility] [employer] [facility]. provides no warranty or guarantee of the accuracy or completeness of information in this document.
== END | disposition home or self-care (01) ==
LOC: US 07:22
PROVIDERS: PCP Family Medicine; Referring Provider Internal Medicine; Visit Provider Internal Medicine
DX: K76.0 Fatty (change of) liver, not elsewhere classified (principal); E78.5 Hyperlipidemia, unspecified; R73.03 Prediabetes; K83.8 Other specified diseases of biliary tract
CPT/HCPCS: 76705; 76981